=== PATIENT | male | born 1930 | race Caucasian/White ===

== ENCOUNTER → 2016-08-20 | Outpatient (CLI) | payer MEDICARE ==
[~2016-08-20] VITALS: Ht 172.7 cm; Wt 73.5 kg
[~2016-08-20] MED LIST: ACET-1697 PO; ACET-77 PO; ACETAMINOPHEN 325 MG TABLET/CAPLET (TYLENOL) ONE; ACETAMINOPHEN 325 MG TABLET/CAPLET (TYLENOL) PO ONE; ACHD5005 PO; ALPR0.5T7 PO; AML2.5T PO; AML5T; ASP81CT PO; ASPI-983 PO; ASPI325T4 PO; BETH25TA PO; BTH25T1 PO; CALC600T PO; CALC625T PO; CARB1TAB19 PO; CARB1TAB6 PO; CARBIDOPA PO; CHOL200049 PO; CIPR-226 PO; CLOP75TA PO; CLOP75TA28 PO; CLPD75T PO; CPR250T PO; CPR500T PO; Calcium PO; DOXA2TAB2 PO; DXZS2T; DXZS2T PO; FINA5TAB6 PO; FISH12002 PO; FURO40TA4 PO; GLUC-113 PO; GLUC100016 PO; HCTZ12.5T; INSR1U SC; IPRA3AMP INH; ISM60TCR PO; LOVA20TA2 PO; MENT71OI TOP; NIAC400C2 PO; NORM2DIS3 IV; NS IV 500 ML 500 ML ONE; OMG1KC PO; PANT40TA3 PO; PHEN200T27 PO; RMP2.5C; ROPI4TAB3 PO; TAMS0.4C2 PO; TRAM50TA2 PO; [UNRECOGNIZED DRUG - CODE] PO; [UNRECOGNIZED DRUG - OTHER] PO; [UNRECOGNIZED DRUG - OTHER] PO; diphenhydrAMINE 25 MG TAB (BENADRYL) PO ONE; diphenhydrAMINE 50 MG/ML INJ (BENADRYL) IVP ONE
--- OUTSIDE RECORDS SUMMARY | 2016-08-20 08:17 | XMS REPORT | Continuity of Care Document ---
Author Author [facility] Organization [facility] Address Unknown Phone Unavailable Care Team Providers Care Process Engineering Intern Name Role Phone INGRID NICOLE DO PCP Insurance Providers Payer Name Policy Number Subscriber Name Relationship Wps Medicare [id number] Mario Kirby 17 Self / Same As Patient Advance Directives Directive Response Recorded Date/Time Advance Directives No 09/06/14 10:20am Health Care Power of Holistic Health Practitioner No 09/06/14 10:20am Organ Donor No 09/06/14 10:20am Resuscitation Status Full Code 09/06/14 10:20am Problems Medical Problems Problem Onset Date Status Anemia 09/04/2014 Active Medications Medication Dose Route Sig Days/Qty Instructions Order Date Discontinued Date Status Amlodipine Besylate 02/09/07 01/08/12 Discontinued Hydrochlorothiazide 02/09/07 01/08/12 Discontinued Doxazosin Mesylate 02/09/07 09/07/12 Discontinued [Carbidopa 25/100] 25 - 100 Mg PO TWICE A DAY 02/09/07 03/01/12 Discontinued Ramipril 02/09/07 01/08/12 Discontinued Aspirin 81 Mg PO DAILY 02/09/07 09/09/14 Discontinued Calcium Polycarbophil 1 Tab PO DAILY 01/08/12 09/04/14 Discontinued Fish Oil 1,000 Mg PO TWICE A DAY 01/08/12 09/06/14 Discontinued Calcium Carbonate 1 Tab PO DAILY @ 1200 01/08/12 Active Lovastatin (Mevacor) 20 Mg PO BEDTIME 01/08/12 Active Selegiline Hcl 5 Mg PO TWICE A DAY 01/08/12 09/04/14 Discontinued Clopidogrel Bisulfate 75 Mg PO DAILY 01/08/12 09/07/12 Discontinued Furosemide (Lasix) 40 Mg PO Q72H TAKES EVERY 3RD DAY 01/08/12 Active Ciprofloxacin 1 Tab PO TWICE A DAY 20 Qty 01/08/12 03/01/12 Discontinued Finasteride 5 Mg PO DAILY 03/01/12 09/07/12 Discontinued Glucosamine Sulfate 2KCL 15,000 Mg PO TWICE A DAY 03/01/12 09/04/14 Discontinued Niacin 500 Mg PO DAILY 03/01/12 09/07/12 Discontinued Carbidopa/Levodopa 2 Tab PO THREE TIMES A DAY 03/01/12 Active Tamsulosin Hcl 0.4 Mg PO DAILY 03/01/12 09/07/12 Discontinued Ropinirole Hcl 4 Mg PO DAILY 04/26/12 09/07/12 Discontinued Ciprofloxacin HCl 1 Tab PO TWICE A DAY 10 Qty 05/03/12 09/07/12 Discontinued Bethanechol Chloride 25 Mg PO FOUR TIMES DAILY 05/03/12 Active Doxazosin Mesylate 2 Mg PO BEDTIME 09/07/12 09/04/14 Discontinued Cholecalciferol (Vitamin D3) 2,000 Unit PO DAILY 09/04/14 Active Clopidogrel Bisulfate 75 Mg PO DAILY 09/04/14 09/09/14 Discontinued [Proferrin-Forte] 1 Tab PO BEDTIME 12 mg elemental iron as heme iron polypeptide, and 1 mg folic acid. 09/04/14 Active Gluc 2KCL/Chondr/Dakota Hy/Hy Ac 1 Cap PO TWICE A DAY 09/04/14 Active Fish Oil/Borage/Flax/Om3,6,9#1 1,200 Mg PO TWICE A DAY 09/06/14 Active Clopidogrel Bisulfate 75 Mg PO DAILY 09/06/14 09/06/14 Discontinued Acetaminophen 1,000 Mg PO THREE TIMES A DAY PRN PAIN 09/06/14 Active Amlodipine Besylate 2.5 Mg PO DAILY 60 Qty 09/09/14 Active Aspirin 325 Mg PO DAILY@0900 100 Qty 09/09/14 Active Doxazosin Mesylate 2 Mg PO TWICE A DAY 60 Qty 09/09/14 Active Social History Social History Problem Response Recorded Date/Time Alcohol Use Denies Use 09/06/2014 10:21am Recreational Drug Use No 09/06/2014 10:21am Recent Foreign Travel No 09/06/2014 10:25am Recent Infectious Disease Exposure No 09/06/2014 10:21am Smoking Status Never a Smoker 09/06/2014 10:23am Query Response Start Date Stop Date Smoking Status Never a Smoker Hospital Discharge Instructions No hospital discharge instructions. Plan of Care Discharge Date 09/09/14 1:48pm Disposition 30 STILL A PATIENT Instructions/Education Provided Carotid Endarterectomy (DC) Forms Provided PDI Surgical Prescriptions See Medications Section Follow-up Orders Other Outpatient Order Referrals DR PRUETT (Unspecified) Reason(s) for Referral: CALL THURSDAY MAKE APPOINTMENT TO BE SEEN THAT WEEK DR CHAPPELL (Unspecified) Reason(s) for Referral: CALL THURSDAY MAKE APPOINTMENT TO BE SEEN Thursday Additional Instructions/Education MAY USE IBUPROFEN 400 MG BY MOUTH EVERY 6 HOURS NEEDED FOR PAIN. TAKE WITH FOOD. IBUPROFEN IS THE SAME ADVIL. CAN BE BOUGHT OVER THE COUNTER I CALLED YOUR PRESCRIPTIONS TO [facility] Care Plan and Goals Dr. Pruett called on 09/07/14 about patient urinary issues and bleeding in reyes. Dr. Pruett suggested to send pt home with reyes catheter due to traumatic reyes insertion and to follow up with him next week 09/11-09/15 CALL TO MAKE APPT To see Dr. Epps next Thursday BEFORE OTHER APPOINTMENT Functional Status Query Response Date Recorded Comprehension Ability Understands Concepts September 09, 2014 8:00am Allergies, Adverse Reactions, Alerts Allergen Type Severity Reaction Status Last Updated sulfamethoxazole ([id number]) Allergy Mild KIDNEY DAMAGE Active 01/08/12 Trimethoprim Allergy Mild KIDNEY DAMAGE Active 01/08/12 milk ([id number]) Allergy Unknown Active 09/17/06 IV DYE Allergy Mild KIDNEY DAMAGE Active 01/08/12 NSAIDS Allergy Mild KIDNEY DAMAGE Active 01/08/12 Immunizations Name Given Type Date of Pneumonia Vaccine 01/20/07 Historical Tetanus Booster (TDap) More than 5yrs Historical pneumococcal polysaccharide PPV23 09/07/14 Administered influenza, split (incl. purified surface antigen) 09/07/14 Administered Vital Signs Acute Vital Signs Vital Response Date/Time Temperature (Fahrenheit) 99.0 degrees F (97.6 - 99.5) Temperature (Calculated Celsius) 37.54071 degrees C (36.4 - 37.5) Temperature Source Temporal Pulse Rate (adult) 52 bpm (60 - 90) Respiratory Rate 31 bpm (12 - 24) O2 Sat by Pulse Oximetry 96 % (88 - 100) Blood Pressure 105/60 mm Hg Pain Pain Intensity 6 Height (Feet) 5 feet Height (Inches) 8.00 inches Height (Calculated Centimeters) 172.703075 cm Weight (Pounds) 170 pounds Weight (Ounces) 2.0 oz Weight (Calculated Grams) 64694.704 gm Weight (Calculated Kilograms) 77.555715 kilograms Calculated BMI 25.24 Results Laboratory Results Test Name Result Units Flags Reference Collection Date/Time Result Date/ Time Comments Stool Occult Blood Immunoassay NEGATIVE NEGATIVE 08/24/2014 4:00pm 6:25pm White Blood Count 8.5 10^3/uL 4.3-11.0 09/04/2014 4:35pm 09/04/2014 4: 45pm Red Blood Count 3.27 10^6/uL L 4.35-5.85 09/04/2014 4:35pm 09/04/2014 4: 45pm Hemoglobin 8.6 G/DL #L 13.3-17.7 09/04/2014 4:35pm 09/04/2014 4:45pm Hematocrit 27 % L 40-54 09/04/2014 4:35pm 09/04/2014 4:45pm Mean Corpuscular Volume 84 FL 80-99 09/04/2014 4:35pm 09/04/2014 4: 45pm Mean Corpuscular Hemoglobin 26 PG 25-34 09/04/2014 4:35pm 09/04/2014 4: 45pm Mean Corpuscular Hemoglobin Concent 32 G/DL 32-36 09/04/2014 4:35pm 4:45pm Red Cell Distribution Width 14.5 % 10.0-14.5 09/04/2014 4:35pm 2014 4:45pm Platelet Count 383 10^3/uL 130-400 09/04/2014 4:35pm 09/04/2014 4:45pm Mean Platelet Volume 8.7 FL 7.4-10.4 09/04/2014 4:35pm 09/04/2014 4: 45pm White Blood Count 6.4 10^3/uL 4.3-11.0 09/04/2014 9:35am 09/04/2014 10: 01am Red Blood Count 2.39 10^6/uL L 4.35-5.85 09/04/2014 9:35am 09/04/2014 10: 01am Hemoglobin 6.1 G/DL CL 13.3-17.7 09/04/2014 9:35am 09/04/2014 10:01am RESULTS CALLED TO MASHA GAGNON RN AT 1000. RESULTS READ BACK: YES. Hematocrit 20 % CL 40-54 09/04/2014 9:35am 09/04/2014 10:01am RESULTS CALLED TO MASHA AT 1000 RESULTS READ BACK: YES. Mean Corpuscular Volume 83 FL 80-99 09/04/2014 9:35am 09/04/2014 10: 01am Mean Corpuscular Hemoglobin 26 PG 25-34 09/04/2014 9:35am 09/04/2014 10 :01am Mean Corpuscular Hemoglobin Concent 31 G/DL L 32-36 09/04/2014 9:35am 10:01am Red Cell Distribution Width 14.8 % H 10.0-14.5 09/04/2014 9:35am 2014 10:01am Platelet Count 384 10^3/uL 130-400 09/04/2014 9:35am 09/04/2014 10: 01am Mean Platelet Volume 8.8 FL 7.4-10.4 09/04/2014 9:35am 09/04/2014 10: 01am Neutrophils (%) (Auto) 65 % 42-75 09/04/2014 9:35am 09/04/2014 10:01am Lymphocytes (%) (Auto) 19 % 12-44 09/04/2014 9:35am 09/04/2014 10:01am Monocytes (%) (Auto) 7 % 0-12 09/04/2014 9:35am 09/04/2014 10:01am Eosinophils (%) (Auto) 8 % 0-10 09/04/2014 9:35am 09/04/2014 10:01am Basophils (%) (Auto) 1 % 0-10 09/04/2014 9:35am 09/04/2014 10:01am Neutrophils # (Auto) 4.2 X 10^3 1.8-7.8 09/04/2014 9:35am 09/04/2014 10 :01am Lymphocytes # (Auto) 1.2 X 10^3 1.0-4.0 09/04/2014 9:35am 09/04/2014 10 :01am Monocytes # (Auto) 0.5 X 10^3 0.0-1.0 09/04/2014 9:35am 09/04/2014 10: 01am Eosinophils # (Auto) 0.5 10^3/uL H 0.0-0.3 09/04/2014 9:35am 09/04/2014 10:01am Basophils # (Auto) 0.0 10^3/uL 0.0-0.1 09/04/2014 9:35am 09/04/2014 10: 01am Prothrombin Time 14.5 SEC 12.2-14.7 09/04/2014 9:35am 09/04/2014 10: 10am INR Comment 1.2 0.8-1.4 09/04/2014 9:35am 09/04/2014 10:10am INTERPRETIVE DATA SUGGESTED THERAPEUTIC RANGE FOR INR'S: VENOUS THROMBOSIS, PULMONARY EMBOLISM, OR PREVENTION OF SYSTEMIC EMBOLISM (EG. IN ATRIAL FIBRILLATION): 2.0 - 3.0 MECHANICAL PROSTHETIC HEART VALVES: 2.5 - 3.5* *NOTE: INR'S UP TO 4.5 MAY BE NECESSARY IN SELECTED GROUPS OF HIGH RISK PATIENTS. [employer]IX[employer] [place] COL[employer] OF CHEST PHYSICIANS CONSENSUS CONFERENCE ON ANTITHROMBOTIC THERAPY (2000). Sodium Level 143 MMOL/L 135-145 09/04/2014 9:35am 09/04/2014 10:12am Potassium Level 4.2 MMOL/L 3.6-5.0 09/04/2014 9:35am 09/04/2014 10: 12am Chloride Level 114 MMOL/L H 98-107 09/04/2014 9:35am 09/04/2014 10:12am Carbon Dioxide Level 20 MMOL/L L 21-32 09/04/2014 9:35am 09/04/2014 10: 12am Blood Urea Nitrogen 45 MG/DL H 7-18 09/04/2014 9:35am 09/04/2014 10:12am Creatinine 2.59 MG/DL H 0.60-1.30 09/04/2014 9:35am 09/04/2014 10:12am BUN/Creatinine Ratio 17 09/04/2014 9:35am 09/04/2014 10:12am Estimat Glomerular Filtration Rate 24 09/04/2014 9:35am 09/04/2014 10:12am GFR INTERPRETIVE DATA UNITS FOR ESTIMATED GFR (eGFR): mL/min/1.73 M2 REFERENCE RANGE FOR ESTIMATED GFR (eGFR) eGFR NORMAL eGFR >60 MODERATELY DECREASED eGFR 30-59 SEVERLY DECREASED eGFR 15-29 KIDNEY FAILURE <15 (OR DIALYSIS) Glucose Level 111 MG/DL H 70-105 09/04/2014 9:35am 09/04/2014 10:12am Calcium Level 8.8 MG/DL 8.5-10.1 09/04/2014 9:35am 09/04/2014 10:12am White Blood Count 8.9 10^3/uL 4.3-11.0 09/09/2014 6:45am 09/09/2014 7: 03am Red Blood Count 3.43 10^6/uL L 4.35-5.85 09/09/2014 6:45am 09/09/2014 7: 03am Hemoglobin 9.2 G/DL L 13.3-17.7 09/09/2014 6:45am 09/09/2014 7:03am Hematocrit 29 % L 40-54 09/09/2014 6:45am 09/09/2014 7:03am Mean Corpuscular Volume 83 FL 80-99 09/09/2014 6:45am 09/09/2014 7: 03am Mean Corpuscular Hemoglobin 27 PG 25-34 09/09/2014 6:45am 09/09/2014 7: 03am Mean Corpuscular Hemoglobin Concent 32 G/DL 32-36 09/09/2014 6:45am 7:03am Red Cell Distribution Width 15.9 % H 10.0-14.5 09/09/2014 6:45am 2014 7:03am Platelet Count 271 10^3/uL 130-400 09/09/2014 6:45am 09/09/2014 7:03am Mean Platelet Volume 9.7 FL 7.4-10.4 09/09/2014 6:45am 09/09/2014 7: 03am Neutrophils (%) (Auto) 73 % 42-75 09/09/2014 6:45am 09/09/2014 7:03am Lymphocytes (%) (Auto) 13 % 12-44 09/09/2014 6:45am 09/09/2014 7:03am Monocytes (%) (Auto) 12 % 0-12 09/09/2014 6:45am 09/09/2014 7:03am Eosinophils (%) (Auto) 2 % 0-10 09/09/2014 6:45am 09/09/2014 7:03am Basophils (%) (Auto) 0 % 0-10 09/09/2014 6:45am 09/09/2014 7:03am Neutrophils # (Auto) 6.4 X 10^3 1.8-7.8 09/09/2014 6:45am 09/09/2014 7: 03am Lymphocytes # (Auto) 1.2 X 10^3 1.0-4.0 09/09/2014 6:45am 09/09/2014 7: 03am Monocytes # (Auto) 1.0 X 10^3 0.0-1.0 09/09/2014 6:45am 09/09/2014 7: 03am Eosinophils # (Auto) 0.2 10^3/uL 0.0-0.3 09/09/2014 6:45am 09/09/2014 7 :03am Basophils # (Auto) 0.0 10^3/uL 0.0-0.1 09/09/2014 6:45am 09/09/2014 7: 03am Neutrophils % (Manual) 60 % 09/06/2014 11:30am 09/06/2014 11:47am Band Neutrophils 6 % 09/06/2014 11:30am 09/06/2014 11:47am Lymphocytes % (Manual) 20 % 09/06/2014 11:30am 09/06/2014 11:47am Monocytes % (Manual) 8 % 09/06/2014 11:30am 09/06/2014 11:47am Eosinophils % (Manual) 6 % 09/06/2014 11:30am 09/06/2014 11:47am Basophils % (Manual) 0 % 09/06/2014 11:30am 09/06/2014 11:47am Blood Morphology Comment NORMAL 09/06/2014 11:30am 09/06/2014 11: 47am Urine Color YELLOW 09/07/2014 4:15pm 09/07/2014 4:40pm Urine Clarity SLIGHTLY CLOUDY 09/07/2014 4:15pm 09/07/2014 4:40pm Urine pH 6 5-9 09/07/2014 4:15pm 09/07/2014 4:40pm Urine Specific [place] 1.010 * 1.016-1.022 09/07/2014 4:15pm 2014 4:40pm Urine Protein 3+ * NEGATIVE 09/07/2014 4:15pm 09/07/2014 4:40pm Urine Glucose (UA) NEGATIVE NEGATIVE 09/07/2014 4:15pm 09/07/2014 4: 40pm Urine RBC (Auto) 5+ * NEGATIVE 09/07/2014 4:15pm 09/07/2014 4:40pm Urine Ketones NEGATIVE NEGATIVE 09/07/2014 4:15pm 09/07/2014 4:40pm Urine Nitrite NEGATIVE NEGATIVE 09/07/2014 4:15pm 09/07/2014 4:40pm Urine Bilirubin NEGATIVE NEGATIVE 09/07/2014 4:15pm 09/07/2014 4: 40pm Urine Urobilinogen NORMAL MG/DL NORMAL 09/07/2014 4:15pm 09/07/2014 4: 40pm Urine Leukocyte Esterase 3+ * NEGATIVE 09/07/2014 4:15pm 09/07/2014 4: 40pm Urine RBC >100 /HPF * 09/07/2014 4:15pm 09/07/2014 4:40pm Urine WBC TNTC /HPF * 09/07/2014 4:15pm 09/07/2014 4:40pm Urine Bacteria MODERATE /HPF * 09/07/2014 4:15pm 09/07/2014 4:40pm Urine Crystals NONE /LPF 09/07/2014 4:15pm 09/07/2014 4:40pm Urine Casts NONE /LPF 09/07/2014 4:15pm 09/07/2014 4:40pm Urine Mucus NEGATIVE /LPF 09/07/2014 4:15pm 09/07/2014 4:40pm Urine Culture Indicated YES 09/07/2014 4:15pm 09/07/2014 4:40pm Sodium Level 142 MMOL/L 135-145 09/09/2014 6:45am 09/09/2014 7:30am Potassium Level 4.4 MMOL/L 3.6-5.0 09/09/2014 6:45am 09/09/2014 7:30am Chloride Level 115 MMOL/L H 98-107 09/09/2014 6:45am 09/09/2014 7:30am Carbon Dioxide Level 18 MMOL/L L 21-32 09/09/2014 6:45am 09/09/2014 7: 30am Blood Urea Nitrogen 36 MG/DL H 7-18 09/09/2014 6:45am 09/09/2014 7:30am Creatinine 1.96 MG/DL H 0.60-1.30 09/09/2014 6:45am 09/09/2014 7:30am BUN/Creatinine Ratio 18 09/09/2014 6:45am 09/09/2014 7:30am Estimat Glomerular Filtration Rate 33 09/09/2014 6:45am 09/09/2014 7:30am GFR INTERPRETIVE DATA UNITS FOR ESTIMATED GFR (eGFR): mL/min/1.73 M2 REFERENCE RANGE FOR ESTIMATED GFR (eGFR) eGFR NORMAL eGFR >60 MODERATELY DECREASED eGFR 30-59 SEVERLY DECREASED eGFR 15-29 KIDNEY FAILURE <15 (OR DIALYSIS) Glucose Level 116 MG/DL H 70-105 09/09/2014 6:45am 09/09/2014 7:30am Glucometer 271 MG/DL H 70-110 09/09/2014 10:27am 09/09/2014 10:34am Calcium Level 8.2 MG/DL L 8.5-10.1 09/09/2014 6:45am 09/09/2014 7:30am Hemoglobin A1c 4.0 % L 4.5-6.2 09/09/2014 6:45am 09/09/2014 7:37am White Blood Count 7.7 10^3/uL 4.3-11.0 09/05/2014 4:45pm 09/05/2014 4: 51pm Red Blood Count 3.69 10^6/uL L 4.35-5.85 09/05/2014 4:45pm 09/05/2014 4: 51pm Hemoglobin 9.7 G/DL L 13.3-17.7 09/05/2014 4:45pm 09/05/2014 4:51pm Hematocrit 30 % L 40-54 09/05/2014 4:45pm 09/05/2014 4:51pm Mean Corpuscular Volume 82 FL 80-99 09/05/2014 4:45pm 09/05/2014 4: 51pm Mean Corpuscular Hemoglobin 26 PG 25-34 09/05/2014 4:45pm 09/05/2014 4: 51pm Mean Corpuscular Hemoglobin Concent 32 G/DL 32-36 09/05/2014 4:45pm 4:51pm Red Cell Distribution Width 15.0 % H 10.0-14.5 09/05/2014 4:45pm 2014 4:51pm Platelet Count 293 10^3/uL 130-400 09/05/2014 4:45pm 09/05/2014 4:51pm Mean Platelet Volume 8.6 FL 7.4-10.4 09/05/2014 4:45pm 09/05/2014 4: 51pm Microbiology Results Procedure Source Result Collection Date/Time Result Date/Time Urine Culture Urine, Clean Catch STAPH, COAG NEG (WOODWORKING MACHINE OFFBEARER) 09/07/2014 4:15pm 11:00am Procedures Procedure Status Date Provider(s) Carotid endarterectomy completed 09/06/14 MARIO CHAPPELL MD Tracing only of electrocardiogram completed 09/04/14 MARIO CHAPPELL MD Encounters Encounter Location Date/Time Discharged Inpatient Via [facility] 09/06/14 8:55am Departed Clinic Via [facility] 09/05/14 9:10am Discharged Inpatient Via [facility] 09/04/14 10:25am Registered Clinic Via [facility] 09/04/14 9:00am Registered Recurring Via [facility] 08/24/14 4:00pm
[2016-08-20 09:56] VITALS: BP_SYST 116; BP_SYST 125; BP_DIAS 60; BP_DIAS 63
[2016-08-20 10:10] VITALS: BP 114/62
[2016-08-20 12:05] VITALS: BP 104/54
[2016-08-20 12:15] VITALS: BP 104/54
== END ==
LOC: SDC 08:11
PROVIDERS: ATTEND Family Medicine
DX: D64.9 Anemia, unspecified (principal)
CPT/HCPCS: 36430; 86850; 86900; 86901; 86920

== ENCOUNTER → 2016-08-22 | Outpatient (CLI) | payer MEDICARE ==
[~2016-08-22] MED LIST changes: -ACETAMINOPHEN 325 MG TABLET/CAPLET (TYLENOL) ONE; -ACETAMINOPHEN 325 MG TABLET/CAPLET (TYLENOL) PO ONE; -NS IV 500 ML 500 ML ONE; -diphenhydrAMINE 25 MG TAB (BENADRYL) PO ONE; -diphenhydrAMINE 50 MG/ML INJ (BENADRYL) IVP ONE
--- OUTSIDE RECORDS SUMMARY | 2016-08-22 08:38 | XMS REPORT | Continuity of Care Document ---
Author Author [facility] Organization [facility] Address Unknown Phone Unavailable Care Team Providers Care Medical Lab Technician Name Role Phone INGRID NICOLE DO PCP Insurance Providers Payer Name Policy Number Subscriber Name Relationship Wps Medicare [id number] Mario Kirby 17 Self / Same As Patient Advance Directives Directive Response Recorded Date/Time Advance Directives No 09/06/14 10:20am Health Care Power of Tooth Cutter Clutch No 09/06/14 10:20am Organ Donor No 09/06/14 [...] THE COUNTER I CALLED YOUR PRESCRIPTIONS TO [facility] Care Plan and Goals Dr. [...] Type Severity Reaction Status Last Updated sulfamethoxazole ([id number]) Allergy Mild KIDNEY DAMAGE Active 01/08/12 Trimethoprim Allergy Mild KIDNEY DAMAGE Active 01/08/12 milk ([id number]) Allergy Unknown Active 09/17/06 IV DYE Allergy [...] F (97.6 - 99.5) Temperature (Calculated Celsius) 37.08295 degrees C (36.4 - 37.5) Temperature Source Temporal Pulse Rate (adult) 52 bpm (60 - 90) Respiratory Rate 31 bpm (12 - 24) O2 Sat by Pulse Oximetry 96 % (88 - 100) Blood Pressure 105/60 mm Hg Pain Pain Intensity 6 Height (Feet) 5 feet Height (Inches) 8.00 inches Height (Calculated Centimeters) 172.001765 cm Weight (Pounds) 170 pounds Weight (Ounces) 2.0 oz Weight (Calculated Grams) 40850.704 gm Weight (Calculated Kilograms) 77.300824 kilograms Calculated BMI 25.24 Results Laboratory Results [...] SELECTED GROUPS OF HIGH RISK PATIENTS. [employer] [employer] CONSENSUS CONFERENCE ON [...] 5-9 09/07/2014 4:15pm 09/07/2014 4:40pm Urine Specific [place] 1.010 * 1.016-1.022 09/07/2014 4:15pm 2014 4:40pm [...] Culture Urine, Clean Catch STAPH, COAG NEG (INDEPENDENT MARKETING CONSULTANT) 09/07/2014 4:15pm 11:00am Procedures Procedure Status Date Provider(s) Carotid endarterectomy completed 09/06/14 MARIO CHAPPELL MD Tracing only of electrocardiogram completed 09/04/14 MARIO CHAPPELL MD Encounters Encounter Location Date/Time Discharged Inpatient Via [facility] 09/06/14 8:55am Departed Clinic Via [facility] 09/05/14 9:10am Discharged Inpatient Via [facility] 09/04/14 10:25am Registered Clinic Via [facility] 09/04/14 9:00am Registered Recurring Via [facility] 08/24/14 4:00pm
[2016-08-22 08:48] LABS: MEAN PLATELET VOLUME 8.3 FL (7.4-10.4); RED BLOOD COUNT 2.65 10^6/uL (4.35-5.85); RED CELL DISTRIBUTION WIDTH 15.6 % (10.0-14.5); WHITE BLOOD COUNT 6.1 10^3/uL (4.3-11.0)
== END ==
LOC: LAB 08:34
PROVIDERS: ATTEND Family Medicine
DX: D64.9 Anemia, unspecified (principal)
CPT/HCPCS: 36415; 85027

== ENCOUNTER 2016-08-29 12:00 | Inpatient (IN) | payer MEDICARE ==
[~2016-08-29] VITALS: Ht 177.8 cm; Wt 71.2 kg
[~2016-08-29 12:00] MED LIST changes: -ACET-77 PO; -ALPR0.5T7 PO; -ASPI-983 PO; -BETH25TA PO; -CARB1TAB19 PO; -IPRA3AMP INH; -ISM60TCR PO; -MENT71OI TOP; -NORM2DIS3 IV; -PANT40TA3 PO; -TRAM50TA2 PO; -[UNRECOGNIZED DRUG - OTHER] PO
--- OUTSIDE RECORDS SUMMARY | 2016-08-29 12:07 | XMS REPORT | Continuity of Care Document ---
Author Author [facility] Organization [facility] Address Unknown Phone Unavailable Care Team Providers Care Wireless Team Member Name Role Phone INGRID NICOLE DO PCP Insurance Providers Payer Name Policy Number Subscriber Name Relationship Wps Medicare [id number] Mario Kirby 17 Self / Same As Patient Advance Directives Directive Response Recorded Date/Time Advance Directives No 09/06/14 10:20am Health Care Power of Consulting Practice Manager No 09/06/14 10:20am Organ Donor No 09/06/14 [...] THE COUNTER I CALLED YOUR PRESCRIPTIONS TO [facility] Care Plan and Goals Dr. [...] Type Severity Reaction Status Last Updated sulfamethoxazole ([id number]) Allergy Mild KIDNEY DAMAGE Active 01/08/12 Trimethoprim Allergy Mild KIDNEY DAMAGE Active 01/08/12 milk ([id number]) Allergy Unknown Active 09/17/06 IV DYE Allergy [...] F (97.6 - 99.5) Temperature (Calculated Celsius) 37.30555 degrees C (36.4 - 37.5) Temperature Source Temporal Pulse Rate (adult) 52 bpm (60 - 90) Respiratory Rate 31 bpm (12 - 24) O2 Sat by Pulse Oximetry 96 % (88 - 100) Blood Pressure 105/60 mm Hg Pain Pain Intensity 6 Height (Feet) 5 feet Height (Inches) 8.00 inches Height (Calculated Centimeters) 172.700521 cm Weight (Pounds) 170 pounds Weight (Ounces) 2.0 oz Weight (Calculated Grams) 69701.704 gm Weight (Calculated Kilograms) 77.323530 kilograms Calculated BMI 25.24 Results Laboratory Results [...] SELECTED GROUPS OF HIGH RISK PATIENTS. [employer] [place] [employer] CONSENSUS CONFERENCE ON [...] 5-9 09/07/2014 4:15pm 09/07/2014 4:40pm Urine Specific [place] 1.010 * 1.016-1.022 09/07/2014 4:15pm 2014 4:40pm [...] Culture Urine, Clean Catch STAPH, COAG NEG (SAMPLE STEAMER) 09/07/2014 4:15pm 11:00am Procedures Procedure Status Date Provider(s) Carotid endarterectomy completed 09/06/14 MARIO CHAPPELL MD Tracing only of electrocardiogram completed 09/04/14 MARIO CHAPPELL MD Encounters Encounter Location Date/Time Discharged Inpatient Via [facility] 09/06/14 8:55am Departed Clinic Via [facility] 09/05/14 9:10am Discharged Inpatient Via [facility] 09/04/14 10:25am Registered Clinic Via [facility] 09/04/14 9:00am Registered Recurring Via [facility] 08/24/14 4:00pm
[2016-08-29] MEDS ORDERED: NS IV 500 ML 500 ML IV ONE (12:55)
--- NOTE | 2016-08-29 13:04 | ED General ---
General Chief Complaint: General Problems/Pain Stated Complaint: FALLS/WEAKNESS Nursing Triage Note: Pt to ED room 5 via wheelchair. Family reports pt has fallen a couple times over past several days and has been weaker than normal. Pt also c/o bilat hip pain from falls. Nursing Sepsis Screen: No Definite Risk Source of Information: Patient, Family Exam Limitations: No Limitations History of Present Illness Time Seen by Provider: 12:50 Initial Comments Report of increasing weakness in a few falls over the last few days. Currently he is recently started on tramadol for pain related to his Parkinson's disease. He does have advanced Parkinson's disease and typically uses a walker. He rolled out of bed as well as spell while in the bathtub. He denies hitting his head but does complain of some neck pain. He states with his head stooped forward which also may be part of the reason why his neck hurts. No reported current fever or vomiting. He has had lack of appetite and decreased appetite and drinking over the last several days. Denies fever or chills. Denies breathing problems or cough. Denies chest pain or vomiting. This morning, after the fall, EMS was able to assist him to standing and he was doing better. Family elected not to transport that time. He was very weak later and he went to his doctor's office who sent him here for further evaluation. Timing/Duration: 2-3 Days, Getting Worse Severity: Moderate Associated Systoms: Nausea/VomitingNo Shortness of Air Allergies and Home Medications Allergies Coded Allergies: sulfamethoxazole (Verified Allergy, Mild, KIDNEY DAMAGE, 01/08/12) trimethoprim (Verified Allergy, Mild, KIDNEY DAMAGE, 01/08/12) milk (Verified Allergy, Unknown, 09/17/06) Uncoded Allergies: IV DYE (Allergy, Mild, KIDNEY DAMAGE, 01/08/12) NSAIDS (Allergy, Mild, KIDNEY DAMAGE, 01/08/12) Home Medications 1 TAB PO HS (Reported) 12 mg elemental iron as heme iron polypeptide, and 1 mg folic acid. 800 UNIT PO DAILY (Reported) Acetaminophen 500 Mg Tablet 1,000 MG PO TID PRN PRN PAIN (Reported) TAKES 2 (500MG) TABLETS Amlodipine Besylate 2.5 Mg Tab #60 2.5 MG PO DAILY Prescribed by: MARIO CHAPPELL on 09/09/14 1026 Bethanechol Chloride 25 Mg Tablet 25 MG PO QID (Reported) Carbidopa/Levodopa 1 Each Tablet 1 TAB PO TID (Reported) Cholecalciferol (Vitamin D3) 2,000 Unit Tablet 2,000 UNIT PO DAILY (Reported) Clopidogrel Bisulfate 75 Mg Tablet 75 MG PO DAILY (Reported) Doxazosin Mesylate 2 Mg Tab #60 2 MG PO BID Prescribed by: MARIO CHAPPELL on 09/09/14 1026 Fish Oil/Borage/Flax/Om3,6,9#1 1,200 Mg Capsule 1,200 MG PO BID (Reported) Furosemide 40 Mg Tablet 40 MG PO Q72H (Reported) TAKES EVERY 3RD DAY Gluc 2KCL/Chondr/Dakota Hy/Hy Ac 1 Each Capsule 1 CAP PO BID (Reported) Lovastatin 20 Mg Tablet 20 MG PO HS (Reported) Phenazopyridine Hcl 200 Mg Tablet #20 1 EACH PO TID PRN Prescribed by: HAILE OATES on 10/24/14 0933 Constitutional: see HPINo chills, No fever, malaise weakness EENTM: no symptoms reported Respiratory: no symptoms reported Cardiovascular: No chest pain, edemaNo palpitations Gastrointestinal: No abdominal pain, No nausea, No vomiting Musculoskeletal: see HPI joint pain muscle pain neck pain Skin: no symptoms reported Psychiatric/Neurological: See HPI All Other Systems Reviewed Negative Unless Noted: Yes Past Xaoiahs-Zloyoz-Holfsr Hx Patient Social History Alcohol Use: Denies Use Recreational Drug Use: No Smoking Status: Never a Smoker Recent Foreign Travel: No Contact w/Someone Who Travel: No Recent Infectious Disease Expo: No Recent Hopitalizations: No Immunizations Up To Date Tetanus Booster (TDap): More than 5yrs Date of Pneumonia Vaccine: Jan 20, 2007 Seasonal Allergies Seasonal Allergies: No Surgeries HX Surgeries: Yes (POLYPECTOMY x2, TURP, CEA) Respiratory Hx Respiratory Disorders: No Cardiovascular Hx Cardiac Disorders: Yes Cardiac Disorders: Hypertension Neurological Hx Neurological Disorders: Yes Neurological Disorders: Parkinson's Disease Reproductive System Hx Reproductive Disorders: No Sexually Transmitted Disease: No HIV/AIDS: No Genitourinary Hx Genitourinary Disorders: Yes (BPH, URINE RETENTION NO ISSUES SINCE TURP, BLADDER NECK CONSTRICTION) Genitourinary Disorders: Prostate Problems, Renal Failure Gastrointestinal Hx Gastrointestinal Disorders: No Musculoskeletal Hx Musculoskeletal Disorders: Yes (USES WALKER) Musculoskeletal Disorders: Arthritis Endocrine Hx Endocrine Disorders: No ("PREDIABETIC") HEENT HX ENT Disorders: Yes (GLASSES, NO TEETH) Loss of Vision: Bilateral Hearing Impairment: Denies Cancer Hx Cancer: No Psychosocial Hx Psychiatric Problems: No Integumentary HX Skin/Integumentary Disorder: No Blood Transfusions Hx Blood Disorders: Yes (LOW IRON) Adverse Reaction to a Blood Tr: No Reviewed Nursing Assessment Reviewed/Agree w Nursing PMH: Yes Family Medical History Family Medial History: Cardiovascular disease 19 MOTHER Cataracts 19 FATHER Completed stroke 19 FATHER Diabetes mellitus 19 MOTHER G8 BROTHER G8 SISTER FH: cancer G8 BROTHER (bladder) G8 SISTER (breast) Physical Exam-Suspected Sepsis Physical Exam Vital Signs Vital Sign - Last 12Hours 08/29/16 12:37 Temp 100.1 Pulse 90 Resp 20 B/P 147/70 Pulse Ox 93 O2 Delivery Room Air Capillary Refill : Less Than 3 Seconds Blood Pressure Mean: 95 General Appearance: No Apparent Distress WD/WN HEENT: PERRL/EOMI TMs Normal Pharynx Normal Neck: No Tender Lateral, No Tender Midline Respiratory: Lungs Clear Normal Breath Sounds Cardiovascular: Regular Rate, RhythmNo No Murmur, Tachycardia Gastrointestinal: Non Tender Soft Back: Normal Inspection No CVA Tenderness No Vertebral Tenderness Extremity: Normal Capillary Refill (2+ to the level of the mid tibia bilateral ) Non Tender No Calf Tenderness Pedal Edema Neurologic/Psychiatric: Alert Oriented x3 Normal Mood/Affect Skin: normal color warm/dry Progress/Results/Core Measures Suspected Sepsis Recent Fever Within 48 Hours: Yes Infection Criteria Present: Suspected New Infection New/Unexplained Altered Menta: No Sepsis Screen: No Definite Risk Sepsis Diagnosis: SIRS Temperature:100.1 Pulse: 90 Respiratory Rate: 20 Laboratory Tests 08/29/16 12:59: White Blood Count 11.7H Blood Pressure 147 /70 Mean: 95 Laboratory Tests 08/29/16 12:59: Creatinine 2.39H, Platelet Count 350, Total Bilirubin 0.4 Results/Orders Lab Results Laboratory Tests Test 08/29/16 12:59 08/29/16 14:20 08/29/16 14:54 Range/Units Alanine Aminotransferase (ALT/SGPT) < 6 0-55 U/L Albumin 3.6 3.2-4.5 G/DL Alkaline Phosphatase 55 40-136 U/L Anion Gap 11 5-14 MMOL/L Aspartate Amino Transf (AST/SGOT) 18 5-34 U/L B-Type Natriuretic Peptide 199.1 H <100.0 PG/ML BUN/Creatinine Ratio 19 Basophils # (Auto) 0.0 0.0-0.1 10^3/uL Basophils (%) (Auto) 0 0-10 % Blood Urea Nitrogen 45 H 7-18 MG/DL C-Reactive Protein High Sensitivity 19.83 H 0.00-0.50 MG/DL Calcium Level 9.3 8.5-10.1 MG/DL Carbon Dioxide Level 25 21-32 MMOL/L Chloride Level 104 98-107 MMOL/L Creatinine 2.39 H 0.60-1.30 MG/DL Elliptocytes SLIGHT Eosinophils # (Auto) 0.0 0.0-0.3 10^3/uL Eosinophils (%) (Auto) 0 0-10 % Estimat Glomerular Filtration Rate 26 Glucose Level 144 H 70-105 MG/DL Hematocrit 27 L 40-54 % Hemoglobin 8.4 L 13.3-17.7 G/DL Hypersegmented Neutrophils SLIGHT Hypochromasia MODERATE Lactic Acid Level 2.34 *H 0.50-2.00 MMOL/L Lymphocytes # (Auto) 0.6 L 1.0-4.0 X 10^3 Lymphocytes % (Manual) 7 % Lymphocytes (%) (Auto) 5 L 12-44 % Magnesium Level 2.0 1.8-2.4 MG/DL Mean Corpuscular Hemoglobin 28 25-34 PG Mean Corpuscular Hemoglobin Concent 31 L 32-36 G/DL Mean Corpuscular Volume 91 80-99 FL Mean Platelet Volume 9.6 7.4-10.4 FL Monocytes # (Auto) 1.4 H 0.0-1.0 X 10^3 Monocytes % (Manual) 8 % Monocytes (%) (Auto) 12 0-12 % Neutrophils # (Auto) 9.7 H 1.8-7.8 X 10^3 Neutrophils % (Manual) 85 % Neutrophils (%) (Auto) 83 H 42-75 % Platelet Count 350 130-400 10^3/uL Potassium Level 4.6 3.6-5.0 MMOL/L Red Blood Count 3.01 L 4.35-5.85 10^6/uL Red Cell Distribution Width 15.3 H 10.0-14.5 % Sodium Level 140 135-145 MMOL/L Total Bilirubin 0.4 0.1-1.0 MG/DL Total Protein 7.6 6.4-8.2 G/DL Toxic Granulation Troponin I < 0.30 <0.30 NG/ML White Blood Count 11.7 H 4.3-11.0 10^3/uL Urine Bacteria TRACE /HPF Urine Bilirubin NEGATIVE NEGATIVE Urine Casts NONE /LPF Urine Clarity CLEAR Urine Color YELLOW Urine Crystals NONE /LPF Urine Culture Indicated YES Urine Glucose (UA) NEGATIVE NEGATIVE Urine Ketones NEGATIVE NEGATIVE Urine Leukocyte Esterase 3+ H NEGATIVE Urine Mucus NEGATIVE /LPF Urine Nitrite NEGATIVE NEGATIVE Urine Protein 2+ H NEGATIVE Urine RBC 2-5 H /HPF Urine RBC (Auto) 2+ H NEGATIVE Urine Specific [place] 1.010 L 1.016-1.022 Urine Squamous Epithelial Cells RARE /HPF Urine Urobilinogen NORMAL NORMAL MG/DL Urine WBC 50-100 H /HPF Urine pH 5 5-9 My Orders Orders-ABELARDO GUARDADO MD BNP (08/29/16 12:55) Cbc With Automated Diff (08/29/16 12:55) Comprehensive Metabolic Panel (08/29/16 12:55) Hs C Reactive Protein (08/29/16 12:55) Lactic Acid Analyzer (08/29/16 12:55) Magnesium (08/29/16 12:55) Troponin I (08/29/16 12:55) Ua Culture If Indicated (08/29/16 12:55) Blood Culture (08/29/16 12:55) Chest 1 View, Ap/Pa Only (08/29/16 12:55) Ekg Tracing (08/29/16 12:55) Monitor-Rhythm Ecg Trace Only (08/29/16 12:55) Saline Lock/Iv-Start (08/29/16 12:55) Ns Iv 500 Ml (Sodium Chloride 0.9%) (08/29/16 12:55) Ct Head/Cervical Spine Wo (08/29/16 12:55) Manual Differential (08/29/16 12:59) Ns Iv 1000 Ml (Sodium Chloride 0.9%) (08/29/16 14:32) Urine Culture (08/29/16 14:20) Ceftriaxone Injection (Rocephin Injectio (08/29/16 15:00) Medications Given in ED Current Medications Medications Dose Ordered Sig/Janusz Route Start Time Stop Time Status Last Admin Dose Admin Sodium Chloride 500 ml @ 0 mls/hr Q0M ONCE IV 08/29/16 12:55 08/29/16 12:58 DC 08/29/16 13:42 500 MLS/HR Vital Signs/I&O Vital Sign - Last 12Hours 08/29/16 12:37 Temp 100.1 Pulse 90 Resp 20 B/P 147/70 Pulse Ox 93 O2 Delivery Room Air Capillary Refill : Less Than 3 Seconds Blood Pressure Mean: 95 Progress Note : Progress Note Seen and evaluated. IV, labs, UA and chest x-ray ordered. Normal saline 500 mL bolus. Blood cultures and lactic acid ordered. Monitor patient. 1450: I did discuss the case with Dr. Chuck Ricks, on-call for Dr. Nicole. Patient does have urinary tract infection and I do believe this is the source. Lactic acid was elevated indicating severe sepsis. Rocephin 1 g IV initiated. Follow lactic acid is greater than 200 is less than 4 and patient is not hypotensive. There is no indication for high volume fluid resuscitation at this time. He did receive normal saline 500 mL bolus and 1 L bolus. He does have a history of chronic renal failure that seems to be near stable or slightly increased currently. Hemoglobin is improved from last week after transfusions. Admit, inpatient status. Patient and family agree with plan. ECG Initial ECG Impression Date: Aug 29, 2016 Initial ECG Impression Time: 13:55 Initial ECG Rate: 93 Initial ECG Rhythm: Normal Sinus Comment Sinus rhythm with incomplete left bundle branch block. Left ventricular hypertrophy. Left axis deviation. No evidence of ST elevation MS. Similar to previous. Interpreted by me. Diagnostic Imaging Diagonstic Imaging: Xray Plain Films/CT/US/NM/MRI: chest [facility] [place], [place] NAME: MARIO KIRBY [facility] REC#: [id number] PT STATUS: REG ER : 1930 PHYSICIAN: ABELARDO GUARDADO MD ADMIT DATE: 08/29/16/ER Draft Date of Exam:08/29/16 CHEST 1 VIEW, AP/PA ONLY INDICATION: Weakness. TECHNIQUE: Single view chest 1:30 p.m. CORRELATION STUDY: 09/04/2014. FINDINGS: Heart size mildly enlarged but stable. Vasculature within normal limits. Lung generally clear. May be very minimal atelectasis in left costophrenic angle. IMPRESSION: 1. Negative for acute abnormality of the chest. Stable borderline heart size without failure. Dictated on workstation # [id number] Dict: 08/29/16 1350 Trans: 08/29/16 1422 KB [id number] Interpreted by: ANAHI MCCOLLUM DO Electronically signed by: Diagonstic Imaging: CT Plain Films/CT/US/NM/MRI: c-spine, head Comments VIA [facility]. [place], [place] NAME: MARIO KIRBY [facility] REC#: [id number] PT STATUS: REG ER : 1930 PHYSICIAN: ABELARDO GUARDADO MD ADMIT DATE: 08/29/16/ER Draft Date of Exam:08/29/16 CT HEAD/CERVICAL SPINE WO PROCEDURE: CT head and CT cervical spine without contrast. TECHNIQUE: Multiple contiguous axial images were obtained through the brain and cervical spine without the use of intravenous contrast. Sagittal and coronal reformations through the cervical spine were then performed. INDICATION: Status post repeated falls. Generalized weakness. CORRELATION STUDY: None FINDINGS: CT HEAD: Generalized atrophic changes with prominence of ventricles and sulci. Scattered areas of decreased attenuation likely owing to chronic small vessel ischemic disease. No midline shift. No mass effect. No intracranial hemorrhage. There is presence of intracranial vascular calcification. Prior basal ganglia and thalamic lacunar infarcts. No hyperdense MCA sign with presence of intracranial vascular calcification. Bony calvarium intact. Paranasal sinuses and mastoid air cells clear. CT CERVICAL SPINE: Reformatted images demonstrate straightening of normal cervical lordosis. Trace retrolisthesis of C3 on C4 and C4 on C5. Cervical vertebral body heights are maintained. There is marked disc space narrowing at essentially all levels of the cervical spine. Rather prominent endplate osteophyte formation results in osseous narrowing of the neural foramina. This is most pronounced at C2-C3, C3-C4, C4-C5 and C5-C6 levels. Posterior elements with asymmetric areas of hypertrophic facet arthropathy and some cystic change. The odontoid is intact. Paraspinal soft tissues unremarkable. Lung apices unremarkable. IMPRESSION: CT HEAD: 1. Negative for acute traumatic intracranial abnormality. Generalized atrophic changes with changes of small vessel ischemic disease as well as multifocal lacunar infarcts. CT CERVICAL SPINE: 1. Negative for acute fracture or traumatic subluxation. Rather pronounced cervical spondylosis with marked disc space narrowing and endplate osteophyte formation. This does result in at least moderate severity osseous narrowing of neural foramina C2-C3 through C5-C6 levels. Dictated on workstation # [id number] Dict: 08/29/16 1333 Trans: 08/29/16 1439 KB [id number] Interpreted by: ANAHI MCCOLLUM DO Electronically signed by: Departure Communication Time/Spoke to Admitting Phy: 14:50 Impression Impression: Primary Impression: Urinary tract infection Qualified Code: N30.00 - Acute cystitis without hematuria Additional Impressions: Chronic renal failure Qualified Code: N18.9 - Chronic kidney disease, unspecified Severe sepsis Disposition: ADMITTED INPATIENT Condition: Stable Decision to Admit Reason: Admit from ER (General) Decision to Admit/Date: Aug 29, 2016 Time/Decision to Admit Time: 14:50 Departure-Patient Inst. Referrals: INGRID NICOLE DO (PCP/Family) Primary Care Physician ABELARDO GUARDADO MD Aug 29, 2016 13:04
[2016-08-29 13:12] LABS: BASOPHILS % (AUTO) 0 % (0-10); EOSINOPHILS % (AUTO) 0 % (0-10); LYMPHOCYTES # (AUTO) 0.6 X 10^3 (1.0-4.0); LYMPHOCYTES % (AUTO) 5 % (12-44); MEAN CORPUSCULAR HEMOGLOBIN 28 PG (25-34); MEAN CORPUSCULAR HGB CONC 31 G/DL (32-36); MEAN CORPUSCULAR VOLUME 91 FL (80-99); MEAN PLATELET VOLUME 9.6 FL (7.4-10.4); MONOCYTES # (AUTO) 1.4 X 10^3 (0.0-1.0); MONOCYTES % (AUTO) 12 % (0-12); NEUTROPHILS # (AUTO) 9.7 X 10^3 (1.8-7.8); NEUTROPHILS % (AUTO) 83 % (42-75); PLATELET COUNT 350 10^3/uL (130-400); RED BLOOD COUNT 3.01 10^6/uL (4.35-5.85); RED CELL DISTRIBUTION WIDTH 15.3 % (10.0-14.5); WHITE BLOOD COUNT 11.7 10^3/uL (4.3-11.0)
[2016-08-29 13:35] LABS: TROPONIN I < 0.30 NG/ML (<0.30)
[2016-08-29 13:36] LABS: ALANINE AMINOTRANSFERASE < 6 U/L (0-55); ALBUMIN 3.6 G/DL (3.2-4.5); ANION GAP 11 MMOL/L (5-14); ASPARTATE AMINO TRANSFERASE 18 U/L (5-34); BILIRUBIN,TOTAL 0.4 MG/DL (0.1-1.0); BLOOD UREA NITROGEN 45 MG/DL (7-18); BUN/CREATININE RATIO 19; CALCIUM 9.3 MG/DL (8.5-10.1); CARBON DIOXIDE 25 MMOL/L (21-32); CHLORIDE 104 MMOL/L (98-107); CREATININE SERUM 2.39 MG/DL (0.60-1.30); GFR ESTIMATED 26; GLUCOSE 144 MG/DL (70-105); POTASSIUM 4.6 MMOL/L (3.6-5.0); SODIUM 140 MMOL/L (135-145); TOTAL PROTEIN 7.6 G/DL (6.4-8.2)
[2016-08-29 13:37] LABS: hs C REACTIVE PROTEIN 19.83 MG/DL (0.00-0.50)
[2016-08-29 13:57] LABS: HYPOCHROMASIA MODERATE; LYMPHOCYTES % (MANUAL) 7 %; NEUTROPHILS % (MANUAL) 85 %
--- NOTE | 2016-08-29 14:23 | Diagnostic Imaging Report ---
INDICATION: Weakness. TECHNIQUE: Single view chest 1:30 p.m. CORRELATION STUDY: 09/04/2014. FINDINGS: Heart size mildly enlarged but stable. Vasculature within normal limits. Lung generally clear. May be very minimal atelectasis in left costophrenic angle. IMPRESSION: 1. Negative for acute abnormality of the chest. Stable borderline heart size without failure. Dictated by: Dictated on workstation # [id number]
[2016-08-29 14:31] LABS: BILIRUBIN,URINE NEGATIVE (NEGATIVE); KETONES,URINE NEGATIVE (NEGATIVE); LEUKOCYTE ESTERASE ,URINE 3+ (NEGATIVE); NITRITE,URINE NEGATIVE (NEGATIVE); PH,URINE 5 (5-9); PROTEIN,URINE 2+ (NEGATIVE); UROBILINOGEN,URINE NORMAL (NORMAL)
[2016-08-29] MEDS ORDERED: NS IV 1000 ML 1,000 ML IV ONE (14:32)
--- NOTE | 2016-08-29 14:39 | Diagnostic Imaging Report ---
PROCEDURE: CT head and CT cervical spine without contrast. TECHNIQUE: Multiple contiguous axial images were obtained through the brain and cervical spine without the use of intravenous contrast. Sagittal and coronal reformations through the cervical spine were then performed. INDICATION: Status post repeated falls. Generalized weakness. CORRELATION STUDY: None FINDINGS: CT HEAD: Generalized atrophic changes with prominence of ventricles and sulci. Scattered areas of decreased attenuation likely owing to chronic small vessel ischemic disease. No midline shift. No mass effect. No intracranial hemorrhage. There is presence of intracranial vascular calcification. Prior basal ganglia and thalamic lacunar infarcts. No hyperdense MCA sign with presence of intracranial vascular calcification. Bony calvarium intact. Paranasal sinuses and mastoid air cells clear. CT CERVICAL SPINE: Reformatted images demonstrate straightening of normal cervical lordosis. Trace retrolisthesis of C3 on C4 and C4 on C5. Cervical vertebral body heights are maintained. There is marked disc space narrowing at essentially all levels of the cervical spine. Rather prominent endplate osteophyte formation results in osseous narrowing of the neural foramina. This is most pronounced at C2-C3, C3-C4, C4-C5 and C5-C6 levels. Posterior elements with asymmetric areas of hypertrophic facet arthropathy and some cystic change. The odontoid is intact. Paraspinal soft tissues unremarkable. Lung apices unremarkable. IMPRESSION: CT HEAD: 1. Negative for acute traumatic intracranial abnormality. Generalized atrophic changes with changes of small vessel ischemic disease as well as multifocal lacunar infarcts. CT CERVICAL SPINE: 1. Negative for acute fracture or traumatic subluxation. Rather pronounced cervical spondylosis with marked disc space narrowing and endplate osteophyte formation. This does result in at least moderate severity osseous narrowing of neural foramina C2-C3 through C5-C6 levels. Dictated by: Dictated on workstation # [id number]
[2016-08-29 14:40] LABS: SQUAMOUS EPITHELIAL CELL,UR RARE /HPF; WBC,URINE 50-100 /HPF
[2016-08-29] MEDS ORDERED: cefTRIAXone INJECTION 1,000 MG in NS (IVPB) 50 ML IV ONE (15:00)
[2016-08-29] MEDS ORDERED: TRAM50TA2 PO (15:51)
[2016-08-29] MEDS ORDERED: FURO40TA4 PO (15:51)
[2016-08-29] MEDS ORDERED: PANT40TA3 PO (15:51)
[2016-08-29] MEDS ORDERED: BETH25TA PO (15:51)
[2016-08-29] MEDS ORDERED: [UNRECOGNIZED DRUG - OTHER] PO (15:51)
[2016-08-29] MEDS ORDERED: CARB1TAB19 PO (15:51)
[2016-08-29] MEDS ORDERED: LOVA20TA2 PO (15:51)
[2016-08-29] MEDS ORDERED: ASPI-983 PO (15:53)
[2016-08-29 16:10] VITALS: BP 139/81
[2016-08-29] MEDS: NS IV 1000 ML 1,000 ML IV SCH (16:45)
[2016-08-29] MEDS ORDERED: CATHETER FLUSH 10 ML SYR IV PRN (16:45)
[2016-08-29] MEDS: ACETAMINOPHEN 500 MG TAB (TYLENOL) PO PRN (17:06)
[2016-08-29] MEDS ORDERED: FLU TRIvalent (5 YOA+) 2016-17 (AFLURIA) 0.5 ML IM ONE (17:15)
[2016-08-29] MEDS ORDERED: ISM60TCR PO (17:33)
--- NOTE | 2016-08-29 19:37 | History & Physicial ---
History of Present Illness History of Present Illness Reason for visit/HPI 85-year-old male admitted for sepsis secondary urinary source. Per report patient has fallen 3 times recently. Son reports his father has not been very mobile over the past 6 months. He continues to complain of chronic knee pain. EMS came out to the house earlier today and they were able to get patient back up in bed off the floor. Family declined transportation to the ER. Patient was seen at PCP Dr. Munoz who was concerned enough to send him to the ER. His lactic acid was 2.34 and his urine indicated infection. He does have chronic kidney disease stage IV but has been pretty stable for the past 2 years . 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 He does have an issue with anemia though- and received a blood transfusion 1 unit packed red blood cells 2 to 3 weeks ago. Also of note patient's been pretty lethargic and has had a poor appetite which includes poor fluid intake. Patient received IV fluids in the ER and shortly after getting to the fourth floor he was eating Jell-O and started on a mashed potato. Recheck of his lactic acid was below 1. reports he has not been feeling well for about 2 days- he has had a fever up to 101.5F. Date of Admission Aug 29, 2016 at 15:20 I consulted on this patient on 08/29/16 19:31 Attending Physician Jam Munoz DO Admitting Physician Jam Munoz DO Consult Allergies and Home Medications Allergies Coded Allergies: sulfamethoxazole (Verified Allergy, Mild, KIDNEY DAMAGE, 08/29/16) trimethoprim (Verified Allergy, Mild, KIDNEY DAMAGE, 08/29/16) lactose (Verified Allergy, Unknown, 08/29/16) Uncoded Allergies: IV DYE (Allergy, Mild, KIDNEY DAMAGE, 01/08/12) NSAIDS (Allergy, Mild, KIDNEY DAMAGE, 01/08/12) Home Medications Bethanechol Chloride 25 Mg Tablet 25 MG PO ACHS (Reported) Carbidopa/Levodopa 1 Each Tablet 2 TAB PO TID (Reported) Furosemide 40 Mg Tablet 40 MG PO Q48H (Reported) needs 08/30/16 Isosorbide Mononitrate 60 Mg Tab 60 MG PO DAILY (Reported) Lovastatin 20 Mg Tablet 20 MG PO HS (Reported) Past Vdueacs-Gtptrv-Uykwcl Hx Patient Social History Alcohol Use: Denies Use Recreational Drug Use: No Smoking Status: Never a Smoker Physical Abuse Screen: No Sexual Abuse: No Recent Foreign Travel: No Contact w/other who traveled: No Recent Hopitalizations: No Recent Infectious Disease Expo: No Immunizations Up To Date Tetanus Booster (TDap): More than 5yrs Date of Pneumonia Vaccine: Jan 20, 2007 Seasonal Allergies Seasonal Allergies: No Surgeries HX Surgeries: Yes (POLYPECTOMY x2, TURP, CEA) Respiratory Hx Respiratory Disorders: No Cardiovascular Hx Cardiovascular Disorders: Yes Cardiac Disorders: Hypertension Neurological Hx Neurological Disorders: Yes Neurological Disorders: Parkinson's Disease Reproductive System Hx Reproductive Disorders: No Sexually Transmitted Disease: No HIV/AIDS: No Genitourinary Hx Genitourinary Disorders: Yes (BPH, URINE RETENTION NO ISSUES SINCE TURP, BLADDER NECK CONSTRICTION) Genitourinary Disorders: Prostate Problems, Renal Failure Gastrointestinal Hx Gastrointestinal Disorders: No Musculoskeletal Hx Musculoskeletal Disorders: Yes (USES WALKER) Musculoskeletal Disorders: Arthritis Endocrine Hx Endocrine Disorders: No ("PREDIABETIC") HEENT HX ENT Disorders: Yes (GLASSES, NO TEETH) Loss of Vision: Bilateral Hearing Impairment: Denies Cancer Hx Cancer: No Psychosocial Hx Psychiatric Problems: No Integumentary HX Skin/Integumentary Disorder: No Blood Transfusions Hx Blood Disorders: Yes (LOW IRON) Adverse Reaction to a Blood Tr: No Reviewed Nursing Assessment Reviewed/Agree w Nursing PMH: Yes Family Medical History Family Hx: Cardiovascular disease 19 MOTHER Cataracts 19 FATHER Completed stroke 19 FATHER Diabetes mellitus 19 MOTHER G8 BROTHER G8 SISTER FH: cancer G8 BROTHER (bladder) G8 SISTER (breast) No Family History of: AIDS Abdominal aortic aneurysm Alcoholism Alzheimer's disease Arthritis Asthma Cancer of mouth Colon cancer Dementia Drug abuse Glaucoma Hypertension Kidney disease Myocardial infarction Parkinson's disease Psychosocial problem Respiratory disorder Seizure disorder Severe allergy Thyroid disease Constitutional: chills fever malaise weakness EENTM: No blurred vision Respiratory: No cough, No dyspnea on exertion Cardiovascular: No chest pain Gastrointestinal: No abdominal pain, No constipation, No diarrhea Genitourinary: dysuria frequency Musculoskeletal: joint pain (knees) Skin: No change in color, No change in hair/nails Psychiatric/Neurological: Denies Anxiety, Denies Depressed Physical Exam Vital Signs Vital Sign - Last 12Hours 08/29/16 12:37 Temp 100.1 Pulse 90 Resp 20 B/P 147/70 Pulse Ox 93 O2 Delivery Room Air Capillary Refill : Less Than 3 Seconds General Appearance: Mild Distress HEENT: PERRL/EOMI (pale conjunctiva) Neck: Non Tender Supple Respiratory: Chest Non Tender Lungs Clear Normal Breath Sounds Cardiovascular: Regular Rate, Rhythm Systolic Murmur (III/) Gastrointestinal: Normal Bowel Sounds Non Tender Soft Other (suprapubic tenderness) Rectal: Deferred Back: No CVA Tenderness No Vertebral Tenderness Extremity: Pedal Edema Neurologic/Psychiatric: Alert Oriented x3 Normal Mood/Affect Skin: Warm/Dry Assessment/Plan Assessment and Plan 85 yo M admitted 08/29/16 Recent falls/weakness- PT, hydration/nutrition Sepsis due to urinary source- IVF, abx UTI without hematuria- rocephin, IVF, urine/blood culture pending CKD stage IV- near baseline Cr , GFR 26, IVF Anorexia- improved after IVF- monitor intake Anemia- CBC in am, if <8 consider 1u pRBC- last transfusion was 2-3weeks ago- has appt with Dr. Lino coming up, maybe next week. HTN- monitor Parkinson disease- continue sinemet DVT: SCDs, heparin Dispo: monitoring clinical condition. Patient is improving as now he has an appetite. continue Rocephin and monitor urine culture and blood culture. CBC in a.m. if hemoglobin less than 8 likely will give 1 unit of packed red blood cells. physical therapy ordered Pt has appt with Dr. Lino next week. Clinical Quality Measures DVT/VTE Risk/Contraindication: Risk Factor Score Per Nursin RFS Level Per Nursing on Admit: 4+=Very High PAULINO LAGUNAS MD Aug 29, 2016 19:37
[2016-08-29] MEDS: RT-ALBUTEROL/IPRATROPIUM 3 ML (DUONEB) VIAL INH SCH ×2 (20:10→20:32)
[2016-08-29 20:29] VITALS: BP 111/53
[2016-08-29] MEDS: BETHANECHOL 25 MG (URECHOLINE) TAB PO SCH (21:00)
[2016-08-29] MEDS: SINEMET 25/100 (CARBIDOPA/LEVODOPA) TAB PO SCH (21:00)
[2016-08-30] VITALS (11 sets, daily range): BP systolic 114–167; BP diastolic 55–83
[2016-08-30] MEDS: ACETAMINOPHEN 500 MG TAB (TYLENOL) PO PRN ×3 (00:06→16:53)
[2016-08-30] MEDS: NS IV 1000 ML 1,000 ML IV SCH ×2 (00:07→09:33)
[2016-08-30] MEDS ORDERED: HALOPERIDOL 5 MG/ML (HALDOL) AMP IM PRN (01:00)
[2016-08-30] MEDS: BETHANECHOL 25 MG (URECHOLINE) TAB PO SCH ×4 (05:41→20:17)
[2016-08-30] MEDS: RT-ALBUTEROL/IPRATROPIUM 3 ML (DUONEB) VIAL INH SCH (07:00)
[2016-08-30] MEDS ORDERED: RT-ALBUTEROL/IPRATROPIUM 3 ML (DUONEB) VIAL INH PRN (09:00)
[2016-08-30] MEDS ORDERED: cefTRIAXone INJECTION 1,000 MG in NS (IVPB) 50 ML IV SCH (09:00)
[2016-08-30] MEDS: FUROSEMIDE 40 MG (LASIX) TAB PO SCH (09:21)
[2016-08-30] MEDS: SINEMET 25/100 (CARBIDOPA/LEVODOPA) TAB PO SCH ×3 (09:21→20:17)
[2016-08-30 09:46] LABS: BASOPHILS % (AUTO) 0 % (0-10); EOSINOPHILS % (AUTO) 0 % (0-10); LYMPHOCYTES # (AUTO) 0.6 X 10^3 (1.0-4.0); LYMPHOCYTES % (AUTO) 6 % (12-44); MEAN CORPUSCULAR HEMOGLOBIN 28 PG (25-34); MEAN CORPUSCULAR HGB CONC 32 G/DL (32-36); MEAN CORPUSCULAR VOLUME 89 FL (80-99); MEAN PLATELET VOLUME 9.5 FL (7.4-10.4); MONOCYTES # (AUTO) 1.3 X 10^3 (0.0-1.0); MONOCYTES % (AUTO) 12 % (0-12); NEUTROPHILS % (AUTO) 82 % (42-75); PLATELET COUNT 308 10^3/uL (130-400); RED BLOOD COUNT 2.85 10^6/uL (4.35-5.85); RED CELL DISTRIBUTION WIDTH 15.1 % (10.0-14.5)
[2016-08-30 10:09] LABS: BILIRUBIN,TOTAL 0.4 MG/DL (0.1-1.0); CALCIUM 8.9 MG/DL (8.5-10.1); CREATININE SERUM 2.14 MG/DL (0.60-1.30); POTASSIUM 4.5 MMOL/L (3.6-5.0); TOTAL PROTEIN 6.4 G/DL (6.4-8.2)
--- NOTE | 2016-08-30 11:29 | Physical Therapy Evaluation ---
PT Evaluation-General Medical Diagnosis Admission Date Aug 29, 2016 at 15:20 Medical Diagnosis: sepsis secondary to urinary source Onset Date: Aug 29, 2016 Therapy Diagnosis Therapy Diagnosis: debility Height/Weight Height (Feet): 5 Height (Inches): 10.00 Weight (Pounds): 157 Weight (Ounces): 0.8 Precautions Precautions/Isolations: Fall Prevention, Standard Precautions Weight Bear Status Weight Bearing Restriction: Full Weight Bearing Location Restriction: LE Bilateral Referral Physician: Chuck Ricks MD Reason for Referral: Evaluation/Treatment Medical History Pertinent Medical History: Arthritis, HTN, Parkinson's Additional Medical History chronic kidney disease, anemia, polypectomy x 2, TURP, CEA, renal failure, prostate problems, prediabetic Current History Pt admitted through ER with diagnosis of sepsis secondary to urinary source. Pt' s spouse reports Pt fell in the BR and "rolled out of bed" day of admission. Per history, son reports that mobility has progressively decreased over 6 months. Per family report, Pt has been refusing medication, including Parkinson' s meds Reviewed History: Yes Social History Home: Apartment Current Living Status: Spouse Entry Into Home: Ramp Pt lives with spouse in an apartment that is connected to son and daughter-in- law's house Prior/Core FIM Prior Level of Function Functional Andrew Measure 0=Not Assessed/NA 4=Minimal Assistance 1=Total Assistance 5=Supervision or Setup 2=Maximal Assistance 6=Modified Andrew 3=Moderate Assistance 7=Complete Andrew Bed Mobility: 6 Transfers (B,C,W/C) (FIM): 6 Gait: 5 (very limited household) Pt reports "I was using a cane then I went to my walker and I'm planning to use a WCH (secondary to chronic knee pain)." Family reports mobility has decreased over last 6 months. PT Evaluation-Current Subjective Pt in bed, initially refusing to participate. Strongly encouraged by and PT , reluctantly agrees. Keeps eyes closed through most treatment. Very resistant to (B) LE being moved. Reports (B) knee pain but no pain rating given. Objective Patient Orientation: Person, Place, Time, Situation Problem Solving: Fair ROM/Strength ROM Upper Extremities See OT ROM Lower Extremities Unable to fully assess due to knee pain, Pt reluctance to move. Keeps (B) knees in flexion in both supine and standing. Strength Upper Extremities See OT Strenght Lower Extremities grossly 3/5 Integumentary/Posture Integumentary See nurses' notes Posture Flexed, (B) knees in flexion Neuromuscular (Tone, Coordination, Reflexes) Resting tremor Sensory Vision: Functional Hearing: Impaired Transfers Functional Andrew Measure 0=Not Assessed/NA 4=Minimal Assistance 1=Total Assistance 5=Supervision or Setup 2=Maximal Assistance 6=Modified Andrew 3=Moderate Assistance 7=Complete Andrew Transfers (B, C, W/C) (FIM): 3 Scootin Rollin Supine to/from Sit: 3 Sit to/from Stand: 3 Very slow, Pt adamant that LE not be touched moving OOB. Agreed to PT assist back into bed. Gait Mode of Locomotion: Walk Anticipated Mode of Locomotion: Both Gait (FIM): 0 Distance (FIM): 0=does not occure Wheelchair Training Wheelchair (FIM): 0 Balance Sitting Static: Fair Sitting Dynamic: Fair Standing Static: Poor Standing Dynamic: Poor Treatment Eval. Pt agreeable to stand EOB with max encouragement. Pt stood with flexed posture, forearms on FWW. Did not follow cues to attempt upright posture. Returned to bed with rails up, needs met. Assessment/Needs Pt would benefit from skilled PT to improve functional strength and functional mobility to decrease caregiver burden upon return home. Clinical presentation: high complexity, unstable. Rehab Potential: Fair (Pt requires max encouragement to participate. ) PT Short Term Goals Short Term Goals Time Frame: Sep 06, 2016 Transfers (B,C,W/C) (FIM): 4 PT Baker Biscuit Goals Baker Biscuit Goals PT Assisted Goals Time Frame: Sep 20, 2016 Transfers (B,C,W/C) (FIM): 6 Gait (FIM): 2 Gait distance (FIM): 1=up to 49 ft Distance: 25 Gait Level of Assist: 6 Gait Assistive Device: FWW Wheelchair (FIM): 5 Wheelchair distance (FIM): 3=150 ft Distance: 150 Wheelchair Level of Assist: 5 PT goals established to allow safe return home with family with decreased caregiver burden. PT Plan Problem List Problem List: Activity Tolerance, Functional Strength, Safety, Balance, Gait, Transfer, Bed Mobility, ROM Treatment/Plan Treatment Plan: Continue Plan of Care Treatment Plan: Bed Mobility, Education, Functional Activity Amador, Functional Strength, Gait, Safety, Therapeutic Exercise, Transfers Treatment Duration: Sep 20, 2016 # of days/week 5-6 Visits Per Week: 5-6 Pt/Family Agrees w/Plan: Yes Safety Risks/Education Teaching Recipient: Patient, Significant Other Teaching Methods: Discussion Response to Teaching: Reinforcement Needed PT POC, importance of OOB, increasing activity Discharge Recommendations Therapy D/C Recommendations: Snf (TCU/NH) Barriers to Progress motivation, (B) knee pain Time/GCodes Time In: 0830 Time Out: 0853 Total Billed Treatment Time: 23 Total Billed Treatment 1, EVHIGHC x 23' G Codes Necessary: ANJALI Alves DPT Aug 30, 2016 11:29
--- NOTE | 2016-08-30 11:29 | Progress Note (SOAP) ---
Subjective Subjective/Events-last exam 85 yo M admitted for sepsis due to UTI- Overnight pt refused medications- pulled his IV and would not listen to staff- nor would he answer questions- this AM he even refused to listen to his . He has a question for Dr. Munoz and only Dr. Munoz- Finally he agreed for an iv and meds in effort to get better so he will be able to ask Dr. Munoz on Thursday. Pt denies any pain this AM. But later wanted apap for all over pain. Review of Systems General: No Chills, No Night Sweats HEENT: No Head Aches Pulmonary: No Dyspnea, No Cough Cardiovascular: No: Chest Pain Gastrointestinal: No: Abdominal Pain, Nausea, Vomiting Genitourinary: No Dysuria Musculoskeletal: No: neck pain, shoulder pain Neurological: : Weakness Objective Exam Vital Signs Date Time Temp Pulse Resp B/P Pulse Ox O2 Delivery O2 Flow Rate FiO2 08/30/16 08:00 101.7 113 16 153/74 90 Room Air 08/30/16 04:30 99.5 99 18 149/72 94 Room Air 08/30/16 00:45 100.6 08/30/16 00:00 101.7 113 16 153/74 90 Room Air 08/29/16 20:29 100.6 99 20 111/53 94 Room Air 08/29/16 20:11 92 08/29/16 18:20 100.5 08/29/16 17:48 101.1 08/29/16 17:48 101.1 08/29/16 17:06 101.3 08/29/16 16:30 93 08/29/16 16:10 101.5 97 20 139/81 94 Room Air 08/29/16 16:05 98.9 88 18 93 08/29/16 12:37 100.1 90 20 147/70 93 Room Air I & O 08/30/16 06:59 Intake Total 850 ml Balance 850 ml Capillary Refill : Less Than 3 Seconds General Appearance: No Apparent Distress WD/WN HEENT: PERRL/EOMI Neck: Non Tender Supple Respiratory: Chest Non Tender Lungs Clear Cardiovascular: Regular Rate, Rhythm Other (edema 1+ improving) Gastrointestinal: non tender soft Extremity: Inflammation (knees) Neurologic/Psychiatric: Alert Other (grouchy) Skin: Warm/Dry Results Lab Laboratory Tests 08/29/16 12:59: Alanine Aminotransferase (ALT/SGPT) < 6, Albumin 3.6, Alkaline Phosphatase 55, Anion Gap 11, Aspartate Amino Transf (AST/SGOT) 18, B-Type Natriuretic Peptide 199.1H, BUN/Creatinine Ratio 19, Basophils # (Auto) 0.0, Basophils (%) (Auto) 0 , Blood Urea Nitrogen 45H, C-Reactive Protein High Sensitivity 19.83H, Calcium Level 9.3, Carbon Dioxide Level 25, Chloride Level 104, Creatinine 2.39H, Elliptocytes SLIGHT, Eosinophils # (Auto) 0.0, Eosinophils (%) (Auto) 0, Estimat Glomerular Filtration Rate 26, Glucose Level 144H, Hematocrit 27L, Hemoglobin 8.4L, Hypersegmented Neutrophils SLIGHT, Hypochromasia MODERATE, Lactic Acid Level 2.34*H, Lymphocytes # (Auto) 0.6L, Lymphocytes % (Manual) 7, Lymphocytes (%) (Auto) 5L, Magnesium Level 2.0, Mean Corpuscular Hemoglobin 28, Mean Corpuscular Hemoglobin Concent 31L, Mean Corpuscular Volume 91, Mean Platelet Volume 9.6, Monocytes # (Auto) 1.4H, Monocytes % (Manual) 8, Monocytes (%) (Auto) 12, Neutrophils # (Auto) 9.7H, Neutrophils % (Manual) 85, Neutrophils (%) (Auto) 83H, Platelet Count 350, Potassium Level 4.6, Red Blood Count 3.01L, Red Cell Distribution Width 15.3H, Sodium Level 140, Total Bilirubin 0.4, Total Protein 7.6, Toxic Granulation , Troponin I < 0.30, White Blood Count 11.7H 08/29/16 14:20: Urine Bacteria TRACE, Urine Bilirubin NEGATIVE, Urine Casts NONE, Urine Clarity CLEAR, Urine Color YELLOW, Urine Crystals NONE, Urine Culture Indicated YES, Urine Glucose (UA) NEGATIVE, Urine Ketones NEGATIVE, Urine Leukocyte Esterase 3+ H, Urine Mucus NEGATIVE, Urine Nitrite NEGATIVE, Urine Protein 2+H, Urine RBC 2- 5H, Urine RBC (Auto) 2+H, Urine Specific Una 1.010L, Urine Squamous Epithelial Cells RARE, Urine Urobilinogen NORMAL, Urine WBC 50-100H, Urine pH 5 08/29/16 14:54: Lactic Acid Level 0.77 08/30/16 09:35: Alanine Aminotransferase (ALT/SGPT) 6, Albumin 3.0L, Alkaline Phosphatase 52, Anion Gap 11, Aspartate Amino Transf (AST/SGOT) 20, BUN/Creatinine Ratio 19, Basophils # (Auto) 0.0, Basophils (%) (Auto) 0, Blood Urea Nitrogen 41H, Calcium Level 8.9, Carbon Dioxide Level 24, Chloride Level 105, Creatinine 2.14H , Eosinophils # (Auto) 0.0, Eosinophils (%) (Auto) 0, Estimat Glomerular Filtration Rate 29, Glucose Level 146H, Hematocrit 25L, Hemoglobin 8.0L, Lymphocytes # (Auto) 0.6L, Lymphocytes (%) (Auto) 6L, Mean Corpuscular Hemoglobin 28, Mean Corpuscular Hemoglobin Concent 32, Mean Corpuscular Volume 89, Mean Platelet Volume 9.5, Monocytes # (Auto) 1.3H, Monocytes (%) (Auto) 12, Neutrophils # (Auto) 9.0H, Neutrophils (%) (Auto) 82H, Platelet Count 308, Potassium Level 4.5, Red Blood Count 2.85L, Red Cell Distribution Width 15.1H, Sodium Level 140, Total Bilirubin 0.4, Total Protein 6.4, White Blood Count 11.0 Microbiology 08/29/16 Urine Culture - Preliminary, Resulted Probable Enterococcus Species Assessment/Plan Assessment/Plan Assess & Plan/Chief Complaint 85 yo M admitted 08/29/16 Recent falls/weakness- PT, hydration/nutrition Sepsis due to urinary source- IVF, abx UTI without hematuria- rocephin IV, IVF, urine/blood culture pending CKD stage IV- at baseline Cr , GFR 29, IVF Avoid nephrotoxic agents. Anorexia- improved after IVF- monitor intake Anemia- rechecking cbc, if <8 consider 1u pRBC- last transfusion was 2-3weeks ago- has appt with Dr. Lino coming up, maybe next week. HTN- monitor Parkinson disease- continue sinemet agitation- haldol 1mg IM prn DVT: SCDs, heparin Dispo: monitoring clinical condition. Patient is improving as now he has an appetite. CBC at 1600hr if hemoglobin less than 8 likely will give 1 unit of packed red blood cells. physical therapy ordered Pt has appt with Dr. Lino next week. Clinical Quality Measures DVT/VTE Risk/Contraindication: Risk Factor Score Per Nursin RFS Level Per Nursing on Admit: 4+=Very High PAULINO LAGUNAS MD Aug 30, 2016 11:29
--- NOTE | 2016-08-30 12:27 | Occupational Therapy Eval ---
OT Evaluation-General/PLF Medical Diagnosis Admission Date Aug 29, 2016 at 15:20 Medical Diagnosis: sepsis secondary to urinary source Onset Date: Aug 29, 2016 Therapy Diagnosis Therapy Diagnosis: Debility history of falls Height/Weight Height (Feet): 5 Height (Inches): 10.00 Weight (Pounds): 157 Weight (Ounces): 0.8 Precautions Precautions/Isolations: Fall Prevention, Standard Precautions Safety Interventions: Bed Exit Alarm Weight Bear Status Weight Bearing Restriction: Full Weight Bearing Location Restriction: LE Bilateral Referral Physician: Chuck Ricks MD Medical History Pertinent Medical History: Arthritis, HTN, Parkinson's Current History Interview completed with the as the patient is asleep and she does not wish for him to be disturbed at this time. The reports he has had several falls over the last several days and she has noticed a decrease in his mobility and his cognition. He had fallen at home and EMS came to assist in getting him up. The family refused an emergency room visit at that time, but later was seen in Dr. Murray office and the decision was made for him to come to the emergency room where he was later admitted with a diagnosis of sepsis. 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 Drive Self: No Leisure Interests: Attending jehovah's witness. OT Current Status Subjective Patient asleep when OT entered the room, agreed to visit. Appearance Patient supine in the bed, asleep. The attributes this to having had Tylenol. Mental Status/Objective Patient Orientation: Person Attachments: IV Current Glasses/Contacts: Yes Hearing Aids: No Dentures/Partials: No Hand Dominance: Right Upper Extremity ROM Per the , he uses the arms and hands without difficulty. Upper Extremity Coordination Not tested at this time. Upper Extremity Sensation Not tested at this time. Upper Extremity Strength The reports good strength. ADL-Treatment ADL-Current Per the report of the , he was independent in his ADL at home. She reports that once the diagnosis of Parkinson's was made, she decided she was not going to help him unless he absolutely needed it, thus he has remained independent in the home. He feeds himself, he does not shave accept to "clean up the franklin." He does not have teeth nor dentures. He dresses independently and baths himself in a walk in shower. She reported there is a bench in the shower and a grab bar to enter. The plan is to add an additional grab bar once home. She reported he would initiate activities at home. When he fell the last time, he was getting up to use the bathroom and she feels he got his foot tangled up under the sink. Functional Gunpowder Measure 0=Not Assessed/NA 4=Minimal Assistance 1=Total Assistance 5=Supervision or Setup 2=Maximal Assistance 6=Modified Gunpowder 3=Moderate Assistance 7=Complete IndependenceIRFPAI Quality Coding Scale 6 Independent with activity with or without an assistive device 5 Patient requires set up or clean up by helper. Patient completes activity by themselves 4 Supervision or touching assist (CGA). [place] provide cues , steadying assist 3 The helper provides less than half the effort to complete the activity 2 The helper provides more than half the effort to complete the activity 1 Dependent. The helper does all the effort to complete an activity 7 Patient refused to complete or attempt activity 9 The patient did not perform the activity before the current illness or injury 88 Not attempted due to Medical conditions or safety concerns No FIM score established at this time. OT Short Term Goals Short Term Goals Time Frame: Sep 06, 2016 Eating(FIM): 5 Grooming(FIM): 5 Bathing(FIM): 3 Bathing Location: L Arm, R Arm, L Upper Leg, R Upper Leg, L Lower Leg ( including foot), R Lower Leg (including foot), Chest, Abdomen, Buttocks, Perineal Area Upper Body Dressing(FIM): 4 Lower Body Dressing(FIM): 3 Toileting(FIM): 3 Transfers (B,C,W/C) (FIM): 3 Toilet/Commode Transfer(FIM): 3 Tub Transfer(FIM): 0 Shower Transfer(FIM): 3 1=Demonstrate adherence to instructed precautions during ADL tasks. 2=Patient will verbalize/demonstrate understanding of assistive devices/ modifications for ADL. 3=Patient will improve strength/tolerance for activity to enable patient to perform ADL's. OT Shelter Goals Shelter Goals Time Frame: Sep 06, 2016 Eating (FIM): 6 Grooming(FIM): 6 Bathing(FIM): 4 Bathing Location: L Upper Leg, R Upper Leg, R Lower Leg (including foot), Chest , Abdomen, Buttocks, Perineal Area Upper Body Dressing(FIM): 5 Lower Body Dressing(FIM): 4 Toileting(FIM): 4 Transfers (B,C,W/C) (FIM): 4 Toilet/Commode Transfer(FIM): 4 Tub Transfer(FIM): 0 Shower Transfer(FIM): 4 1=Demonstrate adherence to instructed precautions during ADL tasks. 2=Patient will verbalize/demonstrate understanding of assistive devices/ modifications for ADL. 3=Patient will improve strength/tolerance for activity to enable patient to perform ADL's. OT Education/Plan Problem List/Assessment Assessment: Decreased Activ Tolerance, Decreased Safety Aware, Impaired Cognition, Impaired Self-Care Skills Discharge Recommendations Plan/Recommendations: Continue POC Barriers to Progress Diagnosis of Parkinson's, arthritis, decrease in mobility over the last 6 months. Increase in lethargy. Target Placement Home with . Patient/Family Goals Home with family and . Treatment Plan/Plan of Care Treatment,Training & Education: Yes Patient would benefit from OT for education, treatment and training to promote independence in ADL's, mobility, safety and/or upper extremity function for ADL' s. Plan of Care: ADL Retraining, Functional Mobility, Group Exercise/Act as Ind # of days/week 5, as needed Thursday. Agreement: Yes Rehab Potential: Guarded (Pt requires max encouragement to participate. ) Time/GCodes Start Time: 10:50 Stop Time: 11:20 Total Time Billed (hr/min): 30 [facility] Necessary: No HAILE QUINTERO OT Aug 30, 2016 12:27
[2016-08-30] MEDS: ISOSORBIDE MONONITRATE 60 MG (IMDUR) TAB PO SCH (12:58)
[2016-08-31] VITALS (7 sets, daily range): BP systolic 136–160; BP diastolic 58–77
[2016-08-31] MEDS: NS IV 1000 ML 1,000 ML IV SCH (05:22)
[2016-08-31] MEDS: BETHANECHOL 25 MG (URECHOLINE) TAB PO SCH ×4 (05:22→21:06)
[2016-08-31 05:58] LABS: BASOPHILS % (AUTO) 0 % (0-10); EOSINOPHILS % (AUTO) 0 % (0-10); LYMPHOCYTES % (AUTO) 13 % (12-44); MEAN CORPUSCULAR HEMOGLOBIN 27 PG (25-34); MEAN CORPUSCULAR HGB CONC 31 G/DL (32-36); MEAN CORPUSCULAR VOLUME 88 FL (80-99); MEAN PLATELET VOLUME 9.2 FL (7.4-10.4); MONOCYTES % (AUTO) 14 % (0-12); NEUTROPHILS # (AUTO) 5.2 X 10^3 (1.8-7.8); NEUTROPHILS % (AUTO) 72 % (42-75); PLATELET COUNT 273 10^3/uL (130-400); RED CELL DISTRIBUTION WIDTH 15.4 % (10.0-14.5); WHITE BLOOD COUNT 7.2 10^3/uL (4.3-11.0)
[2016-08-31 06:06] LABS: ALANINE AMINOTRANSFERASE < 6 U/L (0-55); ALBUMIN 2.6 G/DL (3.2-4.5); ANION GAP 10 MMOL/L (5-14); ASPARTATE AMINO TRANSFERASE 20 U/L (5-34); BILIRUBIN,TOTAL 0.6 MG/DL (0.1-1.0); BLOOD UREA NITROGEN 42 MG/DL (7-18); BUN/CREATININE RATIO 20; CALCIUM 8.2 MG/DL (8.5-10.1); CARBON DIOXIDE 24 MMOL/L (21-32); CHLORIDE 107 MMOL/L (98-107); CREATININE SERUM 2.11 MG/DL (0.60-1.30); GFR ESTIMATED 30; GLUCOSE 107 MG/DL (70-105); POTASSIUM 4.1 MMOL/L (3.6-5.0); SODIUM 141 MMOL/L (135-145); TOTAL PROTEIN 5.7 G/DL (6.4-8.2)
[2016-08-31] MEDS: ACETAMINOPHEN 500 MG TAB (TYLENOL) PO PRN ×3 (07:45→21:06)
--- NOTE | 2016-08-31 07:46 | Progress Note (SOAP) ---
Subjective Subjective/Events-last exam cc: urinary tract infection- 85 yo M doing better- did receive 2 units pRBC yesterday hgb up from 6.7-> 8.5 . Eating some - drinking water and cranberry juice. Still on room air. Family at bedside. Pt's knees are hurting him. Would like to ask Dr. Munoz for a steroid shot. He Smiled this AM when I told him Dr. Munoz would be taking over care in the AM. Review of Systems General: No Chills, No Night Sweats HEENT: No Head Aches Pulmonary: No Dyspnea, No Cough Cardiovascular: No: Chest Pain, Palpitations Gastrointestinal: No: Abdominal Pain, Nausea, Vomiting Genitourinary: No Dysuria Musculoskeletal: : leg pain (knees)No: neck pain, shoulder pain Neurological: : Weakness Objective Exam Vital Signs Date Time Temp Pulse Resp B/P Pulse Ox O2 Delivery O2 Flow Rate FiO2 08/31/16 04:00 99.0 70 18 144/77 97 Room Air 08/31/16 00:13 98.9 66 18 144/70 98 08/31/16 00:00 98.4 66 18 144/70 95 Room Air 08/30/16 22:08 99.2 66 16 120/55 96 08/30/16 21:53 98.9 68 18 115/62 96 08/30/16 21:00 Room Air 08/30/16 20:00 98.5 66 20 114/64 95 Room Air 08/30/16 19:43 99.1 79 18 135/57 94 08/30/16 17:32 99.6 81 20 132/66 95 08/30/16 17:15 99.9 74 16 138/68 95 08/30/16 16:00 99.5 77 20 122/57 95 Room Air 08/30/16 12:00 99.5 93 22 119/67 96 Room Air 08/30/16 08:10 Room Air 08/30/16 08:00 99.7 102 20 167/83 96 Room Air I & O 08/31/16 07:00 Intake Total 1450 ml Output Total 1250 ml Balance 200 ml Capillary Refill : Less Than 3 Seconds General Appearance: No Apparent Distress Chronically ill HEENT: PERRL/EOMI Neck: Non Tender Respiratory: Chest Non Tender Lungs Clear Normal Breath Sounds Cardiovascular: Regular Rate, Rhythm Other (trace edema) Gastrointestinal: normal bowel sounds non tender soft Extremity: Other (cogwheel rigidity) Neurologic/Psychiatric: Alert Normal Mood/Affect Skin: Warm/Dry Results Lab Laboratory Tests 08/30/16 09:35: Alanine Aminotransferase (ALT/SGPT) 6, Albumin 3.0L, Alkaline Phosphatase 52, Anion Gap 11, Aspartate Amino Transf (AST/SGOT) 20, B-Type Natriuretic Peptide 892.0H, BUN/Creatinine Ratio 19, Basophils # (Auto) 0.0, Basophils (%) (Auto) 0 , Blood Urea Nitrogen 41H, Calcium Level 8.9, Carbon Dioxide Level 24, Chloride Level 105, Creatinine 2.14H, Eosinophils # (Auto) 0.0, Eosinophils (%) (Auto) 0 , Estimat Glomerular Filtration Rate 29, Glucose Level 146H, Hematocrit 25L, Hemoglobin 8.0L, Lymphocytes # (Auto) 0.6L, Lymphocytes (%) (Auto) 6L, Mean Corpuscular Hemoglobin 28, Mean Corpuscular Hemoglobin Concent 32, Mean Corpuscular Volume 89, Mean Platelet Volume 9.5, Monocytes # (Auto) 1.3H, Monocytes (%) (Auto) 12, Neutrophils # (Auto) 9.0H, Neutrophils (%) (Auto) 82H, Platelet Count 308, Potassium Level 4.5, Red Blood Count 2.85L, Red Cell Distribution Width 15.1H, Sodium Level 140, Total Bilirubin 0.4, Total Protein 6.4, White Blood Count 11.0 08/30/16 15:50: Hematocrit 22L, Hemoglobin 6.7*L 08/31/16 05:30: Alanine Aminotransferase (ALT/SGPT) < 6, Albumin 2.6L, Alkaline Phosphatase 45, Anion Gap 10, Aspartate Amino Transf (AST/SGOT) 20, BUN/Creatinine Ratio 20, Basophils # (Auto) 0.0, Basophils (%) (Auto) 0, Blood Urea Nitrogen 42H, Calcium Level 8.2L, Carbon Dioxide Level 24, Chloride Level 107, Creatinine 2.11H, Eosinophils # (Auto) 0.0, Eosinophils (%) (Auto) 0, Estimat Glomerular Filtration Rate 30, Glucose Level 107H, Hematocrit 27L, Hemoglobin 8.5#L, Lymphocytes # (Auto) 1.0, Lymphocytes (%) (Auto) 13, Mean Corpuscular Hemoglobin 27, Mean Corpuscular Hemoglobin Concent 31L, Mean Corpuscular Volume 88, Mean Platelet Volume 9.2, Monocytes # (Auto) 1.0, Monocytes (%) (Auto) 14H, Neutrophils # (Auto) 5.2, Neutrophils (%) (Auto) 72, Platelet Count 273, Potassium Level 4.1, Red Blood Count 3.10L, Red Cell Distribution Width 15.4H, Sodium Level 141, Total Bilirubin 0.6, Total Protein 5.7L, White Blood Count 7.2 Microbiology 08/29/16 Blood Culture - Preliminary, Resulted No growth 08/29/16 Urine Culture - Preliminary, Resulted Probable Enterococcus Species Assessment/Plan Assessment/Plan Assess & Plan/Chief Complaint 85 yo M admitted 08/29/16 Recent falls/weakness- PT, hydration/nutrition Sepsis due to urinary source- urine culture- probable enterococcus- switched from rocephin to levofloxacin 750mg q48hr blood culture ngtd UTI without hematuria- rocephin IV, IVF, urine culture- probable enterococcus - switched from rocephin to levofloxacin 750mg q48hr CKD stage IV- at baseline Cr , GFR 29, Avoid nephrotoxic agents. Anorexia- improved after IVF- monitor intake Anemia- hgb dropped to 6.7- transfused 2units pRBC 08/30/[address] Lino coming up, maybe next week. HTN- monitor Parkinson disease- continue sinemet agitation- haldol 1mg IM prn DVT: SCDs Dispo: monitoring clinical condition. Patient is improving as now he has an appetite. Today will be day 1 of levoquin with urine culture thinking its enterococcus and rocephin is not usually effective. s/p 2 units pRBC 08/30/16- alertness improved, color is better. Pt has appt with Dr. Lino next week. Clinical Quality Measures DVT/VTE Risk/Contraindication: Risk Factor Score Per Nursin RFS Level Per Nursing on Admit: 4+=Very High PAULINO LAGUNAS MD Aug 31, 2016 07:46
[2016-08-31] MEDS ORDERED: LEVOFLOXACIN 750 MG/150 ML IV 150 ML IV SCH (08:00)
[2016-08-31] MEDS: ISOSORBIDE MONONITRATE 60 MG (IMDUR) TAB PO SCH (09:19)
[2016-08-31] MEDS: SINEMET 25/100 (CARBIDOPA/LEVODOPA) TAB PO SCH ×3 (09:19→21:07)
[2016-09-01] MEDS: BETHANECHOL 25 MG (URECHOLINE) TAB PO SCH ×4 (05:37→20:44)
[2016-09-01 08:00] VITALS: BP 164/77
[2016-09-01] MEDS: ISOSORBIDE MONONITRATE 60 MG (IMDUR) TAB PO SCH (08:18)
[2016-09-01] MEDS: FUROSEMIDE 40 MG (LASIX) TAB PO SCH (08:18)
[2016-09-01] MEDS: SINEMET 25/100 (CARBIDOPA/LEVODOPA) TAB PO SCH ×3 (08:18→20:44)
[2016-09-01] MEDS: ACETAMINOPHEN 500 MG TAB (TYLENOL) PO PRN ×2 (08:19→16:25)
--- NOTE | 2016-09-01 08:20 | Progress Note (SOAP) ---
Subjective Subjective/Events-last exam sepsis. UTI. CK disease stage IV. Anemia. And hypertension history. Parkinson disease. Patient overall doing better. Patient unable to walk due to pain in the knees. Consult orthopedics. X-rays of knee ordered. Evaluated by PT and OT. Patient evaluated by rehabilitation Objective Exam Vital Signs Date Time Temp Pulse Resp B/P Pulse Ox O2 Delivery O2 Flow Rate FiO2 09/01/16 07:43 95 08/31/16 23:57 99.6 67 20 160/75 95 Room Air 08/31/16 20:18 96 08/31/16 16:39 98.4 69 16 142/67 95 Room Air 08/31/16 11:47 98.9 68 20 136/58 97 Room Air I & O 09/01/16 07:00 Intake Total 1780 ml Output Total 700 ml Balance 1080 ml Capillary Refill : Less Than 3 Seconds General Appearance: No Apparent Distress Thin HEENT: Normal ENT Inspection Neck: Normal Inspection Respiratory: Chest Non Tender Lungs Clear Normal Breath Sounds No Accessory Muscle Use No Respiratory Distress Cardiovascular: Regular Rate, Rhythm No Murmur Gastrointestinal: non tender Results Lab Microbiology 08/29/16 Blood Culture - Preliminary, Resulted No growth 08/29/16 Urine Culture - Final, Complete Enterococcus Faecalis Assessment/Plan Assessment/Plan Assess & Plan/Chief Complaint sepsis. UTI. 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 UTI. Anemia. Parkinson disease. Patient has pain in the knees and difficulty in getting around. Evaluate for rehabilitation. Saying PT and occupational therapy Clinical Quality Measures DVT/VTE Risk/Contraindication: Risk Factor Score Per Nursin RFS Level Per Nursing on Admit: 4+=Very High INGRID NICOLE DO Sep 01, 2016 08:20
--- NOTE | 2016-09-01 11:04 | Diagnostic Imaging Report ---
EXAMINATION: Bilateral knee radiographs. TECHNIQUE: Two views of the knee were obtained on both sides. INDICATION: Chronic bilateral knee pain. FINDINGS: The right knee demonstrates tricompartment osteoarthritic changes with significant cartilage loss suggested in the medial compartment with a near bone on bone appearance. Prominent osteophytes are seen in the 3 compartments. There is a moderate suprapatellar effusion. No radiopaque foreign body. The left knee demonstrates symmetric similar findings of tricompartmental osteoarthritis with severe joint space loss noted in the medial compartment, prominent osteophytes, and a moderate suprapatellar effusion. IMPRESSION: Bilateral tricompartmental osteoarthritis, severe in the medial compartment. Bilateral effusions. Dictated by: Dictated on workstation # [id number]
--- NOTE | 2016-09-01 11:14 | Physical Therapy Daily Note ---
PT Daily Note-Current Subjective Patient is in bed with spouse present. Patient adamantly declined PT. attempted to encourage patient and instructed PT to perform ROM bilateral LE, Patient became combative toward his and the PT. Pain Numeric Pain Scale: 10-Worst Possible Pain Location: Right, Left Location Body Site: Knee Comment: FLACC Mental Status Patient Orientation: Confused Transfers Functional [place] Measure 0=Not Assessed/NA 4=Minimal Assistance 1=Total Assistance 5=Supervision or Setup 2=Maximal Assistance 6=Modified [place] 3=Moderate Assistance 7=Complete IndependenceIRFPAI Quality Coding Scale 6 Independent with activity with or without an assistive device 5 Patient requires set up or clean up by helper. Patient completes activity by themselves 4 Supervision or touching assist (CGA). [place] provide cues , steadying assist 3 The helper provides less than half the effort to complete the activity 2 The helper provides more than half the effort to complete the activity 1 Dependent. The helper does all the effort to complete an activity 7 Patient refused to complete or attempt activity 9 The patient did not perform the activity before the current illness or injury 88 Not attempted due to Medical conditions or safety concerns Exercises Supine Ex: Heel Slides Supine Reps: 5 Assessment Patient physically and verbally declined exercise, EOB, etc. Spouse stated to patient that he will be in an NH if he does not participate, however, patient continued to decline intervention. RN consulted with PT on how patient is going to tolerate ARU. This PT was unaware of patient's acceptance. PT's tariff supervisor and ARU coordinator/screener both notified of findings this a.m. PT Short Term Goals Short Term Goals Time Frame: Sep 06, 2016 Transfers (B,C,W/C) (FIM): 3 PT Usp Goals Assistant Film Editor Goals PT Assistant Film Editor Goals Time Frame: Sep 20, 2016 Transfers (B,C,W/C) (FIM): 6 Gait (FIM): 2 Gait distance (FIM): 1=up to 49 ft Distance: 25 Gait Level of Assist: 6 Gait Assistive Device: FWW Wheelchair (FIM): 5 Wheelchair distance (FIM): 3=150 ft Distance: 150 Wheelchair Level of Assist: 5 PT Plan Treatment/Plan Treatment Plan: Continue Plan of Care Treatment Plan: Bed Mobility, Education, Functional Activity Amador, Functional Strength, Gait, Safety, Therapeutic Exercise, Transfers Treatment Duration: Sep 20, 2016 Visits Per Week: 5-6 Time/GCodes Time In: 1055 Time Out: 1105 Total Billed Treatment Time: 10 Total Billed Treatment 1 visit FA 10 min FAUSTO PENA PT Sep 01, 2016 11:14
--- NOTE | 2016-09-01 11:41 | Occ Therapy Progress Note ---
Therapy Progress Note Pt refused OT today. LIV/L asked pt to complete UE exercises with theraband. Pt stated to that he gave all the money to her and didn't keep any of it. acknowledge then explained that therapy was here to work on his arm strength. Pt refused again. explained that Dr. Munoz was sending these people up here to help pt, pt stated that he was going to cancel the whole thing. He then stated that since his was making a big deal of this he wasn't going to do it and stated that he was making a big deal of it. told PECK/L that pt had made up his mind and would not do anything. PECK/ L left red theraband for pt. Will check on pt tomorrow. Pt lying in bed with call light/phone in reach. present in room. All needs met in room. Refusal AARON RUTH Sep 01, 2016 11:40
[2016-09-01 13:18] LABS: BILIRUBIN,URINE NEGATIVE (NEGATIVE); KETONES,URINE NEGATIVE (NEGATIVE); LEUKOCYTE ESTERASE ,URINE 3+ (NEGATIVE); NITRITE,URINE NEGATIVE (NEGATIVE); PH,URINE 6.5 (5-9); PROTEIN,URINE 2+ (NEGATIVE); UROBILINOGEN,URINE NORMAL (NORMAL)
[2016-09-01 13:35] LABS: SQUAMOUS EPITHELIAL CELL,UR RARE /HPF; WBC,URINE >100 /HPF
[2016-09-01 16:05] VITALS: BP 146/75
[2016-09-01 16:37] LABS: BASOPHILS % (AUTO) 0 % (0-10); EOSINOPHILS # (AUTO) 0.2 10^3/uL (0.0-0.3); EOSINOPHILS % (AUTO) 4 % (0-10); LYMPHOCYTES # (AUTO) 0.7 X 10^3 (1.0-4.0); LYMPHOCYTES % (AUTO) 10 % (12-44); MEAN CORPUSCULAR HEMOGLOBIN 28 PG (25-34); MEAN CORPUSCULAR HGB CONC 32 G/DL (32-36); MEAN CORPUSCULAR VOLUME 88 FL (80-99); MEAN PLATELET VOLUME 9.3 FL (7.4-10.4); MONOCYTES # (AUTO) 0.8 X 10^3 (0.0-1.0); MONOCYTES % (AUTO) 11 % (0-12); NEUTROPHILS # (AUTO) 5.1 X 10^3 (1.8-7.8); NEUTROPHILS % (AUTO) 75 % (42-75); PLATELET COUNT 324 10^3/uL (130-400); RED BLOOD COUNT 3.47 10^6/uL (4.35-5.85); RED CELL DISTRIBUTION WIDTH 15.6 % (10.0-14.5); WHITE BLOOD COUNT 6.8 10^3/uL (4.3-11.0)
--- NOTE | 2016-09-01 16:55 | Podiatry Progress Note ---
Standard Progress Note Progress Notes/Assess & Plan Progress/Assessment & Plan Consult dictated. Foot care given. Follow up in office as needed. Final Diagnosis Onychomycosis Peripheral Neuropathy Hammer Digit Syndrome SINDI FELICIANO DPM Sep 01, 2016 16:55
[2016-09-01 16:56] LABS: CALCIUM 8.3 MG/DL (8.5-10.1); CREATININE SERUM 2.01 MG/DL (0.60-1.30); POTASSIUM 4.3 MMOL/L (3.6-5.0)
[2016-09-02] VITALS: BP 174/79
[2016-09-02] MEDS: ACETAMINOPHEN 500 MG TAB (TYLENOL) PO PRN (06:01)
[2016-09-02] MEDS: BETHANECHOL 25 MG (URECHOLINE) TAB PO SCH ×4 (06:01→23:21)
[2016-09-02 06:33] LABS: BASOPHILS % (AUTO) 0 % (0-10); EOSINOPHILS # (AUTO) 0.4 10^3/uL (0.0-0.3); EOSINOPHILS % (AUTO) 6 % (0-10); LYMPHOCYTES # (AUTO) 0.6 X 10^3 (1.0-4.0); LYMPHOCYTES % (AUTO) 11 % (12-44); MEAN CORPUSCULAR HEMOGLOBIN 28 PG (25-34); MEAN CORPUSCULAR HGB CONC 32 G/DL (32-36); MEAN CORPUSCULAR VOLUME 88 FL (80-99); MEAN PLATELET VOLUME 9.5 FL (7.4-10.4); MONOCYTES # (AUTO) 0.6 X 10^3 (0.0-1.0); MONOCYTES % (AUTO) 10 % (0-12); NEUTROPHILS # (AUTO) 4.5 X 10^3 (1.8-7.8); NEUTROPHILS % (AUTO) 73 % (42-75); PLATELET COUNT 371 10^3/uL (130-400); RED BLOOD COUNT 3.68 10^6/uL (4.35-5.85); RED CELL DISTRIBUTION WIDTH 15.5 % (10.0-14.5); WHITE BLOOD COUNT 6.1 10^3/uL (4.3-11.0)
[2016-09-02 06:57] LABS: ALBUMIN 2.8 G/DL (3.2-4.5); BILIRUBIN,TOTAL 0.4 MG/DL (0.1-1.0); CALCIUM 8.5 MG/DL (8.5-10.1); CREATININE SERUM 2.03 MG/DL (0.60-1.30); POTASSIUM 3.8 MMOL/L (3.6-5.0); TOTAL PROTEIN 5.9 G/DL (6.4-8.2)
--- NOTE | 2016-09-02 07:31 | Progress Note (SOAP) ---
Subjective Subjective/Events-last exam UTI. Sepsis. Renal insufficiency chronic. Patient more alert today. Patient had a good breakfast today. Orthopedic to come in today concerning his knees and inability to get around. Patient lives at home with Objective Exam Vital Signs Date Time Temp Pulse Resp B/P Pulse Ox O2 Delivery O2 Flow Rate FiO2 09/02/16 00:00 98.1 53 18 174/79 95 Room Air 09/01/16 19:33 95 09/01/16 16:05 98.1 65 18 146/75 100 Room Air 09/01/16 08:00 98.2 74 16 164/77 96 Room Air 09/01/16 07:43 95 I & O 09/02/16 07:00 Intake Total 1660 ml Output Total 1850 ml Balance -190 ml Capillary Refill : Less Than 3 Seconds General Appearance: No Apparent Distress Thin HEENT: Normal ENT Inspection Neck: Normal Inspection Respiratory: Chest Non Tender Lungs Clear Normal Breath Sounds No Accessory Muscle Use No Respiratory Distress Cardiovascular: Regular Rate, Rhythm No Murmur Gastrointestinal: non tender soft Results Lab Laboratory Tests 09/01/16 16:30 09/02/16 06:07 Laboratory Tests 09/01/16 13:00: Urine Bacteria TRACE, Urine Bilirubin NEGATIVE, Urine Casts NONE, Urine Clarity CLEAR, Urine Color YELLOW, Urine Crystals NONE, Urine Culture Indicated YES, Urine Glucose (UA) NEGATIVE, Urine Ketones NEGATIVE, Urine Leukocyte Esterase 3+ H, Urine Mucus NEGATIVE, Urine Nitrite NEGATIVE, Urine Protein 2+H, Urine RBC 0- 2, Urine RBC (Auto) 2+H, Urine Specific [place] 1.010L, Urine Squamous Epithelial Cells RARE, Urine Urobilinogen NORMAL, Urine WBC >100H, Urine pH 6.5 09/01/16 16:30: Anion Gap 10, BUN/Creatinine Ratio 22, Basophils # (Auto) 0.0, Basophils (%) ( Auto) 0, Blood Urea Nitrogen 44H, Calcium Level 8.3L, Carbon Dioxide Level 24, Chloride Level 108H, Creatinine 2.01H, Eosinophils # (Auto) 0.2, Eosinophils (% ) (Auto) 4, Estimat Glomerular Filtration Rate 32, Glucose Level 131H, Hematocrit 30L, Hemoglobin 9.7L, Lymphocytes # (Auto) 0.7L, Lymphocytes (%) ( Auto) 10L, Mean Corpuscular Hemoglobin 28, Mean Corpuscular Hemoglobin Concent 32, Mean Corpuscular Volume 88, Mean Platelet Volume 9.3, Monocytes # (Auto) 0.8 , Monocytes (%) (Auto) 11, Neutrophils # (Auto) 5.1, Neutrophils (%) (Auto) 75, Platelet Count 324, Potassium Level 4.3, Red Blood Count 3.47L, Red Cell Distribution Width 15.6H, Sodium Level 142, White Blood Count 6.8 09/01/16 16:40: Lab Scanned Report Transfusion Reaction Form 09/02/16 06:07: Anion Gap 12, BUN/Creatinine Ratio 20, Basophils # (Auto) 0.0, Basophils (%) ( Auto) 0, Blood Urea Nitrogen 41H, Calcium Level 8.5, Carbon Dioxide Level 24, Chloride Level 107, Creatinine 2.03H, Eosinophils # (Auto) 0.4H, Eosinophils (% ) (Auto) 6, Estimat Glomerular Filtration Rate 31, Glucose Level 117H, Hematocrit 32L, Hemoglobin 10.2L, Lymphocytes # (Auto) 0.6L, Lymphocytes (%) ( Auto) 11L, Mean Corpuscular Hemoglobin 28, Mean Corpuscular Hemoglobin Concent 32, Mean Corpuscular Volume 88, Mean Platelet Volume 9.5, Monocytes # (Auto) 0.6 , Monocytes (%) (Auto) 10, Neutrophils # (Auto) 4.5, Neutrophils (%) (Auto) 73, Platelet Count 371, Potassium Level 3.8, Red Blood Count 3.68L, Red Cell Distribution Width 15.5H, Sodium Level 143, White Blood Count 6.1, Alanine Aminotransferase (ALT/SGPT) 6, Albumin 2.8L, Alkaline Phosphatase 53, Aspartate Amino Transf (AST/SGOT) 27, Total Bilirubin 0.4, Total Protein 5.9L Microbiology 08/29/16 Blood Culture - Preliminary, Resulted No growth 09/01/16 Urine Culture - Preliminary, Resulted Gram Positive Cocci In Chains Assessment/Plan Assessment/Plan Assess & Plan/Chief Complaint sepsis. UTI. 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 UTI. Anemia. Parkinson disease. Patient has pain in the knees and difficulty in getting around. Evaluate for rehabilitation. Saying PT and occupational therapy. . 09/02/16. Sepsis. UTI. Stage IV SCK D. Anemia. Knee pain and difficulty in getting around. Patient to see orthopedics today Clinical Quality Measures DVT/VTE Risk/Contraindication: Risk Factor Score Per Nursin RFS Level Per Nursing on Admit: 4+=Very High INGRID NICOLE DO Sep 02, 2016 07:31
[2016-09-02 08:00] VITALS: BP 148/68
--- NOTE | 2016-09-02 08:23 | Occ Therapy Progress Note ---
Therapy Progress Note This note reflects attempted treatment from 09-01-16...... Pt. lying in bed. Awaiting an x-ray on bilateral knees. Does not have blankets on, as he is experiencing severe sensitivity in knees right now. Spoke with pt. and spouse about OT goals. Pt. states that he can't get up yet, and might be getting an injection in bilateral knees. Will check back later this morning. 0935 1, visit no charge This note is from 09-01-16. GOKUL DALEY OT Sep 02, 2016 08:23
[2016-09-02] MEDS: ISOSORBIDE MONONITRATE 60 MG (IMDUR) TAB PO SCH (09:07)
[2016-09-02] MEDS: SINEMET 25/100 (CARBIDOPA/LEVODOPA) TAB PO SCH ×3 (09:08→23:22)
--- NOTE | 2016-09-02 09:22 | CONSULTATION REPORT ---
DATE OF CONSULTATION: 09/01/2016 REASON FOR CONSULT: Foot care. The patient has difficulty reaching for and caring for his feet. He has been doing his own foot care for as long as he can remember, but it has been neglected for several months if not longer. The patient lives with his . He was admitted to the hospital secondary to a urinary tract infection, lethargic and pain with ambulation. The patient was also admitted for physical therapy which he refused physical therapy in the past just because of the amount of pain to his knees. PAST MEDICAL HISTORY: 1. Also includes hypertension. 2. Parkinson's disease. 3. Benign prosthetic hypertrophy. 4. Renal failure. 5. Osteoarthritis, requiring the use of a walker in the past. 6. He was told he was "prediabetic ". 7. He has had loss of vision and wears glasses. PAST SURGICAL HISTORY: 1. Also include TURP. 2. CEA. 3. Polypectomy. SOCIAL HISTORY: The patient denies any tobacco or alcohol or illicit drug use. CURRENT MEDICATIONS: Listed on the patient's chart. ALLERGIES: 1. IV DYE. 2. NSAID. 3. LACTOSE. 4. SULFA DRUGS. 5. TRIMETHOPRIM. FAMILY HISTORY: Noncontributory. LOWER EXTREMITY EXAMINATION: The patient has 1/4 dorsalis pedis pulse bilaterally, 0/4 posterior tibial pulse bilaterally. Capillary fill time is less than 3 seconds to hallux bilateral. NEUROLOGICALLY: The patient has intact protective sensation per 10 grams monofilament wire examination bilaterally. Diminished deep tendon reflexes to the Achilles, diminished vibratory sensation to the forefoot bilaterally. DERMATOLOGICALLY: He has thick, yellow dystrophic toenails with subungual debris, associated with all 10 toenails, some of which are extremely long approximately half inch in length. The patient has 4/5 muscle strength to the 4 major quadrants of the foot. He has retracted toes 2 through 5 bilaterally. ASSESSMENT: 1. Onychomycosis. 2. Peripheral neuropathy. 3. Hammer digit syndrome. PLAN: The toenails were debrided manually and mechanically. Betadine applied. We discussed oral and topical antifungal medication. He is welcome to follow-up in my office upon discharge for continued foot care. Job ID: [id number] Dictated Date: 09/01/2016 17:01:51 Sales Service Coordinator Date: 09/02/2016 09:11:26/cal
[2016-09-02] MEDS: LEVOFLOXACIN 750 MG TAB (LEVAQUIN) PO SCH (12:06)
--- NOTE | 2016-09-02 13:38 | Physical Therapy Daily Note ---
PT Daily Note-Current Subjective Patient sleeping in bed pre tx, agrees to PT upon waking. Patient states he has very little pain in his knees this afternoon, will not rate pain. Appearance Patient in bed post tx with nurse call, phone, tray, bed alarm, all needs met. Mental Status Patient Orientation: Person, Place, Situation Transfers Functional [place] Measure 0=Not Assessed/NA 4=Minimal Assistance 1=Total Assistance 5=Supervision or Setup 2=Maximal Assistance 6=Modified [place] 3=Moderate Assistance 7=Complete IndependenceIRFPAI Quality Coding Scale 6 Independent with activity with or without an assistive device 5 Patient requires set up or clean up by helper. Patient completes activity by themselves 4 Supervision or touching assist (CGA). [place] provide cues , steadying assist 3 The helper provides less than half the effort to complete the activity 2 The helper provides more than half the effort to complete the activity 1 Dependent. The helper does all the effort to complete an activity 7 Patient refused to complete or attempt activity 9 The patient did not perform the activity before the current illness or injury 88 Not attempted due to Medical conditions or safety concerns Transfers (B, C, W/C) (FIM): 3 Scootin Rollin Supine to/from Sit: 3 Sit to/from Stand: 4 cues for safety and hand placement. Patient stood at the edge of the bed for 2 min before sitting. He attempted to stand again after a short rest but was not able to even with therapist assist. Treatments bed mobility, transfers Assessment Current Status: Fair Progress Patient did not refuse treatment. He was only able to stand once. No further treatment performed due to bilateral knee pain. Patient very slow to get to the edge of the bed and needed assist with both legs. PT Short Term Goals Short Term Goals Time Frame: Sep 06, 2016 Transfers (B,C,W/C) (FIM): 3 PT Oncology Research Rn Goals Oncology Research Rn Goals PT Senior Care Goals Time Frame: Sep 20, 2016 Transfers (B,C,W/C) (FIM): 6 Gait (FIM): 2 Gait distance (FIM): 1=up to 49 ft Distance: 25 Gait Level of Assist: 6 Gait Assistive Device: FWW Wheelchair (FIM): 5 Wheelchair distance (FIM): 3=150 ft Distance: 150 Wheelchair Level of Assist: 5 PT Plan Problem List Problem List: Activity Tolerance, Functional Strength, Safety, Balance, Gait, Transfer, Bed Mobility, ROM Treatment/Plan Treatment Plan: Continue Plan of Care Treatment Plan: Bed Mobility, Education, Functional Activity Am[place], Functional Strength, Gait, Safety, Therapeutic Exercise, Transfers Treatment Duration: Sep 20, 2016 Visits Per Week: 5-6 Safety Risks/Education Patient Education: Transfer Techniques, Correct Positioning, Safety Issues Teaching Recipient: Patient Teaching Methods: Demonstration, Discussion Response to Teaching: Reinforcement Needed Time/GCodes Time In: 1315 Time Out: 1330 Total Billed Treatment Time: 15 Total Billed Treatment 1 visit FA 15 min CHARLOTTE SHARMA PT Sep 02, 2016 13:38
--- NOTE | 2016-09-02 15:18 | Occupational Ther Daily Note ---
OT Current Status-Daily Note Subjective Pt seen in room, up in bed, agreeable to OT. Pt was very careful with moving his legs but did not report or rate specific pain. Mental Status/Objective Functional [place] Measure 0=Not Assessed/NA 4=Minimal Assistance 1=Total Assistance 5=Supervision or Setup 2=Maximal Assistance 6=Modified [place] 3=Moderate Assistance 7=Complete [place] Other Treatment Pt transitioned supine to sit EOB with min assist and pt educ on how to best get up out of bed. Once up at EOB, her was able to do bilat UE exercise with yellow (mild resistance) theraband. Exercise to give purpose to med mobility and to strengthen arms to help with ADLs. Pt was able to trach repetitions and switch sides without difficulty. He was also able to scoot up towards the top of his bed and get R leg into bed with just a little help. His bed pad was wet and soiled so he did rolling side to side several times so that he could be cleaned up and new pad inserted. He was left up in bed, lower legs floating on pillows. Education OT Patient Education: Exercise program, Purpose of tx/functional activities, Rehab process, Transfer techniques Teaching Recipient: Patient Teaching Methods: Demonstration Response to Teaching: Return Demonstration, Reinforcement Needed OT Short Term Goals Short Term Goals Time Frame: Sep 06, 2016 Eating(FIM): 5 Grooming(FIM): 5 Bathing(FIM): 3 Bathing Location: L Arm, R Arm, L Upper Leg, R Upper Leg, L Lower Leg ( including foot), R Lower Leg (including foot), Chest, Abdomen, Buttocks, Perineal Area Upper Body Dressing(FIM): 4 Lower Body Dressing(FIM): 3 Toileting(FIM): 3 Transfers (B,C,W/C) (FIM): 3 Toilet/Commode Transfer(FIM): 3 Tub Transfer(FIM): 0 Shower Transfer(FIM): 3 1=Demonstrate adherence to instructed precautions during ADL tasks. 2=Patient will verbalize/demonstrate understanding of assistive devices/ modifications for ADL. 3=Patient will improve strength/tolerance for activity to enable patient to perform ADL's. OT Fdc Goals Sales And Catering Coordinator Goals Time Frame: Sep 06, 2016 Eating (FIM): 6 Grooming(FIM): 6 Bathing(FIM): 4 Bathing Location: L Upper Leg, R Upper Leg, R Lower Leg (including foot), Chest , Abdomen, Buttocks, Perineal Area Upper Body Dressing(FIM): 5 Lower Body Dressing(FIM): 4 Toileting(FIM): 4 Transfers (B,C,W/C) (FIM): 4 Toilet/Commode Transfer(FIM): 4 Tub Transfer(FIM): 0 Shower Transfer(FIM): 4 1=Demonstrate adherence to instructed precautions during ADL tasks. 2=Patient will verbalize/demonstrate understanding of assistive devices/ modifications for ADL. 3=Patient will improve strength/tolerance for activity to enable patient to perform ADL's. OT Education/Plan Discharge Recommendations Plan/Recommendations: Continue POC Treatment Plan/Plan of Care Patient would benefit from OT for education, treatment and training to promote independence in ADL's, mobility, safety and/or upper extremity function for ADL' s. Plan of Care: ADL Retraining, Functional Mobility, Group Exercise/Act as Ind Agreement: Yes Rehab Potential: Guarded (Pt requires max encouragement to participate. ) Time/GCodes Start Time: 11:05 Stop Time: 11:30 Total Time Billed (hr/min): 25 Billed Treatment Time visit, 25 minutes exercise SARAI PIPER OT Sep 02, 2016 15:17
[2016-09-02 16:30] VITALS: BP 115/66
[2016-09-03] VITALS: BP 135/56
[2016-09-03 06:01] LABS: BASOPHILS % (AUTO) 0 % (0-10); EOSINOPHILS # (AUTO) 0.5 10^3/uL (0.0-0.3); EOSINOPHILS % (AUTO) 9 % (0-10); LYMPHOCYTES # (AUTO) 0.9 X 10^3 (1.0-4.0); LYMPHOCYTES % (AUTO) 15 % (12-44); MEAN CORPUSCULAR HEMOGLOBIN 28 PG (25-34); MEAN CORPUSCULAR HGB CONC 32 G/DL (32-36); MEAN CORPUSCULAR VOLUME 89 FL (80-99); MEAN PLATELET VOLUME 9.4 FL (7.4-10.4); MONOCYTES # (AUTO) 0.7 X 10^3 (0.0-1.0); MONOCYTES % (AUTO) 12 % (0-12); NEUTROPHILS # (AUTO) 3.9 X 10^3 (1.8-7.8); NEUTROPHILS % (AUTO) 65 % (42-75); PLATELET COUNT 364 10^3/uL (130-400); RED BLOOD COUNT 3.22 10^6/uL (4.35-5.85); RED CELL DISTRIBUTION WIDTH 15.8 % (10.0-14.5)
[2016-09-03] MEDS: BETHANECHOL 25 MG (URECHOLINE) TAB PO SCH ×4 (06:24→20:37)
[2016-09-03 07:00] LABS: ALBUMIN 2.5 G/DL (3.2-4.5); BILIRUBIN,TOTAL 0.3 MG/DL (0.1-1.0); CALCIUM 8.1 MG/DL (8.5-10.1); CREATININE SERUM 1.93 MG/DL (0.60-1.30); POTASSIUM 4.2 MMOL/L (3.6-5.0); TOTAL PROTEIN 5.6 G/DL (6.4-8.2)
[2016-09-03 08:00] VITALS: BP 152/65
--- NOTE | 2016-09-03 08:21 | Progress Note (SOAP) ---
Subjective Subjective/Events-last exam patient feeling better today. Patient is eating better. Patient had cortisone injection in knees. To see how he walks today. Plan to discharge tomorrow Objective Exam Vital Signs Date Time Temp Pulse Resp B/P Pulse Ox O2 Delivery O2 Flow Rate FiO2 09/03/16 00:00 98.5 58 20 135/56 97 Room Air 09/02/16 16:30 98.4 90 16 115/66 96 Room Air 09/02/16 11:19 96 09/02/16 11:15 96 I & O 09/03/16 07:00 Intake Total 2367 ml Output Total 2000 ml Balance 367 ml Capillary Refill : Less Than 3 Seconds General Appearance: No Apparent Distress WD/WN HEENT: Normal ENT Inspection Neck: Normal Inspection Non Tender Respiratory: Chest Non Tender Lungs Clear Normal Breath Sounds No Accessory Muscle Use No Respiratory Distress Cardiovascular: Regular Rate, Rhythm No Murmur Gastrointestinal: non tender soft Results Lab Laboratory Tests 09/03/16 05:23 Laboratory Tests 09/03/16 05:23: Alanine Aminotransferase (ALT/SGPT) 6, Albumin 2.5L, Alkaline Phosphatase 48, Anion Gap 8, Aspartate Amino Transf (AST/SGOT) 27, BUN/Creatinine Ratio 23, Basophils # (Auto) 0.0, Basophils (%) (Auto) 0, Blood Urea Nitrogen 45H, Calcium Level 8.1L, Carbon Dioxide Level 25, Chloride Level 109H, Creatinine 1.93H, Eosinophils # (Auto) 0.5H, Eosinophils (%) (Auto) 9, Estimat Glomerular Filtration Rate 33, Glucose Level 118H, Hematocrit 29L, Hemoglobin 9.0L, Lymphocytes # (Auto) 0.9L, Lymphocytes (%) (Auto) 15, Mean Corpuscular Hemoglobin 28, Mean Corpuscular Hemoglobin Concent 32, Mean Corpuscular Volume 89, Mean Platelet Volume 9.4, Monocytes # (Auto) 0.7, Monocytes (%) (Auto) 12, Neutrophils # (Auto) 3.9, Neutrophils (%) (Auto) 65, Platelet Count 364, Potassium Level 4.2, Red Blood Count 3.22L, Red Cell Distribution Width 15.8H, Sodium Level 142, Total Bilirubin 0.3, Total Protein 5.6L, White Blood Count 6.0 Microbiology 08/29/16 Blood Culture - Preliminary, Resulted No growth 09/01/16 Urine Culture - Final, Complete Enterococcus Faecalis Assessment/Plan Assessment/Plan Assess & Plan/Chief Complaint sepsis. UTI. 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 UTI. Anemia. Parkinson disease. Patient has pain in the knees and difficulty in getting around. Evaluate for rehabilitation. Saying PT and occupational therapy. . 09/02/16. Sepsis. UTI. Stage IV SCK D. Anemia. Knee pain and difficulty in getting around. Patient to see orthopedics today. . 09/03/16 patient feeling better today. Patient needing now. UTI under 10,000 organism better. COPD. Anemia. To walk patient today Clinical Quality Measures DVT/VTE Risk/Contraindication: Risk Factor Score Per Nursin RFS Level Per Nursing on Admit: 4+=Very High INGRID NICOLE DO Sep 03, 2016 08:21
[2016-09-03] MEDS ORDERED: BUPIVACAINE 0.25% 30 ML (SENSORCAINE) VIAL INJ NR (09:00)
[2016-09-03] MEDS ORDERED: DEXAMETHASONE 4 MG/ML SDV (DECADRON) IV NR (09:00)
[2016-09-03] MEDS ORDERED: LIDOCAINE 1% INJ 20 ML (XYLOCAINE) VIAL INJ NR (09:00)
[2016-09-03] MEDS: SINEMET 25/100 (CARBIDOPA/LEVODOPA) TAB PO SCH ×3 (09:06→20:37)
[2016-09-03] MEDS: FUROSEMIDE 40 MG (LASIX) TAB PO SCH (09:06)
[2016-09-03] MEDS: ISOSORBIDE MONONITRATE 60 MG (IMDUR) TAB PO SCH (09:59)
--- NOTE | 2016-09-03 10:47 | Occupational Ther Daily Note ---
OT Current Status-Daily Note Subjective Pt seen in room, up in bed, reported feeling "pretty good". He had injections in his knees this morning. Appearance Alert, cooperative Mental Status/Objective Functional [place] Measure 0=Not Assessed/NA 4=Minimal Assistance 1=Total Assistance 5=Supervision or Setup 2=Maximal Assistance 6=Modified [place] 3=Moderate Assistance 7=Complete [place] ADL-Treatment Pt's noted that Dr. Munoz said pt could go home tomorrow if he's walking. Pt was able to transition slowly from supine to sit with min assist and pt education on hand and foot placement. He sat EOB for over 10 minutes while bathing and dressing and was able to reach to his feet to get a sock started (unable to pull sock up). He donned t shirt with setup and put on Depends, underwear and overalls with min assist to stand and min assist to help pull pants up. Once up, he could turn one hand loose to help pull pants up. He also was able to wash and dry all parts except lower legs/feet and bottom, sponge bath. Pt stood at least three times but was afraid to walk a few steps to recliner. Pt's said that she was comfortable providing the level of assist that OT provided today once he gets home. He will have to be able to transfer from one location to another and has a FWW at home to use. Pt encouraged to walk with PT later today. Update provided to SW. Bathing (FIM): 3 (70%) Upper Body (FIM): 5 Lower Body Dressing (FIM): 4 Education OT Patient Education: Modified ADL techniques, Progress toward Goal/Update tx plan, Purpose of tx/functional activities, Safety issues, Transfer techniques Teaching Recipient: Patient, Family Teaching Methods: Demonstration, Discussion Response to Teaching: Reinforcement Needed OT Short Term Goals Short Term Goals Time Frame: Sep 06, 2016 Eating(FIM): 5 Grooming(FIM): 5 Bathing(FIM): 3 Bathing Location: L Arm, R Arm, L Upper Leg, R Upper Leg, L Lower Leg ( including foot), R Lower Leg (including foot), Chest, Abdomen, Buttocks, Perineal Area Upper Body Dressing(FIM): 4 Lower Body Dressing(FIM): 3 Toileting(FIM): 3 Transfers (B,C,W/C) (FIM): 3 Toilet/Commode Transfer(FIM): 3 Tub Transfer(FIM): 0 Shower Transfer(FIM): 3 1=Demonstrate adherence to instructed precautions during ADL tasks. 2=Patient will verbalize/demonstrate understanding of assistive devices/ modifications for ADL. 3=Patient will improve strength/tolerance for activity to enable patient to perform ADL's. OT Psychiatric Specialist Goals Psychiatric Specialist Goals Time Frame: Sep 06, 2016 Eating (FIM): 6 Grooming(FIM): 6 Bathing(FIM): 4 Bathing Location: L Upper Leg, R Upper Leg, R Lower Leg (including foot), Chest , Abdomen, Buttocks, Perineal Area Upper Body Dressing(FIM): 5 Lower Body Dressing(FIM): 4 Toileting(FIM): 4 Transfers (B,C,W/C) (FIM): 4 Toilet/Commode Transfer(FIM): 4 Tub Transfer(FIM): 0 Shower Transfer(FIM): 4 1=Demonstrate adherence to instructed precautions during ADL tasks. 2=Patient will verbalize/demonstrate understanding of assistive devices/ modifications for ADL. 3=Patient will improve strength/tolerance for activity to enable patient to perform ADL's. OT Education/Plan Discharge Recommendations Plan/Recommendations: Continue POC Treatment Plan/Plan of Care Patient would benefit from OT for education, treatment and training to promote independence in ADL's, mobility, safety and/or upper extremity function for ADL' s. Plan of Care: ADL Retraining, Functional Mobility, Group Exercise/Act as Ind Agreement: Yes Rehab Potential: Guarded (Pt requires max encouragement to participate. ) Time/GCodes Start Time: 09:30 Stop Time: 10:12 Total Time Billed (hr/min): 42 Billed Treatment Time visit, 42 minutes ADL SARAI PIPER OT Sep 03, 2016 10:47
--- NOTE | 2016-09-03 11:42 | Physical Therapy Daily Note ---
PT Daily Note-Current Subjective Pt agreeable to try. Once up, reported his pain was much less but his knees were too weak to walk. Agreed to transfer to the chair. Once in the chair, requested this therapist return to assist him to bed in about an hour. Pain Numeric Pain Scale: 3 Location Body Site: Knee (bilateral) Pain Description: Ache (sore) Comment: post injection Transfers Functional [place] Measure 0=Not Assessed/NA 4=Minimal Assistance 1=Total Assistance 5=Supervision or Setup 2=Maximal Assistance 6=Modified [place] 3=Moderate Assistance 7=Complete IndependenceIRFPAI Quality Coding Scale 6 Independent with activity with or without an assistive device 5 Patient requires set up or clean up by helper. Patient completes activity by themselves 4 Supervision or touching assist (CGA). [place] provide cues , steadying assist 3 The helper provides less than half the effort to complete the activity 2 The helper provides more than half the effort to complete the activity 1 Dependent. The helper does all the effort to complete an activity 7 Patient refused to complete or attempt activity 9 The patient did not perform the activity before the current illness or injury 88 Not attempted due to Medical conditions or safety concerns Transfers (B, C, W/C) (FIM): 4 Supine to/from Sit: 5 Sit to/from Stand: 5 Bed to/from Chair: 4 SBA with all transfers in bed and close CGA with SPT to chair. Pt able to transfer to stand with SBA but I did not feel comfortable with him pivoting without CGA. Pt up in chair post treatment. Sit to stand x 5 at EOB. Treatments Transfers and education. Assessment Current Status: Good Progress Improved ability to get out of bed and stand and was able to progress to SPT this date. However, still not at a manageable functional mobility level for discharge home PT Short Term Goals Short Term Goals Time Frame: Sep 06, 2016 Transfers (B,C,W/C) (FIM): 3 PT Group Home Goals Group Home Goals PT Electrical Line Splicer Goals Time Frame: Sep 20, 2016 Transfers (B,C,W/C) (FIM): 6 Gait (FIM): 2 Gait distance (FIM): 1=up to 49 ft Distance: 25 Gait Level of Assist: 6 Gait Assistive Device: FWW Wheelchair (FIM): 5 Wheelchair distance (FIM): 3=150 ft Distance: 150 Wheelchair Level of Assist: 5 PT Plan Problem List Problem List: Activity Tolerance, Functional Strength, Safety, Gait, Transfer, Bed Mobility Treatment/Plan Treatment Plan: Continue Plan of Care Treatment Plan: Bed Mobility, Education, Functional Activity [place], Functional Strength, Gait, Safety, Therapeutic Exercise, Transfers Treatment Duration: Sep 20, 2016 Visits Per Week: 5-6 Safety Risks/Education Patient Education: Transfer Techniques, Safety Issues Teaching Recipient: Patient, Primary Caregiver Teaching Methods: Demonstration, Discussion Response to Teaching: Return Demonstration, Reinforcement Needed Discharge Recommendations Plan Return in an hour to assist patient back to bed. Time/GCodes Time In: 1115 Time Out: 1140 Total Billed Treatment Time: 25 Total Billed Treatment visit FA 25 AARON ESPINOZA PT Sep 03, 2016 11:42
--- NOTE | 2016-09-03 13:14 | CONSULTATION REPORT ---
DATE OF CONSULTATION: Consult is for issued for bilateral knee injection. ATTENDING PHYSICIAN: Dr. Munoz HISTORY: This 85-year-old male is currently admitted for treatment of sepsis and recurrent urinary tract infection. While admitted however, he began complaining of intractable bilateral knee pain and mobilization was difficult due the symptoms. The patient reports a mild history of knee pain and stiffness, but otherwise no history of significant injury, trauma or disability from his knees. He did have x-rays on 09/01/[address] [facility] which showed complete loss of medial compartment joint spaces, moderate joint space narrowing is noted at the patellofemoral and lateral compartments as well. No acute changes or bony abnormalities were otherwise noted. Bilateral knee examination today reveals 1+ effusion. No warmth, erythema or skin changes are noted. He is able to straight leg raise bilaterally and range of motion is 0/2/100 bilaterally. He does have tenderness to palpation throughout the medial compartment. ALLERGIES: 1. The patient otherwise has allergies to IVP dye. 2. NSAID. 3. LACTOSE. 4. BACTRIM. PAST MEDICAL HISTORY: 1. Prediabetes, 2. Urine retention. 3. Kidney disease. 4. History of anemia. HOME MEDICATIONS INCLUDE: 1. Bethanechol chloride, 2. Carbidopa levodopa. 3. Furosemide. 4. Isosorbide. 5. Lovastatin. SOCIAL HISTORY: Negative for tobacco or drug use and he was never a smoker and. IMPRESSION: Bilateral knee degenerative joint disease. PLAN: Under sterile conditions with alcohol and Betadine prep the bilateral knees were injected with 8 mg of Decadron and 2 mL each of Marcaine and lidocaine. The patient tolerated the injections well and standard postinjection precautions were discussed and ice treatments were recommended. We will plan to see the patient on outpatient follow-up bases as needed for his knee pain. Job ID: [id number] Dictated Date: 09/03/2016 11:04:52 Associate Professor Of English Date: 09/03/2016 13:03:22/cal
--- NOTE | 2016-09-03 14:40 | Physical Therapy Daily Note ---
PT Daily Note-Current Subjective Ready to return to bed. Reports he enjoyed being up in the chair. Transfers Functional [place] Measure 0=Not Assessed/NA 4=Minimal Assistance 1=Total Assistance 5=Supervision or Setup 2=Maximal Assistance 6=Modified [place] 3=Moderate Assistance 7=Complete IndependenceIRFPAI Quality Coding Scale 6 Independent with activity with or without an assistive device 5 Patient requires set up or clean up by helper. Patient completes activity by themselves 4 Supervision or touching assist (CGA). [place] provide cues , steadying assist 3 The helper provides less than half the effort to complete the activity 2 The helper provides more than half the effort to complete the activity 1 Dependent. The helper does all the effort to complete an activity 7 Patient refused to complete or attempt activity 9 The patient did not perform the activity before the current illness or injury 88 Not attempted due to Medical conditions or safety concerns Treatments Sit to stand from recliner with SB-CGa but no lifting asssit. Pt performed SPT chair to bed with FWW with CGA. Forward flexed at hips and knee flexion present. Able to sit EOB and scoot up towards HOB. Pt able to transfer sit to sup with SBA. In bed post treatment with needs met. Assessment Current Status: Good Progress Mobility progressing but still would be unable to manage at home as he is not able to walk yet. PT Short Term Goals Short Term Goals Time Frame: Sep 06, 2016 Transfers (B,C,W/C) (FIM): 3 PT Skilled Nursing Goals Range Scientist Goals PT Skilled Nursing Goals Time Frame: Sep 20, 2016 Transfers (B,C,W/C) (FIM): 6 Gait (FIM): 2 Gait distance (FIM): 1=up to 49 ft Distance: 25 Gait Level of Assist: 6 Gait Assistive Device: FWW Wheelchair (FIM): 5 Wheelchair distance (FIM): 3=150 ft Distance: 150 Wheelchair Level of Assist: 5 PT Plan Problem List Problem List: Activity Tolerance, Functional Strength, Safety, Gait, Transfer Treatment/Plan Treatment Plan: Continue Plan of Care Treatment Plan: Bed Mobility, Education, Functional Activity [place], Functional Strength, Gait, Safety, Therapeutic Exercise, Transfers Treatment Duration: Sep 20, 2016 Visits Per Week: 5-6 Safety Risks/Education Patient Education: Transfer Techniques Teaching Recipient: Patient Teaching Methods: Demonstration, Discussion Response to Teaching: Return Demonstration Time/GCodes Time In: 1244 Time Out: 1300 Total Billed Treatment Time: 16 Total Billed Treatment visit FA 16 AARON ESPINOZA PT Sep 03, 2016 14:40
[2016-09-03 16:00] VITALS: BP 121/67
[2016-09-04] VITALS: BP 159/65
[2016-09-04 06:29] LABS: MEAN PLATELET VOLUME 9.7 FL (7.4-10.4); RED BLOOD COUNT 3.41 10^6/uL (4.35-5.85); RED CELL DISTRIBUTION WIDTH 15.7 % (10.0-14.5); WHITE BLOOD COUNT 7.7 10^3/uL (4.3-11.0)
[2016-09-04] MEDS: BETHANECHOL 25 MG (URECHOLINE) TAB PO SCH ×4 (06:46→20:48)
[2016-09-04 06:52] LABS: CALCIUM 8.4 MG/DL (8.5-10.1); CREATININE SERUM 2.02 MG/DL (0.60-1.30); POTASSIUM 4.6 MMOL/L (3.6-5.0)
--- NOTE | 2016-09-04 07:50 | Progress Note (SOAP) ---
Subjective Subjective/Events-last exam patient clinically doing better. Blood tests look better. Patient at 2 person assist. Patient lives at home with and she is unable to take care of him. administrative services director to get involved area Chronic renal failure. Patient eating good Objective Exam Vital Signs Date Time Temp Pulse Resp B/P Pulse Ox O2 Delivery O2 Flow Rate FiO2 09/04/16 00:00 98.1 74 18 159/65 96 Room Air 09/03/16 16:00 97.5 86 16 121/67 95 Room Air 09/03/16 08:22 93 09/03/16 08:00 98.0 53 20 152/65 96 Room Air I & O 09/04/16 06:59 Intake Total 1590 ml Output Total 700 ml Balance 890 ml Capillary Refill : Less Than 3 Seconds General Appearance: No Apparent Distress Other (patient looks much better than was admitted) HEENT: Normal ENT Inspection Neck: Normal Inspection Respiratory: Chest Non Tender Lungs Clear Normal Breath Sounds No Accessory Muscle Use No Respiratory Distress Cardiovascular: Regular Rate, Rhythm No Murmur Gastrointestinal: non tender soft Results Lab Laboratory Tests 09/04/16 05:30 Laboratory Tests 09/04/16 05:30: Anion Gap 11, BUN/Creatinine Ratio 26, Blood Urea Nitrogen 52H, Calcium Level 8.4L, Carbon Dioxide Level 24, Chloride Level 108H, Creatinine 2.02H, Estimat Glomerular Filtration Rate 31, Glucose Level 152H, Hematocrit 30L, Hemoglobin 9.4L, Mean Corpuscular Hemoglobin 28, Mean Corpuscular Hemoglobin Concent 31L, Mean Corpuscular Volume 88, Mean Platelet Volume 9.7, Platelet Count 439H, Potassium Level 4.6, Red Blood Count 3.41L, Red Cell Distribution Width 15.7H, Sodium Level 143, White Blood Count 7.7 Microbiology 08/29/16 Blood Culture - Final, Complete No growth 09/01/16 Urine Culture - Final, Complete Enterococcus Faecalis Assessment/Plan Assessment/Plan Assess & Plan/Chief Complaint sepsis. UTI. 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 UTI. Anemia. Parkinson disease. Patient has pain in the knees and difficulty in getting around. Evaluate for rehabilitation. Saying PT and occupational therapy. . 09/02/16. Sepsis. UTI. Stage IV SCK D. Anemia. Knee pain and difficulty in getting around. Patient to see orthopedics today. . 09/03/16 patient feeling better today. Patient needing now. UTI under 10,000 organism better. COPD. Anemia. To walk patient today. . Sepsis. UTI. Renal insufficiency. Anemia. Patient ate 2 person assist to get around. administrative services director involved area 09/04/16. Patient unable to take care of himself at home Clinical Quality Measures DVT/VTE Risk/Contraindication: Risk Factor Score Per Nursin RFS Level Per Nursing on Admit: 4+=Very High INGRID NICOLE DO Sep 04, 2016 07:50
[2016-09-04 08:00] VITALS: BP 160/79
[2016-09-04] MEDS: SINEMET 25/100 (CARBIDOPA/LEVODOPA) TAB PO SCH ×3 (08:19→20:48)
[2016-09-04] MEDS: ISOSORBIDE MONONITRATE 60 MG (IMDUR) TAB PO SCH (08:19)
--- NOTE | 2016-09-04 09:56 | Occupational Ther Daily Note ---
OT Current Status-Daily Note Subjective Pt alert, lying in bed. Pt agreed to therapy. present in room. Pt stated that there is pain in L knee but not bad. Mental Status/Objective Functional [place] Measure 0=Not Assessed/NA 4=Minimal Assistance 1=Total Assistance 5=Supervision or Setup 2=Maximal Assistance 6=Modified [place] 3=Moderate Assistance 7=Complete [place] ADL-Treatment Pt requested to get up and put clothes on. Pt went from supine to sitting EOB with min A then sat on EOB with SBA. After set up, pt was able to bathe/dry upper body then donned 2 boat puller shirts by self. Sitting EOB pt able to bathe lower legs/feet with CGA for safety. Raising bed height pt was able to go from sit to stand with CGA then CGA in standing while cleansing buttocks/ lionel area using FWW. Pt able to don underwear/pants over feet sitting on EOB with CGA then stood to hike over hips. Pt has demonstrated good progress with ADL skills. No LOB noted during therapy. Pt was able to go from sitting to supine with mod I then with verbal cues pt able to bend knees and scoot self up in bed, no pain mention. Pt stated that after bathing his L knee felt better. present in room throughout treatment. After therapy, pt lying in bed with call light/phone in reach. All needs met in room. OT Short Term Goals Short Term Goals Time Frame: Sep 06, 2016 Eating(FIM): 5 Grooming(FIM): 5 Bathing(FIM): 3 Bathing Location: L Arm, R Arm, L Upper Leg, R Upper Leg, L Lower Leg ( including foot), R Lower Leg (including foot), Chest, Abdomen, Buttocks, Perineal Area Upper Body Dressing(FIM): 4 Lower Body Dressing(FIM): 3 Toileting(FIM): 3 Transfers (B,C,W/C) (FIM): 3 Toilet/Commode Transfer(FIM): 3 Tub Transfer(FIM): 0 Shower Transfer(FIM): 3 1=Demonstrate adherence to instructed precautions during ADL tasks. 2=Patient will verbalize/demonstrate understanding of assistive devices/ modifications for ADL. 3=Patient will improve strength/tolerance for activity to enable patient to perform ADL's. OT Mcfp Goals Spinning Frame Fixer Goals Time Frame: Sep 06, 2016 Eating (FIM): 6 Grooming(FIM): 6 Bathing(FIM): 4 Bathing Location: L Upper Leg, R Upper Leg, R Lower Leg (including foot), Chest , Abdomen, Buttocks, Perineal Area Upper Body Dressing(FIM): 5 Lower Body Dressing(FIM): 4 Toileting(FIM): 4 Transfers (B,C,W/C) (FIM): 4 Toilet/Commode Transfer(FIM): 4 Tub Transfer(FIM): 0 Shower Transfer(FIM): 4 1=Demonstrate adherence to instructed precautions during ADL tasks. 2=Patient will verbalize/demonstrate understanding of assistive devices/ modifications for ADL. 3=Patient will improve strength/tolerance for activity to enable patient to perform ADL's. OT Education/Plan Discharge Recommendations Plan/Recommendations: Continue POC Treatment Plan/Plan of Care Patient would benefit from OT for education, treatment and training to promote independence in ADL's, mobility, safety and/or upper extremity function for ADL' s. Plan of Care: ADL Retraining, Functional Mobility, Group Exercise/Act as Ind Agreement: Yes Rehab Potential: Guarded (Pt requires max encouragement to participate. ) Time/GCodes Start Time: 09:10 Stop Time: 09:35 Total Time Billed (hr/min): 25 Billed Treatment Time 1 visit-ADL 2 (25 min) AARON RUTH Sep 04, 2016 09:56
--- NOTE | 2016-09-04 10:34 | Physical Therapy Daily Note ---
PT Daily Note-Current Subjective Agrees to PT. Reports he is better today but does not feel he could manage at home yet. agrees. Reports it is often just her home with him. Mental Status Patient Orientation: Person, Place, Time, Situation Transfers Functional [place] Measure 0=Not Assessed/NA 4=Minimal Assistance 1=Total Assistance 5=Supervision or Setup 2=Maximal Assistance 6=Modified [place] 3=Moderate Assistance 7=Complete IndependenceIRFPAI Quality Coding Scale 6 Independent with activity with or without an assistive device 5 Patient requires set up or clean up by helper. Patient completes activity by themselves 4 Supervision or touching assist (CGA). [place] provide cues , steadying assist 3 The helper provides less than half the effort to complete the activity 2 The helper provides more than half the effort to complete the activity 1 Dependent. The helper does all the effort to complete an activity 7 Patient refused to complete or attempt activity 9 The patient did not perform the activity before the current illness or injury 88 Not attempted due to Medical conditions or safety concerns Transfers (B, C, W/C) (FIM): 5 Supine to/from Sit: 5 Sit to/from Stand: 5 SBA with bed mobility with bed flat and using bed rail, as he will have a bed cane at home. SBA with sit to stand for safety due to quad and LE weakness. However, able to come to a stand without asssit. Stand to sit from a perpendicular angle which is not safe, educated pt on importance of full turn before starting to sit, he verbalizes understanding but reports he has to sit quickly as he feels his knees are giving out. Weight Bearing Weight Bearing Restriction: Weight Bearing/Tolerated Gait Training Gait (FIM): 2 Distance (FIM): 1=up to 49 ft Distance: 30 ft Gait Assistive Device: FWW forward flexed at hips and knees in flexed position; poor foot clearance and shuffled gait; however, sig improved from yesterday and actually able to take steps today. Treatments Functional mobility of transfers and gait paired with pt and spouse education. Spoke with Social work regarding still unsafe to return home from a funcitonal transfer and gait standpoint. Assessment Current Status: Good Progress Progressing well and able to ambulate today. However, distance is sig limited and recommend close -CGa with gait for safety. Feel pt would benefit from continued therapy services to progress his gait to a household distance and recommend increasing the frequency of PT to twice a day. PT Short Term Goals Short Term Goals Time Frame: Sep 06, 2016 Transfers (B,C,W/C) (FIM): 3 (met) PT Correction Goals Manufacturing Maintenance Mechanic Goals PT Manufacturing Maintenance Mechanic Goals Time Frame: Sep 20, 2016 Transfers (B,C,W/C) (FIM): 6 Gait (FIM): 2 Gait distance (FIM): 1=up to 49 ft Distance: 25 Gait Level of Assist: 6 Gait Assistive Device: FWW Wheelchair (FIM): 5 Wheelchair distance (FIM): 3=150 ft Distance: 150 Wheelchair Level of Assist: 5 PT Plan Problem List Problem List: Activity Tolerance, Functional Strength, Safety, Balance, Gait, Transfer Treatment/Plan Treatment Plan: Continue Plan of Care Treatment Plan: Bed Mobility, Education, Functional Activity [place], Functional Strength, Gait, Safety, Therapeutic Exercise, Transfers Treatment Duration: Sep 20, 2016 Visits Per Week: 11 Safety Risks/Education Patient Education: Transfer Techniques, Safety Issues Teaching Recipient: Patient, Significant Other Teaching Methods: Demonstration, Discussion Response to Teaching: Reinforcement Needed Discharge Recommendations Plan Increase to 11x/wk Time/GCodes Time In: 1000 Time Out: 1023 Total Billed Treatment Time: 23 Total Billed Treatment visit FA 10 GT 13 AARON ESPINOZA PT Sep 04, 2016 10:34
[2016-09-04] MEDS: LEVOFLOXACIN 750 MG TAB (LEVAQUIN) PO SCH (10:37)
--- NOTE | 2016-09-04 14:23 | Physical Therapy Daily Note ---
PT Daily Note-Current Subjective Reports he has been up in the chair since lunch. tired. Ready to go back to bed. Doesn't think his legs are strong enough to walk very far. Transfers Functional [place] Measure 0=Not Assessed/NA 4=Minimal Assistance 1=Total Assistance 5=Supervision or Setup 2=Maximal Assistance 6=Modified [place] 3=Moderate Assistance 7=Complete IndependenceIRFPAI Quality Coding Scale 6 Independent with activity with or without an assistive device 5 Patient requires set up or clean up by helper. Patient completes activity by themselves 4 Supervision or touching assist (CGA). [place] provide cues , steadying assist 3 The helper provides less than half the effort to complete the activity 2 The helper provides more than half the effort to complete the activity 1 Dependent. The helper does all the effort to complete an activity 7 Patient refused to complete or attempt activity 9 The patient did not perform the activity before the current illness or injury 88 Not attempted due to Medical conditions or safety concerns Treatments Sit to stand with min assist and pt took 7-8 steps forward to the EOB and then took 7-8 steps back to position at the bed. Stand to sit with skilled cues for hand placement and safety. Sit to sup with min assist for legs. Pt in bed post treatment with needs met. Spent time educating pt and on ARU expectations and format. Assessment Current Status: Good Progress Limited functional activity tolerance and limited by LE weakness. PT Short Term Goals Short Term Goals Time Frame: Sep 06, 2016 Transfers (B,C,W/C) (FIM): 3 (met) PT Retirement Goals Sponge Clipper Goals PT Retirement Goals Time Frame: Sep 20, 2016 Transfers (B,C,W/C) (FIM): 6 Gait (FIM): 2 Gait distance (FIM): 1=up to 49 ft Distance: 25 Gait Level of Assist: 6 Gait Assistive Device: FWW Wheelchair (FIM): 5 Wheelchair distance (FIM): 3=150 ft Distance: 150 Wheelchair Level of Assist: 5 PT Plan Problem List Problem List: Activity Tolerance, Functional Strength, Gait, Transfer Treatment/Plan Treatment Plan: Continue Plan of Care Treatment Plan: Bed Mobility, Education, Functional Activity [place], Functional Strength, Gait, Safety, Therapeutic Exercise, Transfers Treatment Duration: Sep 20, 2016 Visits Per Week: 11 Safety Risks/Education Patient Education: Transfer Techniques, Safety Issues Teaching Recipient: Patient, Significant Other Teaching Methods: Discussion Response to Teaching: Reinforcement Needed Time/GCodes Time In: 1355 Time Out: 1419 Total Billed Treatment Time: 24 Total Billed Treatment visit FA 24 AARON ESPINOZA PT Sep 04, 2016 14:23
[2016-09-04 15:50] VITALS: BP 131/67
[2016-09-05] VITALS: BP 156/61
[2016-09-05] MEDS: BETHANECHOL 25 MG (URECHOLINE) TAB PO SCH (05:54)
--- NOTE | 2016-09-05 07:20 | Progress Note (SOAP) ---
Subjective Subjective/Events-last exam UTI. Sepsis. Renal insufficiency. Patient feeling better today. Patient to go to rehabilitation. Objective Exam Vital Signs Date Time Temp Pulse Resp B/P Pulse Ox O2 Delivery O2 Flow Rate FiO2 09/05/16 00:00 98.8 67 20 156/61 97 Room Air 09/04/16 15:50 97.9 63 18 131/67 96 Room Air 09/04/16 09:08 94 09/04/16 08:00 98.9 64 20 160/79 96 Room Air I & O 09/05/16 07:00 Intake Total 1930 ml Output Total 500 ml Balance 1430 ml Capillary Refill : Less Than 3 Seconds General Appearance: No Apparent Distress WD/WN HEENT: Normal ENT Inspection Neck: Normal Inspection Respiratory: Chest Non Tender Lungs Clear Normal Breath Sounds No Accessory Muscle Use No Respiratory Distress Cardiovascular: Bradycardia Results Lab Microbiology 08/29/16 Blood Culture - Final, Complete No growth 09/01/16 Urine Culture - Final, Complete Enterococcus Faecalis Assessment/Plan Assessment/Plan Assess & Plan/Chief Complaint sepsis. UTI. 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 UTI. Anemia. Parkinson disease. Patient has pain in the knees and difficulty in getting around. Evaluate for rehabilitation. Saying PT and occupational therapy. . 09/02/16. Sepsis. UTI. Stage IV SCK D. Anemia. Knee pain and difficulty in getting around. Patient to see orthopedics today. . 09/03/16 patient feeling better today. Patient needing now. UTI under 10,000 organism better. COPD. Anemia. To walk patient today. . Sepsis. UTI. Renal insufficiency. Anemia. Patient ate 2 person assist to get around. 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 Patient unable to take care of himself at home. . 09/05/16. Sepsis. UTI. Renal insufficiency. Anemia.. Patient to go to rehabilitation today. Patient feeling good Clinical Quality Measures DVT/VTE Risk/Contraindication: Risk Factor Score Per Nursin RFS Level Per Nursing on Admit: 4+=Very High INGRID NICOLE DO Sep 05, 2016 07:20
[2016-09-05 08:00] VITALS: BP 126/87
[2016-09-05] MEDS: FUROSEMIDE 40 MG (LASIX) TAB PO SCH (08:46)
[2016-09-05] MEDS: ISOSORBIDE MONONITRATE 60 MG (IMDUR) TAB PO SCH (08:46)
[2016-09-05] MEDS: SINEMET 25/100 (CARBIDOPA/LEVODOPA) TAB PO SCH (08:47)
[2016-09-05] MEDS ORDERED: IPRA3AMP INH (09:22)
[2016-09-05] MEDS ORDERED: NORM2DIS3 IV (09:22)
[2016-09-05] MEDS ORDERED: ACET-77 PO (09:22)
--- NOTE | 2016-09-11 07:26 | Discharge Summary ---
Diagnosis/Chief Complaint Date of Admission Aug 29, 2016 at 15:20 Date of Discharge Sep 05, 2016 at 09:55 Discharge Date: Sep 05, 2016 Admission Diagnosis Admission Diagnosis 85 yo M admitted 08/29/16 Recent falls/weakness- PT, hydration/nutrition Sepsis due to urinary source- IVF, abx UTI without hematuria- rocephin, IVF, urine/blood culture pending CKD stage IV- near baseline Cr , GFR 26, IVF Anorexia- improved after IVF- monitor intake Anemia- CBC in am, if <8 consider 1u pRBC- last transfusion was 2-3weeks ago- has appt with Dr. Lino coming up, maybe next week. HTN- monitor Parkinson disease- continue sinemet DVT: SCDs, heparin Dispo: monitoring clinical condition. Patient is improving as now he has an appetite. continue Rocephin and monitor urine culture and blood culture. CBC in a.m. if hemoglobin less than 8 likely will give 1 unit of packed red blood cells. physical therapy ordered Pt has appt with Dr. Lino next week. Discharge Diagnosis acute cystitis without hematuria. Anemia. Anorexia. Bilateral primary osteoarthritis of knee. Chronic kidney disease stage IV chronic obstructive pulmonary disease. History of falling. Hypertension history hammertoes. Parkinson disease. Sepsis due to enterococcus. Weakness Discharge Summary Consultations podiatry Discharge Physical Examination Allergies: Coded Allergies: sulfamethoxazole (Verified Allergy, Mild, KIDNEY DAMAGE, 08/29/16) trimethoprim (Verified Allergy, Mild, KIDNEY DAMAGE, 08/29/16) lactose (Verified Allergy, Unknown, 08/29/16) Uncoded Allergies: IV DYE (Allergy, Mild, KIDNEY DAMAGE, 01/08/12) NSAIDS (Allergy, Mild, KIDNEY DAMAGE, 01/08/12) Vitals & I&Os Vital Signs Date Time Temp Pulse Resp B/P (MAP) Pulse Ox O2 Delivery O2 Flow Rate FiO2 09/05/16 10:05 09/05/16 08:00 97.5 94 16 Room Air 09/05/16 00:00 97 Hospital Course Labs (last 24 hrs) Laboratory Tests 08/29/16 12:59: White Blood Count 11.7H, Red Blood Count 3.01L, Hemoglobin 8.4L, Hematocrit 27L , Mean Corpuscular Volume 91, Mean Corpuscular Hemoglobin 28, Mean Corpuscular Hemoglobin Concent 31L, Red Cell Distribution Width 15.3H, Platelet Count 350, Mean Platelet Volume 9.6, Neutrophils (%) (Auto) 83H, Lymphocytes (%) (Auto) 5L , Monocytes (%) (Auto) 12, Eosinophils (%) (Auto) 0, Basophils (%) (Auto) 0, Neutrophils # (Auto) 9.7H, Lymphocytes # (Auto) 0.6L, Monocytes # (Auto) 1.4H, Eosinophils # (Auto) 0.0, Basophils # (Auto) 0.0, Neutrophils % (Manual) 85, Lymphocytes % (Manual) 7, Monocytes % (Manual) 8, Hypersegmented Neutrophils SLIGHT, Toxic Granulation , Hypochromasia MODERATE, Elliptocytes SLIGHT, Sodium Level 140, Potassium Level 4.6, Chloride Level 104, Carbon Dioxide Level 25, Anion Gap 11, Blood Urea Nitrogen 45H, Creatinine 2.39H, Estimat Glomerular Filtration Rate 26, BUN/Creatinine Ratio 19, Glucose Level 144H, Lactic Acid Level 2.34*H, Calcium Level 9.3, Magnesium Level 2.0, Total Bilirubin 0.4, Aspartate Amino Transf (AST/SGOT) 18, Alanine Aminotransferase (ALT/SGPT) < 6, Alkaline Phosphatase 55, Troponin I < 0.30, C-Reactive Protein High Sensitivity 19.83H, B-Type Natriuretic Peptide 199.1H, Total Protein 7.6, Albumin 3.6 08/29/16 14:20: Urine Color YELLOW, Urine Clarity CLEAR, Urine pH 5, Urine Specific [place] 1.010L, Urine Protein 2+H, Urine Glucose (UA) NEGATIVE, Urine Ketones NEGATIVE, Urine Nitrite NEGATIVE, Urine Bilirubin NEGATIVE, Urine Urobilinogen NORMAL, Urine Leukocyte Esterase 3+H, Urine RBC (Auto) 2+H, Urine RBC 2-5H, Urine WBC 50 -100H, Urine Squamous Epithelial Cells RARE, Urine Crystals NONE, Urine Bacteria TRACE, Urine Casts NONE, Urine Mucus NEGATIVE, Urine Culture Indicated YES 08/29/16 14:54: Lactic Acid Level 0.77 08/30/16 09:35: White Blood Count 11.0, Red Blood Count 2.85L, Hemoglobin 8.0L, Hematocrit 25L, Mean Corpuscular Volume 89, Mean Corpuscular Hemoglobin 28, Mean Corpuscular Hemoglobin Concent 32, Red Cell Distribution Width 15.1H, Platelet Count 308, Mean Platelet Volume 9.5, Neutrophils (%) (Auto) 82H, Lymphocytes (%) (Auto) 6L , Monocytes (%) (Auto) 12, Eosinophils (%) (Auto) 0, Basophils (%) (Auto) 0, Neutrophils # (Auto) 9.0H, Lymphocytes # (Auto) 0.6L, Monocytes # (Auto) 1.3H, Eosinophils # (Auto) 0.0, Basophils # (Auto) 0.0, Sodium Level 140, Potassium Level 4.5, Chloride Level 105, Carbon Dioxide Level 24, Anion Gap 11, Blood Urea Nitrogen 41H, Creatinine 2.14H, Estimat Glomerular Filtration Rate 29, BUN/ Creatinine Ratio 19, Glucose Level 146H, Calcium Level 8.9, Total Bilirubin 0.4 , Aspartate Amino Transf (AST/SGOT) 20, Alanine Aminotransferase (ALT/SGPT) 6, Alkaline Phosphatase 52, B-Type Natriuretic Peptide 892.0H, Total Protein 6.4, Albumin 3.0L 08/30/16 15:50: Hemoglobin 6.7*L, Hematocrit 22L 08/31/16 05:30: Hemoglobin 8.5#L, Hematocrit 27L, White Blood Count 7.2, Red Blood Count 3.10L, Mean Corpuscular Volume 88, Mean Corpuscular Hemoglobin 27, Mean Corpuscular Hemoglobin Concent 31L, Red Cell Distribution Width 15.4H, Platelet Count 273, Mean Platelet Volume 9.2, Neutrophils (%) (Auto) 72, Lymphocytes (%) (Auto) 13, Monocytes (%) (Auto) 14H, Eosinophils (%) (Auto) 0, Basophils (%) (Auto) 0, Neutrophils # (Auto) 5.2, Lymphocytes # (Auto) 1.0, Monocytes # (Auto) 1.0, Eosinophils # (Auto) 0.0, Basophils # (Auto) 0.0, Sodium Level 141, Potassium Level 4.1, Chloride Level 107, Carbon Dioxide Level 24, Anion Gap 10, Blood Urea Nitrogen 42H, Creatinine 2.11H, Estimat Glomerular Filtration Rate 30, BUN/ Creatinine Ratio 20, Glucose Level 107H, Calcium Level 8.2L, Total Bilirubin 0.6 , Aspartate Amino Transf (AST/SGOT) 20, Alanine Aminotransferase (ALT/SGPT) < 6 , Alkaline Phosphatase 45, Total Protein 5.7L, Albumin 2.6L 3/13/17 13:00: Urine Color YELLOW, Urine Clarity CLEAR, Urine pH 6.5, Urine Specific [place] 1.010L, Urine Protein 2+H, Urine Glucose (UA) NEGATIVE, Urine Ketones NEGATIVE, Urine Nitrite NEGATIVE, Urine Bilirubin NEGATIVE, Urine Urobilinogen NORMAL, Urine Leukocyte Esterase 3+H, Urine RBC (Auto) 2+H, Urine RBC 0-2, Urine WBC > 100H, Urine Squamous Epithelial Cells RARE, Urine Crystals NONE, Urine Bacteria TRACE, Urine Casts NONE, Urine Mucus NEGATIVE, Urine Culture Indicated YES 09/01/16 16:30: Hemoglobin 9.7L, Hematocrit 30L, White Blood Count 6.8, Red Blood Count 3.47L, Mean Corpuscular Volume 88, Mean Corpuscular Hemoglobin 28, Mean Corpuscular Hemoglobin Concent 32, Red Cell Distribution Width 15.6H, Platelet Count 324, Mean Platelet Volume 9.3, Neutrophils (%) (Auto) 75, Lymphocytes (%) (Auto) 10L , Monocytes (%) (Auto) 11, Eosinophils (%) (Auto) 4, Basophils (%) (Auto) 0, Neutrophils # (Auto) 5.1, Lymphocytes # (Auto) 0.7L, Monocytes # (Auto) 0.8, Eosinophils # (Auto) 0.2, Basophils # (Auto) 0.0, Sodium Level 142, Potassium Level 4.3, Chloride Level 108H, Carbon Dioxide Level 24, Anion Gap 10, Blood Urea Nitrogen 44H, Creatinine 2.01H, Estimat Glomerular Filtration Rate 32, BUN/ Creatinine Ratio 22, Glucose Level 131H, Calcium Level 8.3L 09/01/16 16:40: Lab Scanned Report Transfusion Reaction Form 09/02/16 06:07: White Blood Count 6.1, Red Blood Count 3.68L, Hemoglobin 10.2L, Hematocrit 32L, Mean Corpuscular Volume 88, Mean Corpuscular Hemoglobin 28, Mean Corpuscular Hemoglobin Concent 32, Red Cell Distribution Width 15.5H, Platelet Count 371, Mean Platelet Volume 9.5, Neutrophils (%) (Auto) 73, Lymphocytes (%) (Auto) 11L , Monocytes (%) (Auto) 10, Eosinophils (%) (Auto) 6, Basophils (%) (Auto) 0, Neutrophils # (Auto) 4.5, Lymphocytes # (Auto) 0.6L, Monocytes # (Auto) 0.6, Eosinophils # (Auto) 0.4H, Basophils # (Auto) 0.0, Sodium Level 143, Potassium Level 3.8, Chloride Level 107, Carbon Dioxide Level 24, Anion Gap 12, Blood Urea Nitrogen 41H, Creatinine 2.03H, Estimat Glomerular Filtration Rate 31, BUN/ Creatinine Ratio 20, Glucose Level 117H, Calcium Level 8.5, Total Bilirubin 0.4 , Aspartate Amino Transf (AST/SGOT) 27, Alanine Aminotransferase (ALT/SGPT) 6, Alkaline Phosphatase 53, Total Protein 5.9L, Albumin 2.8L 09/03/16 05:23: White Blood Count 6.0, Red Blood Count 3.22L, Hemoglobin 9.0L, Hematocrit 29L, Mean Corpuscular Volume 89, Mean Corpuscular Hemoglobin 28, Mean Corpuscular Hemoglobin Concent 32, Red Cell Distribution Width 15.8H, Platelet Count 364, Mean Platelet Volume 9.4, Neutrophils (%) (Auto) 65, Lymphocytes (%) (Auto) 15, Monocytes (%) (Auto) 12, Eosinophils (%) (Auto) 9, Basophils (%) (Auto) 0, Neutrophils # (Auto) 3.9, Lymphocytes # (Auto) 0.9L, Monocytes # (Auto) 0.7, Eosinophils # (Auto) 0.5H, Basophils # (Auto) 0.0, Sodium Level 142, Potassium Level 4.2, Chloride Level 109H, Carbon Dioxide Level 25, Anion Gap 8, Blood Urea Nitrogen 45H, Creatinine 1.93H, Estimat Glomerular Filtration Rate 33, BUN/ Creatinine Ratio 23, Glucose Level 118H, Calcium Level 8.1L, Total Bilirubin 0.3 , Aspartate Amino Transf (AST/SGOT) 27, Alanine Aminotransferase (ALT/SGPT) 6, Alkaline Phosphatase 48, Total Protein 5.6L, Albumin 2.5L 09/04/16 05:30: White Blood Count 7.7, Red Blood Count 3.41L, Hemoglobin 9.4L, Hematocrit 30L, Mean Corpuscular Volume 88, Mean Corpuscular Hemoglobin 28, Mean Corpuscular Hemoglobin Concent 31L, Red Cell Distribution Width 15.7H, Platelet Count 439H, Mean Platelet Volume 9.7, Sodium Level 143, Potassium Level 4.6, Chloride Level 108H, Carbon Dioxide Level 24, Anion Gap 11, Blood Urea Nitrogen 52H, Creatinine 2.02H, Estimat Glomerular Filtration Rate 31, BUN/Creatinine Ratio 26 , Glucose Level 152H, Calcium Level 8.4L Microbiology 08/29/16 Blood Culture - Final, Complete No growth 09/01/16 Urine Culture - Final, Complete Enterococcus Faecalis Laboratory Tests 08/29/16 12:59 08/30/16 09:35 08/30/16 15:50 08/31/16 05:30 09/01/16 16:30 09/02/16 06:07 09/03/16 05:23 09/04/16 05:30 Pending Labs Microbiology Date/Time Source Procedure Growth Status 08/29/16 13:38 Peripheral Lt Hand Blood Culture - Final No growth Complete 08/29/16 13:05 Peripheral Rt Forearm Blood Culture - Final No growth Complete 09/01/16 13:00 Urine Clean Catch Urine Culture - Final Enterococcus Faecalis Complete 08/29/16 14:20 Urine Clean Catch Urine Culture - Final Enterococcus Faecalis Complete Laboratory Tests 08/29/16 12:59: White Blood Count 11.7, Red Blood Count 3.01, Hemoglobin 8.4, Hematocrit 27, Mean Corpuscular Volume 91, Mean Corpuscular Hemoglobin 28, Mean Corpuscular Hemoglobin Concent 31, Red Cell Distribution Width 15.3, Platelet Count 350, Mean Platelet Volume 9.6, Neutrophils (%) (Auto) 83, Lymphocytes (%) (Auto) 5, Monocytes (%) (Auto) 12, Eosinophils (%) (Auto) 0, Basophils (%) (Auto) 0, Neutrophils # (Auto) 9.7, Lymphocytes # (Auto) 0.6, Monocytes # (Auto) 1.4, Eosinophils # (Auto) 0.0, Basophils # (Auto) 0.0, Neutrophils % (Manual) 85, Lymphocytes % (Manual) 7, Monocytes % (Manual) 8, Hypersegmented Neutrophils SLIGHT, Toxic Granulation , Hypochromasia MODERATE, Elliptocytes SLIGHT, Sodium Level 140, Potassium Level 4.6, Chloride Level 104, Carbon Dioxide Level 25, Anion Gap 11, Blood Urea Nitrogen 45, Creatinine 2.39, Estimat Glomerular Filtration Rate 26, BUN/Creatinine Ratio 19, Glucose Level 144, Lactic Acid Level 2.34, Calcium Level 9.3, Magnesium Level 2.0, Total Bilirubin 0.4, Aspartate Amino Transf (AST/SGOT) 18, Alanine Aminotransferase (ALT/SGPT) < 6, Alkaline Phosphatase 55, Troponin I < 0.30, C-Reactive Protein High Sensitivity 19.83, B-Type Natriuretic Peptide 199.1, Total Protein 7.6, Albumin 3.6 08/29/16 14:20: Urine Color YELLOW, Urine Clarity CLEAR, Urine pH 5, Urine Specific [place] 1.010, Urine Protein 2+, Urine Glucose (UA) NEGATIVE, Urine Ketones NEGATIVE, Urine Nitrite NEGATIVE, Urine Bilirubin NEGATIVE, Urine Urobilinogen NORMAL, Urine Leukocyte Esterase 3+, Urine RBC (Auto) 2+, Urine RBC 2-5, Urine WBC 50- 100, Urine Squamous Epithelial Cells RARE, Urine Crystals NONE, Urine Bacteria TRACE, Urine Casts NONE, Urine Mucus NEGATIVE, Urine Culture Indicated YES 08/29/16 14:54: Lactic Acid Level 0.77 08/30/16 09:35: White Blood Count 11.0, Red Blood Count 2.85, Hemoglobin 8.0, Hematocrit 25, Mean Corpuscular Volume 89, Mean Corpuscular Hemoglobin 28, Mean Corpuscular Hemoglobin Concent 32, Red Cell Distribution Width 15.1, Platelet Count 308, Mean Platelet Volume 9.5, Neutrophils (%) (Auto) 82, Lymphocytes (%) (Auto) 6, Monocytes (%) (Auto) 12, Eosinophils (%) (Auto) 0, Basophils (%) (Auto) 0, Neutrophils # (Auto) 9.0, Lymphocytes # (Auto) 0.6, Monocytes # (Auto) 1.3, Eosinophils # (Auto) 0.0, Basophils # (Auto) 0.0, Sodium Level 140, Potassium Level 4.5, Chloride Level 105, Carbon Dioxide Level 24, Anion Gap 11, Blood Urea Nitrogen 41, Creatinine 2.14, Estimat Glomerular Filtration Rate 29, BUN/ Creatinine Ratio 19, Glucose Level 146, Calcium Level 8.9, Total Bilirubin 0.4, Aspartate Amino Transf (AST/SGOT) 20, Alanine Aminotransferase (ALT/SGPT) 6, Alkaline Phosphatase 52, B-Type Natriuretic Peptide 892.0, Total Protein 6.4, Albumin 3.0 08/30/16 15:50: Hemoglobin 6.7, Hematocrit 22 08/31/16 05:30: Hemoglobin 8.5, Hematocrit 27, White Blood Count 7.2, Red Blood Count 3.10, Mean Corpuscular Volume 88, Mean Corpuscular Hemoglobin 27, Mean Corpuscular Hemoglobin Concent 31, Red Cell Distribution Width 15.4, Platelet Count 273, Mean Platelet Volume 9.2, Neutrophils (%) (Auto) 72, Lymphocytes (%) (Auto) 13, Monocytes (%) (Auto) 14, Eosinophils (%) (Auto) 0, Basophils (%) (Auto) 0, Neutrophils # (Auto) 5.2, Lymphocytes # (Auto) 1.0, Monocytes # (Auto) 1.0, Eosinophils # (Auto) 0.0, Basophils # (Auto) 0.0, Sodium Level 141, Potassium Level 4.1, Chloride Level 107, Carbon Dioxide Level 24, Anion Gap 10, Blood Urea Nitrogen 42, Creatinine 2.11, Estimat Glomerular Filtration Rate 30, BUN/ Creatinine Ratio 20, Glucose Level 107, Calcium Level 8.2, Total Bilirubin 0.6, Aspartate Amino Transf (AST/SGOT) 20, Alanine Aminotransferase (ALT/SGPT) < 6, Alkaline Phosphatase 45, Total Protein 5.7, Albumin 2.6 09/01/16 13:00: Urine Color YELLOW, Urine Clarity CLEAR, Urine pH 6.5, Urine Specific [place] 1.010, Urine Protein 2+, Urine Glucose (UA) NEGATIVE, Urine Ketones NEGATIVE, Urine Nitrite NEGATIVE, Urine Bilirubin NEGATIVE, Urine Urobilinogen NORMAL, Urine Leukocyte Esterase 3+, Urine RBC (Auto) 2+, Urine RBC 0-2, Urine WBC >100 , Urine Squamous Epithelial Cells RARE, Urine Crystals NONE, Urine Bacteria TRACE, Urine Casts NONE, Urine Mucus NEGATIVE, Urine Culture Indicated YES 09/01/16 16:30: Hemoglobin 9.7, Hematocrit 30, White Blood Count 6.8, Red Blood Count 3.47, Mean Corpuscular Volume 88, Mean Corpuscular Hemoglobin 28, Mean Corpuscular Hemoglobin Concent 32, Red Cell Distribution Width 15.6, Platelet Count 324, Mean Platelet Volume 9.3, Neutrophils (%) (Auto) 75, Lymphocytes (%) (Auto) 10, Monocytes (%) (Auto) 11, Eosinophils (%) (Auto) 4, Basophils (%) (Auto) 0, Neutrophils # (Auto) 5.1, Lymphocytes # (Auto) 0.7, Monocytes # (Auto) 0.8, Eosinophils # (Auto) 0.2, Basophils # (Auto) 0.0, Sodium Level 142, Potassium Level 4.3, Chloride Level 108, Carbon Dioxide Level 24, Anion Gap 10, Blood Urea Nitrogen 44, Creatinine 2.01, Estimat Glomerular Filtration Rate 32, BUN/ Creatinine Ratio 22, Glucose Level 131, Calcium Level 8.3 09/01/16 16:40: Lab Scanned Report Transfusion Reaction Form 09/02/16 06:07: White Blood Count 6.1, Red Blood Count 3.68, Hemoglobin 10.2, Hematocrit 32, Mean Corpuscular Volume 88, Mean Corpuscular Hemoglobin 28, Mean Corpuscular Hemoglobin Concent 32, Red Cell Distribution Width 15.5, Platelet Count 371, Mean Platelet Volume 9.5, Neutrophils (%) (Auto) 73, Lymphocytes (%) (Auto) 11, Monocytes (%) (Auto) 10, Eosinophils (%) (Auto) 6, Basophils (%) (Auto) 0, Neutrophils # (Auto) 4.5, Lymphocytes # (Auto) 0.6, Monocytes # (Auto) 0.6, Eosinophils # (Auto) 0.4, Basophils # (Auto) 0.0, Sodium Level 143, Potassium Level 3.8, Chloride Level 107, Carbon Dioxide Level 24, Anion Gap 12, Blood Urea Nitrogen 41, Creatinine 2.03, Estimat Glomerular Filtration Rate 31, BUN/ Creatinine Ratio 20, Glucose Level 117, Calcium Level 8.5, Total Bilirubin 0.4, Aspartate Amino Transf (AST/SGOT) 27, Alanine Aminotransferase (ALT/SGPT) 6, Alkaline Phosphatase 53, Total Protein 5.9, Albumin 2.8 09/03/16 05:23: White Blood Count 6.0, Red Blood Count 3.22, Hemoglobin 9.0, Hematocrit 29, Mean Corpuscular Volume 89, Mean Corpuscular Hemoglobin 28, Mean Corpuscular Hemoglobin Concent 32, Red Cell Distribution Width 15.8, Platelet Count 364, Mean Platelet Volume 9.4, Neutrophils (%) (Auto) 65, Lymphocytes (%) (Auto) 15, Monocytes (%) (Auto) 12, Eosinophils (%) (Auto) 9, Basophils (%) (Auto) 0, Neutrophils # (Auto) 3.9, Lymphocytes # (Auto) 0.9, Monocytes # (Auto) 0.7, Eosinophils # (Auto) 0.5, Basophils # (Auto) 0.0, Sodium Level 142, Potassium Level 4.2, Chloride Level 109, Carbon Dioxide Level 25, Anion Gap 8, Blood Urea Nitrogen 45, Creatinine 1.93, Estimat Glomerular Filtration Rate 33, BUN/ Creatinine Ratio 23, Glucose Level 118, Calcium Level 8.1, Total Bilirubin 0.3, Aspartate Amino Transf (AST/SGOT) 27, Alanine Aminotransferase (ALT/SGPT) 6, Alkaline Phosphatase 48, Total Protein 5.6, Albumin 2.5 09/04/16 05:30: White Blood Count 7.7, Red Blood Count 3.41, Hemoglobin 9.4, Hematocrit 30, Mean Corpuscular Volume 88, Mean Corpuscular Hemoglobin 28, Mean Corpuscular Hemoglobin Concent 31, Red Cell Distribution Width 15.7, Platelet Count 439, Mean Platelet Volume 9.7, Sodium Level 143, Potassium Level 4.6, Chloride Level 108, Carbon Dioxide Level 24, Anion Gap 11, Blood Urea Nitrogen 52, Creatinine 2.02, Estimat Glomerular Filtration Rate 31, BUN/Creatinine Ratio 26, Glucose Level 152, Calcium Level 8.4 Radiology Reviewed chest x-ray negative. Knee x-rays osteoarthritis. CAT scan head nothing acute Discussion & Recommendations patient lives with . Patient unable to get around. Patient received shots from orthopedic. Patient received shots in the knees. Patient transferred to acute rehabilitation Discharge Home Medications: Active Scripts Active Reported Isosorbide Mononitrate ER (Isosorbide Mononitrate) 60 Mg Tab 60 Mg PO DAILY Lovastatin 20 Mg Tablet 20 Mg PO HS Furosemide 40 Mg Tablet 40 Mg PO Q48H needs 08/30/16 Carbidopa-Levodopa 25-100 Tab (Carbidopa/Levodopa) 1 Each Tablet 2 Tab PO TID Bethanechol Chloride 25 Mg Tablet 25 Mg PO ACHS Instructions to patient/family Please see electonic discharge instructions given to patient. Clinical Quality Measures DVT/VTE Risk/Contraindication: Risk Factor Score Per Nursin RFS Level Per Nursing on Admit: 4+=Very High INGRID NICOLE DO Sep 11, 2016 07:25
[2016-09-11] MEDS ORDERED: ALPR0.5T7 PO (10:02)
[2016-09-11] MEDS ORDERED: ASPI-983 PO (10:02)
[2016-09-11] MEDS ORDERED: MENT71OI TOP (10:02)
[2016-09-11] MEDS ORDERED: ACET-77 PO (10:02)
== END 2016-09-05 09:55 | DRG 872 ==
LOC: EDUNIT# 12:00 → ER 12:02 → 4TH 15:20
PROVIDERS: ADMIT Family Medicine; ATTEND Family Medicine
DX: A41.81 Sepsis due to Enterococcus (principal); N30.00 Acute cystitis without hematuria; I12.9 Hypertensive chronic kidney disease with stage 1 through stage 4 chronic kidney disease, or unspecified chronic kidney disease; N18.4 Chronic kidney disease, stage 4 (severe); G20 Parkinson's disease; G62.9 Polyneuropathy, unspecified; D64.9 Anemia, unspecified; M17.0 Bilateral primary osteoarthritis of knee; R63.0 Anorexia; M54.2 Cervicalgia; R45.1 Restlessness and agitation; J44.9 Chronic obstructive pulmonary disease, unspecified; B35.1 Tinea unguium; M20.41 Other hammer toe(s) (acquired), right foot; M20.42 Other hammer toe(s) (acquired), left foot; Z91.81 History of falling
CPT/HCPCS: 36415; 70450; 71010; 72125; 80048; 80053; 81000; 83605; 83735; 83880; 84484; 85007; 85014; 85018; 85025; 85027; 86141; 86850; 86900; 86901; 86920; 87040; 87077; 87088; 87186; 93005; 93041; 94760; 96361; 96365

== ENCOUNTER 2016-09-05 09:55 | Inpatient (IN) | payer MEDICARE ==
[~2016-09-05] VITALS: Ht 177.8 cm; Wt 71.2 kg
[2016-09-05 09:30] VITALS: BP 128/62
[~2016-09-05 09:55] MED LIST changes: +ACET-77 PO; +ASPI-983 PO; +BETH25TA PO; +CARB1TAB19 PO; +IPRA3AMP INH; +ISM60TCR PO; +NORM2DIS3 IV; +PANT40TA3 PO; +TRAM50TA2 PO; +[UNRECOGNIZED DRUG - OTHER] PO
--- OUTSIDE RECORDS SUMMARY | 2016-09-05 10:18 | XMS REPORT | Continuity of Care Document ---
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 Pruett [...] Type Severity Reaction Status Last Updated sulfamethoxazole ([id number]) Allergy Mild KIDNEY DAMAGE Active 01/08/12 Trimethoprim Allergy Mild KIDNEY DAMAGE Active 01/08/12 milk ([id number]) Allergy Unknown Active 09/17/06 IV DYE Allergy [...] F (97.6 - 99.5) Temperature (Calculated Celsius) 37.64948 degrees C (36.4 - 37.5) Temperature Source Temporal Pulse Rate (adult) 52 bpm (60 - 90) Respiratory Rate 31 bpm (12 - 24) O2 Sat by Pulse Oximetry 96 % (88 - 100) Blood Pressure 105/60 mm Hg Pain Pain Intensity 6 Height (Feet) 5 feet Height (Inches) 8.00 inches Height (Calculated Centimeters) 172.901471 cm Weight (Pounds) 170 pounds Weight (Ounces) 2.0 oz Weight (Calculated Grams) 52978.704 gm Weight (Calculated Kilograms) 77.402561 kilograms Calculated BMI 25.24 Results Laboratory Results [...] SELECTED GROUPS OF HIGH RISK PATIENTS. [employer] CONSENSUS CONFERENCE ON [...] 5-9 09/07/2014 4:15pm 09/07/2014 4:40pm Urine Specific [place] 1.010 * 1.016-1.022 09/07/2014 4:15pm 2014 4:40pm [...] Culture Urine, Clean Catch STAPH, COAG NEG (CAREER DEVELOPMENT COUNSELOR) 09/07/2014 4:15pm 11:00am Procedures Procedure Status Date Provider(s) Carotid endarterectomy completed 09/06/14 MARIO CHAPPELL MD Tracing only of electrocardiogram completed 09/04/14 MARIO CHAPPELL MD Encounters Encounter Location Date/Time Discharged Inpatient [facility] 09/06/14 8:55am Departed Clinic [facility] 09/05/14 9:10am Discharged Inpatient [facility] 09/04/14 10:25am Registered Clinic [facility] 09/04/14 9:00am Registered Recurring [facility] 08/24/14 4:00pm
[2016-09-05] MEDS ORDERED: RT-ALBUTEROL/IPRATROPIUM 3 ML (DUONEB) VIAL INH PRN (10:30)
[2016-09-05] MEDS ORDERED: CATHETER FLUSH 10 ML SYR IV PRN (10:30)
[2016-09-05] MEDS: SINEMET 25/100 (CARBIDOPA/LEVODOPA) TAB PO SCH ×2 (11:55→20:32)
[2016-09-05] MEDS: BETHANECHOL 25 MG (URECHOLINE) TAB PO SCH ×3 (11:55→20:32)
--- NOTE | 2016-09-05 11:57 | Physical Therapy Evaluation ---
PT Evaluation-General Medical Diagnosis Admission Date Sep 05, 2016 at 09:56 Medical Diagnosis: Parkinson's, sepsis Onset Date: Aug 29, 2016 Therapy Diagnosis Therapy Diagnosis: impaired mobility, strength, endurance Height/Weight Height (Feet): 5 Height (Inches): 10.00 Weight (Pounds): 157 Weight (Ounces): 0.8 Precautions Precautions/Isolations: Fall Prevention, Standard Precautions Weight Bear Status Location Restriction: LE Bilateral Referral Physician: Mayco Reason for Referral: Evaluation/Treatment Medical History Pertinent Medical History: Arthritis, HTN, Parkinson's Additional Medical History chronic kidney disease, anemia, polypectomy x 2, TURP, CEA, renal failure, prostate problems, prediabetic Current History Pt admitted through ER with diagnosis of sepsis secondary to urinary source. Pt' s spouse reports Pt fell in the BR and "rolled out of bed" day of admission. Per history, son reports that mobility has progressively decreased over 6 months. Per family report, Pt has been refusing medication, including Parkinson' s meds Reviewed History: Yes Social History Home: Single Level Current Living Status: Spouse Entry Into Home: Ramp Prior/Core FIM Prior Level of Function Functional [place] Measure 0=Not Assessed/NA 4=Minimal Assistance 1=Total Assistance 5=Supervision or Setup 2=Maximal Assistance 6=Modified [place] 3=Moderate Assistance 7=Complete [place] Bed Mobility: 6 Transfers (B,C,W/C) (FIM): 6 Gait: 6 Patient used a walker for ambulation PT Evaluation-Current Subjective Patient in wheelchair in therapy gym, just got through with OT. Patient is pleasant and cooperative but very concerned about the pain in his knees. He states he has pain of 6/10 on average in both knees. He apparently got some pain shots in his knees a few days ago but he states they have already worn off. Pt/Family Goals to decrease the pain in his knees and to be mobile in his home Objective Patient Orientation: Person, Place, Situation ROM/Strength ROM Lower Extremities limited, when supine patient will not straiten his legs, right leg remains in 45 degrees flexion and left at 85 degrees flexion, he can extend them more ( like when he stands), but he does not like to. Strenght Lower Extremities knee flexion and extension not tested due to pain left hip flexion 3-/5, dorsiflexion 3+/5, right hip flexion 3/5, dorsiflexion 4/ 5 Integumentary/Posture Bowel Incontinence: No Bladder Incontinence: No Posture some kyphosis, very forward head Sensory Vision: Functional Hearing: Functional Sensation Right Lower Extremit: Intact Sensation Left Lower Extremity: Intact Transfers Functional [place] Measure 0=Not Assessed/NA 4=Minimal Assistance 1=Total Assistance 5=Supervision or Setup 2=Maximal Assistance 6=Modified [place] 3=Moderate Assistance 7=Complete IndependenceIRFPAI Quality Coding Scale 6 Independent with activity with or without an assistive device 5 Patient requires set up or clean up by helper. Patient completes activity by themselves 4 Supervision or touching assist (CGA). [place] provide cues , steadying assist 3 The helper provides less than half the effort to complete the activity 2 The helper provides more than half the effort to complete the activity 1 Dependent. The helper does all the effort to complete an activity 7 Patient refused to complete or attempt activity 9 The patient did not perform the activity before the current illness or injury 88 Not attempted due to Medical conditions or safety concerns Transfers (B, C, W/C) (FIM): 4 Scootin Rollin Roll Left to Right (QC): 4 Supine to/from Sit: 4 Sit to/from Stand: 4 bed t/f WC(FIM only if WC use): 4 Sit to Lying (QC): 3 Lying to Sitting/Side of Bed(Q: 3 Sit to Stand (QC): 4 Chair/Kzo-ag-Clptk Xfer(QC): 4 Patient performs scooting with min assist and supine <-> sit with min assist, sit to stand with CGA, and transfers with CGA Gait Does the Patient Walk?: Yes Mode of Locomotion: Walk Anticipated Mode of Locomotion: Walk Gait (FIM): 1 Walk 10 feet (QC): 88 Walk 50 ft with 2 Turns(QC): 88 Walk 150 ft (QC): 88 Walking 10ft/uneven surface-QC: 88 Distance: 2' Gait Level of Assist: 4 Gait Persons Needed: 1 Gait Assistive Device: FWW Comments/Gait Description Patient was only able to ambulate a couple of feet with CGA using a rolling walker Wheelchair Training Does the Pt Use a Wheelchair?: Yes Wheelchair (FIM): 5 Distance: 150' Wheelchair Level of Assist: 5 Wheel 50 ft with 2 turns (QC): 4 Wheel 150 ft (QC): 4 Type of Wheelchair: Manual Patient uses both arms to propel a manual wheelchair 150' with SBA, slowly, but he was even able to turn without assist Stairs If not tested on admit;explain Not performed at this time for safety reasons due to pain and weakness. Balance Sitting Static: Normal Sitting Dynamic: Normal Standing Static: Fair Standing Dynamic: Fair Treatment SAQ alternating for 3 min, ankle pumps x 20, glut sets x 20 Assessment/Needs Patient has impaired mobility, strength, ROM, and endurance due to pain, debility, and arthritis in his knees and from Parkinson's. Recommended knee compression sleeves to his and she seemed confident that she or another family member would be able to get some and bring it here for him. Rehab Potential: Fair Post Rehab Potential-Barriers: pain, Parkinson's PT Short Term Goals Short Term Goals Time Frame: Sep 12, 2016 Transfers (B,C,W/C) (FIM): 5 Gait (FIM): 1 Gait Distance Comment: 20' Gait Level of Assist: 4 Gait Assistive Device: FWW PT Halfway Goals Halfway Goals PT Halfway Goals Time Frame: Sep 26, 2016 Transfers (B,C,W/C) (FIM): 6 Sit to Lying (QC): 6 Lying-Sitting on Side/Bed(QC): 6 Sit to Stand (QC): 6 Rollin Roll Left to Right (QC): 6 Chair/Hiv-ex-Mrxua Xfer(QC): 6 Car Transfer (QC): 4 Gait (FIM): 2 Distance: 50' Walk 10 feet (QC): 4 Walk 10ft-Uneven Surface(QC): 4 Walk 50ft with 2 Turns (QC): 4 Walk 150 ft (QC): 88 Gait Level of Assist: 5 Gait Assistive Device: FWW Wheelchair (FIM): 6 Distance: 200' Wheelchair Level of Assist: 6 Wheel 50 feet with 2 turns (QC: 6 PT Plan Problem List Problem List: Activity Tolerance, Functional Strength, Safety, Balance, Gait, Transfer, Bed Mobility, ROM Treatment/Plan Treatment Plan: Continue Plan of Care Treatment Plan: Bed Mobility, Education, Functional Activity [place], Functional Strength, Group Therapy, Gait, Safety, Therapeutic Exercise, Transfers Treatment Duration: Sep 26, 2016 # of days/week 5-6 Visits Per Week: 10-11 Minutes/Day (M-F): 60-90 Minutes/Day (Sat/Moise): 15-30 Pt/Family Agrees w/Plan: Yes Safety Risks/Education Patient Education: Gait Training, Transfer Techniques, Correct Positioning, W/ C Management, Safety Issues Teaching Recipient: Patient Teaching Methods: Demonstration, Discussion Response to Teaching: Reinforcement Needed Discharge Recommendations Therapy D/C Recommendations: Home w/ Family Support Time/GCodes Time In: 1100 Time Out: 1150 Total Billed Treatment Time: 50 Total Billed Treatment 1 visit EVM 15 min EX 15 min FA 20 min CHARLOTTE SHARMA PT Sep 05, 2016 11:57
--- NOTE | 2016-09-05 12:18 | ST Cognitive Linguistic Eval ---
Speech Evaluation-General Medical Diagnosis Parkinson's, sepsis Onset Date: Aug 29, 2016 Therapy Diagnosis Therapy Diagnosis: Cognitive Linguistic Skills WNL Precautions Precautions/Isolations: Fall Prevention, Standard Precautions Referral Referring Physician: Dr. Jorge Alberto Mao Reason for Referral: Evaluation/Treatment Cognitive Screen Medical History Pertinent Medical History: Arthritis, HTN, Parkinson's Reviewed History: Yes Social History Current Living Status: Spouse Speech PLF-Current Status Prior Level of Function The patient and denied any recent challenges with speech, language, cognition, or swallowing. Per patient's , "sometimes we forget things but no more than usual." Subjective The patient was recently admitted to [facility] with reduced strength (co-morbidity of Parkinson's). The patient greeted the clinician appropriately and agreed to participate in the cognitive screen on this date. Language Eval: Auditory Comprehends Simple Yes/No Ques: Functional Indent/Objects [place]: Functional Ident/Pics in [place]: Functional Follows 1-Step Commands: Functional Follows Complex Directions: Mild (Intermittent repetition required for increased accuracy.) Follows General Conversations: Functional Language Eval: Verbal Language Completes Spontaneous Greeting: Functional Produces Auto, Serial Info: Functional Imitates Simple Words/Phrases: Functional Word Finding: Mild Requests Basic Needs: Functional States Basic Personal Info: Functional Expresses Complex Ideas: Functional Objective Cognitive Domain Attention: WNL Memory: Mild Problem Solving: Functional (Increased time required for improved accuracy with functional problem solving.) Objective Oral Motor/Speech Production The patient's rate of speech is mildly reduced, however, he remains 100% intelligible in known and unknown contexts. Impression The patient demonstrated cognitive linguistic skills grossly within normal function (at baseline) and appropriate for completion of ADL's. Communication/Social Cognition Comprehension: 5 Expression: 5 Social Interaction: 5 Problem Solvin Memory: 4 Speech Patient Assess Expression of Ideas/Wants: Exhibits (3) Understanding [place] Content: Usually Understands (3) Brief Interview-Mental Status: Yes Repetition of Three Words: Three (3) Temporal Orientation: Year: Correct (3) Temporal Orientation: Month: Accurate within 5 days(2) Temporal Orientation: Day: Correct (1) Recall : Wear to say "Sock": No, could not recall (0) Recall : Color: Yes, after cueing (1) Recall : Bed: No, could not recall (0) Speech-Plan Treatment Plan Speech Therapy Treatment Plan: Discontinue ST Evaluation, only. Rehab Potential: Fair Safety Risks/Education Teaching Recipient: Patient, Significant Other Teaching Methods: Discussion Response to Teaching: Verbalize Understanding Education Topics Provided: Results, Recommendations Time Speech Therapy Time In: 11:50 Speech Therapy Time Out: 12:05 Total Billed Time: 15 Billed Treatment Time 1, RENARD ANAYA Sep 05, 2016 12:18
--- NOTE | 2016-09-05 13:18 | Occupational Therapy Eval ---
OT Evaluation-General/PLF Medical Diagnosis Admission Date Sep 05, 2016 at 09:56 Medical Diagnosis: Parkinson's, sepsis Onset Date: Aug 29, 2016 Therapy Diagnosis Therapy Diagnosis: decr self care, decr functional mobility, decr activity bettina , weakness Height/Weight Height (Feet): 5 Height (Inches): 10.00 Weight (Pounds): 157 Weight (Ounces): 0.8 Precautions Precautions/Isolations: Fall Prevention, Standard Precautions Weight Bear Status Location Restriction: LE Bilateral Referral Physician: Mayco Referral Reason: Evaluation/Treatment Medical History Pertinent Medical History: Arthritis, HTN, Parkinson's Additional Medical History Polypectomy x2, TURP, BPH, renal failure Current History Admitted through ED to acute care with sepsis secondary to urinary source. Pt had several falls in the weeks prior to admission and noticed decreased mobility and cognition. Pt also c/o painful knees and had injections in bilat knees on 09/03/16. Reviewed History: Yes Social History Home: Single Level Current Living Status: Spouse Entry Into Home: Ramp House is similar to [facility] and son and daughter in law live next door. ADL-Prior Level of Function ADL PLOF Comments Pt was able to manage all of his basic self care needs prior to admission. He got around in his house with SPC or FWW. 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 Pain at rest reported 4/10 in knees and after toileting 8/10. Not described. Appearance Alert, cooperative Mental Status/Objective Attachments: Saline Lock Current Glasses/Contacts: Yes Hearing Aids: No Dentures/Partials: No Hand Dominance: Right Upper Extremity ROM Grossly WFL bilat. Arthritic changes noted in hands. Upper Extremity Coordination Mild tremors in bilat UEs but pt reported they do not affect self care. Upper Extremity Strength Grossly 4/5 bilat Edema: No UE edema ADL-Treatment ADL-Current ADLs took longer than usual due to fatigue, slight tremors and fear of knee pain. All Ambulation for ADLs done with FWW, CGA, slow gait and small, shuffling steps. Functional [place] Measure 0=Not Assessed/NA 4=Minimal Assistance 1=Total Assistance 5=Supervision or Setup 2=Maximal Assistance 6=Modified [place] 3=Moderate Assistance 7=Complete IndependenceIRFPAI Quality Coding Scale 6 Independent with activity with or without an assistive device 5 Patient requires set up or clean up by helper. Patient completes activity by themselves 4 Supervision or touching assist (CGA). [place] provide cues , steadying assist 3 The helper provides less than half the effort to complete the activity 2 The helper provides more than half the effort to complete the activity 1 Dependent. The helper does all the effort to complete an activity 7 Patient refused to complete or attempt activity 9 The patient did not perform the activity before the current illness or injury 88 Not attempted due to Medical conditions or safety concerns Eating (FIM): 6 (Does not have dentures, has only one tooth. Does not need AD for feeding, per pt report) Eating (QC): 6 Grooming (FIM): 4 (CGA standing at sink to wash hands. Has a franklin so does not shave - has franklin trimmed when he gets a haircut. Pt reported he does not brush his tooth) Oral Hygiene (QC): 9 (Pt does not brush his single tooth) Toileting (FIM): 4 (Min assist to maintain balance while getting clothes up and down. Pt has hernia in scrotum and this makes it difficult for him to pee in toilet. He will try using a urinal and said he preferred to sit on toilet to do this. used hand as shield to urinate into toilet. Tall toilet, grab bar, ) Toileting Hygiene (QC): 3 Transfers (B, C, W/C) (FIM): 4 (Min assist to get out of recliner and w/c. FWW. Skilled cues for hand placement. Pt tends to sit before in correct, safe position) Toilet/Commode Transfer (FIM): 3 (More difficulty getting off tall toilet with grab bar only on one side, mod to min assist. FWW. Pt declined BSC over toilet) Toilet Transfer (QC): 3 Other Treatments Pt transported to gym per w/c. Pt did 10 reps bilat UE exercise with exercise bar weighing about 1#, working on shoulders and elbows. Pt also did bilat UE ex with 1# weight in hand, working on elbows, forearms and wrists. Pt was able to track reps and switch hands without difficulty. Exercise to help strengthen arms to help with transfers and standing during ADLs. Education OT Patient Education: Exercise program, Modified ADL techniques, Purpose of tx/ functional activities, Rehab process, Safety issues, Transfer techniques, Use of adapted equipment Teaching Recipient: Patient, Significant Other Teaching Methods: Demonstration, Discussion Response to Teaching: Verbalize Understanding, Return Demonstration, Reinforcement Needed OT Short Term Goals Short Term Goals Time Frame: Sep 12, 2016 Toileting(FIM): 5 Transfers (B,C,W/C) (FIM): 5 Toilet/Commode Transfer(FIM): 5 Shower Transfer(FIM): 5 1=Demonstrate adherence to instructed precautions during ADL tasks. 2=Patient will verbalize/demonstrate understanding of assistive devices/ modifications for ADL. 3=Patient will improve strength/tolerance for activity to enable patient to perform ADL's. OT Care Home Goals Care Home Goals Time Frame: Sep 26, 2016 Eating (FIM): 6 Eating (QC): 6 Groomin Oral Hygiene (QC): 9 Bathing(FIM): 6 Shower/Bathe Self (QC): 6 Upper Body Dressing(FIM): 6 Upper Body Dressing (QC): 6 Lower Body Dressing(FIM): 6 Lower Body Dressing (QC): 6 On/Off Footwear (QC): 6 Toileting(FIM): 6 Toileting Hygiene (QC): 6 Toilet/Commode Transfer(FIM): 6 Toilet/Commode Transfer (QC): 6 Shower Transfer(FIM): 6 Additional Goals: 2-Verbalize Understanding, 3-ImproveStrength/[place] 1=Demonstrate adherence to instructed precautions during ADL tasks. 2=Patient will verbalize/demonstrate understanding of assistive devices/ modifications for ADL. 3=Patient will improve strength/tolerance for activity to enable patient to perform ADL's. OT Education/Plan Problem List/Assessment Assessment: Decreased Activ Tolerance, Decreased UE Strength, Dependent Transfers, Impaired Funct Balance, Impaired Self-Care Skills Pt would benefit from skilled OT to increase his independence in basic self care to allow him to return home safely with his after sepsis, complicated by bilat knee pain and Parkinsons. Discharge Recommendations Plan/Recommendations: Continue POC Treatment Plan/Plan of Care Treatment,Training & Education: Yes Patient would benefit from OT for education, treatment and training to promote independence in ADL's, mobility, safety and/or upper extremity function for ADL' s. Plan of Care: ADL Retraining, Functional Mobility, Group Exercise/Act as Ind ( educaiton, exercise, socialization, functionla activities, activity tolerance), UE Funct Exercise/Act, UE Neuromus Re-Ed/Coord Treatment Duration: Sep 26, 2016 # of days/week 5-6 Visits Per Week: 10-11 Minutes/Day (M-F): 75-90 Minutes/Day (Sat/Moise): PRN Agreement: Yes Rehab Potential: Fair Time/GCodes Start Time: 09:55 Stop Time: 11:00 Total Time Billed (hr/min): 65 Billed Treatment Time visit, evaluation moderate 20 minutes, ADL 30 minutes, exercise 15 minutes SARAI PIPER OT Sep 05, 2016 13:18
--- NOTE | 2016-09-05 14:31 | Physical Therapy Daily Note ---
PT Daily Note-Current Subjective Patient just complete with OT and agrees to fit his bilateral knee elastic braces. Pain Numeric Pain Scale: 5-Moderate Pain Location: Right, Left Location Body Site: Knee Pain Description: Ache, Chronic Appearance severely kyphotic and flexed knee posture in sit and stand Mental Status Patient Orientation: Normal For Age Transfers Functional [place] Measure 0=Not Assessed/NA 4=Minimal Assistance 1=Total Assistance 5=Supervision or Setup 2=Maximal Assistance 6=Modified [place] 3=Moderate Assistance 7=Complete IndependenceIRFPAI Quality Coding Scale 6 Independent with activity with or without an assistive device 5 Patient requires set up or clean up by helper. Patient completes activity by themselves 4 Supervision or touching assist (CGA). [place] provide cues , steadying assist 3 The helper provides less than half the effort to complete the activity 2 The helper provides more than half the effort to complete the activity 1 Dependent. The helper does all the effort to complete an activity 7 Patient refused to complete or attempt activity 9 The patient did not perform the activity before the current illness or injury 88 Not attempted due to Medical conditions or safety concerns Transfers (B, C, W/C) (FIM): 4 Scootin Sit to/from Stand: 4 Sit to Stand (QC): 4 CGA with gait belt in place Weight Bearing Weight Bearing Restriction: Weight Bearing/Tolerated Location Restriction: LE Bilateral Gait Training Does the Patient Walk?: Yes Gait (FIM): 1 Distance (FIM): 1=up to 49 ft Distance: 30' x 1; 10' x 1 Walk 10 feet (QC): 4 Gait Level of Assist: 4 Gait Persons Needed: 1 Gait Assistive Device: FWW slow, antalgic, shuffle gait sequence Treatments Patient assisted PT with donning bilateral elastic knee braces brought by [facility] fun[facility] p.m. Braces compress appropriately and provide comfort and support for patient. Assessment Current Status: Good Progress Patient tolerated treatment and is encouraged by how braces comfort and support him to perform gross motor skills. PT to increase activity as tolerated by patient. PT Short Term Goals Short Term Goals Time Frame: Sep 12, 2016 Transfers (B,C,W/C) (FIM): 5 Gait (FIM): 1 Gait Distance Comment: 20' Gait Level of Assist: 4 Gait Assistive Device: FWW Wheelchair Distance: 150' PT Usp Goals Usp Goals PT Whirley Operator Goals Time Frame: Sep 26, 2016 Transfers (B,C,W/C) (FIM): 6 Sit to Lying (QC): 6 Lying-Sitting on Side/Bed(QC): 6 Sit to Stand (QC): 6 Rollin Roll Left to Right (QC): 6 Chair/Lfc-un-Vufmo Xfer(QC): 6 Car Transfer (QC): 4 Gait (FIM): 2 Distance: 50' Walk 10 feet (QC): 4 Walk 10ft-Uneven Surface(QC): 4 Walk 50ft with 2 Turns (QC): 4 Walk 150 ft (QC): 88 Gait Level of Assist: 5 Gait Assistive Device: FWW Wheelchair (FIM): 6 Distance: 200' Wheelchair Level of Assist: 6 Wheel 50 feet with 2 turns (QC: 6 PT Plan Treatment/Plan Treatment Plan: Continue Plan of Care Treatment Plan: Bed Mobility, Education, Functional Activity [place], Functional Strength, Group Therapy, Gait, Safety, Therapeutic Exercise, Transfers Treatment Duration: Sep 26, 2016 Visits Per Week: 10-11 Minutes/Day (M-F): 60-90 Minutes/Day (Sat/Moise): 15-30 Time/GCodes Time In: 1400 Time Out: 1420 Total Billed Treatment Time: 20 Total Billed Treatment 1 visit FA 20 min FAUSTO PENA PT Sep 05, 2016 14:31
--- NOTE | 2016-09-05 14:35 | Occupational Ther Daily Note ---
OT Current Status-Daily Note Subjective Pt seen in room, up in recliner, agreeable to OT. Appearance Cooperative, yet fatigued Mental Status/Objective Functional [place] Measure 0=Not Assessed/NA 4=Minimal Assistance 1=Total Assistance 5=Supervision or Setup 2=Maximal Assistance 6=Modified [place] 3=Moderate Assistance 7=Complete [place] ADL-Treatment Functional [place] Measure 0=Not Assessed/NA 4=Minimal Assistance 1=Total Assistance 5=Supervision or Setup 2=Maximal Assistance 6=Modified [place] 3=Moderate Assistance 7=Complete IndependenceIRFPAI Quality Coding Scale 6 Independent with activity with or without an assistive device 5 Patient requires set up or clean up by helper. Patient completes activity by themselves 4 Supervision or touching assist (CGA). [place] provide cues , steadying assist 3 The helper provides less than half the effort to complete the activity 2 The helper provides more than half the effort to complete the activity 1 Dependent. The helper does all the effort to complete an activity 7 Patient refused to complete or attempt activity 9 The patient did not perform the activity before the current illness or injury 88 Not attempted due to Medical conditions or safety concerns Transfers (B, C, W/C) (FIM): 4 (transfer from recliner to w/c, skilled cues for hand placement and walker management. pt tended to sit before he was squared up with w/c. ) Other Treatment Pt did 10 minutes bilat UE exercise with arm bike set at 10W resistance, with 2 brief recovery periods. Also did arc activity times 2 sets, one with short extension and one with medium extension, with no additional weight on arms. Exercise to help strengthen arms for helping with transfers and standing during ADLs. Care transferred to PT Education OT Patient Education: Exercise program, Purpose of tx/functional activities Teaching Recipient: Patient Teaching Methods: Discussion Response to Teaching: Verbalize Understanding OT Short Term Goals Short Term Goals Time Frame: Sep 12, 2016 Toileting(FIM): 5 Transfers (B,C,W/C) (FIM): 5 Toilet/Commode Transfer(FIM): 5 Shower Transfer(FIM): 5 1=Demonstrate adherence to instructed precautions during ADL tasks. 2=Patient will verbalize/demonstrate understanding of assistive devices/ modifications for ADL. 3=Patient will improve strength/tolerance for activity to enable patient to perform ADL's. OT Acid Pumper Goals Intermediate Goals Time Frame: Sep 26, 2016 Eating (FIM): 6 Eating (QC): 6 Groomin Oral Hygiene (QC): 9 Bathing(FIM): 6 Shower/Bathe Self (QC): 6 Upper Body Dressing(FIM): 6 Upper Body Dressing (QC): 6 Lower Body Dressing(FIM): 6 Lower Body Dressing (QC): 6 On/Off Footwear (QC): 6 Toileting(FIM): 6 Toileting Hygiene (QC): 6 Toilet/Commode Transfer(FIM): 6 Toilet/Commode Transfer (QC): 6 Shower Transfer(FIM): 6 Additional Goals: 2-Verbalize Understanding, 3-ImproveStrength/[place] 1=Demonstrate adherence to instructed precautions during ADL tasks. 2=Patient will verbalize/demonstrate understanding of assistive devices/ modifications for ADL. 3=Patient will improve strength/tolerance for activity to enable patient to perform ADL's. OT Education/Plan Problem List/Assessment Pt would benefit from skilled OT to increase his independence in basic self care to allow him to return home safely with his after sepsis, complicated by bilat knee pain and Parkinsons. Discharge Recommendations Plan/Recommendations: Continue POC Treatment Plan/Plan of Care Patient would benefit from OT for education, treatment and training to promote independence in ADL's, mobility, safety and/or upper extremity function for ADL' s. Plan of Care: ADL Retraining, Functional Mobility, Group Exercise/Act as Ind ( educaiton, exercise, socialization, functionla activities, activity tolerance), UE Funct Exercise/Act, UE Neuromus Re-Ed/Coord Treatment Duration: Sep 26, 2016 Visits Per Week: 10-11 Minutes/Day (M-F): 75-90 Minutes/Day (Sat/Moise): PRN Agreement: Yes Rehab Potential: Fair Time/GCodes Start Time: 13:30 Stop Time: 14:00 Total Time Billed (hr/min): 30 Billed Treatment Time visit, 30 minutes exercise SARAI PIPER OT Sep 05, 2016 14:35
[2016-09-05] MEDS ORDERED: FLU TRIvalent (5 YOA+) 2016-17 (AFLURIA) 0.5 ML IM ONE (15:00)
[2016-09-05 18:00] VITALS: BP 136/72
[2016-09-06] MEDS: ACETAMINOPHEN 500 MG TAB (TYLENOL) PO PRN ×3 (02:12→16:22)
[2016-09-06 05:33] VITALS: BP 114/62
[2016-09-06] MEDS: BETHANECHOL 25 MG (URECHOLINE) TAB PO SCH ×4 (06:11→20:59)
[2016-09-06 06:22] LABS: MEAN PLATELET VOLUME 9.1 FL (7.4-10.4); RED BLOOD COUNT 3.7 10^6/uL (4.35-5.85); RED CELL DISTRIBUTION WIDTH 15.9 % (10.0-14.5); WHITE BLOOD COUNT 10.5 10^3/uL (4.3-11.0)
[2016-09-06 06:40] LABS: CALCIUM 8.4 MG/DL (8.5-10.1); CREATININE SERUM 1.99 MG/DL (0.60-1.30)
[2016-09-06] MEDS: SINEMET 25/100 (CARBIDOPA/LEVODOPA) TAB PO SCH ×3 (08:26→20:59)
[2016-09-06] MEDS: ISOSORBIDE MONONITRATE 60 MG (IMDUR) TAB PO SCH (08:27)
--- NOTE | 2016-09-06 09:13 | Occupational Ther Daily Note ---
OT Current Status-Daily Note Subjective Pt sitting in chair, agrees to treatment. Pt reports 5/10 pain in knees. Mental Status/Objective Functional [place] Measure 0=Not Assessed/NA 4=Minimal Assistance 1=Total Assistance 5=Supervision or Setup 2=Maximal Assistance 6=Modified [place] 3=Moderate Assistance 7=Complete [place] ADL-Treatment Pt completed sponge bath while seated in chair. Doffed shirt with SBA. Pt bathed upper body with set up. 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 Pt able to wash bilateral upper/lower legs and lionel area. Pt declined to remove soft knee supports, states he will "wash around them." Stood with minimal assistance to wash buttocks. Pt donned undershirt and pullover shirt with set up. Pt donned Depends and pants with minimal assistance for sit to stand during pant hike. Pt doffed socks with SBA. Pt able to start socks over toes, but requires assist to pull them over heel and up the rest of the way. Pt sitting in chair with needs met and chair alarm in place after session. Functional [place] Measure 0=Not Assessed/NA 4=Minimal Assistance 1=Total Assistance 5=Supervision or Setup 2=Maximal Assistance 6=Modified [place] 3=Moderate Assistance 7=Complete IndependenceIRFPAI Quality Coding Scale 6 Independent with activity with or without an assistive device 5 Patient requires set up or clean up by helper. Patient completes activity by themselves 4 Supervision or touching assist (CGA). [place] provide cues , steadying assist 3 The helper provides less than half the effort to complete the activity 2 The helper provides more than half the effort to complete the activity 1 Dependent. The helper does all the effort to complete an activity 7 Patient refused to complete or attempt activity 9 The patient did not perform the activity before the current illness or injury 88 Not attempted due to Medical conditions or safety concerns Bathing (FIM): 4 Bathing Location: L Arm, R Arm, L Upper Leg, R Upper Leg, L Lower Leg ( including foot), R Lower Leg (including foot), Chest, Abdomen, Perineal Area Shower/Bathe Self (QC): 3 Upper Body (FIM): 5 Upper Body Dressing (QC): 5 Lower Body Dressing (FIM): 4 Lower Body Dressing (QC): 3 On/Off Footwear (QC): 3 OT Short Term Goals Short Term Goals Time Frame: Sep 12, 2016 Toileting(FIM): 5 Transfers (B,C,W/C) (FIM): 5 Toilet/Commode Transfer(FIM): 5 Shower Transfer(FIM): 5 1=Demonstrate adherence to instructed precautions during ADL tasks. 2=Patient will verbalize/demonstrate understanding of assistive devices/ modifications for ADL. 3=Patient will improve strength/tolerance for activity to enable patient to perform ADL's. OT Chcf Goals Pump And Blower Operator Goals Time Frame: Sep 26, 2016 Eating (FIM): 6 Eating (QC): 6 Groomin Oral Hygiene (QC): 9 Bathing(FIM): 6 Shower/Bathe Self (QC): 6 Upper Body Dressing(FIM): 6 Upper Body Dressing (QC): 6 Lower Body Dressing(FIM): 6 Lower Body Dressing (QC): 6 On/Off Footwear (QC): 6 Toileting(FIM): 6 Toileting Hygiene (QC): 6 Toilet/Commode Transfer(FIM): 6 Toilet/Commode Transfer (QC): 6 Shower Transfer(FIM): 6 Additional Goals: 2-Verbalize Understanding, 3-ImproveStrength/[place] 1=Demonstrate adherence to instructed precautions during ADL tasks. 2=Patient will verbalize/demonstrate understanding of assistive devices/ modifications for ADL. 3=Patient will improve strength/tolerance for activity to enable patient to perform ADL's. OT Education/Plan Problem List/Assessment Pt would benefit from skilled OT to increase his independence in basic self care to allow him to return home safely with his after sepsis, complicated by bilat knee pain and Parkinsons. Discharge Recommendations Plan/Recommendations: Continue POC Treatment Plan/Plan of Care Patient would benefit from OT for education, treatment and training to promote independence in ADL's, mobility, safety and/or upper extremity function for ADL' s. Plan of Care: ADL Retraining, Functional Mobility, Group Exercise/Act as Ind ( educaiton, exercise, socialization, functionla activities, activity tolerance), UE Funct Exercise/Act, UE Neuromus Re-Ed/Coord Treatment Duration: Sep 26, 2016 Visits Per Week: 10-11 Minutes/Day (M-F): 75-90 Minutes/Day (Sat/Moise): PRN Agreement: Yes Rehab Potential: Fair Time/GCodes Start Time: :35 Stop Time: 09:00 Total Time Billed (hr/min): 25 Billed Treatment Time 1 visit, ADLx2(25minutes) SUSIE DOWNS OT Sep 06, 2016 09:13
--- NOTE | 2016-09-06 10:05 | Physical Therapy Daily Note ---
PT Daily Note-Current Subjective Agreeable to PT. Reports he "had a bad night." Reports he had trouble getting Tylenol for pain. Post treatment, pt reports the Nu Step loosened his knees and made transfers and walking easier Mental Status Patient Orientation: Person, Place, Time, Situation Transfers Functional [place] Measure 0=Not Assessed/NA 4=Minimal Assistance 1=Total Assistance 5=Supervision or Setup 2=Maximal Assistance 6=Modified [place] 3=Moderate Assistance 7=Complete IndependenceIRFPAI Quality Coding Scale 6 Independent with activity with or without an assistive device 5 Patient requires set up or clean up by helper. Patient completes activity by themselves 4 Supervision or touching assist (CGA). [place] provide cues , steadying assist 3 The helper provides less than half the effort to complete the activity 2 The helper provides more than half the effort to complete the activity 1 Dependent. The helper does all the effort to complete an activity 7 Patient refused to complete or attempt activity 9 The patient did not perform the activity before the current illness or injury 88 Not attempted due to Medical conditions or safety concerns Sit to/from Stand: 4 (CGA for safety but no lift assist; skilled cues for hand placement and sequencing. ) Sit to Stand (QC): 4 Chair/Lja-yp-Ypbxz Xfer(QC): 4 (skilled cues to square up to chair and to reach back for chair.) Pt forward flexed with knees flexed with transfer; needs CGA and skilled cueing to safely complete. Gait Training Pt ambulated x 10 ft, 6 ft, 10 ft and 10 ft with FWW with forward flexion at hips, flexion at knees and shufffled gait with no foot clearance. Exercises NuStep Minutes: 12 Treatments Nu step used to assist in ROM of knees and to warm them up for functional mobility. Initially, pt wanted to be in a very flexed position on the nu step but gradually extended the seat to increase knee extension while riding. Pt able to demonstrated increased knee extension post nu step. Assessment Current Status: Good Progress Functional gait is limited and ROM is a limiting factor. Pt did improve post nu step and still had limited foot clearance, but took longer steps. Pt progressing slowly as expected. PT Short Term Goals Short Term Goals Time Frame: Sep 12, 2016 Transfers (B,C,W/C) (FIM): 5 Gait (FIM): 1 Gait Distance Comment: 20' Gait Level of Assist: 4 Gait Assistive Device: FWW Wheelchair Distance: 150' PT Retirement Goals Appraiser Auditor Goals PT Retirement Goals Time Frame: Sep 26, 2016 Transfers (B,C,W/C) (FIM): 6 Sit to Lying (QC): 6 Lying-Sitting on Side/Bed(QC): 6 Sit to Stand (QC): 6 Rollin Roll Left to Right (QC): 6 Chair/Glw-fy-Jlfsr Xfer(QC): 6 Car Transfer (QC): 4 Gait (FIM): 2 Distance: 50' Walk 10 feet (QC): 4 Walk 10ft-Uneven Surface(QC): 4 Walk 50ft with 2 Turns (QC): 4 Walk 150 ft (QC): 88 Gait Level of Assist: 5 Gait Assistive Device: FWW Wheelchair (FIM): 6 Distance: 200' Wheelchair Level of Assist: 6 Wheel 50 feet with 2 turns (QC: 6 PT Plan Problem List Problem List: Activity Tolerance, Functional Strength, Safety, Balance, Bed Mobility Treatment/Plan Treatment Plan: Continue Plan of Care Treatment Plan: Bed Mobility, Education, Functional Activity [place], Functional Strength, Group Therapy, Gait, Safety, Therapeutic Exercise, Transfers Treatment Duration: Sep 26, 2016 Visits Per Week: 10-11 Minutes/Day (M-F): 60-90 Minutes/Day (Sat/Moise): 15-30 Safety Risks/Education Patient Education: Transfer Techniques, Safety Issues Teaching Recipient: Patient Teaching Methods: Demonstration, Discussion Response to Teaching: Return Demonstration, Reinforcement Needed Time/GCodes Time In: 750 Time Out: 818 Total Billed Treatment Time: 28 Total Billed Treatment visit EX 12 FA 16 AARON ESPINOZA PT Sep 06, 2016 10:04
[2016-09-06 18:09] VITALS: BP 116/71
--- NOTE | 2016-09-06 23:14 | HISTORY AND PHYSICAL ---
DATE OF ADMISSION: 09/05/2016 CHIEF COMPLAINT: Difficulty with walking. HISTORY OF PRESENT ILLNESS: The patient is an 85-year-old male admitted for sepsis due to UTI to the service of Dr. Munoz, PCP. The patient's condition was treated. He was seen therapies. He is felt to be appropriate for Inpatient Rehabilitation Unit. He carries a diagnosis of arthritis involving both knees with chronic knee pain, as well as Parkinson's disease. PAST MEDICAL HISTORY: 1. Chronic kidney disease stage IV. 2. Anemia. 3. Parkinson's. 4. Arthritis. 5. He did receive a blood transfusion 2 to 3 weeks ago. 6. He was found to be dehydrated upon admission upon presentation to the ER and was given intravenous fluids. 7. He has had a decline in p.o. intake. 8. Hypertension. PAST SURGICAL HISTORY: 1. Polypectomy x2. 2. TURP. 3. Carotid endarterectomy. ALLERGIES: 1. Sulfa. 2. Intolerance to NSAIDs. FAMILY HISTORY: Noncontributory. SOCIAL HISTORY: Retired from a variety of jobs. 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 REVIEW OF SYSTEMS: Ten-point review of systems significant for knee pain, tremors, generalized weakness. MEDICATIONS: 1. Tylenol 500 mg 2 tablets p.o. t.i.d. as needed for pain. 2. DuoNeb treatments p.r.n. shortness of breath. 3. Bethanechol 25 mg p.o. q.i.d. before meals and at bedtime. 4. Sinemet generic 25/100, 2 tablets p.o. t.i.d. 5. Furosemide 40 mg p.o. q. 48 hours. 6. Isosorbide 60 mg p.o. daily. 7. Lovastatin 20 mg p.o. daily. PHYSICAL EXAMINATION: Significant for a pleasant male, appearing his stated age, sitting in chair in no acute distress. VITAL SIGNS: Blood pressure 128/67, pulse is 71, respirations 28. He is afebrile. O2 sat 95% on room air. HEENT: Vision, speech, hearing, grossly intact. No oral lesion is noted. NECK: Supple without mass. HEART: Regular rhythm. LUNGS: Clear. ABDOMEN: Soft. Bowel sounds present. EXTREMITIES: No lower leg edema. No calf tenderness. MUSCULOSKELETAL: He has limited extension and flexion at the knees due to pain. He has functional active range of motion in both upper extremities. He has arthritic changes both hands and knees NEUROLOGIC: He has resting tremors. He has mild memory loss but is alert and oriented and able to carry on a conversation. Strength is good minus in both upper limbs, fair + at the ankles and hips, limited at the knees due to limited range of motion but generally 3+4-/5 in the lower extremities. Sensation is grossly intact to touch. IMPRESSION: 1. Ambulatory dysfunction secondary to exacerbation of Parkinson's secondary to sepsis, due to urinary tract infection. 2. Osteoarthritis, both knees. 3. Hypertension, controlled with medication. 4. Anemia with recent hemoglobin and hematocrit of 9.4/31 with a WBC count of 7.7. PLAN: The patient will have a comprehensive program of inpatient rehabilitation with a goal of maximizing level of functional independence prior to discharge home with spouse. The patient will have PT/OT 90 minutes per day, each discipline, for gait strengthening, conditioning, balance, ADLs, any patient/family/caregiver training necessary, any adaptive equipment and training necessary. Speech therapy has done cognitive assessment and found him to be functional baseline and signed off. Rehabilitation nursing to assist with bowel, bladder, skin care, medication administration, pain management. director of creative services to assist with discharge planning, community reentry. Follow-up with Dr. Munoz, PCP, as per his schedule. Continue current medications. Therapy with cardiac and fall precautions. SCDs for DVT prophylaxis. ESTIMATED LENGTH OF STAY: Two weeks. PROGNOSIS: Rehab prognosis appears good for goal of restoring to prior level of function which was modified independent for mobility with a walker with some assistance for ADLs from his spouse. DIET: Regular. CODE STATUS: Full code. POST ADMISSION PHYSICIAN ASSESSMENT: The preadmission screen agrees with the post admission assessment that the patient is a good candidate for inpatient rehabilitation. The patient appears to be well motivated to participate in 3 hours of therapy a day. The patient should be able to tolerate 3 hours of therapy a day from a medical standpoint. The patient should benefit from 3 hours of therapy a day. The patient has a reasonable discharge plan, reasonable discharge rehabilitation goals and a supportive , whom presents to the unit with him. He has various comorbidities that need to be closely monitored with medications and treatments adjusted on a daily basis as needed. These include his chronic arthritic knee pain, his Parkinson's disease, his hypertension, and his anemia. BARRIERS TO DISCHARGE: Barriers discharge for this patient who had been modified independent with a front wheeled walker prior to this are for him to be modified independent to supervision for ADLs and mobility skills prior to discharge to home so as to lessen the burden of the caregivers, his . RISKS FOR THIS PATIENT: Include: 1. Urinary retention. 2. Recurrent UTI. 3. Sepsis. 4. Fall. 5. Fracture. 6. DVT. 7. Pulmonary embolism. 8. Respiratory infection. 9. Aspiration. 10. Poorly controlled hypertension. 11. Exacerbation of Parkinson's disease. 12. Worsening contractures. 13. Worsening anemia. Job ID: [id number] Dictated Date: 09/06/2016 07:56:24 Interior Block Wirer Date: 09/06/2016 23:01:05/yana SAWYER
[2016-09-07] MEDS: ACETAMINOPHEN 500 MG TAB (TYLENOL) PO PRN ×3 (02:27→21:33)
[2016-09-07] MEDS: BETHANECHOL 25 MG (URECHOLINE) TAB PO SCH ×4 (05:08→21:29)
[2016-09-07 05:55] VITALS: BP 134/70
[2016-09-07] MEDS: ISOSORBIDE MONONITRATE 60 MG (IMDUR) TAB PO SCH (08:20)
[2016-09-07] MEDS: SINEMET 25/100 (CARBIDOPA/LEVODOPA) TAB PO SCH ×3 (08:21→21:29)
[2016-09-07] MEDS: FUROSEMIDE 40 MG (LASIX) TAB PO SCH (08:21)
[2016-09-07] MEDS ORDERED: FUROSEMIDE 40 MG (LASIX) TAB PO ONE (15:15)
[2016-09-07 17:46] VITALS: BP 109/66
[2016-09-08 06:02] VITALS: BP 130/69
[2016-09-08 06:19] LABS: CREATININE SERUM 2.14 MG/DL (0.60-1.30); POTASSIUM 4.1 MMOL/L (3.6-5.0)
[2016-09-08] MEDS: BETHANECHOL 25 MG (URECHOLINE) TAB PO SCH ×4 (06:49→20:17)
[2016-09-08] MEDS: ISOSORBIDE MONONITRATE 60 MG (IMDUR) TAB PO SCH (08:04)
[2016-09-08] MEDS: SINEMET 25/100 (CARBIDOPA/LEVODOPA) TAB PO SCH ×3 (08:05→20:17)
[2016-09-08] MEDS: ACETAMINOPHEN 500 MG TAB (TYLENOL) PO PRN ×2 (08:05→20:22)
--- NOTE | 2016-09-08 08:21 | Consultation ---
History of Present Illness History of Present Illness Patient Consulted On(stefafny/time) 09/08/16 08:18 Date of Admission History of Present Illness patient was in acute care with knee pain. Patient unable to get around. Patient lives at home with unable to take care of him at this moment.. Patient in rehabilitation so he can go home Allergies and Home Medications Allergies Coded Allergies: sulfamethoxazole (Verified Allergy, Mild, KIDNEY DAMAGE, 08/29/16) trimethoprim (Verified Allergy, Mild, KIDNEY DAMAGE, 08/29/16) lactose (Verified Allergy, Unknown, 08/29/16) Uncoded Allergies: IV DYE (Allergy, Mild, KIDNEY DAMAGE, 01/08/12) NSAIDS (Allergy, Mild, KIDNEY DAMAGE, 01/08/12) Home Medications 0.9 % Sodium Chloride 2 Ml Syringe #1 0 ML IV NEEDED PRN PRN LINE FLUSH Prescribed by: LLOYD WILKERSON on 09/05/16921 Acetaminophen 500 Mg Tablet #1 1,000 MG PO TID PRN PRN MILD PAIN Prescribed by: LLOYD WILKERSON on 09/05/16921 Bethanechol Chloride 25 Mg Tablet 25 MG PO ACHS (Reported) Carbidopa/Levodopa 1 Each Tablet 2 TAB PO TID (Reported) Furosemide 40 Mg Tablet 40 MG PO Q48H (Reported) needs 08/30/16 Ipratropium/Albuterol Sulfate 3 Ml Ampul.neb #1 3 ML INH RTBID PRN PRN SHORTNESS OF BREATH Prescribed by: LLOYD WILKERSON on 09/05/16921 Isosorbide Mononitrate 60 Mg Tab 60 MG PO DAILY (Reported) Lovastatin 20 Mg Tablet 20 MG PO HS (Reported) Past Zyqutiv-Cafdzo-Amlshy Hx Patient Social History Alcohol Use: Denies Use Recreational Drug Use: No Recent Foreign Travel: No Contact w/Someone Who Travel: No Recent Infectious Disease Expo: No Recent Hopitalizations: No Physical Abuse Screen: No Sexual Abuse: No Immunizations Up To Date Tetanus Booster (TDap): More than 5yrs Date of Pneumonia Vaccine: Jan 20, 2007 Seasonal Allergies Seasonal Allergies: No Surgeries HX Surgeries: Yes (POLYPECTOMY x2, TURP, CEA) Respiratory Hx Respiratory Disorders: No Cardiovascular Hx Cardiac Disorders: Yes Cardiac Disorders: Coronary Artery Disease, Hypertension Neurological Hx Neurological Disorders: Yes Neurological Disorders: Parkinson's Disease Reproductive System Hx Reproductive Disorders: No Sexually Transmitted Disease: No HIV/AIDS: No Genitourinary Hx Genitourinary Disorders: Yes (BPH, URINE RETENTION NO ISSUES SINCE TURP, BLADDER NECK CONSTRICTION) Genitourinary Disorders: Prostate Problems, Renal Failure Gastrointestinal Hx Gastrointestinal Disorders: No Musculoskeletal Hx Musculoskeletal Disorders: Yes (USES WALKER) Musculoskeletal Disorders: Arthritis Endocrine Hx Endocrine Disorders: No ("PREDIABETIC") HEENT HX ENT Disorders: Yes (GLASSES, NO TEETH) Loss of Vision: Bilateral Hearing Impairment: Denies Cancer Hx Cancer: No Psychosocial Hx Psychiatric Problems: No Integumentary HX Skin/Integumentary Disorder: No Blood Transfusions Hx Blood Disorders: Yes (LOW IRON) Adverse Reaction to a Blood Tr: No Family Medical History Family Medial History: Cardiovascular disease 19 MOTHER Cataracts 19 FATHER Completed stroke 19 FATHER Diabetes mellitus 19 MOTHER G8 BROTHER G8 SISTER FH: cancer G8 BROTHER (bladder) G8 SISTER (breast) No Family History of: AIDS Abdominal aortic aneurysm Alcoholism Alzheimer's disease Arthritis Asthma Cancer of mouth Colon cancer Dementia Drug abuse Glaucoma Hypertension Kidney disease Myocardial infarction Parkinson's disease Psychosocial problem Respiratory disorder Seizure disorder Severe allergy Thyroid disease Review of Systems-General Constitutional: weakness EENTM: no symptoms reported Respiratory: no symptoms reported Cardiovascular: other (hypotension, bradycardia) Gastrointestinal: no symptoms reported Genitourinary: no symptoms reported Physical Exam-General Problems Physical Exam Vital Signs Vital Sign - Last 12Hours 09/05/16 09:30 Temp 96.4 Pulse 71 Resp 20 B/P 128/62 Pulse Ox 95 O2 Delivery Room Air Capillary Refill : General Appearance: no apparent distress Eyes: Bilateral Eye Normal Inspection HEENT: normal ENT inspection Neck: full range of motion normal inspection Respiratory: chest non-tender lungs clear normal breath sounds no respiratory distress no accessory muscle use Cardiovascular: regular rate, rhythm no murmur Gastrointestinal: non tender soft Assessment/Plan Assessment/Plan Admission Diagnosis/Plan knee pain. Inability to walk. Renal insufficiency. Hypertension. Coronary artery disease INGRID NICOLE DO Sep 08, 2016 08:21
--- NOTE | 2016-09-08 09:16 | Physical Therapy Daily Note ---
PT Daily Note-Current Subjective "I want a wheelchair at home but Dr. Hoang says he won't allow it." During treatment, pt reports he cannot walk any further due to bilateral knee pain and will not attempt to walk further, even with PT encouragement. When discussing wheelchair versus walking, pt reports, "I'm more stubborn than Dr. Munoz and I want to use a wheelchair." Pain Numeric Pain Scale: 8 Location Body Site: Knee (bilaterl) Pain Description: Ache Comment: Pt limits gait due to knee pain Mental Status Patient Orientation: Person, Place, Time, Situation Transfers Functional [place] Measure 0=Not Assessed/NA 4=Minimal Assistance 1=Total Assistance 5=Supervision or Setup 2=Maximal Assistance 6=Modified [place] 3=Moderate Assistance 7=Complete IndependenceIRFPAI Quality Coding Scale 6 Independent with activity with or without an assistive device 5 Patient requires set up or clean up by helper. Patient completes activity by themselves 4 Supervision or touching assist (CGA). [place] provide cues , steadying assist 3 The helper provides less than half the effort to complete the activity 2 The helper provides more than half the effort to complete the activity 1 Dependent. The helper does all the effort to complete an activity 7 Patient refused to complete or attempt activity 9 The patient did not perform the activity before the current illness or injury 88 Not attempted due to Medical conditions or safety concerns Transfers (B, C, W/C) (FIM): 4 (SB to min with sit to stand throughout treatment; initially SBA but needed min assist at end of treatment.) Chair/Wrj-oh-Wlbsy Xfer(QC): 4 (CGA with FWW with skilled cues for hand placement and full turn before sitting. ) Slow with sit to stand and heavy reliance on pushing up with his arms. SPT very slow with limited foot clearance and small shuffled steps; remains in a forward flexed position without full knee extension. Practiced SPT x 4 reps with FWW with CGA. Gait Training Gait (FIM): 2 Walk 10 feet (QC): 4 Gait Assistive Device: FWW Pt ambulated x 10 ft 15 ft and 8 ft with FWW with CGA with forward flexed, knees flexed and shuffled gait pattern with very limited foot clearance; provided skilled cues on importance of upright posture and foot clearance, pt has difficulty standing upright and/or increasing his steps. Limited on gait distance and pt does say, "I cant go any further." Even with cues, will insist he needs to sit. Wheelchair Training Wheelchair (FIM): 2 Wheelchair Distance: 7=563-89 ft Distance: 125 ft Wheelchair Level of Assist: 5 (SBa with skilled cues on how to use UE and LE to propel) Type of Wheelchair: Manual Worked on use of U/LE to propel with cues for sequencing. Pt able to propel self and make an 180 degree turn. Exercises Seated Therapy Exercises: Ankle pumps, Long arc quads, Hip flexion Seated Reps: 10 (For LE strength to promote transfers and functional gait. ) NuStep Minutes: 12 (To increase ROM and strength in knees to promote improved gait and transfers. Pt reports improved mobility post nu step) Treatments Gait, transfers, wheelchair and functional strength Assessment Current Status: Fair Progress Pt is progressing with transfers and mobility but is hesitant to participate in gait training. Pt reports he is not able to walk more than what is charted above. Pt insistent that he will use a wheelchair at home despite what Dr. munoz says. Pt does benefit from Nu step and exercise to promote knee ROm and strength that progresses his gait and transfers. I agree that becoming dependent on a wheelchair is possible and not recommended , but having trouble convincing pt that walking is the preferred method of mobilty. PT Short Term Goals Short Term Goals Time Frame: Sep 12, 2016 Transfers (B,C,W/C) (FIM): 5 Gait (FIM): 1 Gait Distance Comment: 20' Gait Level of Assist: 4 Gait Assistive Device: FWW Wheelchair Distance: 150' PT Medical Consultant Goals Medical Consultant Goals PT Prison Goals Time Frame: Sep 26, 2016 Transfers (B,C,W/C) (FIM): 6 Sit to Lying (QC): 6 Lying-Sitting on Side/Bed(QC): 6 Sit to Stand (QC): 6 Rollin Roll Left to Right (QC): 6 Chair/Shg-pz-Eaqzs Xfer(QC): 6 Car Transfer (QC): 4 Gait (FIM): 2 Distance: 50' Walk 10 feet (QC): 4 Walk 10ft-Uneven Surface(QC): 4 Walk 50ft with 2 Turns (QC): 4 Walk 150 ft (QC): 88 Gait Level of Assist: 5 Gait Assistive Device: FWW Wheelchair (FIM): 6 Distance: 200' Wheelchair Level of Assist: 6 Wheel 50 feet with 2 turns (QC: 6 PT Plan Problem List Problem List: Activity Tolerance, Functional Strength, Safety, Balance, Gait, Transfer, Bed Mobility Treatment/Plan Treatment Plan: Continue Plan of Care Treatment Plan: Bed Mobility, Education, Functional Activity [place], Functional Strength, Group Therapy, Gait, Safety, Therapeutic Exercise, Transfers Treatment Duration: Sep 26, 2016 Visits Per Week: 10-11 Minutes/Day (M-F): 60-90 Minutes/Day (Sat/Moise): 15-30 Safety Risks/Education 'Spent much time educating pt on the importance of maintaining the ability to walk and on why Dr. Munoz does not want him to rely on a wheelchair permanently. Pt hears what is said but still insists on wanting a wheelchair. Educated him that my job is to make him as functional as possible and to ensure he is as indep with gait and with wheelchair mobility as possible. Discharge Recommendations Plan Continue to address gait training as pt will allow but also practice wheelchair mobility. Time/GCodes Time In: 815 Time Out: 915 Total Billed Treatment Time: 60 Total Billed Treatment visit EX 17 GT 15 WC 15 FA 13 AARON ESPINOZA PT Sep 08, 2016 09:16
[2016-09-08] MEDS: MENTHOL/ZINC OXIDE (CALMOSEPTINE) 113 GM TUBE TOP SCH ×2 (09:52→20:17)
--- NOTE | 2016-09-08 13:16 | Occupational Ther Daily Note ---
OT Current Status-Daily Note Subjective Pt had been scheduled earlier in the day but requested to be able to go back to bed after PT. Able to accommodate his request. Pt said his knees were OK and did not want to put braces on. Appearance Alert, cooperative Mental Status/Objective Functional [place] Measure 0=Not Assessed/NA 4=Minimal Assistance 1=Total Assistance 5=Supervision or Setup 2=Maximal Assistance 6=Modified [place] 3=Moderate Assistance 7=Complete [place] ADL-Treatment Functional [place] Measure 0=Not Assessed/NA 4=Minimal Assistance 1=Total Assistance 5=Supervision or Setup 2=Maximal Assistance 6=Modified [place] 3=Moderate Assistance 7=Complete IndependenceIRFPAI Quality Coding Scale 6 Independent with activity with or without an assistive device 5 Patient requires set up or clean up by helper. Patient completes activity by themselves 4 Supervision or touching assist (CGA). [place] provide cues , steadying assist 3 The helper provides less than half the effort to complete the activity 2 The helper provides more than half the effort to complete the activity 1 Dependent. The helper does all the effort to complete an activity 7 Patient refused to complete or attempt activity 9 The patient did not perform the activity before the current illness or injury 88 Not attempted due to Medical conditions or safety concerns Other Treatment Pt moved from supine to sit EOB with just elevating head of bed. Also scooted to EOB. Sit to stand with close SBA and transferred to w/c a few feet away with CGA for safety, FWW. Cushion put in w/c for pt comfort and to prevent skin breakdown. Pt propelled w/c to gym area, using hands and feet to strengthen arms. In gym, pt did 12 minutes bilat UE exercise on arm bike set at 12-15W resistance (increased time), working at a slow steady pace. Also did arc activity x 2 sets short extension and 1 set medium extension, with 1# weight on arms. Did nuts and bolts activity and graded clothespins, both with 1# weight on arms. All exercises to help strengthen arms for transfers and for getting up to manage clothing for ADLs. In room, pt walked about 10 feet from w/c back to recliner with CGA, FWW for safely but no LOB. Safe hand placement for sitting down in recliner. Cont with edematous LEs, seem worse than last week. Pt left up in recliner, chair alarm on, all needs met, in room. Education OT Patient Education: Exercise program, Progress toward Goal/Update tx plan, Purpose of tx/functional activities Teaching Recipient: Patient Teaching Methods: Discussion OT Short Term Goals Short Term Goals Time Frame: Sep 12, 2016 Toileting(FIM): 5 Transfers (B,C,W/C) (FIM): 5 Toilet/Commode Transfer(FIM): 5 Shower Transfer(FIM): 5 1=Demonstrate adherence to instructed precautions during ADL tasks. 2=Patient will verbalize/demonstrate understanding of assistive devices/ modifications for ADL. 3=Patient will improve strength/tolerance for activity to enable patient to perform ADL's. OT Mcfp Goals Chamber Walker Goals Time Frame: Sep 26, 2016 Eating (FIM): 6 Eating (QC): 6 Groomin Oral Hygiene (QC): 9 Bathing(FIM): 6 Shower/Bathe Self (QC): 6 Upper Body Dressing(FIM): 6 Upper Body Dressing (QC): 6 Lower Body Dressing(FIM): 6 Lower Body Dressing (QC): 6 On/Off Footwear (QC): 6 Toileting(FIM): 6 Toileting Hygiene (QC): 6 Toilet/Commode Transfer(FIM): 6 Toilet/Commode Transfer (QC): 6 Shower Transfer(FIM): 6 Additional Goals: 2-Verbalize Understanding, 3-ImproveStrength/[place] 1=Demonstrate adherence to instructed precautions during ADL tasks. 2=Patient will verbalize/demonstrate understanding of assistive devices/ modifications for ADL. 3=Patient will improve strength/tolerance for activity to enable patient to perform ADL's. OT Education/Plan Problem List/Assessment Pt would benefit from skilled OT to increase his independence in basic self care to allow him to return home safely with his after sepsis, complicated by bilat knee pain and Parkinsons. Discharge Recommendations Plan/Recommendations: Continue POC Treatment Plan/Plan of Care Patient would benefit from OT for education, treatment and training to promote independence in ADL's, mobility, safety and/or upper extremity function for ADL' s. Plan of Care: ADL Retraining, Functional Mobility, Group Exercise/Act as Ind ( educaiton, exercise, socialization, functionla activities, activity tolerance), UE Funct Exercise/Act, UE Neuromus Re-Ed/Coord Treatment Duration: Sep 26, 2016 Visits Per Week: 10-11 Minutes/Day (M-F): 75-90 Minutes/Day (Sat/Moise): PRN Agreement: Yes Rehab Potential: Fair Time/GCodes Start Time: 10:53 Stop Time: 11:53 Total Time Billed (hr/min): 60 Billed Treatment Time visit, 60 minutes exercise SARAI PIPER OT Sep 08, 2016 13:16
--- NOTE | 2016-09-08 14:38 | Physical Therapy Daily Note ---
PT Daily Note-Current Subjective Agrees to PT. Mental Status Patient Orientation: Person, Place, Time, Situation Transfers Functional [place] Measure 0=Not Assessed/NA 4=Minimal Assistance 1=Total Assistance 5=Supervision or Setup 2=Maximal Assistance 6=Modified [place] 3=Moderate Assistance 7=Complete IndependenceIRFPAI Quality Coding Scale 6 Independent with activity with or without an assistive device 5 Patient requires set up or clean up by helper. Patient completes activity by themselves 4 Supervision or touching assist (CGA). [place] provide cues , steadying assist 3 The helper provides less than half the effort to complete the activity 2 The helper provides more than half the effort to complete the activity 1 Dependent. The helper does all the effort to complete an activity 7 Patient refused to complete or attempt activity 9 The patient did not perform the activity before the current illness or injury 88 Not attempted due to Medical conditions or safety concerns Sit to stand x 5 reps with SBA, slow to rise with heavy use of UE's . Did not require cues for sequencing this visit. Treatments Gait training x 15 ft, 2 ft (then said, "I can't go any further"). Pt performed wc mobility next using B U/LE's x 125 ft with SBA. Pt then ambulated x 10 ft with FWW with CGA and requested to sit down. Encouraged him to go further but he would not. Pt sat in wheelchair and was pushed forward x 10 ft to his chair and he transferred wc to chair with FWW with CGA. Pt in recliner post treatment. Assessment Current Status: Fair Progress Initially, improved foot clearance, but with fatigue, shuffling returned. Needs max encouragement to push himself to go further. PT Short Term Goals Short Term Goals Time Frame: Sep 12, 2016 Transfers (B,C,W/C) (FIM): 5 Gait (FIM): 1 Gait Distance Comment: 20' Gait Level of Assist: 4 Gait Assistive Device: FWW Wheelchair Distance: 125 ft PT Longterm Goals Director Card Goals PT Director Card Goals Time Frame: Sep 26, 2016 Transfers (B,C,W/C) (FIM): 6 Sit to Lying (QC): 6 Lying-Sitting on Side/Bed(QC): 6 Sit to Stand (QC): 6 Rollin Roll Left to Right (QC): 6 Chair/Oxz-fj-Lsgqy Xfer(QC): 6 Car Transfer (QC): 4 Gait (FIM): 2 Distance: 50' Walk 10 feet (QC): 4 Walk 10ft-Uneven Surface(QC): 4 Walk 50ft with 2 Turns (QC): 4 Walk 150 ft (QC): 88 Gait Level of Assist: 5 Gait Assistive Device: FWW Wheelchair (FIM): 6 Distance: 200' Wheelchair Level of Assist: 6 Wheel 50 feet with 2 turns (QC: 6 PT Plan Problem List Problem List: Activity Tolerance, Functional Strength Treatment/Plan Treatment Plan: Continue Plan of Care Treatment Plan: Bed Mobility, Education, Functional Activity [place], Functional Strength, Group Therapy, Gait, Safety, Therapeutic Exercise, Transfers Treatment Duration: Sep 26, 2016 Visits Per Week: 10-11 Minutes/Day (M-F): 60-90 Minutes/Day (Sat/Moise): 15-30 Time/GCodes Time In: 1310 Time Out: 1343 Total Billed Treatment Time: 33 Total Billed Treatment visit GT 18 WC 15 AARON ESPINOZA PT Sep 08, 2016 14:38
--- NOTE | 2016-09-08 14:50 | Occupational Ther Daily Note ---
OT Current Status-Daily Note Subjective Pt seen in room, up in recliner, agreeable to OT. Had just finished PT. No pain mentioned Appearance Alert, cooperative, quiet Mental Status/Objective Functional [place] Measure 0=Not Assessed/NA 4=Minimal Assistance 1=Total Assistance 5=Supervision or Setup 2=Maximal Assistance 6=Modified [place] 3=Moderate Assistance 7=Complete [place] ADL-Treatment Functional [place] Measure 0=Not Assessed/NA 4=Minimal Assistance 1=Total Assistance 5=Supervision or Setup 2=Maximal Assistance 6=Modified [place] 3=Moderate Assistance 7=Complete IndependenceIRFPAI Quality Coding Scale 6 Independent with activity with or without an assistive device 5 Patient requires set up or clean up by helper. Patient completes activity by themselves 4 Supervision or touching assist (CGA). [place] provide cues , steadying assist 3 The helper provides less than half the effort to complete the activity 2 The helper provides more than half the effort to complete the activity 1 Dependent. The helper does all the effort to complete an activity 7 Patient refused to complete or attempt activity 9 The patient did not perform the activity before the current illness or injury 88 Not attempted due to Medical conditions or safety concerns Other Treatment Pt did 10 reps bilat UE exercise with yellow (mild resistance) theraband, working on shoulders and elbows and muscles used for sit to stand and ADLs. Also did 10 reps bilat UE ex with 2# weight, for shoulders, elbows, forearms and wrists. Pt had more difficulty with L shoulder compared to R but did not recall any old injuries to shoulders. Only able to do 7 reps elbow ext with 2# weight on L side, due to weakness. Occasional physical assistance needed to do exercises correctly. Pt able to track repetitions and switch sides without difficulty. Pt encouraged to do stretches on his own. present during tx. Plan ADLs tomorrow. Pt left up in recliner, chair alarm on. Education OT Patient Education: Exercise program Teaching Recipient: Patient OT Short Term Goals Short Term Goals Time Frame: Sep 12, 2016 Toileting(FIM): 5 Transfers (B,C,W/C) (FIM): 5 Toilet/Commode Transfer(FIM): 5 Shower Transfer(FIM): 5 1=Demonstrate adherence to instructed precautions during ADL tasks. 2=Patient will verbalize/demonstrate understanding of assistive devices/ modifications for ADL. 3=Patient will improve strength/tolerance for activity to enable patient to perform ADL's. OT Alf Goals Student Services Representative Goals Time Frame: Sep 26, 2016 Eating (FIM): 6 Eating (QC): 6 Groomin Oral Hygiene (QC): 9 Bathing(FIM): 6 Shower/Bathe Self (QC): 6 Upper Body Dressing(FIM): 6 Upper Body Dressing (QC): 6 Lower Body Dressing(FIM): 6 Lower Body Dressing (QC): 6 On/Off Footwear (QC): 6 Toileting(FIM): 6 Toileting Hygiene (QC): 6 Toilet/Commode Transfer(FIM): 6 Toilet/Commode Transfer (QC): 6 Shower Transfer(FIM): 6 Additional Goals: 2-Verbalize Understanding, 3-ImproveStrength/[place] 1=Demonstrate adherence to instructed precautions during ADL tasks. 2=Patient will verbalize/demonstrate understanding of assistive devices/ modifications for ADL. 3=Patient will improve strength/tolerance for activity to enable patient to perform ADL's. OT Education/Plan Problem List/Assessment Pt would benefit from skilled OT to increase his independence in basic self care to allow him to return home safely with his after sepsis, complicated by bilat knee pain and Parkinsons. Discharge Recommendations Plan/Recommendations: Continue POC Treatment Plan/Plan of Care Patient would benefit from OT for education, treatment and training to promote independence in ADL's, mobility, safety and/or upper extremity function for ADL' s. Plan of Care: ADL Retraining, Functional Mobility, Group Exercise/Act as Ind ( educaiton, exercise, socialization, functionla activities, activity tolerance), UE Funct Exercise/Act, UE Neuromus Re-Ed/Coord Treatment Duration: Sep 26, 2016 Visits Per Week: 10-11 Minutes/Day (M-F): 75-90 Minutes/Day (Sat/Moise): PRN Agreement: Yes Rehab Potential: Fair Time/GCodes Start Time: 13:45 Stop Time: 14:15 Total Time Billed (hr/min): 30 Billed Treatment Time visit, 30 minutes exercise SARAI PIPER OT Sep 08, 2016 14:50
[2016-09-08 17:55] VITALS: BP 120/67
--- NOTE | 2016-09-08 22:06 | PM & R (SOAP) Progress Note ---
Subjective Subjective/Events-last exam Patient was seen in his room this evening Discussed case with RN Patient CGA for transfers and Ambulation 10 feet,Patients spouse concerned re patients home med of ASA DR Munoz PCP to f/u in AM Review of Systems Musculoskeletal: : other (knee pain) Neurological: : Incoordination: Weakness Objective Exam Last Set of Vital Signs Vital Signs Date Time Temp Pulse Resp B/P Pulse Ox O2 Delivery O2 Flow Rate FiO2 09/08/16 17:55 97.9 60 18 120/67 99 Room Air Capillary Refill : I&O Intake and Output 09/08/16 00:00 Intake Total 1480 ml Output Total 950 ml Balance 530 ml Intake Oral 1480 ml Output Urine Total 950 ml # Voids 2 # Urine Diapers 2 # Bowel Movements 2 General: Alert, Oriented X3, Cooperative HEENT: Atraumatic, PERRLA, EOMI, Mucous Memb Moist/[place] Neck: Supple, No JVD Lungs: Clear to Auscultation Heart: Regular Rate Abdomen: Normal Bowel Sounds, Soft, No Tenderness Extremities: Other (2+ edema both ankles) Neuro: Other (Generalized weakness tender knees) Results Lab Laboratory Tests 09/06/16 05:05: Hematocrit 33L, Hemoglobin 10.0L, Mean Corpuscular Hemoglobin 27, Mean Corpuscular Hemoglobin Concent 31L, Mean Corpuscular Volume 88, Mean Platelet Volume 9.1, Platelet Count 516H, Red Blood Count 3.70L, Red Cell Distribution Width 15.9H, White Blood Count 10.5 09/06/16 06:05: Anion Gap 11, BUN/Creatinine Ratio 25, Blood Urea Nitrogen 49H, Calcium Level 8.4L, Carbon Dioxide Level 24, Chloride Level 105, Creatinine 1.99H, Estimat Glomerular Filtration Rate 32, Glucose Level 117H, Potassium Level 4.0, Sodium Level 140 09/08/16 05:25: Anion Gap 10, BUN/Creatinine Ratio 23, Blood Urea Nitrogen 50H, Calcium Level 8.0L, Carbon Dioxide Level 26, Chloride Level 105, Creatinine 2.14H, Estimat Glomerular Filtration Rate 29, Glucose Level 121H, Potassium Level 4.1, Sodium Level 141 Assessment/Plan Assessment 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
--- NOTE | 2016-09-08 22:17 | Individualized Plan of Care ---
Individualized Plan of Care Rehab Nursing IPOC Order Admission Date Sep 05, 2016 at 09:56 Current Orders Basic Metabolic Panel (09/09/16 06:00) Cbc With Automated Diff (09/09/16 06:00) Sodium 2g (2000 Mg) (09/08/16 Lunch) Menthol/Zinc Oxide Ointment (Calmoseptin (09/08/16 09:00) Patient Visit (09/08/16 ) Exercise Therap, Ea 15 Min (09/08/16 ) Gait Training, Ea 15 Min (09/08/16 ) Wheelchair Mgmt/Propulsn 15min (09/08/16 ) Functional Activities, Ea 15 (09/08/16 ) Mat Protocol-Rt Rfs (09/08/16 14:23) Patient Visit (09/08/16 ) Gait Training, Ea 15 Min (09/08/16 ) Wheelchair Mgmt/Propulsn 15min (09/08/16 ) Toilet every (bladder): (hrs): q 2 hours while awake PT IPOC Problem List: Activity Tolerance, Functional Strength Treatment Plan: Continue Plan of Care Bed Mobility, Education, Functional Activity Amador, Functional Strength, Group Therapy, Gait, Safety, Therapeutic Exercise, Transfers Treatment Duration: Sep 26, 2016 Visits Per Week: 10-11 Minutes/Day (M-F): 60-90 Minutes/Day (Sat/Moise): 15-30 OT IPOC Problems: Decreased Activ Tolerance, Decreased UE Strength, Dependent Transfers , Impaired Funct Balance, Impaired Self-Care Skills OT Problems Pt would benefit from skilled OT to increase his independence in basic self care to allow him to return home safely with his after sepsis, complicated by bilat knee pain and Parkinsons. Plan of Care: ADL Retraining, Functional Mobility, Group Exercise/Act as Ind ( educaiton, exercise, socialization, functionla activities, activity tolerance), UE Funct Exercise/Act, UE Neuromus Re-Ed/Coord Treatment Duration: Sep 26, 2016 Visits Per Week: 10-11 Minutes/Day (M-F): 75-90 Minutes/Day (Sat/Moise): PRN ST IPOC Speech Therapy Treatment Plan: Discontinue ST Physician IPOC Medical Issues being managed closely and that require the 24 hour availability of a physician:Seda Lamar HTN Peripheral edema anemia Pain management Chronic knee pain Peripheral edema Medical Issues: Bowel/Bladder Function, DVT Prophylaxis, Falls Precautions, Fluid/Electrolyte/Nutrition Balance, Infection Protection, Pain Management, Other (List) (as per above) Brief Synthesis of Preadmission Screen, Post-Admission Evaluation, and Therapy Evaluations: 85 yo male with Known Park D who had an exacerbation of this condition with a resulting decline in Functional [place] due to Sepsis due to UTI Admitted to this facility by PCP and referred to IRU.PMH also significant for anemia requiring transfusion and HTN as well as Painful OA of the knees. Medical Prognosis: good Anticipated Length of Stay: 09/26/16 Rehab Goals Return to PLOF Modified Indendent for mobility with a walker Anticipated discharge destinat: Home with spouse and [facility] MIKEL ROJO MD Sep 08, 2016 22:17
[2016-09-09 05:48] VITALS: BP 147/66
[2016-09-09] MEDS: BETHANECHOL 25 MG (URECHOLINE) TAB PO SCH ×4 (06:07→21:35)
[2016-09-09 06:16] LABS: BASOPHILS % (AUTO) 0 % (0-10); EOSINOPHILS # (AUTO) 0.4 10^3/uL (0.0-0.3); EOSINOPHILS % (AUTO) 5 % (0-10); LYMPHOCYTES # (AUTO) 1.2 X 10^3 (1.0-4.0); LYMPHOCYTES % (AUTO) 14 % (12-44); MEAN CORPUSCULAR HEMOGLOBIN 28 PG (25-34); MEAN CORPUSCULAR HGB CONC 31 G/DL (32-36); MEAN CORPUSCULAR VOLUME 89 FL (80-99); MEAN PLATELET VOLUME 9.2 FL (7.4-10.4); MONOCYTES # (AUTO) 0.8 X 10^3 (0.0-1.0); MONOCYTES % (AUTO) 11 % (0-12); NEUTROPHILS # (AUTO) 5.6 X 10^3 (1.8-7.8); NEUTROPHILS % (AUTO) 70 % (42-75); PLATELET COUNT 544 10^3/uL (130-400); RED BLOOD COUNT 3.32 10^6/uL (4.35-5.85); RED CELL DISTRIBUTION WIDTH 16.2 % (10.0-14.5)
[2016-09-09 06:42] LABS: CALCIUM 8.2 MG/DL (8.5-10.1); CREATININE SERUM 2.04 MG/DL (0.60-1.30); POTASSIUM 4.3 MMOL/L (3.6-5.0)
[2016-09-09] MEDS: ACETAMINOPHEN 500 MG TAB (TYLENOL) PO PRN ×2 (08:02→21:37)
[2016-09-09] MEDS: ISOSORBIDE MONONITRATE 60 MG (IMDUR) TAB PO SCH (08:02)
[2016-09-09] MEDS: SINEMET 25/100 (CARBIDOPA/LEVODOPA) TAB PO SCH ×3 (08:02→21:35)
[2016-09-09] MEDS: FUROSEMIDE 40 MG (LASIX) TAB PO SCH (08:02)
[2016-09-09] MEDS: MENTHOL/ZINC OXIDE (CALMOSEPTINE) 113 GM TUBE TOP SCH ×2 (08:04→21:36)
--- NOTE | 2016-09-09 08:38 | Progress Note (SOAP) ---
Subjective Subjective/Events-last exam patient demanding going home today. Patient refused physical therapy. Spoke to patient he stated he fired me. Objective Exam Vital Signs Date Time Temp Pulse Resp B/P Pulse Ox O2 Delivery O2 Flow Rate FiO2 09/09/16 05:48 98.3 56 18 147/66 96 Room Air 09/08/16 17:55 97.9 60 18 120/67 99 Room Air 09/08/16 10:20 94 09/08/16 08:57 Room Air I & O 09/09/16 07:00 Intake Total 920 ml Output Total 1100 ml Balance -180 ml Capillary Refill : General Appearance: No Apparent Distress WD/WN Results Lab Laboratory Tests 09/09/16 05:25: Anion Gap 10, BUN/Creatinine Ratio 23, Basophils # (Auto) 0.0, Basophils (%) ( Auto) 0, Blood Urea Nitrogen 47H, Calcium Level 8.2L, Carbon Dioxide Level 25, Chloride Level 106, Creatinine 2.04H, Eosinophils # (Auto) 0.4H, Eosinophils (% ) (Auto) 5, Estimat Glomerular Filtration Rate 31, Glucose Level 113H, Hematocrit 30L, Hemoglobin 9.2L, Lymphocytes # (Auto) 1.2, Lymphocytes (%) (Auto ) 14, Mean Corpuscular Hemoglobin 28, Mean Corpuscular Hemoglobin Concent 31L, Mean Corpuscular Volume 89, Mean Platelet Volume 9.2, Monocytes # (Auto) 0.8, Monocytes (%) (Auto) 11, Neutrophils # (Auto) 5.6, Neutrophils (%) (Auto) 70, Platelet Count 544H, Potassium Level 4.3, Red Blood Count 3.32L, Red Cell Distribution Width 16.2H, Sodium Level 141, White Blood Count 8.0 Assessment/Plan Assessment/Plan Assess & Plan/Chief Complaint knee pain. Inability to walk. Renal insufficiency. Hypertension. Coronary artery disease INGRID NICOLE DO Sep 09, 2016 08:38
--- NOTE | 2016-09-09 08:47 | Physical Therapy Progress Note ---
Therapy Progress Note PT arrives to see pt and pt reports that he "will not be participating in Therapy and is going home'. Nurse called to advise pt wants to leave AMA and talks to pt over the phone as well as to nurse and that pt is not to leave unless Dr Morales says its okay. Pt still refuses to participate in PT and reports "I know my rights and I have an trade mark attorney to deal with things like this". Medicare guidelines were explained and what could happen if leaving AMA. Dr Morales arrives and visits with pt to which pt states "You shut up and listen for once. I am not going to stay here." asks which care home pt wants to go to then and pt reports "I'm not going to a care home, I'm going home!" Pt then asked PT, nurse and Dr Morales to leave. Nurse calls sp and family. They are coming up to talk to pt. Visit, ELVA (20m) Time: [id number] (20m) LEONARDA OWENS MARKETING PROJECT COORDINATOR Sep 09, 2016 08:47
[2016-09-09] MEDS ORDERED: ALPRAZolam 0.5 MG (XANAX) TAB ONE (09:29)
[2016-09-09 09:31] LABS: BILIRUBIN,URINE NEGATIVE (NEGATIVE); KETONES,URINE NEGATIVE (NEGATIVE); LEUKOCYTE ESTERASE ,URINE 1+ (NEGATIVE); NITRITE,URINE NEGATIVE (NEGATIVE); PH,URINE 6 (5-9); PROTEIN,URINE 1+ (NEGATIVE); UROBILINOGEN,URINE NORMAL (NORMAL)
--- NOTE | 2016-09-09 10:12 | Occupational Ther Daily Note ---
OT Current Status-Daily Note Subjective Pt seen in room, up in recliner, refusing OT. No pain mentioned. Nursing gave him Xanax. Mental Status/Objective Functional Cole Measure 0=Not Assessed/NA 4=Minimal Assistance 1=Total Assistance 5=Supervision or Setup 2=Maximal Assistance 6=Modified Cole 3=Moderate Assistance 7=Complete Cole ADL-Treatment Functional Cole Measure 0=Not Assessed/NA 4=Minimal Assistance 1=Total Assistance 5=Supervision or Setup 2=Maximal Assistance 6=Modified Cole 3=Moderate Assistance 7=Complete IndependenceIRFPAI Quality Coding Scale 6 Independent with activity with or without an assistive device 5 Patient requires set up or clean up by helper. Patient completes activity by themselves 4 Supervision or touching assist (CGA). [place] provide cues , steadying assist 3 The helper provides less than half the effort to complete the activity 2 The helper provides more than half the effort to complete the activity 1 Dependent. The helper does all the effort to complete an activity 7 Patient refused to complete or attempt activity 9 The patient did not perform the activity before the current illness or injury 88 Not attempted due to Medical conditions or safety concerns Other Treatment Pt refused to participate, stating that he was going home. His was present and we both told him she could not manage him at home physically. He said that he would get around in a wheelchair at home and items were positioned and prepped for him to get up out of recliner and walk to the wheelchair in preparation for ADLs (shower and change clothing). He was preparing to get up and then changed his mind. He also said he would not go to a skilled nursing and had hired a produce team lead ("You can talk to him about all this"). Pt was unable to logically complete arguments. Will attempt to see pt later. Education OT Patient Education: Purpose of tx/functional activities, Rehab process Teaching Recipient: Patient Teaching Methods: Discussion Response to Teaching: Reinforcement Needed OT Short Term Goals Short Term Goals Time Frame: Sep 12, 2016 Toileting(FIM): 5 Transfers (B,C,W/C) (FIM): 5 Toilet/Commode Transfer(FIM): 5 Shower Transfer(FIM): 5 1=Demonstrate adherence to instructed precautions during ADL tasks. 2=Patient will verbalize/demonstrate understanding of assistive devices/ modifications for ADL. 3=Patient will improve strength/tolerance for activity to enable patient to perform ADL's. OT Residential Goals Associate Loan Officer Goals Time Frame: Sep 26, 2016 Eating (FIM): 6 Eating (QC): 6 Groomin Oral Hygiene (QC): 9 Bathing(FIM): 6 Shower/Bathe Self (QC): 6 Upper Body Dressing(FIM): 6 Upper Body Dressing (QC): 6 Lower Body Dressing(FIM): 6 Lower Body Dressing (QC): 6 On/Off Footwear (QC): 6 Toileting(FIM): 6 Toileting Hygiene (QC): 6 Toilet/Commode Transfer(FIM): 6 Toilet/Commode Transfer (QC): 6 Shower Transfer(FIM): 6 Additional Goals: 2-Verbalize Understanding, 3-ImproveStrength/Amador 1=Demonstrate adherence to instructed precautions during ADL tasks. 2=Patient will verbalize/demonstrate understanding of assistive devices/ modifications for ADL. 3=Patient will improve strength/tolerance for activity to enable patient to perform ADL's. OT Education/Plan Problem List/Assessment Pt would benefit from skilled OT to increase his independence in basic self care to allow him to return home safely with his after sepsis, complicated by bilat knee pain and Parkinsons. Discharge Recommendations Plan/Recommendations: Continue POC Treatment Plan/Plan of Care Patient would benefit from OT for education, treatment and training to promote independence in ADL's, mobility, safety and/or upper extremity function for ADL' s. Plan of Care: ADL Retraining, Functional Mobility, Group Exercise/Act as Ind ( educaiton, exercise, socialization, functionla activities, activity tolerance), UE Funct Exercise/Act, UE Neuromus Re-Ed/Coord Treatment Duration: Sep 26, 2016 Visits Per Week: 10-11 Minutes/Day (M-F): 75-90 Minutes/Day (Sat/Moise): PRN Agreement: Yes Rehab Potential: Fair Time/GCodes Start Time: 09:30 Stop Time: 09:45 Total Time Billed (hr/min): 15 Billed Treatment Time visit, 15 minutes functional activity SARAI PIPER OT Sep 09, 2016 10:12
[2016-09-09] MEDS ORDERED: ASPIRIN E.C. 81 MG (ECOTRIN) TAB PO ONE (13:24)
--- NOTE | 2016-09-09 14:45 | Physical Therapy Progress Note ---
Therapy Progress Note OT advised PT that pt reports won't participate with PT before going to tx. PT attempted pt again this afternoon and explained the benefit of Therapy but pt refused again to participate. PT asked pt to try walking to room door, standing using FWW at recliner or even Seated Ex in recliner but pt refused to do all of these options. Pt reports that Therapy has not made a difference and won't participate. PT tried to encourage with the progress that pt has made but pt states no progress has been made and wants to go home. Pt's family asked a few additional questions regarding what Therapy does if pt doesn't participate. PT advised what Medicare requires for pt to be in ARU. PT will try again tomorrow with pt. Visit, FA (15m) Tme: [phone] LEONARDA OWENS PTA Sep 09, 2016 14:45
--- NOTE | 2016-09-09 15:15 | Occupational Ther Daily Note ---
OT Current Status-Daily Note Subjective Pt seen in room, up in BSC, willing to participate to change clothes. No pain reported. Appearance Alert, somewhat cooperative. Still refuses shower Mental Status/Objective Functional Frio Measure 0=Not Assessed/NA 4=Minimal Assistance 1=Total Assistance 5=Supervision or Setup 2=Maximal Assistance 6=Modified Frio 3=Moderate Assistance 7=Complete Frio ADL-Treatment Functional Frio Measure 0=Not Assessed/NA 4=Minimal Assistance 1=Total Assistance 5=Supervision or Setup 2=Maximal Assistance 6=Modified Frio 3=Moderate Assistance 7=Complete IndependenceIRFPAI Quality Coding Scale 6 Independent with activity with or without an assistive device 5 Patient requires set up or clean up by helper. Patient completes activity by themselves 4 Supervision or touching assist (CGA). [place] provide cues , steadying assist 3 The helper provides less than half the effort to complete the activity 2 The helper provides more than half the effort to complete the activity 1 Dependent. The helper does all the effort to complete an activity 7 Patient refused to complete or attempt activity 9 The patient did not perform the activity before the current illness or injury 88 Not attempted due to Medical conditions or safety concerns Upper Body (FIM): 5 (Setup, supervision to remove sweatshirt and t shirt and don clean ones. ) Lower Body Dressing (FIM): 4 (Min assist to remove clothing (get pants and slipper socks off feet) but he was able to pull pats down and up with SBA-CGA, FWW. He also got Depends, underwear and pants on over feet. Able to put socks on by himself but they were twisted so help needed to straighten them. ) Toileting (FIM): 4 (CGA-SBA when standing to manage clothing and to wipe. pt cont to scratch at lower back - wipe applied calmoseptine ointment. BSC, FWW) Transfers (B, C, W/C) (FIM): 4 (CGA-SBA transfer from BSC to recliner. Pt sat before he was in position but he did not lose his balance.) Toilet/Commode Transfer (FIM): 4 (CGA to get up off BSC, FWW) Pt left up in recliner, all needs met. and daughter present OT Short Term Goals Short Term Goals Time Frame: Sep 12, 2016 Toileting(FIM): 5 Transfers (B,C,W/C) (FIM): 5 Toilet/Commode Transfer(FIM): 5 Shower Transfer(FIM): 5 1=Demonstrate adherence to instructed precautions during ADL tasks. 2=Patient will verbalize/demonstrate understanding of assistive devices/ modifications for ADL. 3=Patient will improve strength/tolerance for activity to enable patient to perform ADL's. OT Penitentiary Goals Environmental Marketing Representative Goals Time Frame: Sep 26, 2016 Eating (FIM): 6 Eating (QC): 6 Groomin Oral Hygiene (QC): 9 Bathing(FIM): 6 Shower/Bathe Self (QC): 6 Upper Body Dressing(FIM): 6 Upper Body Dressing (QC): 6 Lower Body Dressing(FIM): 6 Lower Body Dressing (QC): 6 On/Off Footwear (QC): 6 Toileting(FIM): 6 Toileting Hygiene (QC): 6 Toilet/Commode Transfer(FIM): 6 Toilet/Commode Transfer (QC): 6 Shower Transfer(FIM): 6 Additional Goals: 2-Verbalize Understanding, 3-ImproveStrength/Amador 1=Demonstrate adherence to instructed precautions during ADL tasks. 2=Patient will verbalize/demonstrate understanding of assistive devices/ modifications for ADL. 3=Patient will improve strength/tolerance for activity to enable patient to perform ADL's. OT Education/Plan Problem List/Assessment Pt would benefit from skilled OT to increase his independence in basic self care to allow him to return home safely with his after sepsis, complicated by bilat knee pain and Parkinsons. Discharge Recommendations Plan/Recommendations: Continue POC Treatment Plan/Plan of Care Patient would benefit from OT for education, treatment and training to promote independence in ADL's, mobility, safety and/or upper extremity function for ADL' s. Plan of Care: ADL Retraining, Functional Mobility, Group Exercise/Act as Ind ( educaiton, exercise, socialization, functionla activities, activity tolerance), UE Funct Exercise/Act, UE Neuromus Re-Ed/Coord Treatment Duration: Sep 26, 2016 Visits Per Week: 10-11 Minutes/Day (M-F): 75-90 Minutes/Day (Sat/Moise): PRN Agreement: Yes Rehab Potential: Fair Time/GCodes Start Time: 13:30 Stop Time: 14:00 Total Time Billed (hr/min): 30 Billed Treatment Time visit, 30 minutes ADL SARAI PIPER OT Sep 09, 2016 15:15
[2016-09-09 18:11] VITALS: BP 121/69
--- NOTE | 2016-09-09 19:42 | PM & R (SOAP) Progress Note ---
Subjective Subjective/Events-last exam Patient was seen in his room earlier today Patient refusing therapy today and agitated at times When I saw later in Afternoon he was sitting in chair with head slumped forward Responds to questions but with flat affect Asked about possible injection for knee pain but patient thinks he has had an injection in past but wasnt effective This provider uncertain how reliable a historian this patient is.Discussed case with SW RN and PT as well as PCP DR munoz.Would consider Sushant gusman possibly.Patients spouse concerned about taking patient home at this functional level. Objective Exam Last Set of Vital Signs Vital Signs Date Time Temp Pulse Resp B/P Pulse Ox O2 Delivery O2 Flow Rate FiO2 09/09/16 18:11 96.8 75 14 121/69 97 09/09/16 09:00 Room Air Capillary Refill : I&O Intake and Output 09/08/16 23:59 Intake Total 900 ml Output Total 1100 ml Balance -200 ml Intake Oral 900 ml Output Urine Total 1100 ml # Voids 3 # Urine Diapers 2 # Bowel Movements 2 General: Alert, Oriented X3, Cooperative HEENT: Atraumatic, PERRLA, EOMI, Mucous Memb Moist/[place] Neck: Supple, No JVD Lungs: Clear to Auscultation Heart: Regular Rate Abdomen: Normal Bowel Sounds, Soft, No Tenderness Extremities: Other (2+ edema both ankles) Neuro: Other (Generalized weakness tender knees) Results Lab Laboratory Tests 09/08/16 05:25: Anion Gap 10, BUN/Creatinine Ratio 23, Blood Urea Nitrogen 50H, Calcium Level 8.0L, Carbon Dioxide Level 26, Chloride Level 105, Creatinine 2.14H, Estimat Glomerular Filtration Rate 29, Glucose Level 121H, Potassium Level 4.1, Sodium Level 141 09/09/16 05:25: Anion Gap 10, BUN/Creatinine Ratio 23, Blood Urea Nitrogen 47H, Calcium Level 8.2L, Carbon Dioxide Level 25, Chloride Level 106, Creatinine 2.04H, Estimat Glomerular Filtration Rate 31, Glucose Level 113H, Potassium Level 4.3, Sodium Level 141, Basophils # (Auto) 0.0, Basophils (%) (Auto) 0, Eosinophils # (Auto) 0.4H, Eosinophils (%) (Auto) 5, Hematocrit 30L, Hemoglobin 9.2L, Lymphocytes # ( Auto) 1.2, Lymphocytes (%) (Auto) 14, Mean Corpuscular Hemoglobin 28, Mean Corpuscular Hemoglobin Concent 31L, Mean Corpuscular Volume 89, Mean Platelet Volume 9.2, Monocytes # (Auto) 0.8, Monocytes (%) (Auto) 11, Neutrophils # (Auto ) 5.6, Neutrophils (%) (Auto) 70, Platelet Count 544H, Red Blood Count 3.32L, Red Cell Distribution Width 16.2H, White Blood Count 8.0 09/09/16 09:15: Urine Bacteria NEGATIVE, Urine Bilirubin NEGATIVE, Urine Casts NONE, Urine Clarity CLEAR, Urine Color YELLOW, Urine Crystals NONE, Urine Culture Indicated NO, Urine Glucose (UA) NEGATIVE, Urine Ketones NEGATIVE, Urine Leukocyte Esterase 1+H, Urine Mucus NEGATIVE, Urine Nitrite NEGATIVE, Urine Protein 1+H, Urine RBC RARE, Urine RBC (Auto) NEGATIVE, Urine Specific [place] 1.010L, Urine Squamous Epithelial Cells NONE, Urine Urobilinogen NORMAL, Urine WBC 2-5, Urine pH 6 Assessment/Plan Assessment 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
[2016-09-10 05:25] VITALS: BP 126/70
[2016-09-10] MEDS: BETHANECHOL 25 MG (URECHOLINE) TAB PO SCH ×4 (06:33→20:27)
[2016-09-10] MEDS: SINEMET 25/100 (CARBIDOPA/LEVODOPA) TAB PO SCH ×3 (08:11→20:28)
[2016-09-10] MEDS: ISOSORBIDE MONONITRATE 60 MG (IMDUR) TAB PO SCH (08:11)
[2016-09-10] MEDS: ASPIRIN E.C. 81 MG (ECOTRIN) TAB PO SCH (08:11)
[2016-09-10] MEDS: MENTHOL/ZINC OXIDE (CALMOSEPTINE) 113 GM TUBE TOP SCH ×2 (08:11→20:28)
[2016-09-10] MEDS: ACETAMINOPHEN 500 MG TAB (TYLENOL) PO PRN ×2 (08:15→20:28)
--- NOTE | 2016-09-10 08:46 | Progress Note (SOAP) ---
Subjective Subjective/Events-last exam patient needing more physical and occupational therapy. Patient needs to prove that he can take a shower and get to the bathroom by himself Objective Exam Vital Signs Date Time Temp Pulse Resp B/P (MAP) Pulse Ox O2 Delivery O2 Flow Rate FiO2 09/10/16 05:25 98.1 57 18 126/70 97 Room Air 09/09/16 20:10 Room Air 09/09/16 18:11 96.8 75 14 121/69 97 09/09/16 09:00 Room Air I & O 09/10/16 07:00 Intake Total 1600 ml Output Total 400 ml Balance 1200 ml Capillary Refill : General Appearance: No Apparent Distress, WD/WN Results Lab Laboratory Tests 09/09/16 09:15: Urine Color YELLOW, Urine Clarity CLEAR, Urine pH 6, Urine Specific [place] 1.010L, Urine Protein 1+H, Urine Glucose (UA) NEGATIVE, Urine Ketones NEGATIVE, Urine Nitrite NEGATIVE, Urine Bilirubin NEGATIVE, Urine Urobilinogen NORMAL, Urine Leukocyte Esterase 1+H, Urine RBC (Auto) NEGATIVE, Urine RBC RARE, Urine WBC 2-5, Urine Squamous Epithelial Cells NONE, Urine Crystals NONE, Urine Bacteria NEGATIVE, Urine Casts NONE, Urine Mucus NEGATIVE, Urine Culture Indicated NO Assessment/Plan Assessment/Plan Assess & Plan/Chief Complaint knee pain. Inability to walk. Renal insufficiency. Hypertension. Coronary artery disease. . 09/10/16. Knee pain. Inability to walk. Renal insufficiency. Hypertension. Coronary artery disease. Patient needs more PT and OT to function at home INGRID NICOLE DO Sep 10, 2016 08:45
--- NOTE | 2016-09-10 10:15 | Occupational Ther Daily Note ---
OT Current Status-Daily Note Subjective Pt seen in room, up in recliner, adamantly refused OT Mental Status/Objective Functional [place] Measure 0=Not Assessed/NA 4=Minimal Assistance 1=Total Assistance 5=Supervision or Setup 2=Maximal Assistance 6=Modified [place] 3=Moderate Assistance 7=Complete [place] ADL-Treatment Pt refused ADLs. When discussing how good a warm shower would be, his response was, "What would feel good would be to walk through the front door of my apartment." Discussed need for demonstrating abilities to help care for himself when he goes home since his is frail and not able to assist him physically. He is insistent that, once he gets home, he will "take it from there." He did not acknowledge discussion that he would need to be able to transfer from w/c to car and back in order to go home. He refused to even get up out of recliner to change clothes or shower. Pt was angry and argumentative but not physically threatening but he has the potential to escalate physical aggression . Pt left up in recliner, all needs met. Family informed of refusal. Functional [place] Measure 0=Not Assessed/NA 4=Minimal Assistance 1=Total Assistance 5=Supervision or Setup 2=Maximal Assistance 6=Modified [place] 3=Moderate Assistance 7=Complete IndependenceIRFPAI Quality Coding Scale 6 Independent with activity with or without an assistive device 5 Patient requires set up or clean up by helper. Patient completes activity by themselves 4 Supervision or touching assist (CGA). [place] provide cues , steadying assist 3 The helper provides less than half the effort to complete the activity 2 The helper provides more than half the effort to complete the activity 1 Dependent. The helper does all the effort to complete an activity 7 Patient refused to complete or attempt activity 9 The patient did not perform the activity before the current illness or injury 88 Not attempted due to Medical conditions or safety concerns Education OT Patient Education: Purpose of tx/functional activities, Rehab process Teaching Recipient: Patient, Family Teaching Methods: Discussion OT Short Term Goals Short Term Goals Time Frame: Sep 12, 2016 Toileting(FIM): 5 Transfers (B,C,W/C) (FIM): 5 Toilet/Commode Transfer(FIM): 5 Shower Transfer(FIM): 5 1=Demonstrate adherence to instructed precautions during ADL tasks. 2=Patient will verbalize/demonstrate understanding of assistive devices/ modifications for ADL. 3=Patient will improve strength/tolerance for activity to enable patient to perform ADL's. OT Prison Goals Prison Goals Time Frame: Sep 26, 2016 Eating (FIM): 6 Eating (QC): 6 Groomin Oral Hygiene (QC): 9 Bathing(FIM): 6 Shower/Bathe Self (QC): 6 Upper Body Dressing(FIM): 6 Upper Body Dressing (QC): 6 Lower Body Dressing(FIM): 6 Lower Body Dressing (QC): 6 On/Off Footwear (QC): 6 Toileting(FIM): 6 Toileting Hygiene (QC): 6 Toilet/Commode Transfer(FIM): 6 Toilet/Commode Transfer (QC): 6 Shower Transfer(FIM): 6 Additional Goals: 2-Verbalize Understanding, 3-ImproveStrength/[place] 1=Demonstrate adherence to instructed precautions during ADL tasks. 2=Patient will verbalize/demonstrate understanding of assistive devices/ modifications for ADL. 3=Patient will improve strength/tolerance for activity to enable patient to perform ADL's. OT Education/Plan Problem List/Assessment Pt would benefit from skilled OT to increase his independence in basic self care to allow him to return home safely with his after sepsis, complicated by bilat knee pain and Parkinsons. Discharge Recommendations Plan/Recommendations: Continue POC Barriers to Progress Non-participation in therapy Treatment Plan/Plan of Care Patient would benefit from OT for education, treatment and training to promote independence in ADL's, mobility, safety and/or upper extremity function for ADL' s. Plan of Care: ADL Retraining, Functional Mobility, Group Exercise/Act as Ind ( educaiton, exercise, socialization, functionla activities, activity tolerance), UE Funct Exercise/Act, UE Neuromus Re-Ed/Coord Treatment Duration: Sep 26, 2016 Visits Per Week: 10-11 Minutes/Day (M-F): 75-90 Minutes/Day (Sat/Moise): PRN Agreement: Yes Rehab Potential: Fair Time/GCodes Start Time: 09:50 Stop Time: 09:58 Total Time Billed (hr/min): 8 Billed Treatment Time visit, 8 minutes functional activity SARAI PIPER OT Sep 10, 2016 10:15
[2016-09-10] MEDS: ALPRAZolam 0.5 MG (XANAX) TAB PO PRN (10:32)
--- NOTE | 2016-09-10 12:13 | Physical Therapy Daily Note ---
PT Daily Note-Current Subjective Pt is sitting in recliner but has just urinated on himself and floor upon arrival. Housekeeping is cleaning floors and PT assists pt with changing clothes when floor has dried. Pt assists with changing clothes by standing using FWW (3 times due to fatigue) although refuses to participate in any further PT. Tells PT "to just get out" when pt gets agitated due to PT encouraging pt to try to walk with walker like he would at home. Transfers Functional [place] Measure 0=Not Assessed/NA 4=Minimal Assistance 1=Total Assistance 5=Supervision or Setup 2=Maximal Assistance 6=Modified [place] 3=Moderate Assistance 7=Complete IndependenceIRFPAI Quality Coding Scale 6 Independent with activity with or without an assistive device 5 Patient requires set up or clean up by helper. Patient completes activity by themselves 4 Supervision or touching assist (CGA). [place] provide cues , steadying assist 3 The helper provides less than half the effort to complete the activity 2 The helper provides more than half the effort to complete the activity 1 Dependent. The helper does all the effort to complete an activity 7 Patient refused to complete or attempt activity 9 The patient did not perform the activity before the current illness or injury 88 Not attempted due to Medical conditions or safety concerns Sit to/from Stand: 4 Sit to Stand (QC): 4 Weight Bearing Weight Bearing Restriction: Full Weight Bearing Location Restriction: LE Bilateral Exercises Seated Therapy Exercises: Sit to stand (To assist w/LE dressing) Seated Reps: 3 Treatments Lead Network Architect asked to speak with PT at start of tx. Lead Network Architect informed PT what family had discuss with SW and what options Therapy may be looking at if pt refuses to participate in Therapy. Pt changes clothes with PT assistance using FWW after urinating on them. Pt refused to try to walk using FWW and states "I will just use that toilet thing at home". After explaining that Sp, daughter and son do not want pt to use BSC, pt get very agitated and states "I don't care what they want. I will be using BSC at home." Pt then will not engage in discussion with PT and reports that he is not getting anything out of Therapy. Pt tells PT to "just get out". PT then talks with family to discuss what options might be due to pt not participating in Therapy. Pt advised that will know more after Weekly Thursday meeting this afternoon. The team of Therapy, Social Work, Dr will discuss what we can do. Both family and Pt do not feel its safe for pt to return home for Sp to care for pt. Assessment Pt continues to refuse to participate in PT and insists that he will go home. PT Short Term Goals Short Term Goals Time Frame: Sep 12, 2016 Transfers (B,C,W/C) (FIM): 5 Gait (FIM): 1 Gait Distance Comment: 20' Gait Level of Assist: 4 Gait Assistive Device: FWW Wheelchair Distance: 125 ft PT Longterm Goals Longterm Goals PT Longterm Goals Time Frame: Sep 26, 2016 Transfers (B,C,W/C) (FIM): 6 Sit to Lying (QC): 6 Lying-Sitting on Side/Bed(QC): 6 Sit to Stand (QC): 6 Rollin Roll Left to Right (QC): 6 Chair/[id number] Xfer(QC): 6 Car Transfer (QC): 4 Gait (FIM): 2 Distance: 50' Walk 10 feet (QC): 4 Walk 10ft-Uneven Surface(QC): 4 Walk 50ft with 2 Turns (QC): 4 Walk 150 ft (QC): 88 Gait Level of Assist: 5 Gait Assistive Device: FWW Wheelchair (FIM): 6 Distance: 200' Wheelchair Level of Assist: 6 Wheel 50 feet with 2 turns (QC: 6 PT Plan Problem List Problem List: Activity Tolerance, Functional Strength, Safety, Balance, Gait, Transfer Treatment/Plan Treatment Plan: Continue Plan of Care Treatment Plan: Bed Mobility, Education, Functional Activity [place], Functional Strength, Group Therapy, Gait, Safety, Therapeutic Exercise, Transfers Treatment Duration: Sep 26, 2016 Visits Per Week: 10-11 Minutes/Day (M-F): 60-90 Minutes/Day (Sat/Moise): 15-30 Safety Risks/Education Patient Education: Gait Training, Transfer Techniques, Reviewed Precautions, Correct Positioning, Instructions to Caregiver, Disease Process, Safety Issues Teaching Recipient: Patient, Family Teaching Methods: Discussion Response to Teaching: Verbalize Understanding, Reinforcement Needed Time/GCodes Time In: 1100 Time Out: 1200 Total Billed Treatment Time: 60 Total Billed Treatment Visit, FA X4 (60m) LEONARDA OWENS PTA Sep 10, 2016 12:13
--- NOTE | 2016-09-10 13:13 | Physical Therapy Progress Note ---
Therapy Progress Note PT arrived at pt's room to bring pt to Group but pt refused. PT explained what Group was to both pt and family but pt still refused. LEONARDA OWENS TUCKPOINTER Sep 10, 2016 13:13
--- NOTE | 2016-09-10 16:16 | PM & R (SOAP) Progress Note ---
Subjective Subjective/Events-last exam Patient was seen in his room this afternoon Discussed case with SW and DR Munoz and RN Patient participating minimally in therapies.Patient min assist for transfers and his spouse feels she cant provide 24/7 assistance for him at home Patient declining NH placement at this time and wants to go home Patients son to come in and speak with him re at least short term SNU placement as it would be problematic for the patient to remain here for an extended period of time unless he is progressing with therapies and more fully participatory.with rehab program Objective Exam Last Set of Vital Signs Vital Signs Date Time Temp Pulse Resp B/P (MAP) Pulse Ox O2 Delivery O2 Flow Rate FiO2 09/10/16 08:49 Room Air 09/10/16 05:25 98.1 57 18 126/70 97 Capillary Refill : I&O Intake and Output 09/10/16 00:00 Intake Total 1120 ml Balance 1120 ml Intake Oral 1120 ml # Voids 8 # Bowel Movements 2 General: Alert, Oriented X3, Cooperative HEENT: Atraumatic, PERRLA, EOMI, Mucous Memb Moist/[place] Neck: Supple, No JVD Lungs: Clear to Auscultation Heart: Regular Rate Abdomen: Normal Bowel Sounds, Soft, No Tenderness Extremities: Other (2+ edema both ankles) Neuro: Other (Generalized weakness tender knees) Results Lab Laboratory Tests 09/08/16 05:25: Sodium Level 141, Potassium Level 4.1, Chloride Level 105, Carbon Dioxide Level 26, Anion Gap 10, Blood Urea Nitrogen 50H, Creatinine 2.14H, Estimat Glomerular Filtration Rate 29, BUN/Creatinine Ratio 23, Glucose Level 121H, Calcium Level 8.0L 09/09/16 05:25: Sodium Level 141, Potassium Level 4.3, Chloride Level 106, Carbon Dioxide Level 25, Anion Gap 10, Blood Urea Nitrogen 47H, Creatinine 2.04H, Estimat Glomerular Filtration Rate 31, BUN/Creatinine Ratio 23, Glucose Level 113H, Calcium Level 8.2L, White Blood Count 8.0, Red Blood Count 3.32L, Hemoglobin 9.2L, Hematocrit 30L, Mean Corpuscular Volume 89, Mean Corpuscular Hemoglobin 28, Mean Corpuscular Hemoglobin Concent 31L, Red Cell Distribution Width 16.2H, Platelet Count 544H, Mean Platelet Volume 9.2, Neutrophils (%) (Auto) 70, Lymphocytes (% ) (Auto) 14, Monocytes (%) (Auto) 11, Eosinophils (%) (Auto) 5, Basophils (%) ( Auto) 0, Neutrophils # (Auto) 5.6, Lymphocytes # (Auto) 1.2, Monocytes # (Auto) 0.8, Eosinophils # (Auto) 0.4H, Basophils # (Auto) 0.0 09/09/16 05:28: 09/09/16 09:15: Urine Color YELLOW, Urine Clarity CLEAR, Urine pH 6, Urine Specific [place] 1.010L, Urine Protein 1+H, Urine Glucose (UA) NEGATIVE, Urine Ketones NEGATIVE, Urine Nitrite NEGATIVE, Urine Bilirubin NEGATIVE, Urine Urobilinogen NORMAL, Urine Leukocyte Esterase 1+H, Urine RBC (Auto) NEGATIVE, Urine RBC RARE, Urine WBC 2-5, Urine Squamous Epithelial Cells NONE, Urine Crystals NONE, Urine Bacteria NEGATIVE, Urine Casts NONE, Urine Mucus NEGATIVE, Urine Culture Indicated NO Assessment/Plan Assessment Exacerbation of [place] D 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
[2016-09-10 17:25] VITALS: BP 136/70
[2016-09-11] MEDS: ACETAMINOPHEN 500 MG TAB (TYLENOL) PO PRN (03:01)
[2016-09-11 05:02] VITALS: BP 149/76
[2016-09-11] MEDS: BETHANECHOL 25 MG (URECHOLINE) TAB PO SCH ×2 (06:17→11:18)
[2016-09-11] MEDS: ALPRAZolam 0.5 MG (XANAX) TAB PO PRN (06:17)
[2016-09-11] MEDS: MENTHOL/ZINC OXIDE (CALMOSEPTINE) 113 GM TUBE TOP SCH (08:17)
[2016-09-11] MEDS: FUROSEMIDE 40 MG (LASIX) TAB PO SCH (08:18)
[2016-09-11] MEDS: SINEMET 25/100 (CARBIDOPA/LEVODOPA) TAB PO SCH (08:18)
[2016-09-11] MEDS: ASPIRIN E.C. 81 MG (ECOTRIN) TAB PO SCH (08:18)
[2016-09-11] MEDS: ISOSORBIDE MONONITRATE 60 MG (IMDUR) TAB PO SCH (08:18)
--- NOTE | 2016-09-11 08:58 | Progress Note (SOAP) ---
Subjective Subjective/Events-last exam patient has difficulty in moving legs. Patient unable to move feet to get into a wheelchair Patient Stubborn Objective Exam Vital Signs Date Time Temp Pulse Resp B/P (MAP) Pulse Ox O2 Delivery O2 Flow Rate FiO2 09/11/16 05:02 97.1 54 18 149/76 97 Room Air 09/10/16 20:30 Room Air 09/10/16 17:25 96.9 54 18 136/70 97 Room Air I & O 09/11/16 07:00 Intake Total 1050 ml Output Total 500 ml Balance 550 ml Capillary Refill : General Appearance: No Apparent Distress, WD/WN Assessment/Plan Assessment/Plan Assess & Plan/Chief Complaint knee pain. Inability to walk. Renal insufficiency. Hypertension. Coronary artery disease. . 09/10/16. Knee pain. Inability to walk. Renal insufficiency. Hypertension. Coronary artery disease. Patient needs more PT and OT to function at home. . 09/11/16. Patient states shot in the knees did not help. Patient has inability to walk still. Patient won't move his feet INGRID NICOLE DO Sep 11, 2016 08:58
--- NOTE | 2016-09-11 09:57 | PM & R (SOAP) Progress Note ---
Subjective Subjective/Events-last exam Patient was seen in his room this AM Having shower in room with OT.Spoke with patients spouse Family willing to have patient go home with them once he completes shower with OT.Discussed case with [facility] for DME W/C provided._ Patient will also have BSC Objective Exam Last Set of Vital Signs Vital Signs Date Time Temp Pulse Resp B/P (MAP) Pulse Ox O2 Delivery O2 Flow Rate FiO2 09/11/16 09:34 Room Air 09/11/16 05:02 97.1 54 18 149/76 97 Capillary Refill : I&O Intake and Output 09/11/16 00:00 Intake Total 1650 ml Output Total 400 ml Balance 1250 ml Intake Oral 1650 ml Output Urine Total 400 ml # Voids 3 # Bowel Movements 1 General: Alert, Oriented X3, Cooperative HEENT: Atraumatic, PERRLA, EOMI, Mucous Memb Moist/[place] Neck: Supple, No JVD Lungs: Clear to Auscultation Heart: Regular Rate Abdomen: Normal Bowel Sounds, Soft, No Tenderness Extremities: Other (2+ edema both ankles) Neuro: Other (Generalized weakness tender knees) Results Lab Laboratory Tests 09/09/16 05:25: White Blood Count 8.0, Red Blood Count 3.32L, Hemoglobin 9.2L, Hematocrit 30L, Mean Corpuscular Volume 89, Mean Corpuscular Hemoglobin 28, Mean Corpuscular Hemoglobin Concent 31L, Red Cell Distribution Width 16.2H, Platelet Count 544H, Mean Platelet Volume 9.2, Neutrophils (%) (Auto) 70, Lymphocytes (%) (Auto) 14, Monocytes (%) (Auto) 11, Eosinophils (%) (Auto) 5, Basophils (%) (Auto) 0, Neutrophils # (Auto) 5.6, Lymphocytes # (Auto) 1.2, Monocytes # (Auto) 0.8, Eosinophils # (Auto) 0.4H, Basophils # (Auto) 0.0, Sodium Level 141, Potassium Level 4.3, Chloride Level 106, Carbon Dioxide Level 25, Anion Gap 10, Blood Urea Nitrogen 47H, Creatinine 2.04H, Estimat Glomerular Filtration Rate 31, BUN/ Creatinine Ratio 23, Glucose Level 113H, Calcium Level 8.2L 09/09/16 05:28: Vitamin B12 Level 449 09/09/16 09:15: Urine Color YELLOW, Urine Clarity CLEAR, Urine pH 6, Urine Specific [place] 1.010L, Urine Protein 1+H, Urine Glucose (UA) NEGATIVE, Urine Ketones NEGATIVE, Urine Nitrite NEGATIVE, Urine Bilirubin NEGATIVE, Urine Urobilinogen NORMAL, Urine Leukocyte Esterase 1+H, Urine RBC (Auto) NEGATIVE, Urine RBC RARE, Urine WBC 2-5, Urine Squamous Epithelial Cells NONE, Urine Crystals NONE, Urine Bacteria NEGATIVE, Urine Casts NONE, Urine Mucus NEGATIVE, Urine Culture Indicated NO Assessment/Plan Assessment Exacerbation of [place] D Painful 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 Patient wearing Depends MIKEL ROJO MD Sep 11, 2016 09:57
[2016-09-11] MEDS ORDERED: ASPI-983 PO (10:02)
[2016-09-11] MEDS ORDERED: ACET-77 PO (10:02)
[2016-09-11] MEDS ORDERED: ALPR0.5T7 PO (10:02)
[2016-09-11] MEDS ORDERED: MENT71OI TOP (10:02)
--- NOTE | 2016-09-11 10:56 | Occupational Ther Daily Note ---
OT Current Status-Daily Note Subjective Pt seen in room. Initially very resistant to therapy and family education. Pt wants to go home today but refused to walk to [facility] to "prove" that he could do it in order to go home. No pain mentioned. Appearance Pt initially very obstinate, then would participate to prove to family members that he could do something. Once he agreed to showering, he was pleasant and cooperative Mental Status/Objective Patient Orientation: Person, Place, Situation Functional [place] Measure 0=Not Assessed/NA 4=Minimal Assistance 1=Total Assistance 5=Supervision or Setup 2=Maximal Assistance 6=Modified [place] 3=Moderate Assistance 7=Complete [place] ADL-Treatment Functional [place] Measure 0=Not Assessed/NA 4=Minimal Assistance 1=Total Assistance 5=Supervision or Setup 2=Maximal Assistance 6=Modified [place] 3=Moderate Assistance 7=Complete IndependenceIRFPAI Quality Coding Scale 6 Independent with activity with or without an assistive device 5 Patient requires set up or clean up by helper. Patient completes activity by themselves 4 Supervision or touching assist (CGA). [place] provide cues , steadying assist 3 The helper provides less than half the effort to complete the activity 2 The helper provides more than half the effort to complete the activity 1 Dependent. The helper does all the effort to complete an activity 7 Patient refused to complete or attempt activity 9 The patient did not perform the activity before the current illness or injury 88 Not attempted due to Medical conditions or safety concerns Eating (FIM): 6 (No dentures. Pt can open packages and feed himself) Eating (QC): 6 Grooming (FIM): 5 (setup to wash face and hands, comb hair. Does not have dentures or brush mouth) Oral Hygiene (QC): 9 Bathing (FIM): 4 (Pt washed and dried all parts in shower, with CGA for steadying when standing to wash bottom and lionel in front. Shower bench, grab bars, hand held shower. Setup. Help to wash hair) Bathing Location: L Arm, R Arm, L Upper Leg, R Upper Leg, L Lower Leg ( including foot), R Lower Leg (including foot), Chest, Abdomen, Buttocks, Perineal Area Shower/Bathe Self (QC): 4 (steadying) Upper Body (FIM): 5 (setup, doffed and donned shirt and t shirt) Upper Body Dressing (QC): 5 Lower Body Dressing (FIM): 4 (Doffed and donned slipper socks, Depends and underwear, with steadying help when standing to pull pants up, FWW. Pt and family education for w/c safety when he is leaning forward to put socks on. ) Lower Body Dressing (QC): 4 (steadying) On/Off Footwear (QC): 5 (setup) Toileting (FIM): 4 (Steadying help CGA for standing to manage clothing and hygiene. BSC) Toileting Hygiene (QC): 4 (steadying help. CGA) Transfers (B, C, W/C) (FIM): 4 (CGA, with FWW. Pt also completed a transfer for education purposes without FWW and with w/c at 180 degrees and required mod assist) Toilet/Commode Transfer (FIM): 4 (CGA, BSC. Best with FWW) Toilet Transfer (QC): 4 (CGA, steadying) Shower Transfer(FIM): 5 (SBA, shower bench, multiple grab bars, w/c. Pt assisted with w/c positioning after pt education) Other Treatment Pt/family education on w/c transfers (placement of w/c, brakes, technique) with and without FWW, transfers in/out of bed, transfers in/out of recliner. Talked about height of surfaces and need for compensation if surfaces are too low. Also did educ on mobility in his home, access to bathroom and discussion about use of BSC. Pt may need some type of arms on toilet to assist with getting on/ off (family education). may also have some difficulty with shower transfers at home because he will have to step over a lip to get into shower. Decision made by family that pt would have BSC in office so toilet transfers/toileting practiced and demonstrated by pt. Co-tx with PT for family education, transfers and discharge planning. Family unable to do much return demonstration due to patient's varied participation but they verbalized understanding. pt may benefit from home health OT OT Short Term Goals Short Term Goals Time Frame: Sep 12, 2016 Toileting(FIM): 5 (not met 09-11-16) Transfers (B,C,W/C) (FIM): 5 (not met 09-11-16) Toilet/Commode Transfer(FIM): 5 (not met 09-11-) Shower Transfer(FIM): 5 (met 09-11-) 1=Demonstrate adherence to instructed precautions during ADL tasks. 2=Patient will verbalize/demonstrate understanding of assistive devices/ modifications for ADL. 3=Patient will improve strength/tolerance for activity to enable patient to perform ADL's. OT Weights And Measures Sealer Goals Skilled Nursing Goals Time Frame: Sep 26, 2016 Eating (FIM): 6 (met 09-11-) Eating (QC): 6 (met 09-11-) Groomin (not met 09-11-) Oral Hygiene (QC): 9 (met 09-11-) Bathing(FIM): 6 (not met 09-11-) Shower/Bathe Self (QC): 6 (not met 09-11-) Upper Body Dressing(FIM): 6 (not met 09-11-) Upper Body Dressing (QC): 6 (not met 09-11-) Lower Body Dressing(FIM): 6 (not met 09-11-) Lower Body Dressing (QC): 6 (not met 09-11-) On/Off Footwear (QC): 6 (not met 09-11-) Toileting(FIM): 6 (not met 09-11-) Toileting Hygiene (QC): 6 (not met 09-11-) Toilet/Commode Transfer(FIM): 6 (not met 09-11-) Toilet/Commode Transfer (QC): 6 (not met 09-11-) Shower Transfer(FIM): 6 (not met 09-11-) Additional Goals: 2-Verbalize Understanding, 3-ImproveStrength/Amador 1=Demonstrate adherence to instructed precautions during ADL tasks. 2=Patient will verbalize/demonstrate understanding of assistive devices/ modifications for ADL. 3=Patient will improve strength/tolerance for activity to enable patient to perform ADL's. OT Education/Plan Problem List/Assessment Pt would benefit from skilled OT to increase his independence in basic self care to allow him to return home safely with his after sepsis, complicated by bilat knee pain and Parkinsons. Discharge Recommendations Plan/Recommendations: Discharge/Goals Met (see tx plan for specifics) Treatment Plan/Plan of Care Patient would benefit from OT for education, treatment and training to promote independence in ADL's, mobility, safety and/or upper extremity function for ADL' s. Plan of Care: ADL Retraining, Functional Mobility, Group Exercise/Act as Ind ( educaiton, exercise, socialization, functionla activities, activity tolerance), UE Funct Exercise/Act, UE Neuromus Re-Ed/Coord Treatment Duration: Sep 26, 2016 Visits Per Week: 10-11 Minutes/Day (M-F): 75-90 Minutes/Day (Sat/Moise): PRN Agreement: Yes Rehab Potential: Fair Time/GCodes Start Time: 08:30 Stop Time: 10:30 Total Time Billed (hr/min): 120 Billed Treatment Time visit, 120 minutes ADL (co-tx 910 to 940 with PT, for family education, transfers, discharge planning) SARAI PIPER OT Sep 11, 2016 10:56
--- NOTE | 2016-09-11 11:29 | Therapy Team Discharge Summary ---
Therapy Discharge Summary Discharge Recommendations Date of Discharge Therapy D/C Recommendations: Home w/ Family Support, Occupational Therapy Home Care Occupational Therapy Pt was seen for skilled OT to increase his independence in basic self care to allow him to return home safely with family and decrease caregiver burden. On admission he needed no help with eating, min help with grooming, bathing, toileting, lower body dressing, mod assist for toilet transfers, supervision for UB dressing. By discharge he was CGA for transfers (SBA shower transfer), CGA for steadying for standing to toileting and lower body dressing. He required more steadying help than supervision. Home equipment includes gait belt , BSC, FWW, grab bars, shower chair, w/c. See tx plan for goals met. May benefit from home health OT. DC OT PT Snf Goals Claims Coordinator Goals PT Snf Goals Time Frame: Sep 26, 2016 Transfers (B,C,W/C) (FIM): 6 Roll Left to Right (QC): 6 Sit to Lying (QC): 6 Lying-Sitting on Side/Bed(QC): 6 Sit to Stand (QC): 6 Chair/Fth-vv-Nrgic Xfer(QC): 6 Car Transfer (QC): 4 Gait (FIM): 2 Distance: 50' Walk 10 feet (QC): 4 Walk 10ft-Uneven Surface(QC): 4 Walk 50ft with 2 Turns (QC): 4 Walk 150 ft (QC): 88 Gait Level of Assist: 5 Gait Assistive Device: FWW Wheelchair (FIM): 6 Distance: 200' Wheelchair Level of Assist: 6 Wheel 50 feet with 2 turns (QC: 6 OT Claims Coordinator Goals Claims Coordinator Goals Time Frame: Sep 26, 2016 Eating (FIM): 6 (met 3-23-17) Eating (QC): 6 (met 3-23-17) Oral Hygiene (QC): 9 (met 3-23-17) Grooming(FIM): 6 (not met 3-23-17) Bathing(FIM): 6 (not met 3-23-17) Shower/Bathe Self (QC): 6 (not met 3-23-17) Upper Body Dressing(FIM): 6 (not met 3-23-17) Upper Body Dressing (QC): 6 (not met 3-23-17) Lower Body Dressing(FIM): 6 (not met 3-23-17) Lower Body Dressing (QC): 6 (not met 09-11-16) On/Off Footwear (QC): 6 (not met 09-11-16) Toileting(FIM): 6 (not met 09-11-16) Toileting Hygiene (QC): 6 (not met 09-11-16) Toilet/Commode Transfer(FIM): 6 (not met 09-11-16) Toilet/Commode Transfer (QC): 6 (not met 09-11-16) Shower Transfer(FIM): 6 (not met 09-11-16) Additional Goals: 2-Verbalize Understanding, 3-ImproveStrength/Am[place] 1=Demonstrate adherence to instructed precautions during ADL tasks. 2=Patient will verbalize/demonstrate understanding of assistive devices/ modifications for ADL. 3=Patient will improve strength/tolerance for activity to enable patient to perform ADL's. SARAI PIPER OT Sep 11, 2016 11:28
[2016-09-11 11:30] VITALS: BP 133/71
--- NOTE | 2016-09-11 11:33 | Physical Therapy Progress Note ---
Therapy Progress Note Pt declining to ambulate with FWW due to pain in his knees. Attempted ambulation with patient this morning and he is unable to take steps or advance legs for functional gait/mobility. Pt able to propel wheelchair using B U/LE' s. Currently, he is unable to ambulate using his FWW and is requiring a wheelchair for household mobility. He is able to perform SPT with CGA to transfer wheelchair to/from bed/commode/chair. Wheelchair is required to provide safe mobility in patient's home. Wheelchair necessary to allow pt to mobilize in his home to complete ADL's safely. AARON ESPINOZA PT Sep 11, 2016 11:33
--- NOTE | 2016-09-11 12:43 | Physical Therapy Daily Note ---
PT Daily Note-Current Subjective Patient and family present. Patient adamently refusing to walk, insisting on wheelchair mobility only. Pt adamently refusing to allow therapist to assist with SPT. Family concerned with how patient will mobilize in the home and get in/out of the bathroom. Eventually, family agrees on use of bedside commode for toileting. No decision on how he will get into the shower, as he has to walk approx 15 ft into the bathroom to shower. Pt unwilling/unable to ambulate atthis time. Transfers Functional [place] Measure 0=Not Assessed/NA 4=Minimal Assistance 1=Total Assistance 5=Supervision or Setup 2=Maximal Assistance 6=Modified [place] 3=Moderate Assistance 7=Complete IndependenceIRFPAI Quality Coding Scale 6 Independent with activity with or without an assistive device 5 Patient requires set up or clean up by helper. Patient completes activity by themselves 4 Supervision or touching assist (CGA). [place] provide cues , steadying assist 3 The helper provides less than half the effort to complete the activity 2 The helper provides more than half the effort to complete the activity 1 Dependent. The helper does all the effort to complete an activity 7 Patient refused to complete or attempt activity 9 The patient did not perform the activity before the current illness or injury 88 Not attempted due to Medical conditions or safety concerns Transfers (B, C, W/C) (FIM): 4 Sit to/from Stand: 4 (CGA only; no physical assist) Sit to Stand (QC): 5 Chair/Thb-jy-[place] Xfer(QC): 5 Car Transfer (QC): 3 (per nursing report) Pt refused bed mobility for assessment. Only agreed to demonstrate a toilet transfer--wheelchair to commode. Pt completed with CGA. Recommend someone present at all times for safety purposes with transfer. Gait Training Unable to assess gait, as pt adamently refuses to attempt ambulation. Currently, wc mobility is the only way pt will mobilize and is the safest way for optimal safety and participation with ADL"s in his home. Wheelchair Training Does the Pt Use a Wheelchair?: Yes Wheelchair (FIM): 6 Wheelchair Distance: 3=150 ft Wheel 50 ft with 2 turns (QC): 6 Wheel 150 ft (QC): 6 Type of Wheelchair: Manual Pt is mod indep with wheelchair mobility on level surfaces and with turns and obstacles. Stair Training Unable to attempt. Balance Picking up an Object (QC): 88 Treatments Education and attempts on importance of gait. Pt agreed to SPT x 2 and wheelchair mobility. Co treat wth OT; both skilled disciplines using techniques and education to promote safety and the best way to transfer and mobilize. Assessment Current Status: Fair Progress Pt has been refusing to participate with therapy services the last few days. Agrees to participate with therapy this date to prove that he can manage at the bare minimum level at home. Pt is unsteady with transfers and recommend supervision at the least with transfers, although CGA would be preferred. Pt's is elderly and assisting him is a risk to her safety. He completed the SPT without physical assist but should he start to fall, his would not be able to stop him. He is mod indep with wheelchair mobility. Pt would not attempt gait to assess safety with this task. Pt insistent to discharge home, this therapist has safety concerns in regards to fall risk and limited safety with transfers and walking. Recommend follow up [facility] PT but not sure if patient will accept it. Pt to discharge home with family today. PT Short Term Goals Short Term Goals Time Frame: Sep 12, 2016 Transfers (B,C,W/C) (FIM): 5 (not met 09-11-16) Gait (FIM): 1 Gait Distance Comment: 20' Gait Level of Assist: 4 Gait Assistive Device: FWW Wheelchair Distance: 125 ft PT Patient Support Tech Goals Patient Support Tech Goals PT Patient Support Tech Goals Time Frame: Sep 26, 2016 Transfers (B,C,W/C) (FIM): 6 Sit to Lying (QC): 6 Lying-Sitting on Side/Bed(QC): 6 Sit to Stand (QC): 6 Rollin Roll Left to Right (QC): 6 Chair/Ndv-yr-Vwyjj Xfer(QC): 6 Car Transfer (QC): 4 Gait (FIM): 2 Distance: 50' Walk 10 feet (QC): 4 Walk 10ft-Uneven Surface(QC): 4 Walk 50ft with 2 Turns (QC): 4 Walk 150 ft (QC): 88 Gait Level of Assist: 5 Gait Assistive Device: FWW Wheelchair (FIM): 6 Distance: 200' Wheelchair Level of Assist: 6 Wheel 50 feet with 2 turns (QC: 6 PT Plan Problem List Problem List: Activity Tolerance, Functional Strength Treatment/Plan Treatment Plan: Discontinue PT Treatment Plan: Bed Mobility, Education, Functional Activity [place], Functional Strength, Group Therapy, Gait, Safety, Therapeutic Exercise, Transfers Treatment Duration: Sep 26, 2016 Visits Per Week: 10-11 Minutes/Day (M-F): 60-90 Minutes/Day (Sat/Moise): 15-30 Safety Risks/Education Patient Education: Transfer Techniques, Safety Issues Teaching Recipient: Patient, Family Teaching Methods: Demonstration, Discussion Response to Teaching: Verbalize Understanding, Return Demonstration, Reinforcement Needed Discharge Recommendations Plan DC Time/GCodes Time In: 910 Time Out: 945 Total Billed Treatment Time: 35 Total Billed Treatment visit FA 35 AARON ESPINOZA PT Sep 11, 2016 12:43
--- NOTE | 2016-09-11 14:45 | Therapy Team Discharge Summary ---
Therapy Discharge Summary Discharge Recommendations Date of Discharge Sep 11, 2016 at 11:30 Therapy D/C Recommendations: Home w/ Family Support, Occupational Therapy Home Care Physical Therapy This patient was seen by skilled PT for functional mobility and strengthening training post acute stay with exacerbated Parkinson's disease symptoms due to sepsis. On the acute floor, pt was initially very uncooperative with therapy services, but once his pain was controlled he fully participated and agreed to transfer to ARU. Upon initial admission to ARU, he was cooperative and participatory but gradually began to decrease his level of participation and cooperation to the point of fully refusing therapy. Upon admit, he required min assist with transfers, ambulated x 2 ft with FWW with min assist, was SBA with wheelchair mobility. At me, gait was not assessed but at one time had walked approx 15 ft with FWW with close CGA, albeit limited step length and foot clearance. Goals primarily not achieved due to pt refusal to attempt. Recommend pt have assist with transfers at home but pt refusing to agree to help. He is mod indep with wc mobility so will be able to move through the house without assist. Pt to discharge home with family this date, they have received extensive instruction from the OT this date. Recommend f/u PT services , but do no know if pt will agree to allow [facility] PT. DC PT due to patient consistent non-participation with therapy services. PT [facility] Goals Director Script Goals PT [facility] Goals Time Frame: Sep 26, 2016 Transfers (B,C,W/C) (FIM): 6 (unmet) Roll Left to Right (QC): 6 (unmet) Sit to Lying (QC): 6 (unmet) Lying-Sitting on Side/Bed(QC): 6 (unmet) Sit to Stand (QC): 6 (unmet) Chair/Vyq-vc-Tcnmx Xfer(QC): 6 Car Transfer (QC): 4 (3--per nursing, pt requires mod assist) Gait (FIM): 2 (unmet) Distance: 50' Walk 10 feet (QC): 4 (unmet) Walk 10ft-Uneven Surface(QC): 4 (unmet) Walk 50ft with 2 Turns (QC): 4 (unmet) Walk 150 ft (QC): 88 Gait Level of Assist: 5 Gait Assistive Device: FWW Wheelchair (FIM): 6 (met) Distance: 200' Wheelchair Level of Assist: 6 Wheel 50 feet with 2 turns (QC: 6 OT Director Script Goals Director Script Goals Time Frame: Sep 26, 2016 Eating (FIM): 6 (met 09-11-) Eating (QC): 6 (met --) Oral Hygiene (QC): 9 (met -23-17) Grooming(FIM): 6 (not met --) Bathing(FIM): 6 (not met 09-11-) Shower/Bathe Self (QC): 6 (not met --) Upper Body Dressing(FIM): 6 (not met --17) Upper Body Dressing (QC): 6 (not met --) Lower Body Dressing(FIM): 6 (not met --) Lower Body Dressing (QC): 6 (not met 09-11-) On/Off Footwear (QC): 6 (not met 09-11-) Toileting(FIM): 6 (not met 09-11-) Toileting Hygiene (QC): 6 (not met 09-11-) Toilet/Commode Transfer(FIM): 6 (not met 09-11-) Toilet/Commode Transfer (QC): 6 (not met 09-11-) Shower Transfer(FIM): 6 (not met 09-11-) Additional Goals: 2-Verbalize Understanding, 3-ImproveStrength/[place] 1=Demonstrate adherence to instructed precautions during ADL tasks. 2=Patient will verbalize/demonstrate understanding of assistive devices/ modifications for ADL. 3=Patient will improve strength/tolerance for activity to enable patient to perform ADL's. AARON ESPINOZA PT Sep 11, 2016 14:45
--- NOTE | 2016-10-09 11:34 | DISCHARGE SUMMARY ---
DATE OF ADMISSION: 09/05/2016 DATE OF DISCHARGE: 09/11/2016 HISTORY OF PRESENT ILLNESS: The patient is an 85-year-old male admitted for sepsis due to UTI to the service of Dr. Munoz, PCP. The patient's condition was treated. He was seen by therapies and was felt to be appropriate for Inpatient Rehabilitation Unit. He carries a diagnosis of arthritis involving both knees associated with chronic knee pain, as well as Parkinson's disease. He had a resulting exacerbation of his Parkinson's disease due to sepsis due to UTI, with a decline in his functional independence. PAST MEDICAL HISTORY: 1. Chronic kidney disease stage IV. 2. Anemia. 3. Parkinson's. 4. Arthritis. 5. He did receive a blood transfusion 2 to 3 weeks ago. 6. He was found to be dehydrated upon presentation to the ED and was given intravenous fluids. He has had a decline in p.o. intake. 7. Also history of hypertension. 8. Polypectomy x2. 9. TURP. 10. Carotid endarterectomy. SOCIAL HISTORY: He is retired from a variety of jobs. He has a supportive , as well as family that works at this facility. MEDICAL COURSE: The patient was followed by Dr. Mao and Dr. Munoz while on rehab unit. He was continued on his Sinemet generic, his isosorbide, his bethanechol, DuoDERM treatments. He was not always fully participatory in therapies and skilled placement was considered. The patient was adamant about going home. The family presented to unit and saw what he was doing at that functional level and agreeable to caring for him at home. CBC on 09/09 showed hemoglobin and hematocrit 9.2/30, WBC 8, platelet count 544,000. Chemistry showed normal electrolytes, BUN and creatinine 47/2.04, blood glucose 113, calcium 8.2, BUN and creatinine had improved from 09/08. UA was negative on 09/09. Vitamin B12 was 449 within normal limits He was afebrile during his stay. His blood pressure was 133/71 on 09/11, pulse 73, O2 sat 95% on room air, respirations 18. REHABILITATION COURSE: He was assessed by speech therapy upon admission to rehab unit found to be functional in terms of cognition and they signed off. PT notes upon admission to IRU he was cooperative and participatory. He required min assist for transfers, could ambulate 2 feet with a front wheel walker with min assist. He was standby assist with wheelchair mobility. He complained of increased pain in the knee. He just had a recent injection with orthopedics on acute medical floor prior to transfer to rehab. The case was discussed with Dr. Munoz and the patient was plateauing out and not fully participatory and again family meeting was held and they agreed to take the patient home with them. Goals were primarily not achieved due to patient's refusals to attempt therapies at times. Upon discharge he is modified independent with wheelchair mobility, so as to be able to move through the house assist but he still requires assistance for ambulation, contact guard short distances with a front wheel walker, standby assist for transfers and bed mobility. OT notes upon admission, he was independent for eating. He was min assist for grooming, bathing, toileting, lower body dressing. He was mod assist for toilet transfers, supervision for upper body dressing. By discharge she was contact guard for transfers. Standby assist for shower transfers, contact guard for standing and toileting and lower body dressing. He required more steadying help than supervision. Home equipment including gait belt, bedside commode, front wheel walker, grab bar, shower chair, wheelchair home health care was recommended. DISCHARGE INSTRUCTIONS: He will have follow-up with Dr. Munoz and home health care, continue current diet. DISCHARGE MEDICATIONS: 1. Tylenol 1000 mg p.o. t.i.d. p.r.n. mild pain. 2. Xanax 0.5 mg p.o. t.i.d. p.r.n. anxiety. 3. ASA 81 mg p.o. daily. 4. Calmoseptine topically b.i.d. 5. Bethanechol 25 mg p.o. q.i.d. with meals and at bedtime. 6. Sinemet generic 25/100, 2 tablets p.o. t.i.d. 7. Furosemide 40 mg p.o. q. 48 hours. 8. Isosorbide ER 60 mg p.o. daily. 9. Lovastatin 20 mg p.o. at bedtime. DISCHARGE DIAGNOSES: 1. Rehabilitation ambulatory dysfunction secondary to exacerbation of Parkinson's disease due to the sepsis and UTI. 2. Primary osteoarthritis, both knees. 3. Difficulty with walking. 4. Hypertensive chronic kidney disease. 5. Chronic kidney disease stage IV. 6. Anemia, unspecified. 7. Osteoarthritis, right hand. 8. Osteoarthritis, primary left hand. 9. Coronary artery disease. 10. Peripheral edema. 11. Agitation. 12. Bilateral peripheral edema of the ankles. 13. Mild hypocalcemia, improving. CONDITION AT DISCHARGE: Improved and stable. PROGNOSIS: Rehab prognosis appears fair for some continued improvement at home hopefully we will be more participatory at home with follow-up care and therapies. He has a supportive family that will assist him at home. Job ID: [id number] Dictated Date: 10/07/2016 19:24:17 Sole Seamer Date: 10/09/2016 11:17:43/cal SAWYER
== END 2016-09-11 11:30 | disposition home or self-care (01) | DRG 57 ==
LOC: DELPENDDIS
PROVIDERS: ADMIT Physical Medicine & Rehabilitation; ATTEND Physical Medicine & Rehabilitation
DX: G20 Parkinson's disease (principal); M17.0 Bilateral primary osteoarthritis of knee; R26.2 Difficulty in walking, not elsewhere classified; I12.9 Hypertensive chronic kidney disease with stage 1 through stage 4 chronic kidney disease, or unspecified chronic kidney disease; N18.4 Chronic kidney disease, stage 4 (severe); D64.9 Anemia, unspecified; M19.041 Primary osteoarthritis, right hand; M19.042 Primary osteoarthritis, left hand; I25.10 Atherosclerotic heart disease of native coronary artery without angina pectoris; R53.1 Weakness; R41.3 Other amnesia; R60.0 Localized edema; R45.1 Restlessness and agitation; Z87.440 Personal history of urinary (tract) infections; Z86.19 Personal history of other infectious and parasitic diseases
CPT/HCPCS: 36415; 80048; 81000; 82607; 85025; 85027; 94760

== ENCOUNTER → 2016-10-31 | Outpatient (CLI) | payer MEDICARE ==
[~2016-10-31] MED LIST changes: +ALPR0.5T7 PO; +MENT71OI TOP
== END ==
LOC: PREOP 05:35
PROVIDERS: ATTEND Surgery
DX: Z01.818 Encounter for other preprocedural examination (principal); Z86.010 Personal history of colon polyps; D50.9 Iron deficiency anemia, unspecified

== ENCOUNTER 2016-12-16 11:25 | Outpatient (RCR) | payer MEDICARE ==
[2016-09-25 14:18] LABS: BASOPHILS % (AUTO) 0 % (0-10); EOSINOPHILS # (AUTO) 0.9 10^3/uL (0.0-0.3); EOSINOPHILS % (AUTO) 12 % (0-10); LYMPHOCYTES # (AUTO) 1.2 X 10^3 (1.0-4.0); LYMPHOCYTES % (AUTO) 16 % (12-44); MEAN CORPUSCULAR HEMOGLOBIN 27 PG (25-34); MEAN CORPUSCULAR HGB CONC 30 G/DL (32-36); MEAN CORPUSCULAR VOLUME 92 FL (80-99); MEAN PLATELET VOLUME 8.9 FL (7.4-10.4); MONOCYTES # (AUTO) 0.8 X 10^3 (0.0-1.0); MONOCYTES % (AUTO) 11 % (0-12); NEUTROPHILS # (AUTO) 4.3 X 10^3 (1.8-7.8); NEUTROPHILS % (AUTO) 60 % (42-75); PLATELET COUNT 261 10^3/uL (130-400); RED BLOOD COUNT 3.25 10^6/uL (4.35-5.85); RED CELL DISTRIBUTION WIDTH 18.7 % (10.0-14.5); RETICULOCYTE % 0.77 % (0.50-2.40); WHITE BLOOD COUNT 7.1 10^3/uL (4.3-11.0)
[2016-09-25 14:49] LABS: ALANINE AMINOTRANSFERASE < 6 U/L (0-55); ALBUMIN 3.5 G/DL (3.2-4.5); ANION GAP 8 MMOL/L (5-14); ASPARTATE AMINO TRANSFERASE 12 U/L (5-34); BILIRUBIN,TOTAL 0.3 MG/DL (0.1-1.0); BLOOD UREA NITROGEN 50 MG/DL (7-18); BUN/CREATININE RATIO 24; CALCIUM 8.6 MG/DL (8.5-10.1); CARBON DIOXIDE 29 MMOL/L (21-32); CHLORIDE 106 MMOL/L (98-107); CREATININE SERUM 2.09 MG/DL (0.60-1.30); GFR ESTIMATED 30; GLUCOSE 100 MG/DL (70-105); LACTATE DEHYDROGENASE 166 U/L (125-220); POTASSIUM 4.9 MMOL/L (3.6-5.0); SODIUM 143 MMOL/L (135-145); TOTAL PROTEIN 6.5 G/DL (6.4-8.2)
[2016-10-08 10:51] LABS: BASOPHILS % (AUTO) 0 % (0-10); EOSINOPHILS # (AUTO) 0.9 10^3/uL (0.0-0.3); EOSINOPHILS % (AUTO) 12 % (0-10); LYMPHOCYTES # (AUTO) 1.4 X 10^3 (1.0-4.0); LYMPHOCYTES % (AUTO) 18 % (12-44); MEAN CORPUSCULAR HEMOGLOBIN 27 PG (25-34); MEAN CORPUSCULAR HGB CONC 30 G/DL (32-36); MEAN CORPUSCULAR VOLUME 92 FL (80-99); MEAN PLATELET VOLUME 8.8 FL (7.4-10.4); MONOCYTES # (AUTO) 0.7 X 10^3 (0.0-1.0); MONOCYTES % (AUTO) 9 % (0-12); NEUTROPHILS # (AUTO) 4.6 X 10^3 (1.8-7.8); NEUTROPHILS % (AUTO) 60 % (42-75); PLATELET COUNT 388 10^3/uL (130-400); RED BLOOD COUNT 2.91 10^6/uL (4.35-5.85); RED CELL DISTRIBUTION WIDTH 17.9 % (10.0-14.5); WHITE BLOOD COUNT 7.7 10^3/uL (4.3-11.0)
[2016-10-15 13:23] LABS: BASOPHILS % (AUTO) 0 % (0-10); EOSINOPHILS # (AUTO) 1.1 10^3/uL (0.0-0.3); EOSINOPHILS % (AUTO) 13 % (0-10); LYMPHOCYTES # (AUTO) 1.5 X 10^3 (1.0-4.0); LYMPHOCYTES % (AUTO) 17 % (12-44); MEAN CORPUSCULAR HEMOGLOBIN 28 PG (25-34); MEAN CORPUSCULAR HGB CONC 30 G/DL (32-36); MEAN CORPUSCULAR VOLUME 94 FL (80-99); MEAN PLATELET VOLUME 9.3 FL (7.4-10.4); MONOCYTES # (AUTO) 0.7 X 10^3 (0.0-1.0); MONOCYTES % (AUTO) 9 % (0-12); NEUTROPHILS # (AUTO) 5.2 X 10^3 (1.8-7.8); NEUTROPHILS % (AUTO) 61 % (42-75); PLATELET COUNT 374 10^3/uL (130-400); RED BLOOD COUNT 3.15 10^6/uL (4.35-5.85); RED CELL DISTRIBUTION WIDTH 19.2 % (10.0-14.5); WHITE BLOOD COUNT 8.6 10^3/uL (4.3-11.0)
[2016-10-22 14:00] LABS: BASOPHILS % (AUTO) 0 % (0-10); EOSINOPHILS # (AUTO) 1.1 10^3/uL (0.0-0.3); EOSINOPHILS % (AUTO) 14 % (0-10); LYMPHOCYTES # (AUTO) 1.3 X 10^3 (1.0-4.0); LYMPHOCYTES % (AUTO) 16 % (12-44); MEAN CORPUSCULAR HEMOGLOBIN 29 PG (25-34); MEAN CORPUSCULAR HGB CONC 30 G/DL (32-36); MEAN CORPUSCULAR VOLUME 96 FL (80-99); MEAN PLATELET VOLUME 8.6 FL (7.4-10.4); MONOCYTES # (AUTO) 0.8 X 10^3 (0.0-1.0); MONOCYTES % (AUTO) 10 % (0-12); NEUTROPHILS # (AUTO) 4.9 X 10^3 (1.8-7.8); NEUTROPHILS % (AUTO) 60 % (42-75); PLATELET COUNT 269 10^3/uL (130-400); RED BLOOD COUNT 3.07 10^6/uL (4.35-5.85); RED CELL DISTRIBUTION WIDTH 20.4 % (10.0-14.5); WHITE BLOOD COUNT 8.3 10^3/uL (4.3-11.0)
[2016-11-05 09:42] LABS: BASOPHILS % (AUTO) 0 % (0-10); EOSINOPHILS # (AUTO) 1.4 10^3/uL (0.0-0.3); EOSINOPHILS % (AUTO) 20 % (0-10); LYMPHOCYTES # (AUTO) 1.3 X 10^3 (1.0-4.0); LYMPHOCYTES % (AUTO) 18 % (12-44); MEAN CORPUSCULAR HEMOGLOBIN 29 PG (25-34); MEAN CORPUSCULAR HGB CONC 30 G/DL (32-36); MEAN CORPUSCULAR VOLUME 98 FL (80-99); MEAN PLATELET VOLUME 8.8 FL (7.4-10.4); MONOCYTES # (AUTO) 0.6 X 10^3 (0.0-1.0); MONOCYTES % (AUTO) 8 % (0-12); NEUTROPHILS # (AUTO) 3.7 X 10^3 (1.8-7.8); NEUTROPHILS % (AUTO) 54 % (42-75); PLATELET COUNT 290 10^3/uL (130-400); RED CELL DISTRIBUTION WIDTH 19.8 % (10.0-14.5); RETICULOCYTE % 0.48 % (0.50-2.40); WHITE BLOOD COUNT 6.9 10^3/uL (4.3-11.0)
[2016-11-05 10:09] LABS: ALANINE AMINOTRANSFERASE < 6 U/L (0-55); ALBUMIN 3.5 G/DL (3.2-4.5); ANION GAP 6 MMOL/L (5-14); ASPARTATE AMINO TRANSFERASE 13 U/L (5-34); BILIRUBIN,TOTAL 0.2 MG/DL (0.1-1.0); BLOOD UREA NITROGEN 45 MG/DL (7-18); BUN/CREATININE RATIO 21; CALCIUM 8.5 MG/DL (8.5-10.1); CARBON DIOXIDE 29 MMOL/L (21-32); CHLORIDE 107 MMOL/L (98-107); GFR ESTIMATED 30; GLUCOSE 94 MG/DL (70-105); POTASSIUM 4.6 MMOL/L (3.6-5.0); SODIUM 142 MMOL/L (135-145); TOTAL PROTEIN 6.1 G/DL (6.4-8.2)
[2016-11-19 11:53] LABS: BASOPHILS % (AUTO) 0 % (0-10); EOSINOPHILS # (AUTO) 1.3 10^3/uL (0.0-0.3); EOSINOPHILS % (AUTO) 18 % (0-10); LYMPHOCYTES # (AUTO) 1.3 X 10^3 (1.0-4.0); LYMPHOCYTES % (AUTO) 18 % (12-44); MEAN CORPUSCULAR HEMOGLOBIN 30 PG (25-34); MEAN CORPUSCULAR HGB CONC 31 G/DL (32-36); MEAN CORPUSCULAR VOLUME 99 FL (80-99); MEAN PLATELET VOLUME 8.9 FL (7.4-10.4); MONOCYTES # (AUTO) 0.7 X 10^3 (0.0-1.0); MONOCYTES % (AUTO) 9 % (0-12); NEUTROPHILS # (AUTO) 3.9 X 10^3 (1.8-7.8); NEUTROPHILS % (AUTO) 54 % (42-75); PLATELET COUNT 281 10^3/uL (130-400); RED BLOOD COUNT 3.45 10^6/uL (4.35-5.85); RED CELL DISTRIBUTION WIDTH 18.1 % (10.0-14.5); WHITE BLOOD COUNT 7.1 10^3/uL (4.3-11.0)
[2016-12-03 11:23] LABS: BASOPHILS % (AUTO) 0 % (0-10); EOSINOPHILS # (AUTO) 1.2 10^3/uL (0.0-0.3); EOSINOPHILS % (AUTO) 17 % (0-10); LYMPHOCYTES % (AUTO) 14 % (12-44); MEAN CORPUSCULAR HEMOGLOBIN 30 PG (25-34); MEAN CORPUSCULAR HGB CONC 30 G/DL (32-36); MEAN CORPUSCULAR VOLUME 98 FL (80-99); MEAN PLATELET VOLUME 9.4 FL (7.4-10.4); MONOCYTES # (AUTO) 0.7 X 10^3 (0.0-1.0); MONOCYTES % (AUTO) 10 % (0-12); NEUTROPHILS # (AUTO) 4.3 X 10^3 (1.8-7.8); NEUTROPHILS % (AUTO) 59 % (42-75); PLATELET COUNT 250 10^3/uL (130-400); RED BLOOD COUNT 3.67 10^6/uL (4.35-5.85); RED CELL DISTRIBUTION WIDTH 16.6 % (10.0-14.5); RETICULOCYTE % 0.51 % (0.50-2.40); WHITE BLOOD COUNT 7.3 10^3/uL (4.3-11.0)
[2016-12-03 11:43] LABS: ALANINE AMINOTRANSFERASE < 6 U/L (0-55); ALBUMIN 3.6 GM/DL (3.2-4.5); ANION GAP 10 MMOL/L (5-14); ASPARTATE AMINO TRANSFERASE 13 U/L (5-34); BILIRUBIN,TOTAL 0.2 MG/DL (0.1-1.0); BLOOD UREA NITROGEN 50 MG/DL (7-18); BUN/CREATININE RATIO 23 (0-20); CALCIUM 8.7 MG/DL (8.5-10.1); CARBON DIOXIDE 25 MMOL/L (21-32); CHLORIDE 109 MMOL/L (98-107); CREATININE SERUM 2.16 MG/DL (0.60-1.30); GFR ESTIMATED 29; GLUCOSE 110 MG/DL (70-105); POTASSIUM 4.5 MMOL/L (3.6-5.0); SODIUM 144 MMOL/L (135-145)
[~2016-12-16 11:25] MED LIST changes: +DARBEPOETIN 25 MCG/ML (CANCER CTR) 1 ML VIAL SC SCH; +FERRIC CARBOXYMALTOSE (CANCER) 750 MG in NS (IVPB) CANCER CENTER 250 ML IV SCH
[2016-12-16 11:40] LABS: BASOPHILS % (AUTO) 0 % (0-10); EOSINOPHILS # (AUTO) 1.3 10^3/uL (0.0-0.3); EOSINOPHILS % (AUTO) 17 % (0-10); LYMPHOCYTES # (AUTO) 1.1 X 10^3 (1.0-4.0); LYMPHOCYTES % (AUTO) 15 % (12-44); MEAN CORPUSCULAR HEMOGLOBIN 31 PG (25-34); MEAN CORPUSCULAR HGB CONC 31 G/DL (32-36); MEAN CORPUSCULAR VOLUME 99 FL (80-99); MEAN PLATELET VOLUME 8.7 FL (7.4-10.4); MONOCYTES # (AUTO) 0.7 X 10^3 (0.0-1.0); MONOCYTES % (AUTO) 10 % (0-12); NEUTROPHILS # (AUTO) 4.2 X 10^3 (1.8-7.8); NEUTROPHILS % (AUTO) 57 % (42-75); PLATELET COUNT 257 10^3/uL (130-400); RED BLOOD COUNT 3.44 10^6/uL (4.35-5.85); WHITE BLOOD COUNT 7.4 10^3/uL (4.3-11.0)
== END 2016-12-24 | disposition home or self-care (01) ==
LOC: ONC 11:25
PROVIDERS: ATTEND Internal Medicine Hematology & Oncology
DX: D64.9 Anemia, unspecified (principal); I12.9 Hypertensive chronic kidney disease with stage 1 through stage 4 chronic kidney disease, or unspecified chronic kidney disease; N18.4 Chronic kidney disease, stage 4 (severe); I25.10 Atherosclerotic heart disease of native coronary artery without angina pectoris; E78.5 Hyperlipidemia, unspecified; I27.2 Other secondary pulmonary hypertension; Z79.899 Other long term (current) drug therapy
CPT/HCPCS: 36415; 80053; 82728; 83540; 83615; 85025; 85045; 96365; 96372; 99213; 99214

== ENCOUNTER → 2017-01-13 | Outpatient (CLI) | payer MEDICARE ==
[~2017-01-13] MED LIST changes: -DARBEPOETIN 25 MCG/ML (CANCER CTR) 1 ML VIAL SC SCH; -FERRIC CARBOXYMALTOSE (CANCER) 750 MG in NS (IVPB) CANCER CENTER 250 ML IV SCH
[2017-01-13 11:00] LABS: CALCIUM 8.7 MG/DL (8.5-10.1); CREATININE SERUM 2.21 MG/DL (0.60-1.30); POTASSIUM 4.4 MMOL/L (3.6-5.0)
== END ==
LOC: LAB 10:21
PROVIDERS: ATTEND Family Medicine
DX: N28.9 Disorder of kidney and ureter, unspecified (principal)
CPT/HCPCS: 36415; 80048

== ENCOUNTER 2017-03-10 09:07 | Outpatient (RCR) | payer MEDICARE ==
[2016-12-31 11:53] LABS: BASOPHILS % (AUTO) 0 % (0-10); EOSINOPHILS # (AUTO) 1.2 10^3/uL (0.0-0.3); EOSINOPHILS % (AUTO) 17 % (0-10); LYMPHOCYTES # (AUTO) 1.1 X 10^3 (1.0-4.0); LYMPHOCYTES % (AUTO) 16 % (12-44); MEAN CORPUSCULAR HEMOGLOBIN 30 PG (25-34); MEAN CORPUSCULAR HGB CONC 30 G/DL (32-36); MEAN CORPUSCULAR VOLUME 99 FL (80-99); MEAN PLATELET VOLUME 8.8 FL (7.4-10.4); MONOCYTES # (AUTO) 0.7 X 10^3 (0.0-1.0); MONOCYTES % (AUTO) 11 % (0-12); NEUTROPHILS # (AUTO) 3.8 X 10^3 (1.8-7.8); NEUTROPHILS % (AUTO) 56 % (42-75); PLATELET COUNT 267 10^3/uL (130-400); RED BLOOD COUNT 3.47 10^6/uL (4.35-5.85); RED CELL DISTRIBUTION WIDTH 14.9 % (10.0-14.5); WHITE BLOOD COUNT 6.7 10^3/uL (4.3-11.0)
[2017-01-13 10:36] LABS: BASOPHILS % (AUTO) 0 % (0-10); EOSINOPHILS # (AUTO) 1.2 10^3/uL (0.0-0.3); EOSINOPHILS % (AUTO) 15 % (0-10); LYMPHOCYTES # (AUTO) 1.1 X 10^3 (1.0-4.0); LYMPHOCYTES % (AUTO) 14 % (12-44); MEAN CORPUSCULAR HEMOGLOBIN 30 PG (25-34); MEAN CORPUSCULAR HGB CONC 30 G/DL (32-36); MEAN CORPUSCULAR VOLUME 98 FL (80-99); MEAN PLATELET VOLUME 8.7 FL (7.4-10.4); MONOCYTES # (AUTO) 0.7 X 10^3 (0.0-1.0); MONOCYTES % (AUTO) 10 % (0-12); NEUTROPHILS # (AUTO) 4.6 X 10^3 (1.8-7.8); NEUTROPHILS % (AUTO) 61 % (42-75); PLATELET COUNT 293 10^3/uL (130-400); RED BLOOD COUNT 3.54 10^6/uL (4.35-5.85); RED CELL DISTRIBUTION WIDTH 14.6 % (10.0-14.5); WHITE BLOOD COUNT 7.6 10^3/uL (4.3-11.0)
[2017-01-28 11:03] LABS: BASOPHILS % (AUTO) 0 % (0-10); EOSINOPHILS # (AUTO) 0.9 10^3/uL (0.0-0.3); EOSINOPHILS % (AUTO) 12 % (0-10); LYMPHOCYTES # (AUTO) 1.2 X 10^3 (1.0-4.0); LYMPHOCYTES % (AUTO) 16 % (12-44); MEAN CORPUSCULAR HEMOGLOBIN 29 PG (25-34); MEAN CORPUSCULAR HGB CONC 31 G/DL (32-36); MEAN CORPUSCULAR VOLUME 94 FL (80-99); MEAN PLATELET VOLUME 8.8 FL (7.4-10.4); MONOCYTES # (AUTO) 0.7 X 10^3 (0.0-1.0); MONOCYTES % (AUTO) 9 % (0-12); NEUTROPHILS # (AUTO) 4.7 X 10^3 (1.8-7.8); NEUTROPHILS % (AUTO) 62 % (42-75); PLATELET COUNT 310 10^3/uL (130-400); RED BLOOD COUNT 3.67 10^6/uL (4.35-5.85); RED CELL DISTRIBUTION WIDTH 14.1 % (10.0-14.5); WHITE BLOOD COUNT 7.5 10^3/uL (4.3-11.0)
[2017-01-28 11:37] LABS: ALANINE AMINOTRANSFERASE < 6 U/L (0-55); ALBUMIN 3.5 GM/DL (3.2-4.5); ANION GAP 8 MMOL/L (5-14); ASPARTATE AMINO TRANSFERASE 13 U/L (5-34); BILIRUBIN,TOTAL 0.2 MG/DL (0.1-1.0); BLOOD UREA NITROGEN 46 MG/DL (7-18); BUN/CREATININE RATIO 21; CALCIUM 8.7 MG/DL (8.5-10.1); CARBON DIOXIDE 29 MMOL/L (21-32); CHLORIDE 105 MMOL/L (98-107); CREATININE SERUM 2.21 MG/DL (0.60-1.30); GFR ESTIMATED 28; GLUCOSE 112 MG/DL (70-105); POTASSIUM 4.7 MMOL/L (3.6-5.0); SODIUM 142 MMOL/L (135-145)
[2017-02-10 11:10] LABS: BASOPHILS % (AUTO) 0 % (0-10); EOSINOPHILS # (AUTO) 0.9 10^3/uL (0.0-0.3); EOSINOPHILS % (AUTO) 12 % (0-10); LYMPHOCYTES # (AUTO) 1.1 X 10^3 (1.0-4.0); LYMPHOCYTES % (AUTO) 14 % (12-44); MEAN CORPUSCULAR HEMOGLOBIN 29 PG (25-34); MEAN CORPUSCULAR HGB CONC 31 G/DL (32-36); MEAN CORPUSCULAR VOLUME 94 FL (80-99); MEAN PLATELET VOLUME 8.6 FL (7.4-10.4); MONOCYTES # (AUTO) 0.8 X 10^3 (0.0-1.0); MONOCYTES % (AUTO) 10 % (0-12); NEUTROPHILS # (AUTO) 4.8 X 10^3 (1.8-7.8); NEUTROPHILS % (AUTO) 63 % (42-75); PLATELET COUNT 301 10^3/uL (130-400); RED CELL DISTRIBUTION WIDTH 14.5 % (10.0-14.5); WHITE BLOOD COUNT 7.6 10^3/uL (4.3-11.0)
[2017-02-24 12:07] LABS: BASOPHILS % (AUTO) 0 % (0-10); EOSINOPHILS # (AUTO) 0.8 10^3/uL (0.0-0.3); EOSINOPHILS % (AUTO) 11 % (0-10); LYMPHOCYTES % (AUTO) 13 % (12-44); MEAN CORPUSCULAR HEMOGLOBIN 29 PG (25-34); MEAN CORPUSCULAR HGB CONC 30 G/DL (32-36); MEAN CORPUSCULAR VOLUME 94 FL (80-99); MEAN PLATELET VOLUME 9.1 FL (7.4-10.4); MONOCYTES # (AUTO) 0.9 X 10^3 (0.0-1.0); MONOCYTES % (AUTO) 11 % (0-12); NEUTROPHILS # (AUTO) 5.2 X 10^3 (1.8-7.8); NEUTROPHILS % (AUTO) 65 % (42-75); PLATELET COUNT 291 10^3/uL (130-400); RED CELL DISTRIBUTION WIDTH 14.9 % (10.0-14.5)
[~2017-03-10 09:07] MED LIST changes: +DARBEPOETIN 10 MCG/0.4 ML ARANESP IJ SCH; +DARBEPOETIN 25 MCG/ML (CANCER CTR) 1 ML VIAL SC SCH
[2017-03-10 09:22] LABS: BASOPHILS % (AUTO) 0 % (0-10); EOSINOPHILS # (AUTO) 0.9 10^3/uL (0.0-0.3); EOSINOPHILS % (AUTO) 12 % (0-10); LYMPHOCYTES # (AUTO) 1.1 X 10^3 (1.0-4.0); LYMPHOCYTES % (AUTO) 16 % (12-44); MEAN CORPUSCULAR HEMOGLOBIN 29 PG (25-34); MEAN CORPUSCULAR HGB CONC 31 G/DL (32-36); MEAN CORPUSCULAR VOLUME 94 FL (80-99); MEAN PLATELET VOLUME 8.4 FL (7.4-10.4); MONOCYTES # (AUTO) 0.7 X 10^3 (0.0-1.0); MONOCYTES % (AUTO) 10 % (0-12); NEUTROPHILS # (AUTO) 4.2 X 10^3 (1.8-7.8); NEUTROPHILS % (AUTO) 62 % (42-75); PLATELET COUNT 311 10^3/uL (130-400); RED BLOOD COUNT 3.62 10^6/uL (4.35-5.85); RED CELL DISTRIBUTION WIDTH 15.3 % (10.0-14.5); WHITE BLOOD COUNT 6.8 10^3/uL (4.3-11.0)
== END 2017-03-19 11:31 | disposition home or self-care (01) ==
LOC: ONC 09:07
PROVIDERS: ATTEND Internal Medicine Hematology & Oncology
DX: N18.4 Chronic kidney disease, stage 4 (severe) (principal); D63.1 Anemia in chronic kidney disease; I12.9 Hypertensive chronic kidney disease with stage 1 through stage 4 chronic kidney disease, or unspecified chronic kidney disease; I25.10 Atherosclerotic heart disease of native coronary artery without angina pectoris; E78.5 Hyperlipidemia, unspecified; I27.2 Other secondary pulmonary hypertension; Z79.899 Other long term (current) drug therapy
CPT/HCPCS: 36415; 80053; 82728; 85025; 96372

== ENCOUNTER → 2017-03-10 | Outpatient (CLI) | payer MEDICARE ==
[2017-03-10 10:11] LABS: ALANINE AMINOTRANSFERASE < 6 U/L (0-55); ALBUMIN 3.4 GM/DL (3.2-4.5); ANION GAP 7 MMOL/L (5-14); ASPARTATE AMINO TRANSFERASE 15 U/L (5-34); BILIRUBIN,TOTAL 0.4 MG/DL (0.1-1.0); BLOOD UREA NITROGEN 41 MG/DL (7-18); BUN/CREATININE RATIO 18; CALCIUM 8.8 MG/DL (8.5-10.1); CARBON DIOXIDE 28 MMOL/L (21-32); CHLORIDE 108 MMOL/L (98-107); CHOLESTEROL 116 MG/DL (< 200); CREATININE SERUM 2.31 MG/DL (0.60-1.30); DIRECT LDL 69 MG/DL (1-129); GFR ESTIMATED 27; GLUCOSE 114 MG/DL (70-105); POTASSIUM 4.7 MMOL/L (3.6-5.0); SODIUM 143 MMOL/L (135-145); TOTAL PROTEIN 6.4 GM/DL (6.4-8.2); TRIGLYCERIDES 63 MG/DL (<150); VLDL CHOLESTEROL 13 MG/DL (5-40)
== END ==
LOC: LAB 09:11
PROVIDERS: ATTEND Family Medicine
DX: I10 Essential (primary) hypertension (principal); N28.9 Disorder of kidney and ureter, unspecified; R73.9 Hyperglycemia, unspecified
CPT/HCPCS: 36415; 80053; 80061

== ENCOUNTER 2017-06-01 14:50 | Outpatient (RCR) | payer MEDICARE ==
[2017-05-18 15:59] LABS: CREATININE SERUM 2.47 MG/DL (0.60-1.30); POTASSIUM 4.5 MMOL/L (3.6-5.0)
[~2017-06-01 14:50] MED LIST changes: -DARBEPOETIN 10 MCG/0.4 ML ARANESP IJ SCH; -DARBEPOETIN 25 MCG/ML (CANCER CTR) 1 ML VIAL SC SCH
== END 2017-08-16 | disposition home or self-care (01) ==
LOC: LAB 14:50
PROVIDERS: ATTEND Family Medicine
DX: N28.9 Disorder of kidney and ureter, unspecified (principal)
CPT/HCPCS: 36415; 80048

== ENCOUNTER 2017-06-17 08:57 | Outpatient (RCR) | payer MEDICARE ==
[2017-03-23 15:19] LABS: BASOPHILS % (AUTO) 0 % (0-10); EOSINOPHILS % (AUTO) 11 % (0-10); HEMATOCRIT 33 % (40-54); HEMOGLOBIN 10.3 G/DL (13.3-17.7); LYMPHOCYTES # (AUTO) 1.1 X 10^3 (1.0-4.0); LYMPHOCYTES % (AUTO) 12 % (12-44); MEAN CORPUSCULAR HEMOGLOBIN 29 PG (25-34); MEAN CORPUSCULAR HGB CONC 31 G/DL (32-36); MEAN CORPUSCULAR VOLUME 94 FL (80-99); MEAN PLATELET VOLUME 8.9 FL (7.4-10.4); MONOCYTES # (AUTO) 0.8 X 10^3 (0.0-1.0); MONOCYTES % (AUTO) 9 % (0-12); NEUTROPHILS # (AUTO) 5.7 X 10^3 (1.8-7.8); NEUTROPHILS % (AUTO) 67 % (42-75); PLATELET COUNT 336 10^3/uL (130-400); RED BLOOD COUNT 3.55 10^6/uL (4.35-5.85); RED CELL DISTRIBUTION WIDTH 15.5 % (10.0-14.5); WHITE BLOOD COUNT 8.5 10^3/uL (4.3-11.0)
[2017-03-23 15:39] LABS: ALANINE AMINOTRANSFERASE < 6 U/L (0-55); ALBUMIN 3.3 GM/DL (3.2-4.5); ALKALINE PHOSPHATASE 52 U/L (40-136); BILIRUBIN,TOTAL 0.3 MG/DL (0.1-1.0); BUN/CREATININE RATIO 18; CALCIUM 8.8 MG/DL (8.5-10.1); CARBON DIOXIDE 29 MMOL/L (21-32); CHLORIDE 106 MMOL/L (98-107); CREATININE SERUM 2.13 MG/DL (0.60-1.30); GFR ESTIMATED 30; GLUCOSE 155 MG/DL (70-105); POTASSIUM 4.4 MMOL/L (3.6-5.0); SODIUM 141 MMOL/L (135-145)
[2017-04-06 10:17] LABS: BASOPHILS % (AUTO) 0 % (0-10); EOSINOPHILS # (AUTO) 1.1 10^3/uL (0.0-0.3); EOSINOPHILS % (AUTO) 11 % (0-10); HEMATOCRIT 34 % (40-54); HEMOGLOBIN 10.4 G/DL (13.3-17.7); LYMPHOCYTES # (AUTO) 1.1 X 10^3 (1.0-4.0); LYMPHOCYTES % (AUTO) 11 % (12-44); MEAN CORPUSCULAR HEMOGLOBIN 29 PG (25-34); MEAN CORPUSCULAR HGB CONC 31 G/DL (32-36); MEAN CORPUSCULAR VOLUME 94 FL (80-99); MEAN PLATELET VOLUME 9.2 FL (7.4-10.4); MONOCYTES % (AUTO) 10 % (0-12); NEUTROPHILS # (AUTO) 6.8 X 10^3 (1.8-7.8); NEUTROPHILS % (AUTO) 68 % (42-75); PLATELET COUNT 291 10^3/uL (130-400); RED BLOOD COUNT 3.62 10^6/uL (4.35-5.85); RED CELL DISTRIBUTION WIDTH 15.7 % (10.0-14.5)
[2017-04-20 12:18] LABS: BASOPHILS % (AUTO) 0 % (0-10); EOSINOPHILS # (AUTO) 0.9 10^3/uL (0.0-0.3); EOSINOPHILS % (AUTO) 11 % (0-10); HEMATOCRIT 38 % (40-54); HEMOGLOBIN 11.7 G/DL (13.3-17.7); LYMPHOCYTES # (AUTO) 1.2 X 10^3 (1.0-4.0); LYMPHOCYTES % (AUTO) 14 % (12-44); MEAN CORPUSCULAR HEMOGLOBIN 30 PG (25-34); MEAN CORPUSCULAR HGB CONC 31 G/DL (32-36); MEAN CORPUSCULAR VOLUME 95 FL (80-99); MEAN PLATELET VOLUME 10.1 FL (7.4-10.4); MONOCYTES # (AUTO) 0.7 X 10^3 (0.0-1.0); MONOCYTES % (AUTO) 9 % (0-12); NEUTROPHILS # (AUTO) 5.7 X 10^3 (1.8-7.8); NEUTROPHILS % (AUTO) 67 % (42-75); PLATELET COUNT 281 10^3/uL (130-400); RED BLOOD COUNT 3.97 10^6/uL (4.35-5.85); RED CELL DISTRIBUTION WIDTH 16.8 % (10.0-14.5); WHITE BLOOD COUNT 8.5 10^3/uL (4.3-11.0)
[2017-05-04 15:13] LABS: BASOPHILS % (AUTO) 0 % (0-10); EOSINOPHILS # (AUTO) 0.8 10^3/uL (0.0-0.3); EOSINOPHILS % (AUTO) 11 % (0-10); HEMATOCRIT 35 % (40-54); HEMOGLOBIN 10.7 G/DL (13.3-17.7); LYMPHOCYTES # (AUTO) 1.3 X 10^3 (1.0-4.0); LYMPHOCYTES % (AUTO) 17 % (12-44); MEAN CORPUSCULAR HEMOGLOBIN 29 PG (25-34); MEAN CORPUSCULAR HGB CONC 31 G/DL (32-36); MEAN CORPUSCULAR VOLUME 94 FL (80-99); MEAN PLATELET VOLUME 9.7 FL (7.4-10.4); MONOCYTES # (AUTO) 0.6 X 10^3 (0.0-1.0); MONOCYTES % (AUTO) 8 % (0-12); NEUTROPHILS # (AUTO) 4.9 X 10^3 (1.8-7.8); NEUTROPHILS % (AUTO) 65 % (42-75); PLATELET COUNT 255 10^3/uL (130-400); RED BLOOD COUNT 3.66 10^6/uL (4.35-5.85); RED CELL DISTRIBUTION WIDTH 16.4 % (10.0-14.5); WHITE BLOOD COUNT 7.6 10^3/uL (4.3-11.0)
[2017-05-18 15:33] LABS: BASOPHILS % (AUTO) 0 % (0-10); EOSINOPHILS # (AUTO) 0.9 10^3/uL (0.0-0.3); EOSINOPHILS % (AUTO) 13 % (0-10); HEMATOCRIT 37 % (40-54); HEMOGLOBIN 11.5 G/DL (13.3-17.7); LYMPHOCYTES # (AUTO) 1.2 X 10^3 (1.0-4.0); LYMPHOCYTES % (AUTO) 18 % (12-44); MEAN CORPUSCULAR HEMOGLOBIN 29 PG (25-34); MEAN CORPUSCULAR HGB CONC 31 G/DL (32-36); MEAN CORPUSCULAR VOLUME 94 FL (80-99); MEAN PLATELET VOLUME 9.2 FL (7.4-10.4); MONOCYTES # (AUTO) 0.5 X 10^3 (0.0-1.0); MONOCYTES % (AUTO) 8 % (0-12); NEUTROPHILS % (AUTO) 60 % (42-75); PLATELET COUNT 255 10^3/uL (130-400); RED BLOOD COUNT 3.92 10^6/uL (4.35-5.85); RED CELL DISTRIBUTION WIDTH 16.6 % (10.0-14.5); WHITE BLOOD COUNT 6.6 10^3/uL (4.3-11.0)
[2017-06-01 15:22] LABS: BASOPHILS % (AUTO) 0 % (0-10); EOSINOPHILS # (AUTO) 0.7 10^3/uL (0.0-0.3); EOSINOPHILS % (AUTO) 9 % (0-10); HEMATOCRIT 40 % (40-54); HEMOGLOBIN 12.4 G/DL (13.3-17.7); LYMPHOCYTES % (AUTO) 13 % (12-44); MEAN CORPUSCULAR HEMOGLOBIN 29 PG (25-34); MEAN CORPUSCULAR HGB CONC 31 G/DL (32-36); MEAN CORPUSCULAR VOLUME 95 FL (80-99); MEAN PLATELET VOLUME 9.6 FL (7.4-10.4); MONOCYTES # (AUTO) 0.8 X 10^3 (0.0-1.0); MONOCYTES % (AUTO) 11 % (0-12); NEUTROPHILS # (AUTO) 5.2 X 10^3 (1.8-7.8); NEUTROPHILS % (AUTO) 67 % (42-75); PLATELET COUNT 299 10^3/uL (130-400); RED BLOOD COUNT 4.22 10^6/uL (4.35-5.85); WHITE BLOOD COUNT 7.8 10^3/uL (4.3-11.0)
[2017-06-01 15:39] LABS: ALANINE AMINOTRANSFERASE < 6 U/L (0-55); ALBUMIN 3.8 GM/DL (3.2-4.5); ALKALINE PHOSPHATASE 56 U/L (40-136); BILIRUBIN,TOTAL 0.3 MG/DL (0.1-1.0); BUN/CREATININE RATIO 18; CALCIUM 9.3 MG/DL (8.5-10.1); CARBON DIOXIDE 31 MMOL/L (21-32); CHLORIDE 104 MMOL/L (98-107); CREATININE SERUM 2.27 MG/DL (0.60-1.30); GFR ESTIMATED 27; GLUCOSE 180 MG/DL (70-105); POTASSIUM 4.4 MMOL/L (3.6-5.0); SODIUM 143 MMOL/L (135-145)
[~2017-06-17 08:57] MED LIST changes: +DARBEPOETIN 10 MCG/0.4 ML ARANESP IJ SCH
[2017-06-17 09:27] LABS: BASOPHILS % (AUTO) 0 % (0-10); EOSINOPHILS # (AUTO) 0.8 10^3/uL (0.0-0.3); EOSINOPHILS % (AUTO) 11 % (0-10); HEMATOCRIT 36 % (40-54); HEMOGLOBIN 11.1 G/DL (13.3-17.7); LYMPHOCYTES # (AUTO) 1.2 X 10^3 (1.0-4.0); LYMPHOCYTES % (AUTO) 17 % (12-44); MEAN CORPUSCULAR HEMOGLOBIN 30 PG (25-34); MEAN CORPUSCULAR HGB CONC 31 G/DL (32-36); MEAN CORPUSCULAR VOLUME 97 FL (80-99); MONOCYTES # (AUTO) 0.5 X 10^3 (0.0-1.0); MONOCYTES % (AUTO) 8 % (0-12); NEUTROPHILS # (AUTO) 4.6 X 10^3 (1.8-7.8); NEUTROPHILS % (AUTO) 65 % (42-75); PLATELET COUNT 273 10^3/uL (130-400); RED BLOOD COUNT 3.68 10^6/uL (4.35-5.85); RED CELL DISTRIBUTION WIDTH 15.5 % (10.0-14.5); WHITE BLOOD COUNT 7.1 10^3/uL (4.3-11.0)
== END 2017-06-21 | disposition home or self-care (01) ==
LOC: ONC 08:57
PROVIDERS: ATTEND Internal Medicine Hematology & Oncology
DX: N18.4 Chronic kidney disease, stage 4 (severe) (principal); D63.1 Anemia in chronic kidney disease; D50.9 Iron deficiency anemia, unspecified; Z79.899 Other long term (current) drug therapy; E78.5 Hyperlipidemia, unspecified; I27.20 Pulmonary hypertension, unspecified; I25.10 Atherosclerotic heart disease of native coronary artery without angina pectoris
CPT/HCPCS: 36415; 80053; 82728; 85025; 96372; 99213

== ENCOUNTER 2017-10-05 15:03 | Outpatient (RCR) | payer MEDICARE ==
[2017-07-08 14:25] LABS: BASOPHILS % (AUTO) 0 % (0-10); EOSINOPHILS # (AUTO) 0.5 10^3/uL (0.0-0.3); EOSINOPHILS % (AUTO) 7 % (0-10); HEMATOCRIT 35 % (40-54); HEMOGLOBIN 11.5 G/DL (13.3-17.7); LYMPHOCYTES # (AUTO) 0.8 X 10^3 (1.0-4.0); LYMPHOCYTES % (AUTO) 12 % (12-44); MEAN CORPUSCULAR HEMOGLOBIN 31 PG (25-34); MEAN CORPUSCULAR HGB CONC 33 G/DL (32-36); MEAN CORPUSCULAR VOLUME 95 FL (80-99); MEAN PLATELET VOLUME 9.5 FL (7.4-10.4); MONOCYTES # (AUTO) 0.9 X 10^3 (0.0-1.0); MONOCYTES % (AUTO) 13 % (0-12); NEUTROPHILS # (AUTO) 4.9 X 10^3 (1.8-7.8); NEUTROPHILS % (AUTO) 68 % (42-75); PLATELET COUNT 259 10^3/uL (130-400); RED BLOOD COUNT 3.71 10^6/uL (4.35-5.85); RED CELL DISTRIBUTION WIDTH 15.1 % (10.0-14.5); WHITE BLOOD COUNT 7.1 10^3/uL (4.3-11.0)
[2017-08-03 15:41] LABS: BASOPHILS % (AUTO) 0 % (0-10); EOSINOPHILS # (AUTO) 0.9 10^3/uL (0.0-0.3); EOSINOPHILS % (AUTO) 11 % (0-10); HEMATOCRIT 33 % (40-54); HEMOGLOBIN 10.4 G/DL (13.3-17.7); LYMPHOCYTES # (AUTO) 1.2 X 10^3 (1.0-4.0); LYMPHOCYTES % (AUTO) 15 % (12-44); MEAN CORPUSCULAR HEMOGLOBIN 30 PG (25-34); MEAN CORPUSCULAR HGB CONC 31 G/DL (32-36); MEAN CORPUSCULAR VOLUME 97 FL (80-99); MEAN PLATELET VOLUME 8.9 FL (7.4-10.4); MONOCYTES # (AUTO) 0.6 X 10^3 (0.0-1.0); MONOCYTES % (AUTO) 8 % (0-12); NEUTROPHILS % (AUTO) 65 % (42-75); PLATELET COUNT 287 10^3/uL (130-400); RED BLOOD COUNT 3.44 10^6/uL (4.35-5.85); WHITE BLOOD COUNT 7.7 10^3/uL (4.3-11.0)
[2017-08-03 16:05] LABS: ALANINE AMINOTRANSFERASE < 6 U/L (0-55); ALBUMIN 3.5 GM/DL (3.2-4.5); ALKALINE PHOSPHATASE 55 U/L (40-136); BILIRUBIN,TOTAL 0.2 MG/DL (0.1-1.0); BUN/CREATININE RATIO 21; CALCIUM 8.6 MG/DL (8.5-10.1); CARBON DIOXIDE 27 MMOL/L (21-32); CHLORIDE 106 MMOL/L (98-107); CREATININE SERUM 2.34 MG/DL (0.60-1.30); GFR ESTIMATED 26; GLUCOSE 201 MG/DL (70-105); POTASSIUM 4.2 MMOL/L (3.6-5.0); SODIUM 143 MMOL/L (135-145); TOTAL PROTEIN 7.3 GM/DL (6.4-8.2)
[2017-08-25 15:50] LABS: BASOPHILS % (AUTO) 0 % (0-10); EOSINOPHILS # (AUTO) 0.8 10^3/uL (0.0-0.3); EOSINOPHILS % (AUTO) 9 % (0-10); HEMATOCRIT 35 % (40-54); LYMPHOCYTES # (AUTO) 1.3 X 10^3 (1.0-4.0); LYMPHOCYTES % (AUTO) 15 % (12-44); MEAN CORPUSCULAR HEMOGLOBIN 31 PG (25-34); MEAN CORPUSCULAR HGB CONC 32 G/DL (32-36); MEAN CORPUSCULAR VOLUME 97 FL (80-99); MEAN PLATELET VOLUME 9.6 FL (7.4-10.4); MONOCYTES # (AUTO) 0.6 X 10^3 (0.0-1.0); MONOCYTES % (AUTO) 8 % (0-12); NEUTROPHILS # (AUTO) 5.5 X 10^3 (1.8-7.8); NEUTROPHILS % (AUTO) 68 % (42-75); PLATELET COUNT 265 10^3/uL (130-400); RED BLOOD COUNT 3.55 10^6/uL (4.35-5.85); RED CELL DISTRIBUTION WIDTH 14.9 % (10.0-14.5); WHITE BLOOD COUNT 8.2 10^3/uL (4.3-11.0)
[2017-09-14 15:36] LABS: BASOPHILS % (AUTO) 0 % (0-10); EOSINOPHILS # (AUTO) 0.7 10^3/uL (0.0-0.3); EOSINOPHILS % (AUTO) 8 % (0-10); HEMATOCRIT 34 % (40-54); HEMOGLOBIN 10.9 G/DL (13.3-17.7); LYMPHOCYTES # (AUTO) 1.1 X 10^3 (1.0-4.0); LYMPHOCYTES % (AUTO) 13 % (12-44); MEAN CORPUSCULAR HEMOGLOBIN 32 PG (25-34); MEAN CORPUSCULAR HGB CONC 32 G/DL (32-36); MEAN CORPUSCULAR VOLUME 99 FL (80-99); MEAN PLATELET VOLUME 9.3 FL (7.4-10.4); MONOCYTES # (AUTO) 0.8 X 10^3 (0.0-1.0); MONOCYTES % (AUTO) 9 % (0-12); NEUTROPHILS # (AUTO) 5.9 X 10^3 (1.8-7.8); NEUTROPHILS % (AUTO) 70 % (42-75); PLATELET COUNT 233 10^3/uL (130-400); RED BLOOD COUNT 3.43 10^6/uL (4.35-5.85); RED CELL DISTRIBUTION WIDTH 15.2 % (10.0-14.5); WHITE BLOOD COUNT 8.4 10^3/uL (4.3-11.0)
[~2017-10-05 15:03] MED LIST changes: +FERRIC CARBOXYMALTOSE (CANCER) 750 MG in NS (IVPB) CANCER CENTER 250 ML IV SCH; -IPRA3AMP INH; +IPRA3AMP31 INH
[2017-10-05 15:19] LABS: BASOPHILS % (AUTO) 0 % (0-10); EOSINOPHILS # (AUTO) 0.5 10^3/uL (0.0-0.3); EOSINOPHILS % (AUTO) 6 % (0-10); HEMATOCRIT 36 % (40-54); HEMOGLOBIN 11.5 G/DL (13.3-17.7); LYMPHOCYTES # (AUTO) 1.1 X 10^3 (1.0-4.0); LYMPHOCYTES % (AUTO) 14 % (12-44); MEAN CORPUSCULAR HEMOGLOBIN 32 PG (25-34); MEAN CORPUSCULAR HGB CONC 32 G/DL (32-36); MEAN CORPUSCULAR VOLUME 99 FL (80-99); MEAN PLATELET VOLUME 9.4 FL (7.4-10.4); MONOCYTES # (AUTO) 0.8 X 10^3 (0.0-1.0); MONOCYTES % (AUTO) 10 % (0-12); NEUTROPHILS # (AUTO) 5.6 X 10^3 (1.8-7.8); NEUTROPHILS % (AUTO) 70 % (42-75); PLATELET COUNT 242 10^3/uL (130-400); RED BLOOD COUNT 3.58 10^6/uL (4.35-5.85); RED CELL DISTRIBUTION WIDTH 15.2 % (10.0-14.5); WHITE BLOOD COUNT 7.9 10^3/uL (4.3-11.0)
[2017-10-05 15:38] LABS: ALANINE AMINOTRANSFERASE < 6 U/L (0-55); ALBUMIN 3.6 GM/DL (3.2-4.5); ALKALINE PHOSPHATASE 48 U/L (40-136); BILIRUBIN,TOTAL 0.3 MG/DL (0.1-1.0); BUN/CREATININE RATIO 22; CALCIUM 8.7 MG/DL (8.5-10.1); CARBON DIOXIDE 27 MMOL/L (21-32); CHLORIDE 106 MMOL/L (98-107); CREATININE SERUM 2.22 MG/DL (0.60-1.30); GFR ESTIMATED 28; GLUCOSE 193 MG/DL (70-105); POTASSIUM 4.3 MMOL/L (3.6-5.0); SODIUM 142 MMOL/L (135-145)
== END 2017-10-06 | disposition home or self-care (01) ==
LOC: ONC 15:03
PROVIDERS: ATTEND Internal Medicine Hematology & Oncology
DX: N18.4 Chronic kidney disease, stage 4 (severe) (principal); D63.1 Anemia in chronic kidney disease; I12.9 Hypertensive chronic kidney disease with stage 1 through stage 4 chronic kidney disease, or unspecified chronic kidney disease; I25.10 Atherosclerotic heart disease of native coronary artery without angina pectoris; E78.5 Hyperlipidemia, unspecified; I27.20 Pulmonary hypertension, unspecified; Z79.899 Other long term (current) drug therapy
CPT/HCPCS: 36415; 80053; 82728; 85025; 96365; 96372; 99213

== ENCOUNTER → 2017-11-17 | Outpatient (CLI) | payer MEDICARE ==
[~2017-11-17] MED LIST changes: -DARBEPOETIN 10 MCG/0.4 ML ARANESP IJ SCH; -FERRIC CARBOXYMALTOSE (CANCER) 750 MG in NS (IVPB) CANCER CENTER 250 ML IV SCH; +IPRA3AMP INH; -IPRA3AMP31 INH
[2017-11-17 16:13] LABS: CALCIUM 8.5 MG/DL (8.5-10.1); CREATININE SERUM 2.75 MG/DL (0.60-1.30); POTASSIUM 4.7 MMOL/L (3.6-5.0)
== END ==
LOC: EDSTATUS 08-17 15:04 → LAB 10-05 15:06
PROVIDERS: ATTEND Family Medicine
DX: N28.9 Disorder of kidney and ureter, unspecified (principal)
CPT/HCPCS: 36415; 80048

== ENCOUNTER → 2017-12-07 | Outpatient (CLI) | payer MEDICARE ==
[2017-12-07 15:54] LABS: CALCIUM 8.9 MG/DL (8.5-10.1); CREATININE SERUM 2.99 MG/DL (0.60-1.30); POTASSIUM 4.6 MMOL/L (3.6-5.0)
== END ==
LOC: LAB 15:27
PROVIDERS: ATTEND Family Medicine
DX: N28.9 Disorder of kidney and ureter, unspecified (principal)
CPT/HCPCS: 36415; 80048

== ENCOUNTER 2017-12-28 14:56 | Outpatient (RCR) | payer MEDICARE ==
[2017-10-26 15:29] LABS: BASOPHILS % (AUTO) 0 % (0-10); EOSINOPHILS # (AUTO) 0.5 10^3/uL (0.0-0.3); EOSINOPHILS % (AUTO) 7 % (0-10); HEMATOCRIT 36 % (40-54); HEMOGLOBIN 11.5 G/DL (13.3-17.7); LYMPHOCYTES # (AUTO) 1.4 X 10^3 (1.0-4.0); LYMPHOCYTES % (AUTO) 19 % (12-44); MEAN CORPUSCULAR HEMOGLOBIN 31 PG (25-34); MEAN CORPUSCULAR HGB CONC 32 G/DL (32-36); MEAN CORPUSCULAR VOLUME 99 FL (80-99); MEAN PLATELET VOLUME 9.3 FL (7.4-10.4); MONOCYTES # (AUTO) 0.8 X 10^3 (0.0-1.0); MONOCYTES % (AUTO) 11 % (0-12); NEUTROPHILS # (AUTO) 4.4 X 10^3 (1.8-7.8); NEUTROPHILS % (AUTO) 63 % (42-75); PLATELET COUNT 236 10^3/uL (130-400); RED BLOOD COUNT 3.66 10^6/uL (4.35-5.85); RED CELL DISTRIBUTION WIDTH 14.8 % (10.0-14.5)
[2017-11-17 15:57] LABS: BASOPHILS % (AUTO) 0 % (0-10); EOSINOPHILS # (AUTO) 0.6 10^3/uL (0.0-0.3); EOSINOPHILS % (AUTO) 8 % (0-10); HEMATOCRIT 34 % (40-54); LYMPHOCYTES # (AUTO) 1.4 X 10^3 (1.0-4.0); LYMPHOCYTES % (AUTO) 21 % (12-44); MEAN CORPUSCULAR HEMOGLOBIN 32 PG (25-34); MEAN CORPUSCULAR HGB CONC 32 G/DL (32-36); MEAN CORPUSCULAR VOLUME 100 FL (80-99); MEAN PLATELET VOLUME 9.5 FL (7.4-10.4); MONOCYTES # (AUTO) 0.7 X 10^3 (0.0-1.0); MONOCYTES % (AUTO) 10 % (0-12); NEUTROPHILS # (AUTO) 4.1 X 10^3 (1.8-7.8); NEUTROPHILS % (AUTO) 61 % (42-75); PLATELET COUNT 222 10^3/uL (130-400); RED BLOOD COUNT 3.43 10^6/uL (4.35-5.85); RED CELL DISTRIBUTION WIDTH 14.5 % (10.0-14.5); WHITE BLOOD COUNT 6.8 10^3/uL (4.3-11.0)
[2017-12-07 15:39] LABS: BASOPHILS % (AUTO) 0 % (0-10); EOSINOPHILS # (AUTO) 0.4 10^3/uL (0.0-0.3); EOSINOPHILS % (AUTO) 5 % (0-10); HEMATOCRIT 34 % (40-54); HEMOGLOBIN 11.2 G/DL (13.3-17.7); LYMPHOCYTES # (AUTO) 1.5 X 10^3 (1.0-4.0); LYMPHOCYTES % (AUTO) 16 % (12-44); MEAN CORPUSCULAR HEMOGLOBIN 32 PG (25-34); MEAN CORPUSCULAR HGB CONC 33 G/DL (32-36); MEAN CORPUSCULAR VOLUME 98 FL (80-99); MEAN PLATELET VOLUME 9.3 FL (7.4-10.4); MONOCYTES # (AUTO) 0.9 X 10^3 (0.0-1.0); MONOCYTES % (AUTO) 10 % (0-12); NEUTROPHILS # (AUTO) 6.3 X 10^3 (1.8-7.8); NEUTROPHILS % (AUTO) 69 % (42-75); PLATELET COUNT 243 10^3/uL (130-400); RED BLOOD COUNT 3.48 10^6/uL (4.35-5.85); RED CELL DISTRIBUTION WIDTH 14.1 % (10.0-14.5); WHITE BLOOD COUNT 9.1 10^3/uL (4.3-11.0)
[~2017-12-28 14:56] MED LIST changes: +DARBEPOETIN 10 MCG/0.4 ML ARANESP IJ SCH; -IPRA3AMP INH; +IPRA3AMP31 INH
[2017-12-28 15:12] LABS: BASOPHILS % (AUTO) 0 % (0-10); EOSINOPHILS # (AUTO) 0.3 10^3/uL (0.0-0.3); EOSINOPHILS % (AUTO) 3 % (0-10); HEMATOCRIT 25 % (40-54); LYMPHOCYTES # (AUTO) 1.3 X 10^3 (1.0-4.0); LYMPHOCYTES % (AUTO) 12 % (12-44); MEAN CORPUSCULAR HEMOGLOBIN 31 PG (25-34); MEAN CORPUSCULAR HGB CONC 32 G/DL (32-36); MEAN CORPUSCULAR VOLUME 98 FL (80-99); MEAN PLATELET VOLUME 9.4 FL (7.4-10.4); MONOCYTES # (AUTO) 0.8 X 10^3 (0.0-1.0); MONOCYTES % (AUTO) 7 % (0-12); NEUTROPHILS # (AUTO) 8.9 X 10^3 (1.8-7.8); NEUTROPHILS % (AUTO) 78 % (42-75); PLATELET COUNT 657 10^3/uL (130-400); RED BLOOD COUNT 2.55 10^6/uL (4.35-5.85); RED CELL DISTRIBUTION WIDTH 13.9 % (10.0-14.5); WHITE BLOOD COUNT 11.3 10^3/uL (4.3-11.0)
[2017-12-28 15:28] LABS: ALANINE AMINOTRANSFERASE < 6 U/L (0-55); ALKALINE PHOSPHATASE 74 U/L (40-136); BILIRUBIN,TOTAL 0.3 MG/DL (0.1-1.0); BUN/CREATININE RATIO 20; CALCIUM 8.4 MG/DL (8.5-10.1); CARBON DIOXIDE 25 MMOL/L (21-32); CHLORIDE 102 MMOL/L (98-107); CREATININE SERUM 5.31 MG/DL (0.60-1.30); GFR ESTIMATED 10; GLUCOSE 260 MG/DL (70-105); POTASSIUM 4.9 MMOL/L (3.6-5.0); SODIUM 139 MMOL/L (135-145); TOTAL PROTEIN 6.7 GM/DL (6.4-8.2)
[2017-12-28 16:22] LABS: RED BLOOD COUNT 2.6 10^6/uL (4.35-5.85); RETICULOCYTE % 1.14 % (0.50-2.40)
== END 2018-01-24 | disposition home or self-care (01) ==
LOC: ONC 14:56
PROVIDERS: ATTEND Internal Medicine Hematology & Oncology
DX: N18.4 Chronic kidney disease, stage 4 (severe) (principal); D63.1 Anemia in chronic kidney disease; I12.9 Hypertensive chronic kidney disease with stage 1 through stage 4 chronic kidney disease, or unspecified chronic kidney disease; I25.10 Atherosclerotic heart disease of native coronary artery without angina pectoris; E78.5 Hyperlipidemia, unspecified; I27.20 Pulmonary hypertension, unspecified; Z79.899 Other long term (current) drug therapy
CPT/HCPCS: 36415; 80053; 82728; 83540; 83550; 85025; 85045; 99213

== ENCOUNTER → 2018-01-20 | Outpatient (CLI) | payer MEDICARE ==
[~2018-01-20] MED LIST changes: +APIX2.5T PO; +CLOT15CR4 TP; -DARBEPOETIN 10 MCG/0.4 ML ARANESP IJ SCH; +HYDR-3812 PO
--- NOTE | 2018-01-20 12:51 | Diagnostic Imaging Report ---
INDICATION: Right hand swelling. Venous Doppler right upper extremity. Duplex ultrasound of the venous system of the right upper extremity was done with grayscale, spectral waveform and color Doppler flow analysis. There is a 6 cm segmental thrombosis of the basilic vein across the antecubital fossa. The axillary and subclavian veins are clear. Cephalic vein is small, but clear. Brachial veins are clear. 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 Dictated by: Dictated on workstation # [id number]
== END ==
LOC: RAD 11:32
PROVIDERS: ATTEND Family Medicine
DX: I82.611 Acute embolism and thrombosis of superficial veins of right upper extremity (principal)

== ENCOUNTER 2018-02-01 17:29 | Inpatient (IN) | payer MEDICARE ==
[~2018-02-01] VITALS: Ht 177.8 cm; Wt 68.2 kg
[~2018-02-01 17:29] MED LIST changes: -APIX2.5T PO; -CLOT15CR4 TP; -HYDR-3812 PO
[2018-02-01 17:30] VITALS: BP 128/98
[2018-02-01] MEDS ORDERED: NS IV 1000 ML 1,000 ML IV SCH (17:52)
[2018-02-01] MEDS ORDERED: CEFEPIME INJECTION 1,000 MG in NS (IVPB) 50 ML IV ONE (18:00)
[2018-02-01 18:02] LABS: BASOPHILS % (AUTO) 0 % (0-10); EOSINOPHILS % (AUTO) 0 % (0-10); HEMATOCRIT 30 % (40-54); LYMPHOCYTES # (AUTO) 0.9 X 10^3 (1.0-4.0); LYMPHOCYTES % (AUTO) 9 % (12-44); MEAN CORPUSCULAR HEMOGLOBIN 29 PG (25-34); MEAN CORPUSCULAR HGB CONC 30 G/DL (32-36); MEAN CORPUSCULAR VOLUME 98 FL (80-99); MEAN PLATELET VOLUME 9.9 FL (7.4-10.4); MONOCYTES # (AUTO) 0.7 X 10^3 (0.0-1.0); MONOCYTES % (AUTO) 6 % (0-12); NEUTROPHILS # (AUTO) 9.2 X 10^3 (1.8-7.8); NEUTROPHILS % (AUTO) 85 % (42-75); PLATELET COUNT 535 10^3/uL (130-400); RED BLOOD COUNT 3.08 10^6/uL (4.35-5.85); WHITE BLOOD COUNT 10.8 10^3/uL (4.3-11.0)
--- NOTE | 2018-02-01 18:02 | ED Abdominal Pain ---
General Stated Complaint: CP/RECTAL BLEEDING Source of Information: Patient, Family Exam Limitations: Other (Parkinson's dementia) History of Present Illness Date Seen by Provider: Feb 01, 2018 Time Seen by Provider: 17:49 Initial Comments The patient presents to the ER by EMS with chief complaint that he was at [facility] complaining of chest pain and bloody stools today. He is on L acquits and has a history of heart disease. The patient states his pain is not in his chest but rather lower and in his epigastric region. No nausea, shortness of breath. Patient has limited review of systems or history given secondary to his dementia but denies any pain elsewhere. Family reports patient does get swelling in his feet from time to time. He has not had bloody stools worked up yet. Staff at the fdc report to EMS that they thought he might have a urinary tract infection because he has been eating less and interacting less as he is usually very talkative. Allergies and Home Medications Allergies Coded Allergies: sulfamethoxazole (Verified Allergy, Mild, KIDNEY DAMAGE, 08/29/16) trimethoprim (Verified Allergy, Mild, KIDNEY DAMAGE, 08/29/16) lactose (Verified Allergy, Unknown, 08/29/16) Uncoded Allergies: IV DYE (Allergy, Mild, KIDNEY DAMAGE, 01/08/12) NSAIDS (Allergy, Mild, KIDNEY DAMAGE, 01/08/12) Home Medications Acetaminophen 500 Mg Tablet, 1,000 MG PO TID PRN for MILD PAIN Prescribed by: MIKEL ROJO on 09/11/16 1002 Alprazolam 0.5 Mg Tablet, 0.5 MG PO TID PRN for ANXIETY Prescribed by: MIKEL ROJO on 09/11/16 1002 Aspirin 81 Mg Tablet.dr, 81 MG PO DAILY Prescribed by: MIKEL ROJO on 09/11/16 1002 Bethanechol Chloride 25 Mg Tablet, 25 MG PO ACHS, (Reported) Carbidopa/Levodopa 1 Each Tablet, 2 TAB PO TID, (Reported) Furosemide 40 Mg Tablet, 40 MG PO Q48H, (Reported) needs 08/30/16 Isosorbide Mononitrate 60 Mg Tab, 60 MG PO DAILY, (Reported) Lovastatin 20 Mg Tablet, 20 MG PO HS, (Reported) Menthol/Lanolin/Calamine/Znox 71 Gm Oint, 0 GM TOP BID Prescribed by: MIKEL ROJO on 09/11/16 1002 Patient Home Medication List Home Medication List Reviewed: Yes Review of Systems Constitutional: see HPI (limited review of systems secondary to patient's encephalopathy) EENTM: No Ear Pain Respiratory: Denies Cough, Denies Shortness of Air Cardiovascular: Denies Chest Pain, Denies Palpitations Gastrointestinal: Abdominal Pain, Blood Streaked Stools; Denies Constipated, Denies Diarrhea, Denies Nausea Genitourinary: Denies Burning, Denies Discharge Musculoskeletal: No back pain, No joint pain Past Miajvok-Qxahyi-Phyvmh Hx Patient Social History Alcohol Use: Denies Use Recreational Drug Use: No Smoking Status: Never a Smoker Recent Hopitalizations: No Immunizations Up To Date Tetanus Booster (TDap): More than 5yrs Date of Pneumonia Vaccine: Jan 20, 2007 Seasonal Allergies Seasonal Allergies: No Past Medical History Surgeries: Yes (POLYPECTOMY x2, TURP, CEA) Respiratory: No Cardiac: Yes Coronary Artery Disease, Hypertension Neurological: Yes Parkinson's Disease Reproductive Disorders: No Sexually Transmitted Disease: No HIV/AIDS: No Genitourinary: Yes Prostate Problems, Renal Failure Gastrointestinal: Yes (LEFT INGUINAL HERNIA) Musculoskeletal: Yes (USES WALKER) Arthritis Endocrine: Yes ("PREDIABETIC") HEENT: No Loss of Vision: Bilateral Hearing Impairment: Denies Cancer: No Psychosocial: No Integumentary: No Blood Disorders: Yes Adverse Reaction/Blood Tranf: No Family Medical History Cardiovascular disease 19 MOTHER Cataracts 19 FATHER Completed stroke 19 FATHER Diabetes mellitus 19 MOTHER G8 BROTHER G8 SISTER FH: cancer G8 BROTHER (bladder) G8 SISTER (breast) No Family History of: AIDS Abdominal aortic aneurysm Alcoholism Alzheimer's disease Arthritis Asthma Cancer of mouth Colon cancer Dementia Drug abuse Glaucoma Hypertension Kidney disease Myocardial infarction Parkinson's disease Psychosocial problem Respiratory disorder Seizure disorder Severe allergy Thyroid disease Physical Exam Vital Signs Vital Signs - First Documented Capillary Refill : Height/Weight/BMI Height: 5'10.00" Weight: 157lbs. 0.8oz. 71.090460mp; 22.5 BMI Method:Stated General Appearance: moderate distress, thin HEENT: PERRL/EOMI, normal ENT inspection, TMs normal, pharynx normal (oral mucosa is mildly dry) Neck: non-tender, normal inspection Respiratory: chest non-tender, lungs clear, normal breath sounds, no respiratory distress, no accessory muscle use Cardiovascular: normal peripheral pulses, regular rate, rhythm, no edema Peripheral Pulses: 1+ Dorsalis Pedis (R), 1+ Left Dors-Pedis (L); 2+ Radial Pulses (R), 2+ Radial Pulses (L) Gastrointestinal: normal bowel sounds, guarding, tenderness (epigastric left upper quadrant) Extremities: normal inspection, no pedal edema, normal capillary refill Neurologic/Psychiatric: other (oriented to person and place but not time or situation.) Skin: normal color, warm/dry Focused Exam Lactate Level 02/01/18 17:35: Lactic Acid Level 2.04*H 02/01/18 20:29: Lactic Acid Level 2.08*H Lactic Acid Level Laboratory Tests Test 02/01/18 17:35 02/01/18 20:29 Lactic Acid Level 2.04 MMOL/L (0.50-2.00) *H 2.08 MMOL/L (0.50-2.00) *H Progress/Results/Core Measures Results/Orders Lab Results Laboratory Tests Test 02/01/18 17:25 02/01/18 17:35 02/01/18 18:35 02/01/18 20:29 Range/Units Lipase 51 8-78 U/L White Blood Count 10.8 4.3-11.0 10^3/uL Red Blood Count 3.08 L 4.35-5.85 10^6/uL Hemoglobin 9.0 L 13.3-17.7 G/DL Hematocrit 30 L 40-54 % Mean Corpuscular Volume 98 80-99 FL Mean Corpuscular Hemoglobin 29 25-34 PG Mean Corpuscular Hemoglobin Concent 30 L 32-36 G/DL Red Cell Distribution Width 15.0 H 10.0-14.5 % Platelet Count 535 H 130-400 10^3/uL Mean Platelet Volume 9.9 7.4-10.4 FL Neutrophils (%) (Auto) 85 H 42-75 % Lymphocytes (%) (Auto) 9 L 12-44 % Monocytes (%) (Auto) 6 0-12 % Eosinophils (%) (Auto) 0 0-10 % Basophils (%) (Auto) 0 0-10 % Neutrophils # (Auto) 9.2 H 1.8-7.8 X 10^3 Lymphocytes # (Auto) 0.9 L 1.0-4.0 X 10^3 Monocytes # (Auto) 0.7 0.0-1.0 X 10^3 Eosinophils # (Auto) 0.0 0.0-0.3 10^3/uL Basophils # (Auto) 0.0 0.0-0.1 10^3/uL Prothrombin Time 19.5 H 12.2-14.7 SEC INR Comment 1.6 H 0.8-1.4 Activated Partial Thromboplast Time 47 H 24-35 SEC Sodium Level 149 H 135-145 MMOL/L Potassium Level 5.1 H 3.6-5.0 MMOL/L Chloride Level 117 H 98-107 MMOL/L Carbon Dioxide Level 19 L 21-32 MMOL/L Anion Gap 13 5-14 MMOL/L Blood Urea Nitrogen 54 H 7-18 MG/DL Creatinine 5.40 H 0.60-1.30 MG/DL Estimat Glomerular Filtration Rate 10 BUN/Creatinine Ratio 10 Glucose Level 135 H 70-105 MG/DL Lactic Acid Level 2.04 *H 2.08 *H 0.50-2.00 MMOL/L Calcium Level 8.6 8.5-10.1 MG/DL Corrected Calcium 9.1 8.5-10.1 MG/DL Total Bilirubin 0.4 0.1-1.0 MG/DL Aspartate Amino Transf (AST/SGOT) 8 5-34 U/L Alanine Aminotransferase (ALT/SGPT) < 6 0-55 U/L Alkaline Phosphatase 91 40-136 U/L Total Protein 7.2 6.4-8.2 GM/DL Albumin 3.4 3.2-4.5 GM/DL Urine Color YELLOW Urine Clarity VERY CLOUDY H Urine pH 6.5 5-9 Urine Specific Gibbon 1.010 L 1.016-1.022 Urine Protein 3+ H NEGATIVE Urine Glucose (UA) NEGATIVE NEGATIVE Urine Ketones NEGATIVE NEGATIVE Urine Nitrite NEGATIVE NEGATIVE Urine Bilirubin NEGATIVE NEGATIVE Urine Urobilinogen NORMAL NORMAL MG/DL Urine Leukocyte Esterase 3+ H NEGATIVE Urine RBC (Auto) 3+ H NEGATIVE Urine RBC 5-10 H /HPF Urine WBC 50-100 H /HPF Urine Squamous Epithelial Cells NONE /HPF Urine Crystals NONE /LPF Urine Bacteria NEGATIVE /HPF Urine Casts NONE /LPF Urine Mucus NEGATIVE /LPF Urine Culture Indicated NO My Orders Orders - MO QUINTERO Cbc With Automated Diff (02/01/18 17:52) Comprehensive Metabolic Panel (02/01/18 17:52) Blood Culture (02/01/18 17:52) Sputum Culture (02/01/18:52) Urinalysis (02/01/18:52) Urine Culture (02/01/18:52) Protime With Inr (02/01/18:52) Partial Thromboplastin Time (02/01/18:52) Chest 1 View, Ap/Pa Only (02/01/18:52) Saline Lock/Iv-Start (02/01/18 17:52) Saline Lock/Iv-Start (02/01/18 17:52) Ekg Tracing (02/01/18:) Vital Signs Adult Sepsis Patie Q15M (02/01/18:52) O2 (02/01/18:52) Remove Rings In Anticipation O (02/01/18:52) Lactic Acid Analyzer (02/01/18:52) Ns Iv 1000 Ml (Sodium Chloride 0.9%) (02/01/18 17:52) Cefepime Injection (Maxipime Injection) (02/01/18 18:00) Occult Blood Stool (02/01/18 17:56) Ct Abdomen/Pelvis Wo (02/01/18 18:33) Lipase (02/01/18 19:11) Medications Given in ED Current Medications Medications Dose Ordered Sig/Janusz Route Start Time Stop Time Status Last Admin Dose Admin Cefepime HCl 1000 mg/Sodium Chloride 50 ml @ 100 mls/hr ONCE ONCE IV 02/01/18 18:00 02/01/18 18:29 DC 02/01/18 18:40 100 MLS/HR Vital Signs/I&O 02/01/18 02/01/18 17:30 17:30 Temp 99.5 99.5 Pulse 104 104 Resp 18 18 B/P (MAP) 128/98 (108) 128/98 (108) Pulse Ox 100 100 O2 Delivery Room Air Room Air Progress Progress Note #1: Time: 19:07 Progress Note According to our labs patient's been in stage V chronic kidney disease the past month at least. This could explain why his lactate is elevated. He does have an large scrotal mass consistent with possible inguinal hernia. We will go ahead and get a CT to see if there is any evidence of incarceration or strangulation. Go ahead and treat him with a liter fluids which is 20 mg/kg as well as we have started him on antibiotics cefepime which would cover intra-abdominal and urinary infections. The anemia is improved from last month. FOBT Pos Progress Note #2: Time: 21:09 Progress Note Patient sitting up talking making more sense but still pulling at IV lines and Boyle catheter so we put him in soft restraints. He certainly looking more alert and attentive any has been. Family says that he was at [facility] just a few days ago and nephrology there has declined to want to start him on dialysis so they don't think sending him back there is a good idea. They are okay with pursuing treatment for his bowel incarceration here if possible. We also discussed the option of comfort cares only and they're not ready to go down that route just yet. Lactate is elevated but this is likely due to his stage V kidney disease and does not represent sepsis necessarily. He certainly does have evidence for infection with his UTI and probable pneumonia however there is no point in trending the lactate as the kidneys are not going to filter it out right now. Diagnostic Imaging Diagonstic Imaging: CT (c/o contrast) Plain Films/CT/US/NM/MRI: abdomen, pelvis Comments VIA [facility]. [place], [place] NAME: MARIO KIRBY [facility] REC#: [id number] PT STATUS: REG ER : 1930 PHYSICIAN: MO QUINTERO MD ADMIT DATE: 02/01/18/ER Draft Date of Exam:02/01/18 CT ABDOMEN/PELVIS WO PROCEDURE: CT abdomen and pelvis without contrast. TECHNIQUE: Multiple contiguous axial images were obtained through the abdomen and pelvis without the use of intravenous contrast. INDICATION: Left upper quadrant pain and abdominal pain There are no prior CT examinations available for comparison. Images through the low pelvis do show that there is a gas-filled segment of bowel extending into the left inguinal canal and scrotum. This segment of the bowel is not included in its entirety but it may be well within the scrotum. I do suspect that this portion of the bowel is incarcerated and there may be partial obstruction of the small bowel. If further evaluation is desired, then a contrast small bowel exam would be recommended. The kidneys are difficult to assess as there appear to be multiple cysts arising from both kidneys, particularly on the right. 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 The right ureter does seem to be dilated but there is no sign of obstructive calculus. There is some distortion of the perinephric fat on the right and the possibility that there is an element of pyelonephritis should be considered. If possible, followup CT exam with intravenous contrast would be recommended to better evaluate the kidneys, particularly the right kidney. The urinary bladder itself is filled with gas. There also appears to be a Boyle catheter in place. The prostate gland does not appear to be enlarged. There is a fecal impaction present. The appendix was not well visualized. The liver is unremarkable for an acute abnormality. There is a 2.1 CM cyst in the left lobe of the liver. The spleen, pancreas, adrenals, gallbladder, aorta and inferior vena cava show no sign of an acute abnormality. The stomach is not well-distended and consequently difficult to assess. There is mild bibasilar atelectasis/infiltrate. 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 There also appear to be mild compression deformities of T12, L1 and L2. These injuries are most likely subacute or chronic in nature. If further study is desired, then MRI would be recommended. IMPRESSION: 1. A segment of small bowel has extended into the left inguinal canal and most likely into the scrotum. This portion of the bowel is incarcerated and there may be partial obstruction of the bowel. Recommendations as above. 2. The kidneys are difficult to evaluate as there appear to be multiple cysts associated with both kidneys. 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 Recommendations as above. 3. There is bibasilar pneumonia/atelectasis. 4. These results will be discussed with Dr. Mo Quintero. Dictated on workstation # [id number] Dict: 02/01/18 1934 Trans: 02/01/182000 DUC [id number] Interpreted by: JETT STRICKLAND MD Electronically signed by: Diagonstic Imaging: Xray Plain Films/CT/US/NM/MRI: chest (1v) Comments NAME: MARIO [facility]BY [facility] REC#: [id number] PHYSICIAN: MO QUINTERO MD CC: ADRIANNE RALPH MD; MO QUINTERO Page 1 of 1 RADIOLOGY REPORT VIA [facility]. [place], [place] CC: ADRIANNE RALPH MD; MO QUINTERO Page 1 of 1 RADIOLOGY REPORT NAME: MARIO KIRBY [facility] REC#: [id number] PT STATUS: REG ER : 1930 PHYSICIAN: MO QUINTERO MD ADMIT DATE: 02/01/18/ER Signed Date of Exam: 02/01/18 CHEST 1 VIEW, AP/PA ONLY INDICATION: Chest pain. FINDINGS: There is cardiomegaly. There is mild venous congestion. There is left base infiltrate and small left pleural effusion. There is no pneumothorax. Mediastinum is unremarkable. IMPRESSION: 1. Left base infiltrate and small left pleural effusion. 2. Cardiomegaly and mild central pulmonary venous congestion. Dictated by: Dictated on workstation # [id number] Dict: 02/01/181810 Trans: 02/01/181852 Interpreted by: ADRIANNE RALPH MD Electronically signed by: ADRIANNE RALPH MD 02/01/181852 Departure Communication (Admissions) Time/Spoke to Admitting Phy: 21:11 Discussed case lab imaging findings with Dr. Nicole and he agrees with plan and antibiotics and wants to go ahead and get some more IV fluids tonight gently and have pulmonology critical care consult on the case. He would like patient in ICU. He agrees with Dr. Hood's plan. We discussed whether or not to involve transport for nephrology and the family's wishes and he agrees at this time it is not necessarily indicated since they've shown no interest in starting him on dialysis before when his GFR was 15. Time/Spoke to Consulting Phy: 20:45 Discussed case lab imaging findings with Dr. Hood and he wants the Eliquis stopped and go ahead and do adequate fluid resuscitation and admit to medicine and antibiotics and he will see the patient in the morning and discuss with family about whether this patient is a surgical candidate or not. [id number]: Dr Bautista, Pulmonology; Left , Staff to notify in AM. Impression Primary Impression: Large bowel obstruction Additional Impressions: Incarcerated hernia of abdominal cavity UTI (urinary tract infection) Qualified Codes: N30.01 - Acute cystitis with hematuria Pneumonia Qualified Codes: J18.1 - Lobar pneumonia, unspecified organism CKD (chronic kidney disease), stage V History of DVT (deep vein thrombosis) Disposition: ADMITTED INPATIENT Condition: Stable Admissions Decision to Admit Reason: Admit from ER (General) Decision to Admit/Date: Feb 01, 2018 Time/Decision to Admit Time: 21:31 Departure-Patient Inst. Referrals: INGRID NICOLE DO (PCP) Primary Care Physician Copy Copies To 1: CHARLEEN BAUTISTA DO; INGRID NICOLE DO; ACACIA HOOD MD, TITUS J Feb 01, 2018 18:02
[2018-02-01 18:08] LABS: INR 1.6 (0.8-1.4); PROTHROMBIN TIME PATIENT 19.5 SEC (12.2-14.7)
[2018-02-01 18:13] LABS: ALANINE AMINOTRANSFERASE < 6 U/L (0-55); ALBUMIN 3.4 GM/DL (3.2-4.5); ALKALINE PHOSPHATASE 91 U/L (40-136); BILIRUBIN,TOTAL 0.4 MG/DL (0.1-1.0); BUN/CREATININE RATIO 10; CALCIUM 8.6 MG/DL (8.5-10.1); CARBON DIOXIDE 19 MMOL/L (21-32); CHLORIDE 117 MMOL/L (98-107); GFR ESTIMATED 10; GLUCOSE 135 MG/DL (70-105); POTASSIUM 5.1 MMOL/L (3.6-5.0); SODIUM 149 MMOL/L (135-145); TOTAL PROTEIN 7.2 GM/DL (6.4-8.2)
--- NOTE | 2018-02-01 18:41 | Diagnostic Imaging Report ---
INDICATION: Chest pain. FINDINGS: There is cardiomegaly. There is mild venous congestion. There is left base infiltrate and small left pleural effusion. There is no pneumothorax. Mediastinum is unremarkable. IMPRESSION: 1. Left base infiltrate and small left pleural effusion. 2. Cardiomegaly and mild central pulmonary venous congestion. Dictated by: Dictated on workstation # [id number]
[2018-02-01 18:48] LABS: BILIRUBIN,URINE NEGATIVE (NEGATIVE); CLARITY,URINE VERY CLOUDY; COLOR,URINE YELLOW; GLUCOSE, URINE (UA) NEGATIVE (NEGATIVE); KETONES,URINE NEGATIVE (NEGATIVE); LEUKOCYTE ESTERASE ,URINE 3+ (NEGATIVE); NITRITE,URINE NEGATIVE (NEGATIVE); PH,URINE 6.5 (5-9); PROTEIN,URINE 3+ (NEGATIVE); UROBILINOGEN,URINE NORMAL (NORMAL)
[2018-02-01 18:54] LABS: BACTERIA,URINE NEGATIVE /HPF; WBC,URINE 50-100 /HPF
--- OUTSIDE RECORDS SUMMARY | 2018-02-01 19:58 | XMS REPORT | Continuity of Care Document ---
Author Author Via [facility] Organization Via [facility] Address Unknown Phone Unavailable Allergies Active Description Code Type Severity Reaction Onset Reported/Identified Relationship to Patient Clinical Status Yes NKANo Known Allergies NKA Miscellaneous Allergy Unknown N/A 09/17/2006 Yes IV DYE IV DYE Mild KIDNEY DAMAGE 01/08/2012 Yes NSAIDS NSAIDS Mild KIDNEY DAMAGE 01/08/2012 Yes sulfamethoxazole [id number] Drug Allergy Mild KIDNEY DAMAGE 08/29/2016 Yes trimethoprim [id number] Drug Allergy Mild KIDNEY DAMAGE 08/29/2016 Yes lactose [id number] Drug Allergy Unknown N/A 08/29/2016 Yes milk [id number] Drug Allergy Unknown N/A 08/29/2016 Medications There is no data. Problems Date Dx Coded Attending Type Code Diagnosis Diagnosed By 10/20/2011 Ot 585.9 CHRONIC KIDNEY DISEASE, UNSPECIFIED 10/20/2011 Ot V58.69 OTH MED,LT, CURRENT USE 12/11/2011 Ot 585.9 CHRONIC KIDNEY DISEASE, UNSPECIFIED 12/11/2011 Ot V58.69 OTH MED,LT, CURRENT USE 01/08/2012 Ot 285.9 ANEMIA NOS 01/08/2012 Ot 332.0 PARALYSIS AGITANS 01/08/2012 Ot 584.9 ACUTE RENAL FAILURE, UNSPECIFIED 01/08/2012 Ot 599.0 URIN TRACT INFECTION NOS 01/08/2012 Ot 599.70 HEMATURIA, UNSPECIFIED 01/08/2012 Ot 600.00 HYPERTROPHY (BENIGN) OF PROSTATE W/O URI 01/08/2012 Ot 729.81 SWELLING OF LIMB 01/08/2012 Ot 788.20 RETENTION OF URINE NOS 03/10/2012 Ot 585.9 CHRONIC KIDNEY DISEASE, UNSPECIFIED 03/10/2012 Ot V58.69 OTH MED,LT, CURRENT USE 05/03/2012 Ot 272.4 HYPERLIPIDEMIA NEC/NOS 05/03/2012 Ot 285.9 ANEMIA NOS 05/03/2012 Ot 413.9 ANGINA PECTORIS NEC/NOS 05/03/2012 Ot 414.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 NOS TYPE VESSEL, NATIV 05/03/2012 Ot 427.81 SINOATRIAL NODE DYSFUNCT 05/03/2012 Ot 433.10 CAROTID ARTERY OCCLUSION W O CEREBRAL IN 05/03/2012 Ot 585.9 CHRONIC KIDNEY DISEASE, UNSPECIFIED 05/03/2012 Ot 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.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, NOT OTHERWISE SPECIF 05/03/2012 Ot 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 05/03/2012 Ot 788.20 RETENTION OF URINE NOS 05/03/2012 Ot 997.1 SURG COMPL- HEART 05/30/2012 Ot 280.9 IRON DEFIC ANEMIA NOS 05/30/2012 Ot 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 05/30/2012 Ot 585.4 CHRONIC KIDNEY DISEASE, STAGE IV (SEVERE 05/30/2012 Ot V58.69 OTH MED,LT, CURRENT USE 06/22/2012 Ot 593.9 RENAL URETERAL DIS NOS 06/22/2012 Ot 599.0 URIN TRACT INFECTION NOS 08/29/2012 Ot 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0 09/04/2014 Ot 285.9 ANEMIA NOS 09/05/2014 Ot 285.9 ANEMIA NOS 09/09/2014 TA GARCIA, MARIO Gonsalez Ot 272.4 09/09/2014 TA GARCIA, MARIO Gonsalez Ot 332.0 09/09/2014 TA GARCIA, MARIO Gonsalez Ot 403.90 09/09/2014 TA GARCIA, MARIO Gonsalez Ot 414.01 09/09/2014 TA GARCIA, MARIO Gonsalez Ot 416.8 09/09/2014 TA GARCIA, MARIO Gonsalez Ot 425.4 09/09/2014 TA GARCIA, MARIO Gonsalez Ot 427.81 09/09/2014 TA GARICA, MARIO Gonsalez Ot 433.10 09/09/2014 TA GARCIA, MARIO Gonsalez Ot 433.30 09/09/2014 TA GARCIA, MARIO Gonsalez Ot 585.4 09/09/2014 TA GARCIA, MARIO Gonsalez Ot 591 09/09/2014 TA GARCIA, MARIO Gonsalez Ot 593.2 09/09/2014 TA GARCIA, MARIO Gonsalez Ot 600.01 09/09/2014 TA GARCIA, MARIO Gonsalez Ot 715.90 09/09/2014 TA GARCIA, MARIO Gonsalez Ot V12.72 09/09/2014 TA GARCIA, MARIO Gonsalez Ot V16.0 09/09/2014 TA GARCIA, MARIO Gonsalez Ot 272.4 HYPERLIPIDEMIA NEC/NOS 09/09/2014 TA GARCIA, MARIO Gonsalez Ot 332.0 PARALYSIS AGITANS 09/09/2014 TA GARCIA, MARIO Gonsalez Ot 403.90 HYPTNSV CHR KID DIS, UNSPEC, W CHR KD ST 09/09/2014 TA GARCIA, MARIO Gonsalez Ot 414.01 CORONARY ATHEROSCLEROSIS OF [place] & HA[place] CORON 09/09/2014 TA GARCIA, MARIO Gonsalez Ot 414.8 CHR ISCHEMIC HRT DIS NEC 09/09/2014 TA GARCIA, MARIO Gonsalez Ot 416.8 CHR PULMON HEART DIS NEC 09/09/2014 TA GARCIA, MARIO Gonsalez Ot 425.4 09/09/2014 TA GARCIA, MARIO Gonsalez Ot 427.81 SINOATRIAL NODE DYSFUNCT 09/09/2014 TA GARCIA, AMRIO Gonsalez Ot 433.10 CAROTID ARTERY OCCLUSION W O CEREBRAL IN 09/09/2014 TA GARCIA, MARIO Gonsalez Ot 433.30 MULT BILTRAL ARTERY OCCLUSION WO CEREBRA 09/09/2014 TA GARCIA, MARIO Gonsalez Ot 459.2 COMPRESSION OF VEIN 09/09/2014 TA GARCIA, MARIO Gonsalez Ot 585.4 CHRONIC KIDNEY DISEASE, STAGE IV (SEVERE 09/09/2014 TA GARCIA, MARIO Gonsalez Ot 591 HYDRONEPHROSIS 09/09/2014 TA GARCIA, MARIO Gonsalez Ot 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, ACQUIRED 09/09/2014 TA GARCIA, MARIO Gonsalez Ot 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 09/09/2014 TA GARCIA, MARIO Gonsalez Ot 715.90 OSTEOARTHROS NOS-UNSPEC 09/09/2014 MARIO CHAPPELL MD Ot 788.20 RETENTION OF URINE NOS 09/09/2014 TA GARCIA, MARIO Gonsalez Ot V12.72 PERSONAL HISTORY OF COLONIC POLYPS 09/09/2014 TA GARCIA, MARIO Gonsalez Ot V16.0 FAMILY HX-GI MALIGNANCY 09/18/2014 Ot 272.4 09/18/2014 Ot 401.9 09/18/2014 Ot 414.01 09/18/2014 Ot V58.69 09/18/2014 Ot 412 09/18/2014 Ot 414.01 09/18/2014 Ot 416.8 09/18/2014 Ot V58.69 09/18/2014 Ot 396.3 09/18/2014 Ot 397.0 09/18/2014 Ot 414.00 09/18/2014 Ot 416.8 09/18/2014 Ot 272.4 09/18/2014 Ot 414.01 09/18/2014 Ot V58.69 09/18/2014 Ot 401.9 09/18/2014 Ot 414.01 09/18/2014 Ot 593.9 09/18/2014 Ot 332.0 09/18/2014 Ot V81.5 09/18/2014 Ot 414.00 09/18/2014 Ot 416.8 09/18/2014 Ot 782.3 09/18/2014 Ot V58.69 09/18/2014 Ot V58.83 09/18/2014 Ot 593.9 09/18/2014 Ot 782.3 09/18/2014 Ot 585.9 09/18/2014 Ot V58.69 09/18/2014 Ot 585.9 09/18/2014 Ot 585.9 09/18/2014 Ot V58.69 09/18/2014 Ot 593.9 09/18/2014 Ot V58.69 09/18/2014 Ot 401.0 09/18/2014 Ot 586 09/18/2014 Ot 285.21 09/18/2014 Ot 403.90 09/18/2014 Ot 585.4 09/18/2014 Ot 591 09/18/2014 Ot 791.0 09/18/2014 Ot 285.21 09/18/2014 Ot 401.9 09/18/2014 Ot 585.4 09/18/2014 Ot 791.0 09/18/2014 Ot 585.9 09/18/2014 Ot V58.69 09/18/2014 Ot 600.01 09/18/2014 Ot 788.20 09/18/2014 Ot 791.9 09/18/2014 Ot V58.63 09/18/2014 Ot V58.66 09/18/2014 Ot V72.63 09/18/2014 Ot V72.81 09/18/2014 Ot V72.83 09/18/2014 Ot V74.8 09/18/2014 Ot 585.9 09/18/2014 Ot 414.00 09/18/2014 Ot 585.9 09/18/2014 Ot V58.69 09/18/2014 Ot 285.21 09/18/2014 Ot 403.90 09/18/2014 Ot 585.4 09/18/2014 Ot 599.0 09/18/2014 Ot 791.0 09/18/2014 Ot 593.9 09/18/2014 Ot 599.0 09/18/2014 Ot 272.4 09/18/2014 Ot 401.9 09/18/2014 Ot 414.01 09/18/2014 Ot 280.9 09/18/2014 Ot 285.21 09/18/2014 Ot 585.4 09/18/2014 Ot 414.00 09/18/2014 Ot 425.4 09/18/2014 Ot 280.9 09/18/2014 Ot 285.21 09/18/2014 Ot 585.4 09/18/2014 Ot 285.21 09/18/2014 Ot 403.90 09/18/2014 Ot 585.4 09/18/2014 Ot 588.0 09/18/2014 Ot 599.0 09/18/2014 Ot 791.0 09/18/2014 ORACIO RUIZ MD Ot 285.21 09/18/2014 ORACIO RUIZ MD Ot 403.90 09/18/2014 ORACIO RUIZ MD Ot 585.3 09/18/2014 [facility] , ORACIO A Ot 588.0 09/18/2014 [facility] , ORACIO A Ot 599.0 09/18/2014 [facility] , ORACIO A Ot 791.0 09/18/2014 [facility] , ORACIO A Ot 285.21 09/18/2014 JOSEPH , ORACIO A Ot 403.90 09/18/2014 JOSEPH , ORACIO A Ot 585.4 09/18/2014 [facility] , ORACIO A Ot 588.0 09/18/2014 [facility] , ORACIO A Ot 599.0 09/18/2014 [facility] , ORACIO A Ot 791.0 09/18/2014 [facility] , ORACIO A Ot 268.9 09/18/2014 [facility] , ORACIO A Ot 276.3 09/18/2014 [facility] , ORACIO A Ot 285.21 09/18/2014 [facility] , ORACIO A Ot 403.90 09/18/2014 [facility] , ORACIO A Ot 585.3 09/18/2014 [facility] , ORACIO A Ot 588.0 09/18/2014 [facility] , ORACIO A Ot 599.0 09/18/2014 [facility] , ORACIO A Ot 791.0 09/18/2014 INGRID NICOLE DO A Ot 593.9 09/18/2014 COREY MATHEWS INGRID A Ot 599.0 09/18/2014 AMAIRANI GARCIA, MARCEL S Ot 268.9 09/18/2014 AMAIRANI GARCIA, PRINCE S Ot 276.3 09/18/2014 AMAIRANI GARCIA, KELECHIMED S Ot 285.21 09/18/2014 AMAIRANI GARCIA, MARCEL S Ot 403.90 09/18/2014 AMAIRANI GARCIA, MARCEL S Ot 585.3 09/18/2014 AMAIRANI GARCIA, MED S Ot 588.0 09/18/2014 AMAIRANI GARCIA, MED S Ot 599.0 09/18/2014 AMAIRANI GARCIA, MED S Ot 791.0 09/18/2014 [facility] , ORACIO A Ot 268.9 09/18/2014 [facility] , ORACIO A Ot 276.3 09/18/2014 [facility] , ORACIO A Ot 285.21 09/18/2014 [facility] , ORACIO A Ot 403.90 09/18/2014 [facility] , ORACIO A Ot 585.4 09/18/2014 [facility] , ORACIO A Ot 588.0 09/18/2014 [facility] , ORACIO A Ot 599.0 09/18/2014 [facility] , ORACIO A Ot 791.0 09/18/2014 [facility] , ORACIO A Ot 268.9 09/18/2014 [facility] , ORACIO A Ot 276.3 09/18/2014 [facility] , ORACIO A Ot 285.21 09/18/2014 [facility] , ORACIO A Ot 403.90 09/18/2014 [facility] , ORACIO A Ot 585.3 09/18/2014 [facility] , ORACIO A Ot 588.0 09/18/2014 [facility] , ORACIO A Ot 599.0 09/18/2014 [facility] , ORACIO A Ot 791.0 09/18/2014 AMAIRANI GARCIA, MED S Ot 268.9 09/18/2014 AMAIRANI GARCIA, MED S Ot 276.3 09/18/2014 AMAIRANI GARCIA, MED S Ot 285.21 09/18/2014 AMAIRANI GARCIA, MED S Ot 403.90 09/18/2014 AMAIRANI GARCIA, MED S Ot 585.4 09/18/2014 AMAIRANI GARCIA, MED S Ot 588.0 09/18/2014 AMAIRANI GARCIA, MED S Ot 599.0 09/18/2014 AMAIRANI GARCIA, MED S Ot 791.0 09/18/2014 AMAIRANI GARCIA, MED S Ot 268.9 09/18/2014 AMAIRANI GARCIA, MED S Ot 276.3 09/18/2014 AMAIRANI GARCIA, MED S Ot 285.21 09/18/2014 AMAIRANI GARCIA, AHMED S Ot 403.90 09/18/2014 AMAIRANI GARCIA, MARCEL S Ot 585.4 09/18/2014 AMAIRANI GARCIA, MARCEL S Ot 588.0 09/18/2014 AMAIRANI GARCIA, MARCEL S Ot 599.0 09/18/2014 AMAIRANI GARCIA, MARCEL S Ot 791.0 09/18/2014 Ot 433.10 09/18/2014 Ot V72.63 09/18/2014 Ot V72.81 09/18/2014 Ot V72.83 09/18/2014 Ot V74.8 09/19/2014 Ot 272.4 09/19/2014 Ot 401.9 09/19/2014 Ot 414.01 09/19/2014 Ot V58.69 09/19/2014 Ot 412 09/19/2014 Ot 414.01 09/19/2014 Ot 416.8 09/19/2014 Ot V58.69 09/19/2014 Ot 396.3 09/19/2014 Ot 397.0 09/19/2014 Ot 414.00 09/19/2014 Ot 416.8 09/19/2014 Ot 272.4 09/19/2014 Ot 414.01 09/19/2014 Ot V58.69 09/19/2014 Ot 401.9 09/19/2014 Ot 414.01 09/19/2014 Ot 593.9 09/19/2014 Ot 332.0 09/19/2014 Ot V81.5 09/19/2014 Ot 414.00 09/19/2014 Ot 416.8 09/19/2014 Ot 782.3 09/19/2014 Ot V58.69 09/19/2014 Ot V58.83 09/19/2014 Ot 593.9 09/19/2014 Ot 782.3 09/19/2014 Ot 585.9 09/19/2014 Ot V58.69 09/19/2014 Ot 585.9 09/19/2014 Ot 585.9 09/19/2014 Ot V58.69 09/19/2014 Ot 593.9 09/19/2014 Ot V58.69 09/19/2014 Ot 401.0 09/19/2014 Ot 586 09/19/2014 Ot 285.21 09/19/2014 Ot 403.90 09/19/2014 Ot 585.4 09/19/2014 Ot 591 09/19/2014 Ot 791.0 09/19/2014 Ot 285.21 09/19/2014 Ot 401.9 09/19/2014 Ot 585.4 09/19/2014 Ot 791.0 09/19/2014 Ot 585.9 09/19/2014 Ot V58.69 09/19/2014 Ot 600.01 09/19/2014 Ot 788.20 09/19/2014 Ot 791.9 09/19/2014 Ot V58.63 09/19/2014 Ot V58.66 09/19/2014 Ot V72.63 09/19/2014 Ot V72.81 09/19/2014 Ot V72.83 09/19/2014 Ot V74.8 09/19/2014 Ot 585.9 09/19/2014 Ot 414.00 09/19/2014 Ot 585.9 09/19/2014 Ot V58.69 09/19/2014 Ot 285.21 09/19/2014 Ot 403.90 09/19/2014 Ot 585.4 09/19/2014 Ot 599.0 09/19/2014 Ot 791.0 09/19/2014 Ot 593.9 09/19/2014 Ot 599.0 09/19/2014 Ot 272.4 09/19/2014 Ot 401.9 09/19/2014 Ot 414.01 09/19/2014 Ot 280.9 09/19/2014 Ot 285.21 09/19/2014 Ot 585.4 09/19/2014 Ot 414.00 09/19/2014 Ot 425.4 09/19/2014 Ot 280.9 09/19/2014 Ot 285.21 09/19/2014 Ot 585.4 09/19/2014 Ot 285.21 09/19/2014 Ot 403.90 09/19/2014 Ot 585.4 09/19/2014 Ot 588.0 09/19/2014 Ot 599.0 09/19/2014 Ot 791.0 09/19/2014 ORACIO RUIZ MD Ot 285.21 09/19/2014 ORACIO RUIZ MD Ot 403.90 09/19/2014 ORACIO RUIZ MD Ot 585.3 09/19/2014 ORACIO RUIZ MD Ot 588.0 09/19/2014 [facility] , ORACIO A Ot 599.0 09/19/2014 [facility] , ORACIO A Ot 791.0 09/19/2014 [facility] , ORACIO A Ot 285.21 09/19/2014 [facility] , ORACIO A Ot 403.90 09/19/2014 [facility] , ORACIO A Ot 585.4 09/19/2014 [facility] , ORACIO A Ot 588.0 09/19/2014 [facility] , ORACIO A Ot 599.0 09/19/2014 [facility] , ORACIO A Ot 791.0 09/19/2014 [facility] , ORACIO A Ot 268.9 09/19/2014 [facility] , ORACIO A Ot 276.3 09/19/2014 [facility] , ORACIO A Ot 285.21 09/19/2014 [facility] , ORACIO A Ot 403.90 09/19/2014 [facility] , ORACIO A Ot 585.3 09/19/2014 [facility] , ORACIO A Ot 588.0 09/19/2014 [facility] , ORACIO A Ot 599.0 09/19/2014 [facility] , ORACIO Clement Ot 791.0 09/19/2014 INGRID NICOLE DO Ot 593.9 09/19/2014 INGRID NICOLE DO Ot 599.0 09/19/2014 AMAIRANI GARCIA, PRINCE S Ot 268.9 09/19/2014 AMAIRANI GARCIA, PRINCE S Ot 276.3 09/19/2014 AMAIRANI GARCIA, PRINCE S Ot 285.21 09/19/2014 AMAIRANI GARCIA, PRINCE S Ot 403.90 09/19/2014 AMAIRANI GARCIA, MARCEL S Ot 585.3 09/19/2014 AMAIRANI GARCIA, MARCEL S Ot 588.0 09/19/2014 AMAIRANI GARCIA, MED S Ot 599.0 09/19/2014 AMAIRANI GARCIA, MED S Ot 791.0 09/19/2014 [facility] , ORACIO Clement Ot 268.9 09/19/2014 [facility] , ORACIO A Ot 276.3 09/19/2014 [facility] , ORACIO A Ot 285.21 09/19/2014 [facility] , ORACIO A Ot 403.90 09/19/2014 [facility] , ORACIO A Ot 585.4 09/19/2014 [facility] , ORACIO A Ot 588.0 09/19/2014 [facility] , ORACIO A Ot 599.0 09/19/2014 [facility] , ORACIO A Ot 791.0 09/19/2014 [facility] , ORACIO A Ot 268.9 09/19/2014 [facility] , ORACIO A Ot 276.3 09/19/2014 [facility] , ORACIO A Ot 285.21 09/19/2014 [facility] , ORACIO A Ot 403.90 09/19/2014 [facility] , ORACIO A Ot 585.3 09/19/2014 [facility] , ORACIO A Ot 588.0 09/19/2014 [facility] , ORACIO A Ot 599.0 09/19/2014 [facility] , ORACIO A Ot 791.0 09/19/2014 AMAIRANI GARCIA, MED S Ot 268.9 09/19/2014 AMAIRANI GARCIA, PRINCE S Ot 276.3 09/19/2014 AMAIRANI GARCIA, MED S Ot 285.21 09/19/2014 AMAIRANI GARCIA, MED S Ot 403.90 09/19/2014 AMAIRANI GARCIA, MED S Ot 585.4 09/19/2014 AMAIRANI GARCIA, MED S Ot 588.0 09/19/2014 AMAIRANI GARCIA, MED S Ot 599.0 09/19/2014 AMAIRANI GARCIA, MED S Ot 791.0 09/19/2014 AMAIRANI GARCIA, PRINCE S Ot 268.9 09/19/2014 AMAIRANI GARCIA, PRINCE S Ot 276.3 09/19/2014 AMAIRANI GARCIA, PRINCE S Ot 285.21 09/19/2014 AMAIRANI GARCIA, MED S Ot 403.90 09/19/2014 AMAIRANI GARCIA, MARCEL S Ot 585.4 09/19/2014 AMAIRANI GARCIA, KELECHIPRINCE S Ot 588.0 09/19/2014 AMAIRANI GARCIA, MARCEL S Ot 599.0 09/19/2014 AMAIRANI GARCIA, KELECHIPRINCE S Ot 791.0 09/19/2014 Ot 433.10 09/19/2014 Ot V72.63 09/19/2014 Ot V72.81 09/19/2014 Ot V72.83 09/19/2014 Ot V74.8 09/19/2014 GELLENDER DO, INGRID A Ot 285.9 09/19/2014 GELLENDER DO, INGRID A Ot 401.9 09/19/2014 GELLENDER DO, INGRID A Ot 593.9 09/19/2014 GELLENDER DO, INGRID Clement Ot 782.3 09/20/2014 GELLENDER DO, INGRID Clement Ot 285.9 09/20/2014 GELLENDER DO, INGRID Clement Ot 401.9 09/20/2014 GELLENDER DO, INGRID A Ot 593.9 09/20/2014 GELLENDER DO, INGRID A Ot 782.3 10/09/2014 FLYNN GARCIA, CATRACHITO Clement Ot 591 10/18/2014 GELLENDER DO, INGRID Clement Ot 285.9 10/18/2014 GELLENDER DO, INGRID A Ot 401.9 10/18/2014 GELLENDER DO, INGRID A Ot 593.9 10/18/2014 GELLENDER DO, NIGRID A Ot 782.3 10/24/2014 FLYNN GARCIA, CATRACHITO Clement Ot 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 11/10/2014 FLYNN GARCIA, CATRACHITO Clement Ot 591 11/18/2014 FLYNN GARCIA, CATRACHITO A Ot 596.0 11/18/2014 FLYNN GARCIA, CATRACHITO Clement Ot 791.9 11/18/2014 FLYNN GARCIA, CATRACHITO Clement Ot V72.63 11/18/2014 FLYNN GARCIA, CATRACHITO Clement Ot V74.8 11/19/2014 FLYNN GARCIA, CATRACHITO Clement Ot 591 11/20/2014 AMAIRANI GARCIA, MARCEL S Ot 268.9 VITAMIN D DEFICIENCY NOS 11/20/2014 AMAIRANI GARCIA, MARCEL S Ot 276.3 ALKALOSIS 11/20/2014 AMAIRANI GARCIA, MARCEL S Ot 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 11/20/2014 AMAIRANI GARCIA, AHMED S Ot 403.90 HYPTNSV CHR KID DIS, UNSPEC, W CHR KD ST 11/20/2014 AMAIRANI GARCIA, MARCEL S Ot 585.4 CHRONIC KIDNEY DISEASE, STAGE IV (SEVERE 11/20/2014 AMAIRANI GARCIA, MARCEL S Ot 588.0 RENAL OSTEODYSTROPHY 11/20/2014 AMAIRANI GARCIA, MARCEL S Ot 599.0 URIN TRACT INFECTION NOS 11/20/2014 AMAIRANI GARCIA, KELECHIMED S Ot 791.0 PROTEINURIA 11/30/2014 AMAIRANI GARCIA, MARCEL S Ot 268.9 11/30/2014 AMAIRANI GARCIA, MARCEL S Ot 276.3 11/30/2014 AMAIRANI GARCIA, KELECHIMED S Ot 285.21 11/30/2014 AMAIRANI GARCIA, KELECHIMED S Ot 403.90 11/30/2014 AMAIRANI GARCIA, KELECHIMED S Ot 585.4 11/30/2014 AMAIRANI GARCIA, KELECHIMED S Ot 588.0 11/30/2014 AMAIRANI GARCIA, MARCEL S Ot 599.0 11/30/2014 AMAIRANI GARCIA, KELECHIMED S Ot 791.0 12/01/2014 AMAIRANI GARCIA, MARCEL S Ot 268.9 12/01/2014 AMAIRANI GARCIA, MARCEL S Ot 276.3 12/01/2014 AMAIRANI GARCIA, MARCEL S Ot 285.21 12/01/2014 AMAIRANI GARCIA, MARCEL S Ot 403.90 12/01/2014 AMAIRANI GARCIA, MARCEL S Ot 585.4 12/01/2014 AMAIRANI GARCIA, MARCEL S Ot 588.0 12/01/2014 AMAIRANI GARCIA, MARCEL S Ot 599.0 12/01/2014 AMAIRANI GARCIA, MARCEL S Ot 791.0 12/01/2014 AMAIRANI GARCIA, MARCEL S Ot 268.9 12/01/2014 AMAIRANI GARCIA, AHMED S Ot 276.3 12/01/2014 AMAIRANI GARCIA, MED S Ot 285.21 12/01/2014 AMAIRANI GARCIA, MED S Ot 403.90 12/01/2014 AMAIRANI GARCIA, MED S Ot 585.4 12/01/2014 AMAIRANI GARCIA, MED S Ot 588.0 12/01/2014 AMAIRANI GARCIA, MED S Ot 599.0 12/01/2014 AMAIRANI GARCIA, MED S Ot 791.0 12/13/2014 AMAIRANI GARCIA, MED S Ot 280.9 12/13/2014 AMAIRANI GARCIA, MED S Ot 285.21 12/13/2014 AMAIRANI GARCIA, MED S Ot 585.4 12/13/2014 AMAIRANI GARCIA, MED S Ot V58.69 12/15/2014 AMAIRANI GARCIA, MED S Ot 280.9 12/15/2014 AMAIRANI GARCIA, MED S Ot 285.21 12/15/2014 AMAIRANI GARCIA, [facility] S Ot 585.4 12/15/2014 AMAIRANI GARCIA, MED S Ot V58.69 12/15/2014 AMAIRANI GARCIA, MED S Ot 280.9 12/15/2014 AMAIRANI GARCIA, MED S Ot 285.21 12/15/2014 AMAIRANI GARCIA, [facility] S Ot 585.4 12/15/2014 AMAIRANI GARCIA, MED S Ot V58.69 12/18/2014 AMAIRANI GARCIA, MED S Ot 280.9 12/18/2014 AMAIRANI GARCIA, MED S Ot 285.21 12/18/2014 AMAIRANI GARCIA, PRINCE S Ot 585.4 12/18/2014 AMAIRANI GARCIA, PRINCE S Ot V58.69 12/21/2014 AMAIRANI GARCIA, MED S Ot 268.9 12/21/2014 AMAIRANI GARCIA, MED S Ot 276.3 12/21/2014 AMAIRANI GARCIA, MED S Ot 285.21 12/21/2014 AMAIRANI GARCIA, MED S Ot 403.90 12/21/2014 AMAIRANI GARCIA, MED S Ot 585.4 12/21/2014 AMAIRANI GARCIA, MED S Ot 588.0 12/21/2014 AMAIRANI GARCIA, MED S Ot 599.0 12/21/2014 AMAIRANI GARCIA, MED S Ot 791.0 12/29/2014 AMAIRANI GARCIA, MED S Ot 280.9 12/29/2014 AMAIRANI GARCIA, MED S Ot 285.21 12/29/2014 AMAIRANI GARCIA, MED S Ot 585.4 12/29/2014 AMAIRANI GARCIA, MED S Ot V58.69 01/09/2015 SINDY GARCIA FACC, ALI FACP CCDS Ot 272.4 01/09/2015 SINDY GARCIA FACC, ALI FACP CCDS Ot 414.9 01/09/2015 SINDY GARCIA FACC, ALI FACP CCDS Ot 416.8 01/09/2015 SINDY GARCIA FACC, ALI FACP CCDS Ot 427.81 01/09/2015 SINDY GARCIA FACC, ALI FACP CCDS Ot 433.10 01/09/2015 SINDY GARCIA FACC, ALI FACP CCDS Ot 585.9 01/12/2015 AMAIRANI GARCIA, MED S Ot 280.9 01/12/2015 AMAIRANI GARCIA, MED S Ot 285.21 01/12/2015 AMAIRANI GARCIA, MED S Ot 585.4 01/12/2015 AMAIRANI GARCIA, MED S Ot V58.69 01/15/2015 AMAIRANI GARCIA, MED S Ot 268.9 01/15/2015 AMAIRANI GARCIA, MED S Ot 276.3 01/15/2015 AMAIRANI GARCIA, MED S Ot 285.21 01/15/2015 AMAIRANI GARCIA, MED S Ot 403.90 01/15/2015 AMAIRANI GARCIA, MED S Ot 585.4 01/15/2015 AMAIRANI GARCIA, MED S Ot 588.0 01/15/2015 AMAIRANI GARCIA, MED S Ot 599.0 01/15/2015 AMAIRANI GARCIA, AHMED S Ot 791.0 01/26/2015 AMAIRANI GARCIA, KELECHIMED S Ot 280.9 01/26/2015 AMAIRANI GARCIA, AHMED S Ot 285.21 01/26/2015 AMAIRANI GARCIA, AHMED S Ot 585.4 01/26/2015 AMAIRANI GARCIA, MED S Ot V58.69 01/26/2015 AMAIRANI GARCIA, AHMED S Ot 280.9 01/26/2015 AMAIRANI GARCIA, AHMED S Ot 285.21 01/26/2015 AMAIRANI GARCIA, MED S Ot 585.4 01/26/2015 AMAIRANI GARCIA, MED S Ot V58.69 02/09/2015 AMAIRANI GARCIA, AHMED S Ot 280.9 02/09/2015 AMAIRANI GARCIA, MED S Ot 285.21 02/09/2015 AMAIRANI GARCIA, MED S Ot 585.4 02/09/2015 AMAIRANI GARCIA, MED S Ot V58.69 02/23/2015 AMAIRANI GARCIA, AHMED S Ot 280.9 02/23/2015 AMAIRANI GARCIA, AHMED S Ot 285.21 02/23/2015 AMAIRANI GARCIA, MED S Ot 585.4 02/23/2015 AMAIRANI GARCIA, MED S Ot V58.69 02/28/2015 AMAIRANI GARCIA, MED S Ot 268.9 VITAMIN D DEFICIENCY NOS 02/28/2015 AMAIRANI GARCIA, AHMED S Ot 276.3 ALKALOSIS 02/28/2015 AMAIRANI GARCIA, AHMED S Ot 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 02/28/2015 AMAIRANI GARCIA, AHMED S Ot 403.90 HYPTNSV CHR KID DIS, UNSPEC, W CHR KD ST 02/28/2015 AMAIRANI GARCIA, PRINCE S Ot 585.4 CHRONIC KIDNEY DISEASE, STAGE IV (SEVERE 02/28/2015 AMAIRANI GARCIA, MARCEL S Ot 588.0 RENAL OSTEODYSTROPHY 02/28/2015 AMAIRANI GARCIA, AHMED S Ot 599.0 URIN TRACT INFECTION NOS 02/28/2015 AMAIRANI GARCIA, MARCEL S Ot 791.0 PROTEINURIA 03/08/2015 AMAIRANI GARCIA, AHPRINCE S Ot 280.9 IRON DEFIC ANEMIA NOS 03/08/2015 AMAIRANI GARCIA, AHMED S Ot 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 03/08/2015 AMAIRANI GARCIA, MARCEL S Ot 585.4 CHRONIC KIDNEY DISEASE, STAGE IV (SEVERE 03/08/2015 AMAIRANI GARCIA, AHMED S Ot D50.9 IRON DEFICIENCY ANEMIA, UNSPECIFIED 03/08/2015 AMAIRANI GARCIA, AHMED S Ot D63.1 ANEMIA IN CHRONIC KIDNEY DISEASE 03/08/2015 AMAIRANI GARCIA, MARCEL S Ot N18.4 CHRONIC KIDNEY DISEASE, STAGE 4 (SEVERE) 03/08/2015 AMAIRANI GARCIA, KELECHIMED S Ot V58.69 [facility],CURRENT USE 03/09/2015 AMAIRANI GARCIA, AHPRINCE S Ot 280.9 03/09/2015 AMAIRANI GARCIA, AHMED S Ot 285.21 03/09/2015 AMAIRANI GARCIA, AHMED S Ot 585.4 03/09/2015 AMAIRANI GARCIA, AHMED S Ot V58.69 03/09/2015 AMAIRANI GARCIA, AHMED S Ot 280.9 03/09/2015 AMAIRANI GARCIA, AHMED S Ot 285.21 03/09/2015 AMAIRANI GARCIA, AHMED S Ot 585.4 03/09/2015 AMAIRANI GARCIA, AHMED S Ot V58.69 03/09/2015 AMAIRANI GARCIA, AHMED S Ot 280.9 03/09/2015 AMAIRANI GARCIA, AHPRINCE S Ot 285.21 03/09/2015 AMAIRANI GARCIA, MARCEL S Ot 585.4 03/09/2015 AMAIRANI GARCIA, AHMED S Ot V58.69 03/09/2015 AMAIRANI GARCIA, AHMED S Ot 280.9 03/09/2015 AMAIRANI GARCIA, AHMED S Ot 285.21 03/09/2015 AMAIRANI GARCIA, MARCEL S Ot 585.4 03/09/2015 AMAIRANI GARCIA, AHMED S Ot V58.69 03/12/2015 AMAIRANI GARCIA, AHMED S Ot 280.9 03/12/2015 AMAIRANI GARCIA, AHMED S Ot 285.21 03/12/2015 AMAIRANI GARCIA, AHMED S Ot 585.4 03/12/2015 AMAIRANI GARCIA, AHMED S Ot V58.69 03/21/2015 AMAIRANI GARCIA, AHMED S Ot 280.9 IRON DEFIC ANEMIA NOS 03/21/2015 AMAIRANI GARCIA, AHMED S Ot 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 03/21/2015 AMAIRANI GARCIA, MARCEL S Ot 585.4 CHRONIC KIDNEY DISEASE, STAGE IV (SEVERE 03/21/2015 AMAIRANI GARCIA, AHMED S Ot V58.69 [facility],,CURRENT USE 03/23/2015 AMAIRANI GARCIA, AHPRINCE S Ot 280.9 03/23/2015 AMAIRANI GARCIA, AHMED S Ot 285.21 03/23/2015 AMAIRANI GARCIA, AHMED S Ot 585.4 03/23/2015 AMAIRANI GARCIA, KELECHIMED S Ot V58.69 03/23/2015 AMAIRANI GARCIA, AHMED S Ot 280.9 03/23/2015 AMAIRANI GARCIA, AHMED S Ot 285.21 03/23/2015 AMAIRANI GARCIA, MARCEL S Ot 585.4 03/23/2015 AMAIRANI GARCIA, MARCEL S Ot V58.69 04/19/2015 AMAIRANI GARCIA, MARCEL S Ot D63.1 04/19/2015 AMAIRANI GARCIA, AHMED S Ot E55.9 04/19/2015 AMAIRANI GARCIA, MARCEL S Ot I12.9 04/19/2015 AMAIRANI GARCIA, AHPRINCE S Ot N18.3 04/19/2015 AMAIRANI GARCIA, AHMED S Ot N18.4 04/19/2015 AMAIRANI GARCIA, AHPRINCE S Ot N25.0 04/19/2015 AMAIRANI GARCIA, AHMED S Ot N39.0 04/19/2015 AMAIRANI GARCIA, KELECHIMED S Ot R80.9 06/06/2015 AMAIRANI GARCIA, MARCEL S Ot D50.9 06/06/2015 AMAIRANI GARCIA, AHMED S Ot D63.1 06/06/2015 AMAIRANI GARCIA, MED S Ot N18.4 06/06/2015 AMAIRANI GARCIA, MED S Ot Z79.899 06/21/2015 AMAIRANI GARCIA, MED S Ot D50.9 IRON DEFICIENCY ANEMIA, UNSPECIFIED 06/21/2015 AMAIRANI GARCIA, PRINCE S Ot D63.1 ANEMIA IN CHRONIC KIDNEY DISEASE 06/21/2015 AMAIRANI GARCIA, MARECL S Ot N18.4 CHRONIC KIDNEY DISEASE, STAGE 4 (SEVERE) 06/21/2015 AMAIRANI GARCIA, MED S Ot Z79.899 OTHER ALF (CURRENT) DRUG THERAPY 09/26/2015 AMAIRANI GARCIA, MARCEL S Ot D50.9 09/26/2015 AMAIRANI GARCIA, MED S Ot D63.1 09/26/2015 AMAIRNAI GARCIA, MED S Ot E55.9 09/26/2015 AMAIRANI GARCIA, MED S Ot E78.5 09/26/2015 AMAIRANI GARCIA, MED S Ot E87.3 09/26/2015 AMAIRANI GARCIA, MED S Ot I12.9 09/26/2015 AMAIRANI GARCIA, MED S Ot I25.10 09/26/2015 AMAIRANI GARCIA, MED S Ot I50.9 09/26/2015 AMAIRANI GARCIA, MED S Ot N18.4 09/26/2015 AMAIRANI GARCIA, MARCEL S Ot N25.0 09/26/2015 AMAIRANI GARCIA, PRINCE S Ot R80.9 10/16/2015 AMAIRANI GARCIA, PRINCE S Ot D50.9 IRON DEFICIENCY ANEMIA, UNSPECIFIED 10/16/2015 AMAIRANI GARCIA, PRINCE S Ot D63.1 ANEMIA IN CHRONIC KIDNEY DISEASE 10/16/2015 AMAIRANI GARCIA, AHMED S Ot E55.9 VITAMIN D DEFICIENCY, UNSPECIFIED 10/16/2015 AMAIRANI GARCIA, MARCEL Gonsalez Ot E78.5 HYPERLIPIDEMIA, UNSPECIFIED 10/16/2015 AMAIRANI GARCIA, MARCEL Gonsalez Ot E87.3 ALKALOSIS 10/16/2015 AMAIRANI GARCIA, MARCEL Gonsalez Ot I12.9 HYPERTENSIVE CHRONIC KIDNEY DISEASE W ST 10/16/2015 AMAIRANI GARCIA, MARCEL Gonsalez Ot I25.10 ATHSCL HEART DISEASE OF [place] CORONARY 10/16/2015 AMAIRANI GARCIA, MARCEL Gonsalez Ot I50.9 HEART FAILURE, UNSPECIFIED 10/16/2015 AMAIRANI GARCIA, MARCEL Gonsalez Ot N18.4 CHRONIC KIDNEY DISEASE, STAGE 4 (SEVERE) 10/16/2015 AMAIRANI GARCIA, MARCEL Gonsalez Ot N25.0 RENAL OSTEODYSTROPHY 10/16/2015 AMAIRANI GARCIA, MARCEL Gonsalez Ot R80.9 PROTEINURIA, UNSPECIFIED 06/22/2016 Ot 401.0 MALIGNANT HYPERTENSION 06/22/2016 Ot 586 RENAL FAILURE NOS 07/23/2016 Ot 401.0 MALIGNANT HYPERTENSION 07/23/2016 Ot 586 RENAL FAILURE NOS 08/20/2016 Ot 401.0 MALIGNANT HYPERTENSION 08/20/2016 Ot 586 RENAL FAILURE NOS 08/20/2016 Ot 414.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 NOS TYPE VESSEL, NATIV 08/20/2016 Ot 416.8 CHR PULMON HEART DIS NEC 08/20/2016 Ot 782.3 EDEMA 08/20/2016 Ot V58.69 OTH MED,LT, CURRENT USE 08/20/2016 Ot V58.83 ENCOUNTER FOR THERAPEUTIC DRUG MONITORIN 08/20/2016 Ot 593.9 RENAL URETERAL DIS NOS 08/20/2016 Ot 782.3 EDEMA 08/20/2016 Ot 585.9 CHRONIC KIDNEY DISEASE, UNSPECIFIED 08/20/2016 Ot V58.69 OTH MED,LT, CURRENT USE 08/20/2016 Ot 585.9 CHRONIC KIDNEY DISEASE, UNSPECIFIED 08/20/2016 Ot 585.9 CHRONIC KIDNEY DISEASE, UNSPECIFIED 08/20/2016 Ot V58.69 OTH MED,LT, CURRENT USE 08/20/2016 Ot 593.9 RENAL URETERAL DIS NOS 08/20/2016 Ot V58.69 OTH MED,LT, CURRENT USE 08/20/2016 Ot 401.0 MALIGNANT HYPERTENSION 08/20/2016 Ot 586 RENAL FAILURE NOS 08/20/2016 Ot 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 08/20/2016 Ot 403.90 HYPTNSV CHR KID DIS, UNSPEC, W CHR KD ST 08/20/2016 Ot 585.4 CHRONIC KIDNEY DISEASE, STAGE IV (SEVERE 08/20/2016 Ot 591 HYDRONEPHROSIS 08/20/2016 Ot 791.0 PROTEINURIA 08/20/2016 Ot 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 08/20/2016 Ot 401.9 HYPERTENSION NOS 08/20/2016 Ot 585.4 CHRONIC KIDNEY DISEASE, STAGE IV (SEVERE 08/20/2016 Ot 791.0 PROTEINURIA 08/20/2016 Ot 585.9 CHRONIC KIDNEY DISEASE, UNSPECIFIED 08/20/2016 Ot V58.69 OTH MED,LT, CURRENT USE 08/20/2016 Ot 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 08/20/2016 Ot 788.20 RETENTION OF URINE NOS 08/20/2016 Ot 791.9 ABN URINE FINDINGS NEC 08/20/2016 Ot V58.63 LONG-TERM( CURRENT)USE OF ANTIPLATELET/AN 08/20/2016 Ot V58.66 LONG-TERM ( CURRENT) USE OF ASPIRIN 08/20/2016 Ot V72.63 PRE- PROCEDURAL LABORATORY EXAMINATION 08/20/2016 Ot V72.81 EXAM-PRE- OPERATIVE CARDIOVASCULAR 08/20/2016 Ot V72.83 EXAM PRE- OPERATIVE NEC 08/20/2016 Ot V74.8 SCREEN- BACTERIAL DIS NEC 08/20/2016 Ot 585.9 CHRONIC KIDNEY DISEASE, UNSPECIFIED 08/20/2016 Ot 414.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 NOS TYPE VESSEL, NATIV 08/20/2016 Ot 585.9 CHRONIC KIDNEY DISEASE, UNSPECIFIED 08/20/2016 Ot V58.69 OTH MED,LT, CURRENT USE 08/20/2016 Ot 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 08/20/2016 Ot 403.90 HYPTNSV CHR KID DIS, UNSPEC, W CHR KD ST 08/20/2016 Ot 585.4 CHRONIC KIDNEY DISEASE, STAGE IV (SEVERE 08/20/2016 Ot 599.0 URIN TRACT INFECTION NOS 08/20/2016 Ot 791.0 PROTEINURIA 08/20/2016 Ot 593.9 RENAL URETERAL DIS NOS 08/20/2016 Ot 599.0 URIN TRACT INFECTION NOS 08/20/2016 Ot 272.4 HYPERLIPIDEMIA NEC/NOS 08/20/2016 Ot 401.9 HYPERTENSION NOS 08/20/2016 Ot 414.01 CORONARY ATHEROSCLEROSIS OF [place] CORON 08/20/2016 Ot 280.9 IRON DEFIC ANEMIA NOS 08/20/2016 Ot 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 08/20/2016 Ot 585.4 CHRONIC KIDNEY DISEASE, STAGE IV (SEVERE 08/20/2016 Ot 414.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 NOS TYPE VESSEL, NATIV 08/20/2016 Ot 425.4 PRIM CARDIOMYOPATHY NEC 08/20/2016 Ot 280.9 IRON DEFIC ANEMIA NOS 08/20/2016 Ot 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 08/20/2016 Ot 585.4 CHRONIC KIDNEY DISEASE, STAGE IV (SEVERE 08/20/2016 Ot 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 08/20/2016 Ot 403.90 HYPTNSV CHR KID DIS, UNSPEC, W CHR KD ST 08/20/2016 Ot 585.4 CHRONIC KIDNEY DISEASE, STAGE IV (SEVERE 08/20/2016 Ot 588.0 RENAL OSTEODYSTROPHY 08/20/2016 Ot 599.0 URIN TRACT INFECTION NOS 08/20/2016 Ot 791.0 PROTEINURIA 08/20/2016 VEENA RUIZ MDETTE A Ot 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 08/20/2016 VEENA RUIZ MDETTE A Ot 403.90 HYPTNSV CHR KID DIS, UNSPEC, W CHR KD ST 08/20/2016 JOSEPH GARCIA ORACIO A Ot 585.3 CHRONIC KIDNEY DISEASE, STAGE III (MODER 08/20/2016 VEENA RUIZ MDETTE A Ot 588.0 RENAL OSTEODYSTROPHY 08/20/2016 JOSEPH GARCIA ORACIO A Ot 599.0 URIN TRACT INFECTION NOS 08/20/2016 JOSEPH GARCIA ORACIO A Ot 791.0 PROTEINURIA 08/20/2016 JOSEPH GARCIA ORACIO A Ot 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 08/20/2016 JOSEPH GARCIA ORACIO A Ot 403.90 HYPTNSV CHR KID DIS, UNSPEC, W CHR KD ST 08/20/2016 TASNEEM RUIZ MDOINETTE A Ot 585.4 CHRONIC KIDNEY DISEASE, STAGE IV (SEVERE 08/20/2016 JOSEPHORACIO LORENZ MD Ot 588.0 RENAL OSTEODYSTROPHY 08/20/2016 JOSEPHORACIO LORENZ MD Ot 599.0 URIN TRACT INFECTION NOS 08/20/2016 ORACIO RUIZ MD Ot 791.0 PROTEINURIA 08/20/2016 JOSEPHORACIO LORENZ MD Ot 268.9 VITAMIN D DEFICIENCY NOS 08/20/2016 JOSEPHORACIO LORENZ MD Ot 276.3 ALKALOSIS 08/20/2016 ORACIO RUIZ MD Ot 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 08/20/2016 JOSEPHORACIO LORENZ MD Ot 403.90 HYPTNSV CHR KID DIS, UNSPEC, W CHR KD ST 08/20/2016 ORACIO RUIZ MD Ot 585.3 CHRONIC KIDNEY DISEASE, STAGE III (MODER 08/20/2016 ORACIO RUIZ MD Ot 588.0 RENAL OSTEODYSTROPHY 08/20/2016 ORACIO RUIZ MD Ot 599.0 URIN TRACT INFECTION NOS 08/20/2016 ORACIO RUIZ MD Ot 791.0 PROTEINURIA 08/20/2016 GELLENDER DO, INGRID A Ot 593.9 RENAL URETERAL DIS NOS 08/20/2016 GELLENDER DO, INGRID A Ot 599.0 URIN TRACT INFECTION NOS 08/20/2016 MARCEL BALES MD Ot 268.9 VITAMIN D DEFICIENCY NOS 08/20/2016 MARCEL BALES MD S Ot 276.3 ALKALOSIS 08/20/2016 MARCEL BALES MD S Ot 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 08/20/2016 MARCEL BALES MD S Ot 403.90 HYPTNSV CHR KID DIS, UNSPEC, W CHR KD ST 08/20/2016 MARCEL BALES MD S Ot 585.3 CHRONIC KIDNEY DISEASE, STAGE III (MODER 08/20/2016 MARCEL BALES MD S Ot 588.0 RENAL OSTEODYSTROPHY 08/20/2016 MARCEL BALES MD S Ot 599.0 URIN TRACT INFECTION NOS 08/20/2016 MARCEL BALES MD S Ot 791.0 PROTEINURIA 08/20/2016 JOSEPH MD, ORACIO A Ot 268.9 VITAMIN D DEFICIENCY NOS 08/20/2016 JOSEPH MD, ORACIO A Ot 276.3 ALKALOSIS 08/20/2016 JOSEPH MD, ORACIO A Ot 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 08/20/2016 JOSEPH MD, ORACIO A Ot 403.90 HYPTNSV CHR KID DIS, UNSPEC, W CHR KD ST 08/20/2016 JOSEPH MD, ORACIO A Ot 585.4 CHRONIC KIDNEY DISEASE, STAGE IV (SEVERE 08/20/2016 JOSEPH MD, ORACIO A Ot 588.0 RENAL OSTEODYSTROPHY 08/20/2016 JOSEPH MD, ORACIO A Ot 599.0 URIN TRACT INFECTION NOS 08/20/2016 JOSEPH MD, ORACIO A Ot 791.0 PROTEINURIA 08/20/2016 JOSEPH MD, ORACIO A Ot 268.9 VITAMIN D DEFICIENCY NOS 08/20/2016 JOSEPH MD, ORACIO A Ot 276.3 ALKALOSIS 08/20/2016 JOSEPH MD, ORACIO A Ot 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 08/20/2016 JOSEPH MD, ORACIO A Ot 403.90 HYPTNSV CHR KID DIS, UNSPEC, W CHR KD ST 08/20/2016 JOSEPHVEENA LORENZ MDETTE A Ot 585.3 CHRONIC KIDNEY DISEASE, STAGE III (MODER 08/20/2016 JOSEPH MD, ORACIO A Ot 588.0 RENAL OSTEODYSTROPHY 08/20/2016 JOSEPH MD, ORACIO A Ot 599.0 URIN TRACT INFECTION NOS 08/20/2016 JOSEPH GARCIA ORACIO A Ot 791.0 PROTEINURIA 08/20/2016 AMAIRANI GARCIA, AHMED S Ot 268.9 VITAMIN D DEFICIENCY NOS 08/20/2016 AMAIRANI GARCIA, AHMED S Ot 276.3 ALKALOSIS 08/20/2016 AMAIRANI GARCIA, AHMED S Ot 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 08/20/2016 AMAIRANI GARCIA, AHMED S Ot 403.90 HYPTNSV CHR KID DIS, UNSPEC, W CHR KD ST 08/20/2016 AMAIRANI GARCIA, AHMED S Ot 585.4 CHRONIC KIDNEY DISEASE, STAGE IV (SEVERE 08/20/2016 AMAIRANI GARCIA, AHMED S Ot 588.0 RENAL OSTEODYSTROPHY 08/20/2016 AMAIRANI GARCIA, MARCEL Gonsalez Ot 599.0 URIN TRACT INFECTION NOS 08/20/2016 AMAIRANI GARCIA, MARCEL Gonsalez Ot 791.0 PROTEINURIA 08/20/2016 Ot 433.10 CAROTID ARTERY OCCLUSION W O CEREBRAL IN 08/20/2016 Ot V72.63 PRE- PROCEDURAL LABORATORY EXAMINATION 08/20/2016 Ot V72.81 EXAM-PRE- OPERATIVE CARDIOVASCULAR 08/20/2016 Ot V72.83 EXAM PRE- OPERATIVE NEC 08/20/2016 Ot V74.8 SCREEN- BACTERIAL DIS NEC 08/20/2016 FLYNN GARCIA, CATRACHITO Clement Ot 591 HYDRONEPHROSIS 08/20/2016 GELLENDER DO, INGRID Clement Ot 285.9 ANEMIA NOS 08/20/2016 GELLENDER DO, INGRID A Ot 401.9 HYPERTENSION NOS 08/20/2016 GELLENDER DO, INGRID Clement Ot 593.9 RENAL URETERAL DIS NOS 08/20/2016 COREY DO, INGRID Clement Ot 782.3 EDEMA 08/20/2016 CATRACHITO PRUETT MD Ot 591 HYDRONEPHROSIS 08/20/2016 CATRACHITO PRUETT MD Ot 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 08/20/2016 CATRACHITO PRUETT MD Ot 791.9 ABN URINE FINDINGS NEC 08/20/2016 CATRACHITO PRUETT MD Ot V72.63 PRE-PROCEDURAL LABORATORY EXAMINATION 08/20/2016 CATRACHITO PRUETT MD Ot V74.8 SCREEN-BACTERIAL DIS NEC 08/20/2016 SINDY GARCIA FACAutumn, ALI FACP CCDS Ot 272.4 HYPERLIPIDEMIA NEC/NOS 08/20/2016 SINDY GARCIA FACC, ALI FACP CCDS Ot 414.9 CHR ISCHEMIC HRT DIS NOS 08/20/2016 SINDY GARCIA FACC, ALI FACP CCDS Ot 416.8 CHR PULMON HEART DIS NEC 08/20/2016 SINDY GARCIA FACC, ALI FACP CCDS Ot 427.81 SINOATRIAL NODE DYSFUNCT 08/20/2016 SINDY GARCIA FACC, ALI FACP CCDS Ot 433.10 CAROTID ARTERY OCCLUSION W O CEREBRAL IN 08/20/2016 SINDY GARCIA FACC, ALI FACP CCDS Ot 585.9 CHRONIC KIDNEY DISEASE, UNSPECIFIED 08/20/2016 AMAIRANI GARCIA, MARCEL S Ot 268.9 VITAMIN D DEFICIENCY NOS 08/20/2016 AMAIRANI GARCIA, MARCEL S Ot 276.3 ALKALOSIS 08/20/2016 AMAIRANI GARCIA, MARCEL S Ot 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 08/20/2016 AMAIRANI GARCIA, MARCEL S Ot 403.90 HYPTNSV CHR KID DIS, UNSPEC, W CHR KD ST 08/20/2016 AMAIRANI GARCIA, MARCEL S Ot 585.4 CHRONIC KIDNEY DISEASE, STAGE IV (SEVERE 08/20/2016 AMAIRANI GARCIA, MARCEL S Ot 588.0 RENAL OSTEODYSTROPHY 08/20/2016 AMAIRANI GARCIA, MARCEL S Ot 599.0 URIN TRACT INFECTION NOS 08/20/2016 AMAIRANI GARCIA, MARCEL S Ot 791.0 PROTEINURIA 08/20/2016 AMAIRANI GARCIA, MARCEL S Ot 268.9 08/20/2016 AMAIRANI GARCIA, MARCEL S Ot 276.3 08/20/2016 AMAIRANI GARCIA, KELECHIMED S Ot 285.21 08/20/2016 AMAIRANI GARCIA, KELECHIMED S Ot 403.90 08/20/2016 AMAIRANI GARCIA, KELECHIMED S Ot 585.4 08/20/2016 AMAIRANI GARCIA, KELECHIMED S Ot 588.0 08/20/2016 AMAIRANI GARCIA, KELECHIMED S Ot 599.0 08/20/2016 AMAIRANI GARCIA, KELECHIMED S Ot 791.0 08/20/2016 AMAIRANI GARCIA, KELECHIMED S Ot D63.1 ANEMIA IN CHRONIC KIDNEY DISEASE 08/20/2016 AMAIRANI GARCIA, MARCEL S Ot E55.9 VITAMIN D DEFICIENCY, UNSPECIFIED 08/20/2016 AMAIRANI GARCIA, MARCEL S Ot I12.9 HYPERTENSIVE CHRONIC KIDNEY DISEASE W ST 08/20/2016 AMAIRANI GARCIA, MARCEL S Ot N18.3 CHRONIC KIDNEY DISEASE, STAGE 3 (MODERAT 08/20/2016 MARCEL BALES MD S Ot N18.4 CHRONIC KIDNEY DISEASE, STAGE 4 (SEVERE) 08/20/2016 MARCEL BALES MD S Ot N25.0 RENAL OSTEODYSTROPHY 08/20/2016 MARCEL BALES MD Ot N39.0 URINARY TRACT INFECTION, SITE NOT SPECIF 08/20/2016 MARCEL BALES MD Ot R80.9 PROTEINURIA, UNSPECIFIED 08/20/2016 MARCEL BALES MD Ot D50.9 IRON DEFICIENCY ANEMIA, UNSPECIFIED 08/20/2016 MARCEL BALES MD Ot D63.1 ANEMIA IN CHRONIC KIDNEY DISEASE 08/20/2016 MARCEL BALES MD S Ot N18.4 CHRONIC KIDNEY DISEASE, STAGE 4 (SEVERE) 08/20/2016 MARCEL BALES MD Ot 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 08/20/2016 MARCEL BALES MD Ot D50.9 IRON DEFICIENCY ANEMIA, UNSPECIFIED 08/20/2016 MARCEL BALES MD Ot D63.1 ANEMIA IN CHRONIC KIDNEY DISEASE 08/20/2016 MARCEL BALES MD Ot E55.9 VITAMIN D DEFICIENCY, UNSPECIFIED 08/20/2016 MARCEL BALES MD S Ot E78.5 HYPERLIPIDEMIA, UNSPECIFIED 08/20/2016 AMAIRANI GARCIA, MARCEL S Ot E87.3 ALKALOSIS 08/20/2016 MARCEL BALES MD S Ot I12.9 HYPERTENSIVE CHRONIC KIDNEY DISEASE W ST 08/20/2016 MARCEL BALES MD S Ot I25.10 ATHSCL HEART DISEASE OF [place] CORONARY 08/20/2016 AMAIRANI GARCIA, MARCEL S Ot I50.9 HEART FAILURE, UNSPECIFIED 08/20/2016 AMAIRANI GARCIA, MARCEL Gonsalez Ot N18.4 CHRONIC KIDNEY DISEASE, STAGE 4 (SEVERE) 08/20/2016 MARCEL BALES MD Ot N25.0 RENAL OSTEODYSTROPHY 08/20/2016 MARCEL BALES MD S Ot R80.9 PROTEINURIA, UNSPECIFIED 08/20/2016 GELLENDER DOINGRID Ot D64.9 ANEMIA, UNSPECIFIED 08/20/2016 GELLENDER DO, INGRID Clement Ot D64.9 ANEMIA, UNSPECIFIED 08/25/2016 INGRID NICOLE DO Ot D64.9 ANEMIA, UNSPECIFIED 08/29/2016 Ot 585.9 CHRONIC KIDNEY DISEASE, UNSPECIFIED 08/29/2016 Ot V58.69 OTH MED,LT, CURRENT USE 08/29/2016 Ot 593.9 RENAL URETERAL DIS NOS 08/29/2016 Ot 599.0 URIN TRACT INFECTION NOS 08/29/2016 Ot 280.9 IRON DEFIC ANEMIA NOS 08/29/2016 Ot 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 08/29/2016 Ot 585.4 CHRONIC KIDNEY DISEASE, STAGE IV (SEVERE 08/29/2016 Ot 280.9 IRON DEFIC ANEMIA NOS 08/29/2016 Ot 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 08/29/2016 Ot 585.4 CHRONIC KIDNEY DISEASE, STAGE IV (SEVERE 08/29/2016 AMAIRANI GARCIA, AHMED S Ot 268.9 08/29/2016 AMAIRANI GARCIA, AHMED S Ot 276.3 08/29/2016 AMAIRANI GARCIA, AHMED S Ot 285.21 08/29/2016 AMAIRANI GARCIA, AHMED S Ot 403.90 08/29/2016 AMAIRANI GARCIA, AHMED S Ot 585.4 08/29/2016 AMAIRANI GARCIA, AHMED S Ot 588.0 08/29/2016 AMAIRANI GARCIA, AHMED S Ot 599.0 08/29/2016 AMAIRANI GARCIA, AHMED S Ot 791.0 08/29/2016 AMAIRANI GARCIA, AHMED S Ot D50.9 IRON DEFICIENCY ANEMIA, UNSPECIFIED 08/29/2016 AMAIRANI GARCIA, AHMED S Ot D63.1 ANEMIA IN CHRONIC KIDNEY DISEASE 08/29/2016 AMAIRANI GARCIA, AHMED S Ot N18.4 CHRONIC KIDNEY DISEASE, STAGE 4 (SEVERE) 08/29/2016 AMAIRANI GARCIA, AHMED S Ot Z79.899 OTHER ALF (CURRENT) DRUG THERAPY 08/29/2016 Ot 585.9 CHRONIC KIDNEY DISEASE, UNSPECIFIED 08/29/2016 Ot V58.69 OTH MED,LT, CURRENT USE 08/29/2016 Ot 593.9 RENAL URETERAL DIS NOS 08/29/2016 Ot 599.0 URIN TRACT INFECTION NOS 08/29/2016 Ot 280.9 IRON DEFIC ANEMIA NOS 08/29/2016 Ot 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 08/29/2016 Ot 585.4 CHRONIC KIDNEY DISEASE, STAGE IV (SEVERE 08/29/2016 Ot 280.9 IRON DEFIC ANEMIA NOS 08/29/2016 Ot 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 08/29/2016 Ot 585.4 CHRONIC KIDNEY DISEASE, STAGE IV (SEVERE 08/29/2016 AMAIRANI GARCIA, KELECHIMED S Ot 268.9 08/29/2016 AMAIRANI GARCIA, AHMED S Ot 276.3 08/29/2016 AMAIRANI GARCIA, AHMED S Ot 285.21 08/29/2016 AMAIRANI GARCIA, MED S Ot 403.90 08/29/2016 AMAIRANI GARCIA, MED S Ot 585.4 08/29/2016 AMAIRANI GARCIA, MED S Ot 588.0 08/29/2016 AMAIRANI GARCIA, MED S Ot 599.0 08/29/2016 AMAIRANI GARCIA, MED S Ot 791.0 08/29/2016 AMAIRANI GARCIA, MED S Ot D50.9 IRON DEFICIENCY ANEMIA, UNSPECIFIED 08/29/2016 AMAIRANI GARCIA, MED S Ot D63.1 ANEMIA IN CHRONIC KIDNEY DISEASE 08/29/2016 AMAIRANI GARCIA, MED S Ot N18.4 CHRONIC KIDNEY DISEASE, STAGE 4 (SEVERE) 08/29/2016 AMAIRANI GARCIA, MED S Ot 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 09/01/2016 INGRID NICOLE DO Ot A41.9 SEPSIS, UNSPECIFIED ORGANISM 09/01/2016 INGRID NICOLE DO Ot B95.2 ENTEROCOCCUS THE CAUSE OF DISEASES CL 09/01/2016 INGRID NICOLE DO Ot D64.9 ANEMIA, UNSPECIFIED 09/01/2016 INGRID NICOLE DO Ot G20 PARKINSON'S DISEASE 09/01/2016 INGRID NICOLE DO Ot I12.9 HYPERTENSIVE CHRONIC KIDNEY DISEASE W ST 09/01/2016 INGRID NICOLE DO Ot M19.91 PRIMARY OSTEOARTHRITIS, UNSPECIFIED SITE 09/01/2016 INGRID NICOLE DO Ot M54.2 CERVICALGIA 09/01/2016 GELLENDER DO, INGRID Clement Ot N18.4 CHRONIC KIDNEY DISEASE, STAGE 4 (SEVERE) 09/01/2016 GELLENDER DO, INGRID Clement Ot N30.00 ACUTE CYSTITIS WITHOUT HEMATURIA 09/01/2016 GELLENDER DO, INGRID Clement Ot R45.1 RESTLESSNESS AND AGITATION 09/01/2016 GELLENDER DO, INGRID Clement Ot R63.0 ANOREXIA 09/01/2016 GELLENDER DO, INGRID Clement Ot Z91.81 HISTORY OF FALLING 09/05/2016 GELLENDER DO, INGRID Clement Ot A41.81 SEPSIS DUE TO ENTEROCOCCUS 09/05/2016 GELLENDER DO, INGRID Clement Ot A41.9 SEPSIS, UNSPECIFIED ORGANISM 09/05/2016 GELLENDER DO, INGRID Clement Ot B35.1 TINEA UNGUIUM 09/05/2016 GELLENDER DO, INGRID Clement Ot B95.2 ENTEROCOCCUS THE CAUSE OF DISEASES CL 09/05/2016 GELLENDER DO, INGRID Clement Ot D64.9 ANEMIA, UNSPECIFIED 09/05/2016 GELLENDER DO, INGRID Clement Ot G20 PARKINSON'S DISEASE 09/05/2016 GELLENDER DO, INGRID Clement Ot G62.9 POLYNEUROPATHY, UNSPECIFIED 09/05/2016 GELLENDER DO, INGRID Clement Ot I12.9 HYPERTENSIVE CHRONIC KIDNEY DISEASE W ST 09/05/2016 GELLENDER DO, INGRID Clement Ot 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, U 09/05/2016 GELLENDER DO, INGRID Clement Ot M17.0 BILATERAL PRIMARY OSTEOARTHRITIS OF KNEE 09/05/2016 GELLENDER DO, INGRID Clement Ot M19.91 PRIMARY OSTEOARTHRITIS, UNSPECIFIED SITE 09/05/2016 GELLENDER DO, INGRID Clement Ot M20.41 OTHER HAMMER TOE(S) (ACQUIRED), RIGHT FO 09/05/2016 GELLENDER DO, INGRID Clement Ot M20.42 OTHER HAMMER TOE(S) (ACQUIRED), LEFT MAURICIO 09/05/2016 GELLENDER DO, INGRID Clement Ot M54.2 CERVICALGIA 09/05/2016 GELLENDER DO, INGRID Clement Ot N18.4 CHRONIC KIDNEY DISEASE, STAGE 4 (SEVERE) 09/05/2016 GELLENDER DO, INGRID Clement Ot N30.00 ACUTE CYSTITIS WITHOUT HEMATURIA 09/05/2016 GELLENDER DO, INGRID Clement Ot R45.1 RESTLESSNESS AND AGITATION 09/05/2016 GELLENDER DO, INGRID A Ot R63.0 ANOREXIA 09/05/2016 GELINGRID MAYEN DO Ot Z91.81 HISTORY OF FALLING 09/11/2016 MIKEL ROJO MD Ot D64.9 ANEMIA, UNSPECIFIED 09/11/2016 MIKEL ROJO MD E Ot G20 PARKINSON'S DISEASE 09/11/2016 MIKEL ROJO MD E Ot I12.9 HYPERTENSIVE CHRONIC KIDNEY DISEASE W ST 09/11/2016 MIKEL ROJO MD E Ot I25.10 ATHSCL HEART DISEASE OF [place] CORONARY 09/11/2016 MIKEL ROJO MD E Ot M17.0 BILATERAL PRIMARY OSTEOARTHRITIS OF KNEE 09/11/2016 MIKEL ROJO MD E Ot M19.041 PRIMARY OSTEOARTHRITIS, RIGHT HAND 09/11/2016 MIKEL ROJO MD Ot M19.042 PRIMARY OSTEOARTHRITIS, LEFT HAND 09/11/2016 JEREMY ROJO MDIC E Ot N18.4 CHRONIC KIDNEY DISEASE, STAGE 4 (SEVERE) 09/11/2016 MIKEL ROJO MD E Ot R26.2 DIFFICULTY IN WALKING, NOT ELSEWHERE CLA 09/11/2016 JEREMY ROJO MDIC E Ot R41.3 OTHER AMNESIA 09/11/2016 MIKEL ROJO MD E Ot R45.1 RESTLESSNESS AND AGITATION 09/11/2016 MIKEL ROJO MD E Ot R53.1 WEAKNESS 09/11/2016 MIKEL ROJO MD E Ot R60.0 LOCALIZED EDEMA 09/11/2016 MIKEL ROJO MD E Ot Z86.19 PERSONAL HISTORY OF OTHER INFECTIOUS AND 09/11/2016 MIKEL ROJO MD E Ot Z87.440 PERSONAL HISTORY OF URINARY (TRACT) INFE 09/15/2016 GELLENDER DO, INGRID A Ot D64.9 ANEMIA, UNSPECIFIED 09/18/2016 GELLENDER DO, INGRID A Ot D64.9 ANEMIA, UNSPECIFIED 10/31/2016 LYDIA GARCIA, YAMILEX Ko Ot D50.9 IRON DEFICIENCY ANEMIA, UNSPECIFIED 10/31/2016 LYDIA GARCIA, YAMILEX Ko Ot Z01.818 ENCOUNTER FOR OTHER PREPROCEDURAL EXAMIN 10/31/2016 LYDIA GARCIA, YAMILEX Ko Ot Z86.010 PERSONAL HISTORY OF COLONIC POLYPS 12/12/2016 DALTON IGNACIO Ot D64.9 ANEMIA, UNSPECIFIED 12/12/2016 MATEUS, BOBAN N Ot E78.5 HYPERLIPIDEMIA, UNSPECIFIED 12/12/2016 MATEUS, BOBAN N Ot I12.9 HYPERTENSIVE CHRONIC KIDNEY DISEASE W ST 12/12/2016 MATEUS, BOBAN N Ot I25.10 ATHSCL HEART DISEASE OF [place] CORONARY 12/12/2016 MATEUS, BOBAN N Ot I27.2 OTHER SECONDARY PULMONARY HYPERTENSION 12/12/2016 MATEUS, BOBAN N Ot N18.4 CHRONIC KIDNEY DISEASE, STAGE 4 (SEVERE) 12/12/2016 MATEUS, BOBAN N Ot 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 12/24/2016 MATEUS, BOBAN N Ot D64.9 ANEMIA, UNSPECIFIED 12/24/2016 MATEUS, BOBAN N Ot E78.5 HYPERLIPIDEMIA, UNSPECIFIED 12/24/2016 MATEUS, BOBAN N Ot I12.9 HYPERTENSIVE CHRONIC KIDNEY DISEASE W ST 12/24/2016 AMTEUS, BOBAN N Ot I25.10 ATHSCL HEART DISEASE OF [place] CORONARY 12/24/2016 MATEUS, BOBAN N Ot I27.2 OTHER SECONDARY PULMONARY HYPERTENSION 12/24/2016 MATEUS, BOBAN N Ot N18.4 CHRONIC KIDNEY DISEASE, STAGE 4 (SEVERE) 12/24/2016 MATEUS, BOBAN N Ot 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 12/25/2016 MATEUS, BOBAN N Ot D64.9 ANEMIA, UNSPECIFIED 12/25/2016 MATEUS, BOBAN N Ot E78.5 HYPERLIPIDEMIA, UNSPECIFIED 12/25/2016 MATEUS, BOBAN N Ot I12.9 HYPERTENSIVE CHRONIC KIDNEY DISEASE W ST 12/25/2016 MATEUS, BOBAN N Ot I25.10 ATHSCL HEART DISEASE OF [place] CORONARY 12/25/2016 MATEUS, BOBAN N Ot I27.2 OTHER SECONDARY PULMONARY HYPERTENSION 12/25/2016 MATEUS, BOBAN N Ot N18.4 CHRONIC KIDNEY DISEASE, STAGE 4 (SEVERE) 12/25/2016 MATEUS, BOBAN N Ot 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 01/01/2017 MATEUS, BOBAN N Ot D64.9 ANEMIA, UNSPECIFIED 01/01/2017 MATEUS, BOBAN N Ot E78.5 HYPERLIPIDEMIA, UNSPECIFIED 01/01/2017 MATEUS, BOBAN N Ot I12.9 HYPERTENSIVE CHRONIC KIDNEY DISEASE W ST 01/01/2017 MATEUS, DALTON N Ot I25.10 ATHSCL HEART DISEASE OF [place] CORONARY 01/01/2017 MATEUS, DALTON N Ot I27.2 OTHER SECONDARY PULMONARY HYPERTENSION 01/01/2017 MATEUS, DALTON N Ot N18.4 CHRONIC KIDNEY DISEASE, STAGE 4 (SEVERE) 01/01/2017 MATEUS, DALTON N Ot Z79.899 OTHER ALF (CURRENT) DRUG THERAPY 01/14/2017 GELLENDER DO, INGRID A Ot N28.9 DISORDER OF KIDNEY AND URETER, UNSPECIFI 01/14/2017 GELLENDER DO, INGRID A Ot N28.9 DISORDER OF KIDNEY AND URETER, UNSPECIFI 01/14/2017 GELLENDER DO, INGRID A Ot N28.9 DISORDER OF KIDNEY AND URETER, UNSPECIFI 01/14/2017 GELLENDER DO, INGRID A Ot N28.9 DISORDER OF KIDNEY AND URETER, UNSPECIFI 02/03/2017 GELLENDER DO, INGRID A Ot N28.9 DISORDER OF KIDNEY AND URETER, UNSPECIFI 02/17/2017 MATEUSDALTON N Ot D63.1 ANEMIA IN CHRONIC KIDNEY DISEASE 02/17/2017 MATEUSDALTON N Ot E78.5 HYPERLIPIDEMIA, UNSPECIFIED 02/17/2017 MATEUSDALTON N Ot I12.9 HYPERTENSIVE CHRONIC KIDNEY DISEASE W ST 02/17/2017 MATEUSDALTON N Ot I25.10 ATHSCL HEART DISEASE OF [place] CORONARY 02/17/2017 MATEUS, DALTON N Ot I27.2 OTHER SECONDARY PULMONARY HYPERTENSION 02/17/2017 MATUESDALTON N Ot N18.4 CHRONIC KIDNEY DISEASE, STAGE 4 (SEVERE) 02/17/2017 MATEUSDALTON N Ot 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 03/19/2017 MATEUS DALTON N Ot D63.1 ANEMIA IN CHRONIC KIDNEY DISEASE 03/19/2017 MATEUSDALTON N Ot E78.5 HYPERLIPIDEMIA, UNSPECIFIED 03/19/2017 MATEUSDALTON N Ot I12.9 HYPERTENSIVE CHRONIC KIDNEY DISEASE W ST 03/19/2017 MATEUSDALTON N Ot I25.10 ATHSCL HEART DISEASE OF [place] CORONARY 03/19/2017 MATEUSDALTON N Ot I27.2 OTHER SECONDARY PULMONARY HYPERTENSION 03/19/2017 MATEUSDALTON HASKINS N Ot N18.4 CHRONIC KIDNEY DISEASE, STAGE 4 (SEVERE) 03/19/2017 MATEUSDALTON N Ot 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 04/03/2017 GELLENDER DO, INGRID A Ot I10 ESSENTIAL (PRIMARY) HYPERTENSION 04/03/2017 GELLENDER DO, INGRID A Ot N28.9 DISORDER OF KIDNEY AND URETER, UNSPECIFI 04/03/2017 GELLENDER DO, INGRID A Ot R73.9 HYPERGLYCEMIA, UNSPECIFIED 05/15/2017 MATEUSDALTON N Ot D50.9 IRON DEFICIENCY ANEMIA, UNSPECIFIED 05/15/2017 MATEUS BOBLAWANDA N Ot D63.1 ANEMIA IN CHRONIC KIDNEY DISEASE 05/15/2017 MATEUSDALTON N Ot E78.5 HYPERLIPIDEMIA, UNSPECIFIED 05/15/2017 MATEUSDALTON N Ot I25.10 ATHSCL HEART DISEASE OF [place] CORONARY 05/15/2017 MATEUS, BOBLAWANDA N Ot I27.20 PULMONARY HYPERTENSION, UNSPECIFIED 05/15/2017 MATEUSDALTON HASKINS N Ot N18.4 CHRONIC KIDNEY DISEASE, STAGE 4 (SEVERE) 05/15/2017 MATEUSDALTON N Ot Z79.899 OTHER ALF (CURRENT) DRUG THERAPY 05/19/2017 GELLENDER DO, INGRID A Ot N28.9 DISORDER OF KIDNEY AND URETER, UNSPECIFI 06/16/2017 GELLENDER DO, INGRID A Ot N28.9 DISORDER OF KIDNEY AND URETER, UNSPECIFI 06/21/2017 DALTON IGNACIO N Ot D50.9 IRON DEFICIENCY ANEMIA, UNSPECIFIED 06/21/2017 MATEUSDALTON HASKINS N Ot D63.1 ANEMIA IN CHRONIC KIDNEY DISEASE 06/21/2017 MATEUSDALTON N Ot E78.5 HYPERLIPIDEMIA, UNSPECIFIED 06/21/2017 MATEUS BOBAN N Ot I25.10 ATHSCL HEART DISEASE OF [place] CORONARY 06/21/2017 MATEUSDALTON N Ot I27.20 PULMONARY HYPERTENSION, UNSPECIFIED 06/21/2017 MATEUSDALTON N Ot N18.4 CHRONIC KIDNEY DISEASE, STAGE 4 (SEVERE) 06/21/2017 MATEUSDALTON N Ot Z79.899 OTHER ALF (CURRENT) DRUG THERAPY 08/14/2017 MATEUSDALTON HASKINS N Ot D63.1 ANEMIA IN CHRONIC KIDNEY DISEASE 08/14/2017 MATEUSJULIANNA HASKINSAN N Ot E78.5 HYPERLIPIDEMIA, UNSPECIFIED 08/14/2017 MATEUS, BOBAN N Ot I12.9 HYPERTENSIVE CHRONIC KIDNEY DISEASE W ST 08/14/2017 MATEUS, BOBAN N Ot I25.10 ATHSCL HEART DISEASE OF [place] CORONARY 08/14/2017 MATEUS, BOBAN N Ot I27.20 PULMONARY HYPERTENSION, UNSPECIFIED 08/14/2017 MATEUS, BOBAN N Ot N18.4 CHRONIC KIDNEY DISEASE, STAGE 4 (SEVERE) 08/14/2017 MATEUS, BOBAN N Ot 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 08/16/2017 GELLENDER DO, INGRID A Ot N28.9 DISORDER OF KIDNEY AND URETER, UNSPECIFI 08/17/2017 GELLENDER DO, INGRID A Ot N28.9 DISORDER OF KIDNEY AND URETER, UNSPECIFI 10/05/2017 GELLENDER DO, INGRID A Ot N28.9 DISORDER OF KIDNEY AND URETER, UNSPECIFI 10/06/2017 MATEUS BOBAN N Ot D63.1 ANEMIA IN CHRONIC KIDNEY DISEASE 10/06/2017 MATEUS, BOBAN N Ot E78.5 HYPERLIPIDEMIA, UNSPECIFIED 10/06/2017 MATEUS, BOBAN N Ot I12.9 HYPERTENSIVE CHRONIC KIDNEY DISEASE W ST 10/06/2017 MATEUS, BOBAN N Ot I25.10 ATHSCL HEART DISEASE OF [place] CORONARY 10/06/2017 MATEUS, BOBAN N Ot I27.20 PULMONARY HYPERTENSION, UNSPECIFIED 10/06/2017 MATEUS, BOBAN N Ot N18.4 CHRONIC KIDNEY DISEASE, STAGE 4 (SEVERE) 10/06/2017 MATEUS BOBAN N Ot 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 10/07/2017 MATEUS, BOBAN N Ot D63.1 ANEMIA IN CHRONIC KIDNEY DISEASE 10/07/2017 MATEUS, BOBAN N Ot E78.5 HYPERLIPIDEMIA, UNSPECIFIED 10/07/2017 MATEUS, BOBAN N Ot I12.9 HYPERTENSIVE CHRONIC KIDNEY DISEASE W ST 10/07/2017 MATEUS, BOBAN N Ot I25.10 ATHSCL HEART DISEASE OF [place] CORONARY 10/07/2017 MATEUS, BOBAN N Ot I27.20 PULMONARY HYPERTENSION, UNSPECIFIED 10/07/2017 MATEUS, BOBAN N Ot N18.4 CHRONIC KIDNEY DISEASE, STAGE 4 (SEVERE) 10/07/2017 MATEUSDALTON N Ot Z79.899 OTHER ALF (CURRENT) DRUG THERAPY 10/26/2017 MATEUS, BOBLAWANDA N Ot D63.1 ANEMIA IN CHRONIC KIDNEY DISEASE 10/26/2017 MATEUS, BOBAN N Ot E78.5 HYPERLIPIDEMIA, UNSPECIFIED 10/26/2017 MATEUS, BOBAN N Ot I12.9 HYPERTENSIVE CHRONIC KIDNEY DISEASE W ST 10/26/2017 MATEUS, BOBAN N Ot I25.10 ATHSCL HEART DISEASE OF [place] CORONARY 10/26/2017 MATEUS, BOBAN N Ot I27.20 PULMONARY HYPERTENSION, UNSPECIFIED 10/26/2017 MATEUS, BOBAN N Ot N18.4 CHRONIC KIDNEY DISEASE, STAGE 4 (SEVERE) 10/26/2017 MATEUS, BOBAN N Ot 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 10/27/2017 MATEUS BOBLAWANDA N Ot D63.1 ANEMIA IN CHRONIC KIDNEY DISEASE 10/27/2017 MATEUS, BOBAN N Ot E78.5 HYPERLIPIDEMIA, UNSPECIFIED 10/27/2017 MATEUS, BOBAN N Ot I12.9 HYPERTENSIVE CHRONIC KIDNEY DISEASE W ST 10/27/2017 MATEUS, BOBAN N Ot I25.10 ATHSCL HEART DISEASE OF [place] CORONARY 10/27/2017 MATEUS, BOBAN N Ot I27.20 PULMONARY HYPERTENSION, UNSPECIFIED 10/27/2017 MATEUS, BOBAN N Ot N18.4 CHRONIC KIDNEY DISEASE, STAGE 4 (SEVERE) 10/27/2017 MATEUS, BOBAN N Ot Z79.899 OTHER ALF (CURRENT) DRUG THERAPY 11/18/2017 INGRID NICOLE DO Ot N28.9 DISORDER OF KIDNEY AND URETER, UNSPECIFI 12/07/2017 Ot 593.9 RENAL URETERAL DIS NOS 12/07/2017 Ot 599.0 URIN TRACT INFECTION NOS 12/07/2017 Ot 272.4 HYPERLIPIDEMIA NEC/NOS 12/07/2017 Ot 401.9 HYPERTENSION NOS 12/07/2017 Ot 414.01 CORONARY ATHEROSCLEROSIS OF [place] CORON 12/07/2017 Ot 280.9 IRON DEFIC ANEMIA NOS 12/07/2017 Ot 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 12/07/2017 Ot 585.4 CHRONIC KIDNEY DISEASE, STAGE IV (SEVERE 12/07/2017 Ot 414.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 NOS TYPE VESSEL, NATIV 12/07/2017 Ot 425.4 PRIM CARDIOMYOPATHY NEC 12/07/2017 Ot 280.9 IRON DEFIC ANEMIA NOS 12/07/2017 Ot 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 12/07/2017 Ot 585.4 CHRONIC KIDNEY DISEASE, STAGE IV (SEVERE 12/07/2017 Ot 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 12/07/2017 Ot 403.90 HYPTNSV CHR KID DIS, UNSPEC, W CHR KD ST 12/07/2017 Ot 585.4 CHRONIC KIDNEY DISEASE, STAGE IV (SEVERE 12/07/2017 Ot 588.0 RENAL OSTEODYSTROPHY 12/07/2017 Ot 599.0 URIN TRACT INFECTION NOS 12/07/2017 Ot 791.0 PROTEINURIA 12/07/2017 VEENA RUIZ MDETTE A Ot 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 12/07/2017 VEENA RUIZ MDETTE A Ot 403.90 HYPTNSV CHR KID DIS, UNSPEC, W CHR KD ST 12/07/2017 VEENA RUIZ MDETTE A Ot 585.3 CHRONIC KIDNEY DISEASE, STAGE III (MODER 12/07/2017 JOSEPH MD, ORACIO A Ot 588.0 RENAL OSTEODYSTROPHY 12/07/2017 VEENA RUIZ MDETTE A Ot 599.0 URIN TRACT INFECTION NOS 12/07/2017 VEENA RUIZ MDETTE A Ot 791.0 PROTEINURIA 12/07/2017 VEENA RUIZ MDETTE A Ot 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 12/07/2017 VEENA RUIZ MDETTE Urbano Ot 403.90 HYPTNSV CHR KID DIS, UNSPEC, W CHR KD ST 12/07/2017 TASNEEM RUIZ MDOINETTE A Ot 585.4 CHRONIC KIDNEY DISEASE, STAGE IV (SEVERE 12/07/2017 JOSEPH MD, ORACIO A Ot 588.0 RENAL OSTEODYSTROPHY 12/07/2017 JOSEPH GARCIA ORACIO A Ot 599.0 URIN TRACT INFECTION NOS 12/07/2017 JOSEPH GARCIA ORACIO A Ot 791.0 PROTEINURIA 12/07/2017 TASNEEM RUIZ MDOINETTE A Ot 268.9 VITAMIN D DEFICIENCY NOS 12/07/2017 TASNEEM RUIZ MDOINETTE A Ot 276.3 ALKALOSIS 12/07/2017 JOSEPH GARCIA ORACOI A Ot 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 12/07/2017 ORACIO RUIZ MD Ot 403.90 HYPTNSV CHR KID DIS, UNSPEC, W CHR KD ST 12/07/2017 ORACIO RUIZ MD Ot 585.3 CHRONIC KIDNEY DISEASE, STAGE III (MODER 12/07/2017 ORACIO RUIZ MD Ot 588.0 RENAL OSTEODYSTROPHY 12/07/2017 ORACIO RUIZ MD Ot 599.0 URIN TRACT INFECTION NOS 12/07/2017 ORACIO RUIZ MD Ot 791.0 PROTEINURIA 12/07/2017 GELLENDER DO, INGRID A Ot 593.9 RENAL URETERAL DIS NOS 12/07/2017 GELLENDER DO, INGRID A Ot 599.0 URIN TRACT INFECTION NOS 12/07/2017 AMAIRANI GARCIA, MARCEL S Ot 268.9 VITAMIN D DEFICIENCY NOS 12/07/2017 AMAIRANI GARCIA, KELECHIMED S Ot 276.3 ALKALOSIS 12/07/2017 AMAIRANI GARCIA, AHMED S Ot 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 12/07/2017 AMAIRANI GARCIA, AHMED S Ot 403.90 HYPTNSV CHR KID DIS, UNSPEC, W CHR KD ST 12/07/2017 AMAIRANI GARCIA, KELECHIMED S Ot 585.3 CHRONIC KIDNEY DISEASE, STAGE III (MODER 12/07/2017 AMAIRANI GARCIA, AHMED S Ot 588.0 RENAL OSTEODYSTROPHY 12/07/2017 AMAIRANI GARCIA, KELECHIMED S Ot 599.0 URIN TRACT INFECTION NOS 12/07/2017 AMAIRANI GARCIA, AHMED S Ot 791.0 PROTEINURIA 12/07/2017 ORACIO RUIZ MD Ot 268.9 VITAMIN D DEFICIENCY NOS 12/07/2017 ORACIO RUIZ MD Ot 276.3 ALKALOSIS 12/07/2017 ORACIO RUIZ MD A Ot 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 12/07/2017 ORACIO RUIZ MD A Ot 403.90 HYPTNSV CHR KID DIS, UNSPEC, W CHR KD ST 12/07/2017 ORACIO RUIZ MD Ot 585.4 CHRONIC KIDNEY DISEASE, STAGE IV (SEVERE 12/07/2017 TASNEEM RUIZ MDOINETTE A Ot 588.0 RENAL OSTEODYSTROPHY 12/07/2017 JOSEPH MD, ORACIO A Ot 599.0 URIN TRACT INFECTION NOS 12/07/2017 JOSEPH MD, ORACIO A Ot 791.0 PROTEINURIA 12/07/2017 JOSEPH , ORACIO A Ot 268.9 VITAMIN D DEFICIENCY NOS 12/07/2017 JOSEPH MD, ORACIO A Ot 276.3 ALKALOSIS 12/07/2017 JOSEPH MD, ORACIO A Ot 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 12/07/2017 JOSEPH , ORACIO A Ot 403.90 HYPTNSV CHR KID DIS, UNSPEC, W CHR KD ST 12/07/2017 JOSEPHORACIO LORENZ MD Ot 585.3 CHRONIC KIDNEY DISEASE, STAGE III (MODER 12/07/2017 JOSEPH MD, ORACIO A Ot 588.0 RENAL OSTEODYSTROPHY 12/07/2017 JOSEPH MD, ORACIO A Ot 599.0 URIN TRACT INFECTION NOS 12/07/2017 VEENA RUIZ MDETTE Urbano Ot 791.0 PROTEINURIA 12/07/2017 AMAIRANI GARCIA, MARCEL S Ot 268.9 VITAMIN D DEFICIENCY NOS 12/07/2017 AMAIRANI GARCIA, KELECHIMED S Ot 276.3 ALKALOSIS 12/07/2017 AMAIRANI GARCIA, AHMED S Ot 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 12/07/2017 AMAIRANI GARCIA, AHMED S Ot 403.90 HYPTNSV CHR KID DIS, UNSPEC, W CHR KD ST 12/07/2017 AMAIRANI GARCIA, AHMED S Ot 585.4 CHRONIC KIDNEY DISEASE, STAGE IV (SEVERE 12/07/2017 AMAIRANI GARCIA, AHMED S Ot 588.0 RENAL OSTEODYSTROPHY 12/07/2017 AMAIRANI GARCIA, AHMED S Ot 599.0 URIN TRACT INFECTION NOS 12/07/2017 AMAIRANI GARCIA, AHMED S Ot 791.0 PROTEINURIA 12/07/2017 Ot 433.10 CAROTID ARTERY OCCLUSION W O CEREBRAL IN 12/07/2017 Ot V72.63 PRE- PROCEDURAL LABORATORY EXAMINATION 12/07/2017 Ot V72.81 EXAM-PRE- OPERATIVE CARDIOVASCULAR 12/07/2017 Ot V72.83 EXAM PRE- OPERATIVE NEC 12/07/2017 Ot V74.8 SCREEN- BACTERIAL DIS NEC 12/07/2017 FLYNN GARCIA, CATRACHITO Clement Ot 591 HYDRONEPHROSIS 12/07/2017 GELLENDER DO, INGRID Clement Ot 285.9 ANEMIA NOS 12/07/2017 GELLENDER DO, INGRID Clement Ot 401.9 HYPERTENSION NOS 12/07/2017 GELLENDER DO, INGRID Clement Ot 593.9 RENAL URETERAL DIS NOS 12/07/2017 GELLENDER DO, INGRID Clement Ot 782.3 EDEMA 12/07/2017 CATRACHITO PRUETT MD Ot 591 HYDRONEPHROSIS 12/07/2017 FLYNN GARCIA, CATRACHITO Clement Ot 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 12/07/2017 FLYNN GARCIA, CATRACHITO Clement Ot 791.9 ABN URINE FINDINGS NEC 12/07/2017 CATRACHITO PRUETT MD Ot V72.63 PRE-PROCEDURAL LABORATORY EXAMINATION 12/07/2017 CATRACHITO PRUETT MD Ot V74.8 SCREEN-BACTERIAL DIS NEC 12/07/2017 SINDY GARCIA FACC, ALI FACP CCDS Ot 272.4 HYPERLIPIDEMIA NEC/NOS 12/07/2017 SINDY GARCIA FACC, ALI FACP CCDS Ot 414.9 CHR ISCHEMIC HRT DIS NOS 12/07/2017 SINDY GARCIA FACC, ALI FACP CCDS Ot 416.8 CHR PULMON HEART DIS NEC 12/07/2017 SINDY GARCIA FACC, ALI FACP CCDS Ot 427.81 SINOATRIAL NODE DYSFUNCT 12/07/2017 SINDY GARCIA FACC, ALI FACP CCDS Ot 433.10 CAROTID ARTERY OCCLUSION W O CEREBRAL IN 12/07/2017 SINDY GARCIA FACC, ALI FACP CCDS Ot 585.9 CHRONIC KIDNEY DISEASE, UNSPECIFIED 12/07/2017 AMAIRANI GARCIA, MARCEL S Ot 268.9 VITAMIN D DEFICIENCY NOS 12/07/2017 AMAIRANI GARCIA, MARCEL S Ot 276.3 ALKALOSIS 12/07/2017 AMAIRANI GARCIA, MARCEL S Ot 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 12/07/2017 AMAIRANI GARCIA, MARCEL S Ot 403.90 HYPTNSV CHR KID DIS, UNSPEC, W CHR KD ST 12/07/2017 AMAIRANI GARCIA, MARCEL S Ot 585.4 CHRONIC KIDNEY DISEASE, STAGE IV (SEVERE 12/07/2017 AMAIRANI GARCIA, KELECHIMED S Ot 588.0 RENAL OSTEODYSTROPHY 12/07/2017 AMAIRANI GARCIA, AHMED S Ot 599.0 URIN TRACT INFECTION NOS 12/07/2017 AMAIRANI GARCIA, AHMED S Ot 791.0 PROTEINURIA 12/07/2017 AMAIRANI GARCIA, AHMED S Ot 268.9 12/07/2017 AMAIRANI GARCIA, AHMED S Ot 276.3 12/07/2017 AMAIRANI GARCIA, AHMED S Ot 285.21 12/07/2017 AMAIRANI GARCIA, AHMED S Ot 403.90 12/07/2017 AMAIRANI GARCIA, AHMED S Ot 585.4 12/07/2017 AMAIRANI GARCIA, AHMED S Ot 588.0 12/07/2017 AMAIRANI GARCIA, AHMED S Ot 599.0 12/07/2017 AMAIRANI GARCIA, AHMED S Ot 791.0 12/07/2017 AMAIRANI GARCIA, AHMED S Ot D63.1 ANEMIA IN CHRONIC KIDNEY DISEASE 12/07/2017 AMAIRANI GARCIA, AHMED S Ot E55.9 VITAMIN D DEFICIENCY, UNSPECIFIED 12/07/2017 AMAIRANI GARCIA, AHMED S Ot I12.9 HYPERTENSIVE CHRONIC KIDNEY DISEASE W ST 12/07/2017 AMAIRANI GARCIA, AHMED S Ot N18.3 CHRONIC KIDNEY DISEASE, STAGE 3 (MODERAT 12/07/2017 AMAIRANI GARCIA, AHMED S Ot N18.4 CHRONIC KIDNEY DISEASE, STAGE 4 (SEVERE) 12/07/2017 AMAIRANI GARCIA, AHMED S Ot N25.0 RENAL OSTEODYSTROPHY 12/07/2017 AMAIRANI GARCIA, AHMED S Ot N39.0 URINARY TRACT INFECTION, SITE NOT SPECIF 12/07/2017 AMAIARNI GARCIA, AHMED S Ot R80.9 PROTEINURIA, UNSPECIFIED 12/07/2017 AMAIRANI GARCIA, AHMED S Ot D50.9 IRON DEFICIENCY ANEMIA, UNSPECIFIED 12/07/2017 AMAIRANI GARCAI, AHMED S Ot D63.1 ANEMIA IN CHRONIC KIDNEY DISEASE 12/07/2017 AMAIRANI GARCIA, MARCEL S Ot N18.4 CHRONIC KIDNEY DISEASE, STAGE 4 (SEVERE) 12/07/2017 AMAIRANI GARCIA, KELECHIMED S Ot 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 12/07/2017 AMAIRANI GARCIA, KELECHIMED S Ot D50.9 IRON DEFICIENCY ANEMIA, UNSPECIFIED 12/07/2017 AMAIRANI GARCIA, MARCEL S Ot D63.1 ANEMIA IN CHRONIC KIDNEY DISEASE 12/07/2017 AMAIRANI GARCIA, KELECHIMED S Ot E55.9 VITAMIN D DEFICIENCY, UNSPECIFIED 12/07/2017 AMAIRANI GARCIA, KELECHIMED S Ot E78.5 HYPERLIPIDEMIA, UNSPECIFIED 12/07/2017 AMAIRANI GARCIA, KELECHIMED S Ot E87.3 ALKALOSIS 12/07/2017 AMAIRANI GARCIA, MARCEL S Ot I12.9 HYPERTENSIVE CHRONIC KIDNEY DISEASE W ST 12/07/2017 AMAIRANI GARCIA, AHMED S Ot I25.10 ATHSCL HEART DISEASE OF [place] CORONARY 12/07/2017 AMAIRANI GARCIA, KELECHIMED S Ot I50.9 HEART FAILURE, UNSPECIFIED 12/07/2017 AMAIRANI GARCIA, MARCEL S Ot N18.4 CHRONIC KIDNEY DISEASE, STAGE 4 (SEVERE) 12/07/2017 AMAIRANI GARCIA, KELECHIMED S Ot N25.0 RENAL OSTEODYSTROPHY 12/07/2017 AMAIRANI GARCIA, KELECHIMED S Ot R80.9 PROTEINURIA, UNSPECIFIED 12/07/2017 GELLENDER DO, INGRID Clement Ot D64.9 ANEMIA, UNSPECIFIED 12/07/2017 GELLENDER DO, INGRID Clement Ot D64.9 ANEMIA, UNSPECIFIED 12/07/2017 LYDIA GARCIA, YAMILEX Ko Ot D50.9 IRON DEFICIENCY ANEMIA, UNSPECIFIED 12/07/2017 LYDIA GARCIA, YAMILEX Ko Ot Z01.818 ENCOUNTER FOR OTHER PREPROCEDURAL EXAMIN 12/07/2017 LYDIA GARCIA, YAMILEX Ko Ot Z86.010 PERSONAL HISTORY OF COLONIC POLYPS 12/07/2017 GELLENDER DO, INGRID Clement Ot N28.9 DISORDER OF KIDNEY AND URETER, UNSPECIFI 12/07/2017 GELLENDER DOINGRID Ot I10 ESSENTIAL (PRIMARY) HYPERTENSION 12/07/2017 GELLENDER DO, INGRID Clement Ot N28.9 DISORDER OF KIDNEY AND URETER, UNSPECIFI 12/07/2017 GELLENDER DO, INGRID Clement Ot R73.9 HYPERGLYCEMIA, UNSPECIFIED 12/07/2017 GELLENDER DO, INGRID Clement Ot N28.9 DISORDER OF KIDNEY AND URETER, UNSPECIFI 12/07/2017 DALTON IGNACIO Ot D63.1 ANEMIA IN CHRONIC KIDNEY DISEASE 12/07/2017 DALTON IGNACIO Ot E78.5 HYPERLIPIDEMIA, UNSPECIFIED 12/07/2017 DALTON IGNACIO Ot I12.9 HYPERTENSIVE CHRONIC KIDNEY DISEASE W ST 12/07/2017 DALTON IGNACIO Ot I25.10 ATHSCL HEART DISEASE OF [place] CORONARY 12/07/2017 DALTON IGNACIO Ot I27.20 PULMONARY HYPERTENSION, UNSPECIFIED 12/07/2017 DALTON IGNACIO Ot N18.4 CHRONIC KIDNEY DISEASE, STAGE 4 (SEVERE) 12/07/2017 DALTON IGNACIO Ot Z79.899 OTHER ALF (CURRENT) DRUG THERAPY 12/08/2017 GELLENDER DO, INGRID Clement Ot N28.9 DISORDER OF KIDNEY AND URETER, UNSPECIFI 12/10/2017 GELLENDER DO, INGRID Clement Ot N28.9 DISORDER OF KIDNEY AND URETER, UNSPECIFI 12/11/2017 DALTON IGNACIO Ot D63.1 ANEMIA IN CHRONIC KIDNEY DISEASE 12/11/2017 DALTON IGNACIO Ot E78.5 HYPERLIPIDEMIA, UNSPECIFIED 12/11/2017 DALTON IGNACIO N Ot I12.9 HYPERTENSIVE CHRONIC KIDNEY DISEASE W ST 12/11/2017 DALTON IGNACIO Ot I25.10 ATHSCL HEART DISEASE OF [place] CORONARY 12/11/2017 DALTON IGNACIO Ot I27.20 PULMONARY HYPERTENSION, UNSPECIFIED 12/11/2017 DALTON IGNACIO Ot N18.4 CHRONIC KIDNEY DISEASE, STAGE 4 (SEVERE) 12/11/2017 DALTON IGNACIO Ot 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 01/01/2018 GELLENDER INGRID MATEHWS Ot N28.9 DISORDER OF KIDNEY AND URETER, UNSPECIFI Procedures Code Description Performed By Performed On 60.29 OTH TRANSURETHRAL PROSTATECTOMY 04/30/2012 00.40 PROCEDURE ON SINGLE VESSEL 09/06/2014 38.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 09/06/2014 Results Test Result Range RED CELLS LEUKO REDUCED AS1 - 08/20/16 08:38 RED CELLS LEUKO REDUCED AS1 TRANSFUSED 08/20/16 0947 [facility] Blood type T Indirect antibody screen panel - 08/20/16 08:38 ABO+Rh group ABN NRG Transfusion band number [id number] NR Blood group antibody screen NEGATIVE NR Automated blood complete blood count (hemogram) panel - 08/22/16 08:44 Blood leukocytes automated count (number/volume) 6.1 10*3/uL 4.3-11.0 Blood erythrocytes automated count (number/volume) 2.65 10*6/uL 4.35-5.85 Venous blood hemoglobin measurement (mass/volume) 7.5 g/dL 13.3-17.7 Blood hematocrit (volume fraction) 25 % 40-54 Automated erythrocyte mean corpuscular volume 93 [foz_us] 80-99 Automated erythrocyte mean corpuscular hemoglobin (mass per erythrocyte) 28 pg 25-34 Automated erythrocyte mean corpuscular hemoglobin concentration measurement ( mass/volume) 31 g/dL 32-36 Automated erythrocyte distribution width ratio 15.6 % 10.0-14.5 Automated blood platelet count (count/volume) 325 10*3/uL 130-400 Automated blood platelet mean volume measurement 8.3 [foz_us] 7.4-10.4 Complete blood count (CBC) with automated white blood cell (WBC) differential - 08/29/16 12:59 Blood leukocytes automated count (number/volume) 11.7 10*3/uL 4.3-11.0 Blood erythrocytes automated count (number/volume) 3.01 10*6/uL 4.35-5.85 Venous blood hemoglobin measurement (mass/volume) 8.4 g/dL 13.3-17.7 Blood hematocrit (volume fraction) 27 % 40-54 Automated erythrocyte mean corpuscular volume 91 [foz_us] 80-99 Automated erythrocyte mean corpuscular hemoglobin (mass per erythrocyte) 28 pg 25-34 Automated erythrocyte mean corpuscular hemoglobin concentration measurement ( mass/volume) 31 g/dL 32-36 Automated erythrocyte distribution width ratio 15.3 % 10.0-14.5 Automated blood platelet count (count/volume) 350 10*3/uL 130-400 Automated blood platelet mean volume measurement 9.6 [foz_us] 7.4-10.4 Automated blood neutrophils/100 leukocytes 83 % 42-75 Automated blood lymphocytes/100 leukocytes 5 % 12-44 Blood monocytes/100 leukocytes 12 % 0-12 Automated blood eosinophils/100 leukocytes 0 % 0-10 Automated blood basophils/100 leukocytes 0 % 0-10 Blood neutrophils automated count (number/volume) 9.7 10*3 1.8-7.8 Blood lymphocytes automated count (number/volume) 0.6 10*3 1.0-4.0 Blood monocytes automated count (number/volume) 1.4 10*3 0.0-1.0 Automated eosinophil count 0.0 10*3/uL 0.0-0.3 Automated blood basophil count (count/volume) 0.0 10*3/uL 0.0-0.1 Blood lactic acid measurement (moles/volume) - 08/29/16 12:59 Blood lactic acid measurement (moles/volume) 2.34 mmol/L 0.50-2.00 Comprehensive metabolic panel - 08/29/16 12:59 Serum or plasma sodium measurement (moles/volume) 140 mmol/L 135-145 Serum or plasma potassium measurement (moles/volume) 4.6 mmol/L 3.6-5.0 Serum or plasma chloride measurement (moles/volume) 104 mmol/L 98-107 Carbon dioxide 25 mmol/L 21-32 Serum or plasma anion gap determination (moles/volume) 11 mmol/L 5-14 Serum or plasma urea nitrogen measurement (mass/volume) 45 mg/dL 7-18 Serum or plasma creatinine measurement (mass/volume) 2.39 mg/dL 0.60-1.30 Serum or plasma urea nitrogen/creatinine mass ratio 19 NRG Serum or plasma creatinine measurement with calculation of estimated glomerular filtration rate 26 NRG Serum or plasma glucose measurement (mass/volume) 144 mg/dL 70-105 Serum or plasma calcium measurement (mass/volume) 9.3 mg/dL 8.5-10.1 Serum or plasma total bilirubin measurement (mass/volume) 0.4 mg/dL 0.1-1.0 Serum or plasma alkaline phosphatase measurement (enzymatic activity/volume) 55 U/L 40-136 Serum or plasma aspartate aminotransferase measurement (enzymatic activity/ volume) 18 U/L 5-34 Serum or plasma alanine aminotransferase measurement (enzymatic activity/volume ) < U/L 0-55 Serum or plasma protein measurement (mass/volume) 7.6 g/dL 6.4-8.2 Serum or plasma albumin measurement (mass/volume) 3.6 g/dL 3.2-4.5 Magnesium - 08/29/16 12:59 Magnesium 2.0 mg/dL 1.8-2.4 Serum or plasma C reactive protein measurement (mass/volume) - 08/29/16 12:59 Serum or plasma C reactive protein measurement (mass/volume) 19.83 mg/dL 0.00-0.50 Serum or plasma troponin i.cardiac measurement (mass/volume) - 08/29/16 12:59 Serum or plasma troponin i.cardiac measurement (mass/volume) < ng/ mL <0.30 Serum or plasma C reactive protein measurement (mass/volume) - 08/29/16 12:59 Serum or plasma C reactive protein measurement (mass/volume) 19.83 mg/dL 0.00-0.50 Serum or plasma lithium measurement (moles/volume) - 08/29/16 12:59 BNP level 199.1 pg/mL <100.0 Blood manual differential performed detection - 08/29/16 12:59 Blood monocytes/100 leukocytes 8 % NRG Manual blood segmented neutrophils/100 leukocytes 85 % NRG Manual blood lymphocytes/100 leukocytes 7 % NRG Blood ovalocytes detection by light microscopy SLIGHT NRG Blood hypochromia detection by light microscopy MODERATE NRG Blood hypersegmented neutrophils detection by light microscopy SLIGHT NRG RED CELLS LEUKO REDUCED AS1 - 08/29/16 12:59 RED CELLS LEUKO REDUCED AS1 TRANSFUSED 08/30/16 2138 NR [id number] - 08/29/16 12:59 [id number] SPECIMEN AVAILABLE NR Blood type T Indirect antibody screen panel - 08/29/16 12:59 ABO+Rh group ABN NRG Transfusion band number [id number] NR Blood group antibody screen NEGATIVE NRG Bacterial blood culture - 08/29/16 13:05 Bacterial blood culture NG NRG Bacterial blood culture - 08/29/16 13:38 Bacterial blood culture NG NRG Complete urinalysis with reflex to culture - 08/29/16 14:20 Urine color determination YELLOW NRG Urine clarity determination CLEAR NRG Urine pH measurement by test strip 5 5-9 Specific gravity of urine by test strip 1.010 1.016- 1.022 Urine protein assay by test strip, semi-quantitative 2+ NEGATIVE Urine glucose detection by automated test strip NEGATIVE NEGATIVE Erythrocytes detection in urine sediment by light microscopy 2+ NEGATIVE Urine ketones detection by automated test strip NEGATIVE NEGATIVE Urine nitrite detection by test strip NEGATIVE NEGATIVE Urine total bilirubin detection by test strip NEGATIVE NEGATIVE Urine urobilinogen measurement by automated test strip (mass/volume) NORMAL NORMAL Urine leukocyte esterase detection by dipstick 3+ NEGATIVE Automated urine sediment erythrocyte count by microscopy (number/high power field) [HPF] NRG Automated urine sediment leukocyte count by microscopy (number/high power field ) [HPF] NRG Bacteria detection in urine sediment by light microscopy TRACE NRG Squamous epithelial cells detection in urine sediment by light microscopy RARE NRG Crystals detection in urine sediment by light microscopy NONE NRG Casts detection in urine sediment by light microscopy NONE NRG Mucus detection in urine sediment by light microscopy NEGATIVE NRG Complete urinalysis with reflex to culture YES NRG Bacterial urine culture - 08/29/16 14:20 Bacterial urine culture [id number] NRG COLONY COUNT >100,000/ML NRG FTX;REPORTABLE SENSITIVITY REPORTED AT 0825, 3-06-07 NRG URINE CULTURE RESULTS PLUS NRG Bacterial susceptibility panel - 08/29/16 14:20 Gentamicin susceptibility test by minimum inhibitory concentration S NRG Vancomycin susceptibility test by minimum inhibitory concentration 1 NRG Levofloxacin susceptibility test by minimum inhibitory concentration 1 NRG Tetracycline susceptibility test by minimum inhibitory concentration <= NRG Ampicillin susceptibility test by minimum inhibitory concentration < = NRG Nitrofurantoin susceptibility test by minimum inhibitory concentration <= NRG Linezolid susceptibility test by minimum inhibitory concentration 2 NRG Serum or plasma lactate measurement (moles/volume) - 08/29/16 14:54 Serum or plasma lactate measurement (moles/volume) 0.77 mmol/L 0.50-2.00 Complete blood count (CBC) with automated white blood cell (WBC) differential - 08/30/16 09:35 Blood leukocytes automated count (number/volume) 11.0 10*3/uL 4.3-11.0 Blood erythrocytes automated count (number/volume) 2.85 10*6/uL 4.35-5.85 Venous blood hemoglobin measurement (mass/volume) 8.0 g/dL 13.3-17.7 Blood hematocrit (volume fraction) 25 % 40-54 Automated erythrocyte mean corpuscular volume 89 [foz_us] 80-99 Automated erythrocyte mean corpuscular hemoglobin (mass per erythrocyte) 28 pg 25-34 Automated erythrocyte mean corpuscular hemoglobin concentration measurement ( mass/volume) 32 g/dL 32-36 Automated erythrocyte distribution width ratio 15.1 % 10.0-14.5 Automated blood platelet count (count/volume) 308 10*3/uL 130-400 Automated blood platelet mean volume measurement 9.5 [foz_us] 7.4-10.4 Automated blood neutrophils/100 leukocytes 82 % 42-75 Automated blood lymphocytes/100 leukocytes 6 % 12-44 Blood monocytes/100 leukocytes 12 % 0-12 Automated blood eosinophils/100 leukocytes 0 % 0-10 Automated blood basophils/100 leukocytes 0 % 0-10 Blood neutrophils automated count (number/volume) 9.0 10*3 1.8-7.8 Blood lymphocytes automated count (number/volume) 0.6 10*3 1.0-4.0 Blood monocytes automated count (number/volume) 1.3 10*3 0.0-1.0 Automated eosinophil count 0.0 10*3/uL 0.0-0.3 Automated blood basophil count (count/volume) 0.0 10*3/uL 0.0-0.1 Comprehensive metabolic panel - 08/30/16 09:35 Serum or plasma sodium measurement (moles/volume) 140 mmol/L 135-145 Serum or plasma potassium measurement (moles/volume) 4.5 mmol/L 3.6-5.0 Serum or plasma chloride measurement (moles/volume) 105 mmol/L 98-107 Carbon dioxide 24 mmol/L 21-32 Serum or plasma anion gap determination (moles/volume) 11 mmol/L 5-14 Serum or plasma urea nitrogen measurement (mass/volume) 41 mg/dL 7-18 Serum or plasma creatinine measurement (mass/volume) 2.14 mg/dL 0.60-1.30 Serum or plasma urea nitrogen/creatinine mass ratio 19 NRG Serum or plasma creatinine measurement with calculation of estimated glomerular filtration rate 29 NRG Serum or plasma glucose measurement (mass/volume) 146 mg/dL 70-105 Serum or plasma calcium measurement (mass/volume) 8.9 mg/dL 8.5-10.1 Serum or plasma total bilirubin measurement (mass/volume) 0.4 mg/dL 0.1-1.0 Serum or plasma alkaline phosphatase measurement (enzymatic activity/volume) 52 U/L 40-136 Serum or plasma aspartate aminotransferase measurement (enzymatic activity/ volume) 20 U/L 5-34 Serum or plasma alanine aminotransferase measurement (enzymatic activity/volume ) 6 U/L 0-55 Serum or plasma protein measurement (mass/volume) 6.4 g/dL 6.4-8.2 Serum or plasma albumin measurement (mass/volume) 3.0 g/dL 3.2-4.5 Serum or plasma lithium measurement (moles/volume) - 08/30/16 09:35 BNP level 892.0 pg/mL <100.0 Whole blood hemoglobin and hematocrit panel - 08/30/16 15:50 Venous blood hemoglobin measurement (mass/volume) 6.7 g/dL 13.3-17.7 Blood hematocrit (volume fraction) 22 % 40-54 Complete blood count (CBC) with automated white blood cell (WBC) differential - 08/31/16 05:30 Blood leukocytes automated count (number/volume) 7.2 10*3/uL 4.3-11.0 Blood erythrocytes automated count (number/volume) 3.10 10*6/uL 4.35-5.85 Venous blood hemoglobin measurement (mass/volume) 8.5 g/dL 13.3-17.7 Blood hematocrit (volume fraction) 27 % 40-54 Automated erythrocyte mean corpuscular volume 88 [foz_us] 80-99 Automated erythrocyte mean corpuscular hemoglobin (mass per erythrocyte) 27 pg 25-34 Automated erythrocyte mean corpuscular hemoglobin concentration measurement ( mass/volume) 31 g/dL 32-36 Automated erythrocyte distribution width ratio 15.4 % 10.0-14.5 Automated blood platelet count (count/volume) 273 10*3/uL 130-400 Automated blood platelet mean volume measurement 9.2 [foz_us] 7.4-10.4 Automated blood neutrophils/100 leukocytes 72 % 42-75 Automated blood lymphocytes/100 leukocytes 13 % 12-44 Blood monocytes/100 leukocytes 14 % 0-12 Automated blood eosinophils/100 leukocytes 0 % 0-10 Automated blood basophils/100 leukocytes 0 % 0-10 Blood neutrophils automated count (number/volume) 5.2 10*3 1.8-7.8 Blood lymphocytes automated count (number/volume) 1.0 10*3 1.0-4.0 Blood monocytes automated count (number/volume) 1.0 10*3 0.0-1.0 Automated eosinophil count 0.0 10*3/uL 0.0-0.3 Automated blood basophil count (count/volume) 0.0 10*3/uL 0.0-0.1 Comprehensive metabolic panel - 08/31/16 05:30 Serum or plasma sodium measurement (moles/volume) 141 mmol/L 135-145 Serum or plasma potassium measurement (moles/volume) 4.1 mmol/L 3.6-5.0 Serum or plasma chloride measurement (moles/volume) 107 mmol/L 98-107 Carbon dioxide 24 mmol/L 21-32 Serum or plasma anion gap determination (moles/volume) 10 mmol/L 5-14 Serum or plasma urea nitrogen measurement (mass/volume) 42 mg/dL 7-18 Serum or plasma creatinine measurement (mass/volume) 2.11 mg/dL 0.60-1.30 Serum or plasma urea nitrogen/creatinine mass ratio 20 NRG Serum or plasma creatinine measurement with calculation of estimated glomerular filtration rate 30 NRG Serum or plasma glucose measurement (mass/volume) 107 mg/dL 70-105 Serum or plasma calcium measurement (mass/volume) 8.2 mg/dL 8.5-10.1 Serum or plasma total bilirubin measurement (mass/volume) 0.6 mg/dL 0.1-1.0 Serum or plasma alkaline phosphatase measurement (enzymatic activity/volume) 45 U/L 40-136 Serum or plasma aspartate aminotransferase measurement (enzymatic activity/ volume) 20 U/L 5-34 Serum or plasma alanine aminotransferase measurement (enzymatic activity/volume ) < U/L 0-55 Serum or plasma protein measurement (mass/volume) 5.7 g/dL 6.4-8.2 Serum or plasma albumin measurement (mass/volume) 2.6 g/dL 3.2-4.5 Complete urinalysis with reflex to culture - 09/01/16 13:00 Urine color determination YELLOW NRG Urine clarity determination CLEAR NRG Urine pH measurement by test strip 6.5 5-9 Specific gravity of urine by test strip 1.010 1.016- 1.022 Urine protein assay by test strip, semi-quantitative 2+ NEGATIVE Urine glucose detection by automated test strip NEGATIVE NEGATIVE Erythrocytes detection in urine sediment by light microscopy 2+ NEGATIVE Urine ketones detection by automated test strip NEGATIVE NEGATIVE Urine nitrite detection by test strip NEGATIVE NEGATIVE Urine total bilirubin detection by test strip NEGATIVE NEGATIVE Urine urobilinogen measurement by automated test strip (mass/volume) NORMAL NORMAL Urine leukocyte esterase detection by dipstick 3+ NEGATIVE Automated urine sediment erythrocyte count by microscopy (number/high power field) [HPF] NRG Automated urine sediment leukocyte count by microscopy (number/high power field ) > [HPF] NRG Bacteria detection in urine sediment by light microscopy TRACE NRG Squamous epithelial cells detection in urine sediment by light microscopy RARE NRG Crystals detection in urine sediment by light microscopy NONE NRG Casts detection in urine sediment by light microscopy NONE NRG Mucus detection in urine sediment by light microscopy NEGATIVE NRG Complete urinalysis with reflex to culture YES NRG Bacterial urine culture - 09/01/16 13:00 Bacterial urine culture [id number] NRG COLONY COUNT <10,000 NRG FTX;REPORTABLE SENSITIVITY REPORTED 09/03/16 7:05 NRG Bacterial susceptibility panel - 09/01/16 13:00 Gentamicin susceptibility test by minimum inhibitory concentration S NRG Vancomycin susceptibility test by minimum inhibitory concentration 1 NRG Levofloxacin susceptibility test by minimum inhibitory concentration 0.5 NRG Tetracycline susceptibility test by minimum inhibitory concentration <= NRG Ampicillin susceptibility test by minimum inhibitory concentration < = NRG Nitrofurantoin susceptibility test by minimum inhibitory concentration <= NRG Linezolid susceptibility test by minimum inhibitory concentration 2 NRG Complete blood count (CBC) with automated white blood cell (WBC) differential - 09/01/16 16:30 Blood leukocytes automated count (number/volume) 6.8 10*3/uL 4.3-11.0 Blood erythrocytes automated count (number/volume) 3.47 10*6/uL 4.35-5.85 Venous blood hemoglobin measurement (mass/volume) 9.7 g/dL 13.3-17.7 Blood hematocrit (volume fraction) 30 % 40-54 Automated erythrocyte mean corpuscular volume 88 [foz_us] 80-99 Automated erythrocyte mean corpuscular hemoglobin (mass per erythrocyte) 28 pg 25-34 Automated erythrocyte mean corpuscular hemoglobin concentration measurement ( mass/volume) 32 g/dL 32-36 Automated erythrocyte distribution width ratio 15.6 % 10.0-14.5 Automated blood platelet count (count/volume) 324 10*3/uL 130-400 Automated blood platelet mean volume measurement 9.3 [foz_us] 7.4-10.4 Automated blood neutrophils/100 leukocytes 75 % 42-75 Automated blood lymphocytes/100 leukocytes 10 % 12-44 Blood monocytes/100 leukocytes 11 % 0-12 Automated blood eosinophils/100 leukocytes 4 % 0-10 Automated blood basophils/100 leukocytes 0 % 0-10 Blood neutrophils automated count (number/volume) 5.1 10*3 1.8-7.8 Blood lymphocytes automated count (number/volume) 0.7 10*3 1.0-4.0 Blood monocytes automated count (number/volume) 0.8 10*3 0.0-1.0 Automated eosinophil count 0.2 10*3/uL 0.0-0.3 Automated blood basophil count (count/volume) 0.0 10*3/uL 0.0-0.1 Whole blood basic metabolic panel - 09/01/16 16:30 Serum or plasma sodium measurement (moles/volume) 142 mmol/L 135-145 Serum or plasma potassium measurement (moles/volume) 4.3 mmol/L 3.6-5.0 Serum or plasma chloride measurement (moles/volume) 108 mmol/L 98-107 Carbon dioxide 24 mmol/L 21-32 Serum or plasma anion gap determination (moles/volume) 10 mmol/L 5-14 Serum or plasma urea nitrogen measurement (mass/volume) 44 mg/dL 7-18 Serum or plasma creatinine measurement (mass/volume) 2.01 mg/dL 0.60-1.30 Serum or plasma urea nitrogen/creatinine mass ratio 22 NRG Serum or plasma creatinine measurement with calculation of estimated glomerular filtration rate 32 NRG Serum or plasma glucose measurement (mass/volume) 131 mg/dL 70-105 Serum or plasma calcium measurement (mass/volume) 8.3 mg/dL 8.5-10.1 Complete blood count (CBC) with automated white blood cell (WBC) differential - 09/02/16 06:07 Blood leukocytes automated count (number/volume) 6.1 10*3/uL 4.3-11.0 Blood erythrocytes automated count (number/volume) 3.68 10*6/uL 4.35-5.85 Venous blood hemoglobin measurement (mass/volume) 10.2 g/dL 13.3-17.7 Blood hematocrit (volume fraction) 32 % 40-54 Automated erythrocyte mean corpuscular volume 88 [foz_us] 80-99 Automated erythrocyte mean corpuscular hemoglobin (mass per erythrocyte) 28 pg 25-34 Automated erythrocyte mean corpuscular hemoglobin concentration measurement ( mass/volume) 32 g/dL 32-36 Automated erythrocyte distribution width ratio 15.5 % 10.0-14.5 Automated blood platelet count (count/volume) 371 10*3/uL 130-400 Automated blood platelet mean volume measurement 9.5 [foz_us] 7.4-10.4 Automated blood neutrophils/100 leukocytes 73 % 42-75 Automated blood lymphocytes/100 leukocytes 11 % 12-44 Blood monocytes/100 leukocytes 10 % 0-12 Automated blood eosinophils/100 leukocytes 6 % 0-10 Automated blood basophils/100 leukocytes 0 % 0-10 Blood neutrophils automated count (number/volume) 4.5 10*3 1.8-7.8 Blood lymphocytes automated count (number/volume) 0.6 10*3 1.0-4.0 Blood monocytes automated count (number/volume) 0.6 10*3 0.0-1.0 Automated eosinophil count 0.4 10*3/uL 0.0-0.3 Automated blood basophil count (count/volume) 0.0 10*3/uL 0.0-0.1 Comprehensive metabolic panel - 09/02/16 06:07 Serum or plasma sodium measurement (moles/volume) 143 mmol/L 135-145 Serum or plasma potassium measurement (moles/volume) 3.8 mmol/L 3.6-5.0 Serum or plasma chloride measurement (moles/volume) 107 mmol/L 98-107 Carbon dioxide 24 mmol/L 21-32 Serum or plasma anion gap determination (moles/volume) 12 mmol/L 5-14 Serum or plasma urea nitrogen measurement (mass/volume) 41 mg/dL 7-18 Serum or plasma creatinine measurement (mass/volume) 2.03 mg/dL 0.60-1.30 Serum or plasma urea nitrogen/creatinine mass ratio 20 NRG Serum or plasma creatinine measurement with calculation of estimated glomerular filtration rate 31 NRG Serum or plasma glucose measurement (mass/volume) 117 mg/dL 70-105 Serum or plasma calcium measurement (mass/volume) 8.5 mg/dL 8.5-10.1 Serum or plasma total bilirubin measurement (mass/volume) 0.4 mg/dL 0.1-1.0 Serum or plasma alkaline phosphatase measurement (enzymatic activity/volume) 53 U/L 40-136 Serum or plasma aspartate aminotransferase measurement (enzymatic activity/ volume) 27 U/L 5-34 Serum or plasma alanine aminotransferase measurement (enzymatic activity/volume ) 6 U/L 0-55 Serum or plasma protein measurement (mass/volume) 5.9 g/dL 6.4-8.2 Serum or plasma albumin measurement (mass/volume) 2.8 g/dL 3.2-4.5 Complete blood count (CBC) with automated white blood cell (WBC) differential - 09/03/16 05:23 Blood leukocytes automated count (number/volume) 6.0 10*3/uL 4.3-11.0 Blood erythrocytes automated count (number/volume) 3.22 10*6/uL 4.35-5.85 Venous blood hemoglobin measurement (mass/volume) 9.0 g/dL 13.3-17.7 Blood hematocrit (volume fraction) 29 % 40-54 Automated erythrocyte mean corpuscular volume 89 [foz_us] 80-99 Automated erythrocyte mean corpuscular hemoglobin (mass per erythrocyte) 28 pg 25-34 Automated erythrocyte mean corpuscular hemoglobin concentration measurement ( mass/volume) 32 g/dL 32-36 Automated erythrocyte distribution width ratio 15.8 % 10.0-14.5 Automated blood platelet count (count/volume) 364 10*3/uL 130-400 Automated blood platelet mean volume measurement 9.4 [foz_us] 7.4-10.4 Automated blood neutrophils/100 leukocytes 65 % 42-75 Automated blood lymphocytes/100 leukocytes 15 % 12-44 Blood monocytes/100 leukocytes 12 % 0-12 Automated blood eosinophils/100 leukocytes 9 % 0-10 Automated blood basophils/100 leukocytes 0 % 0-10 Blood neutrophils automated count (number/volume) 3.9 10*3 1.8-7.8 Blood lymphocytes automated count (number/volume) 0.9 10*3 1.0-4.0 Blood monocytes automated count (number/volume) 0.7 10*3 0.0-1.0 Automated eosinophil count 0.5 10*3/uL 0.0-0.3 Automated blood basophil count (count/volume) 0.0 10*3/uL 0.0-0.1 Comprehensive metabolic panel - 09/03/16 05:23 Serum or plasma sodium measurement (moles/volume) 142 mmol/L 135-145 Serum or plasma potassium measurement (moles/volume) 4.2 mmol/L 3.6-5.0 Serum or plasma chloride measurement (moles/volume) 109 mmol/L 98-107 Carbon dioxide 25 mmol/L 21-32 Serum or plasma anion gap determination (moles/volume) 8 mmol/L 5-14 Serum or plasma urea nitrogen measurement (mass/volume) 45 mg/dL 7-18 Serum or plasma creatinine measurement (mass/volume) 1.93 mg/dL 0.60-1.30 Serum or plasma urea nitrogen/creatinine mass ratio 23 NRG Serum or plasma creatinine measurement with calculation of estimated glomerular filtration rate 33 NRG Serum or plasma glucose measurement (mass/volume) 118 mg/dL 70-105 Serum or plasma calcium measurement (mass/volume) 8.1 mg/dL 8.5-10.1 Serum or plasma total bilirubin measurement (mass/volume) 0.3 mg/dL 0.1-1.0 Serum or plasma alkaline phosphatase measurement (enzymatic activity/volume) 48 U/L 40-136 Serum or plasma aspartate aminotransferase measurement (enzymatic activity/ volume) 27 U/L 5-34 Serum or plasma alanine aminotransferase measurement (enzymatic activity/volume ) 6 U/L 0-55 Serum or plasma protein measurement (mass/volume) 5.6 g/dL 6.4-8.2 Serum or plasma albumin measurement (mass/volume) 2.5 g/dL 3.2-4.5 Automated blood complete blood count (hemogram) panel - 09/04/16 05:30 Blood leukocytes automated count (number/volume) 7.7 10*3/uL 4.3-11.0 Blood erythrocytes automated count (number/volume) 3.41 10*6/uL 4.35-5.85 Venous blood hemoglobin measurement (mass/volume) 9.4 g/dL 13.3-17.7 Blood hematocrit (volume fraction) 30 % 40-54 Automated erythrocyte mean corpuscular volume 88 [foz_us] 80-99 Automated erythrocyte mean corpuscular hemoglobin (mass per erythrocyte) 28 pg 25-34 Automated erythrocyte mean corpuscular hemoglobin concentration measurement ( mass/volume) 31 g/dL 32-36 Automated erythrocyte distribution width ratio 15.7 % 10.0-14.5 Automated blood platelet count (count/volume) 439 10*3/uL 130-400 Automated blood platelet mean volume measurement 9.7 [foz_us] 7.4-10.4 Whole blood basic metabolic panel - 09/04/16 05:30 Serum or plasma sodium measurement (moles/volume) 143 mmol/L 135-145 Serum or plasma potassium measurement (moles/volume) 4.6 mmol/L 3.6-5.0 Serum or plasma chloride measurement (moles/volume) 108 mmol/L 98-107 Carbon dioxide 24 mmol/L 21-32 Serum or plasma anion gap determination (moles/volume) 11 mmol/L 5-14 Serum or plasma urea nitrogen measurement (mass/volume) 52 mg/dL 7-18 Serum or plasma creatinine measurement (mass/volume) 2.02 mg/dL 0.60-1.30 Serum or plasma urea nitrogen/creatinine mass ratio 26 NRG Serum or plasma creatinine measurement with calculation of estimated glomerular filtration rate 31 NRG Serum or plasma glucose measurement (mass/volume) 152 mg/dL 70-105 Serum or plasma calcium measurement (mass/volume) 8.4 mg/dL 8.5-10.1 Automated blood complete blood count (hemogram) panel - 09/06/16 05:05 Blood leukocytes automated count (number/volume) 10.5 10*3/uL 4.3-11.0 Blood erythrocytes automated count (number/volume) 3.70 10*6/uL 4.35-5.85 Venous blood hemoglobin measurement (mass/volume) 10.0 g/dL 13.3-17.7 Blood hematocrit (volume fraction) 33 % 40-54 Automated erythrocyte mean corpuscular volume 88 [foz_us] 80-99 Automated erythrocyte mean corpuscular hemoglobin (mass per erythrocyte) 27 pg 25-34 Automated erythrocyte mean corpuscular hemoglobin concentration measurement ( mass/volume) 31 g/dL 32-36 Automated erythrocyte distribution width ratio 15.9 % 10.0-14.5 Automated blood platelet count (count/volume) 516 10*3/uL 130-400 Automated blood platelet mean volume measurement 9.1 [foz_us] 7.4-10.4 Whole blood basic metabolic panel - 09/06/16 06:05 Serum or plasma sodium measurement (moles/volume) 140 mmol/L 135-145 Serum or plasma potassium measurement (moles/volume) 4.0 mmol/L 3.6-5.0 Serum or plasma chloride measurement (moles/volume) 105 mmol/L 98-107 Carbon dioxide 24 mmol/L 21-32 Serum or plasma anion gap determination (moles/volume) 11 mmol/L 5-14 Serum or plasma urea nitrogen measurement (mass/volume) 49 mg/dL 7-18 Serum or plasma creatinine measurement (mass/volume) 1.99 mg/dL 0.60-1.30 Serum or plasma urea nitrogen/creatinine mass ratio 25 NRG Serum or plasma creatinine measurement with calculation of estimated glomerular filtration rate 32 NRG Serum or plasma glucose measurement (mass/volume) 117 mg/dL 70-105 Serum or plasma calcium measurement (mass/volume) 8.4 mg/dL 8.5-10.1 Whole blood basic metabolic panel - 09/08/16 05:25 Serum or plasma sodium measurement (moles/volume) 141 mmol/L 135-145 Serum or plasma potassium measurement (moles/volume) 4.1 mmol/L 3.6-5.0 Serum or plasma chloride measurement (moles/volume) 105 mmol/L 98-107 Carbon dioxide 26 mmol/L 21-32 Serum or plasma anion gap determination (moles/volume) 10 mmol/L 5-14 Serum or plasma urea nitrogen measurement (mass/volume) 50 mg/dL 7-18 Serum or plasma creatinine measurement (mass/volume) 2.14 mg/dL 0.60-1.30 Serum or plasma urea nitrogen/creatinine mass ratio 23 NRG Serum or plasma creatinine measurement with calculation of estimated glomerular filtration rate 29 NRG Serum or plasma glucose measurement (mass/volume) 121 mg/dL 70-105 Serum or plasma calcium measurement (mass/volume) 8.0 mg/dL 8.5-10.1 Complete blood count (CBC) with automated white blood cell (WBC) differential - 09/09/16 05:25 Blood leukocytes automated count (number/volume) 8.0 10*3/uL 4.3-11.0 Blood erythrocytes automated count (number/volume) 3.32 10*6/uL 4.35-5.85 Venous blood hemoglobin measurement (mass/volume) 9.2 g/dL 13.3-17.7 Blood hematocrit (volume fraction) 30 % 40-54 Automated erythrocyte mean corpuscular volume 89 [foz_us] 80-99 Automated erythrocyte mean corpuscular hemoglobin (mass per erythrocyte) 28 pg 25-34 Automated erythrocyte mean corpuscular hemoglobin concentration measurement ( mass/volume) 31 g/dL 32-36 Automated erythrocyte distribution width ratio 16.2 % 10.0-14.5 Automated blood platelet count (count/volume) 544 10*3/uL 130-400 Automated blood platelet mean volume measurement 9.2 [foz_us] 7.4-10.4 Automated blood neutrophils/100 leukocytes 70 % 42-75 Automated blood lymphocytes/100 leukocytes 14 % 12-44 Blood monocytes/100 leukocytes 11 % 0-12 Automated blood eosinophils/100 leukocytes 5 % 0-10 Automated blood basophils/100 leukocytes 0 % 0-10 Blood neutrophils automated count (number/volume) 5.6 10*3 1.8-7.8 Blood lymphocytes automated count (number/volume) 1.2 10*3 1.0-4.0 Blood monocytes automated count (number/volume) 0.8 10*3 0.0-1.0 Automated eosinophil count 0.4 10*3/uL 0.0-0.3 Automated blood basophil count (count/volume) 0.0 10*3/uL 0.0-0.1 Whole blood basic metabolic panel - 09/09/16 05:25 Serum or plasma sodium measurement (moles/volume) 141 mmol/L 135-145 Serum or plasma potassium measurement (moles/volume) 4.3 mmol/L 3.6-5.0 Serum or plasma chloride measurement (moles/volume) 106 mmol/L 98-107 Carbon dioxide 25 mmol/L 21-32 Serum or plasma anion gap determination (moles/volume) 10 mmol/L 5-14 Serum or plasma urea nitrogen measurement (mass/volume) 47 mg/dL 7-18 Serum or plasma creatinine measurement (mass/volume) 2.04 mg/dL 0.60-1.30 Serum or plasma urea nitrogen/creatinine mass ratio 23 NRG Serum or plasma creatinine measurement with calculation of estimated glomerular filtration rate 31 NRG Serum or plasma glucose measurement (mass/volume) 113 mg/dL 70-105 Serum or plasma calcium measurement (mass/volume) 8.2 mg/dL 8.5-10.1 Cyanocobalamin measurement - 09/09/16 05:28 Vitamin B12 449 pg/mL 200-1000 Complete urinalysis with reflex to culture - 09/09/16 09:15 Urine color determination YELLOW NRG Urine clarity determination CLEAR NRG Urine pH measurement by test strip 6 5-9 Specific gravity of urine by test strip 1.010 1.016- 1.022 Urine protein assay by test strip, semi-quantitative 1+ NEGATIVE Urine glucose detection by automated test strip NEGATIVE NEGATIVE Erythrocytes detection in urine sediment by light microscopy NEGATIVE NEGATIVE Urine ketones detection by automated test strip NEGATIVE NEGATIVE Urine nitrite detection by test strip NEGATIVE NEGATIVE Urine total bilirubin detection by test strip NEGATIVE NEGATIVE Urine urobilinogen measurement by automated test strip (mass/volume) NORMAL NORMAL Urine leukocyte esterase detection by dipstick 1+ NEGATIVE Automated urine sediment erythrocyte count by microscopy (number/high power field) RARE NRG Automated urine sediment leukocyte count by microscopy (number/high power field ) [HPF] NRG Bacteria detection in urine sediment by light microscopy NEGATIVE NRG Squamous epithelial cells detection in urine sediment by light microscopy NONE NRG Crystals detection in urine sediment by light microscopy NONE NRG Casts detection in urine sediment by light microscopy NONE NRG Mucus detection in urine sediment by light microscopy NEGATIVE NRG Complete urinalysis with reflex to culture NO NRG Whole blood basic metabolic panel - 01/13/17 10:33 Serum or plasma sodium measurement (moles/volume) 143 mmol/L 135-145 Serum or plasma potassium measurement (moles/volume) 4.4 mmol/L 3.6-5.0 Serum or plasma chloride measurement (moles/volume) 106 mmol/L 98-107 Carbon dioxide 26 mmol/L 21-32 Serum or plasma anion gap determination (moles/volume) 11 mmol/L 5-14 Serum or plasma urea nitrogen measurement (mass/volume) 51 mg/dL 7-18 Serum or plasma creatinine measurement (mass/volume) 2.21 mg/dL 0.60-1.30 Serum or plasma urea nitrogen/creatinine mass ratio 23 NRG Serum or plasma creatinine measurement with calculation of estimated glomerular filtration rate 28 NRG Serum or plasma glucose measurement (mass/volume) 104 mg/dL 70-105 Serum or plasma calcium measurement (mass/volume) 8.7 mg/dL 8.5-10.1 Comprehensive metabolic panel - 03/10/17 09:19 Serum or plasma sodium measurement (moles/volume) 143 mmol/L 135-145 Serum or plasma potassium measurement (moles/volume) 4.7 mmol/L 3.6-5.0 Serum or plasma chloride measurement (moles/volume) 108 mmol/L 98-107 Carbon dioxide 28 mmol/L 21-32 Serum or plasma anion gap determination (moles/volume) 7 mmol/L 5-14 Serum or plasma urea nitrogen measurement (mass/volume) 41 mg/dL 7-18 Serum or plasma creatinine measurement (mass/volume) 2.31 mg/dL 0.60-1.30 Serum or plasma urea nitrogen/creatinine mass ratio 18 NRG Serum or plasma creatinine measurement with calculation of estimated glomerular filtration rate 27 NRG Serum or plasma glucose measurement (mass/volume) 114 mg/dL 70-105 Serum or plasma calcium measurement (mass/volume) 8.8 mg/dL 8.5-10.1 Serum or plasma total bilirubin measurement (mass/volume) 0.4 mg/dL 0.1-1.0 Serum or plasma alkaline phosphatase measurement (enzymatic activity/volume) 56 U/L 40-136 Serum or plasma aspartate aminotransferase measurement (enzymatic activity/ volume) 15 U/L 5-34 Serum or plasma alanine aminotransferase measurement (enzymatic activity/volume ) < U/L 0-55 Serum or plasma protein measurement (mass/volume) 6.4 g/dL 6.4-8.2 Serum or plasma albumin measurement (mass/volume) 3.4 g/dL 3.2-4.5 Lipid 1996 panel - 03/10/17 09:19 Serum or plasma triglyceride measurement (mass/volume) 63 mg/dL <150 Serum or plasma cholesterol measurement (mass/volume) 116 mg/dL < 200 Serum or plasma cholesterol in HDL measurement (mass/volume) 32 mg/ dL 40-60 Cholesterol in LDL [mass/volume] in serum or plasma by direct assay 69 mg/dL 1-129 Serum or plasma cholesterol in VLDL measurement (mass/volume) 13 mg/ dL 5-40 Whole blood basic metabolic panel - 05/18/17 15:25 Serum or plasma sodium measurement (moles/volume) 142 mmol/L 135-145 Serum or plasma potassium measurement (moles/volume) 4.5 mmol/L 3.6-5.0 Serum or plasma chloride measurement (moles/volume) 104 mmol/L 98-107 Carbon dioxide 29 mmol/L 21-32 Serum or plasma anion gap determination (moles/volume) 9 mmol/L 5-14 Serum or plasma urea nitrogen measurement (mass/volume) 62 mg/dL 7-18 Serum or plasma creatinine measurement (mass/volume) 2.47 mg/dL 0.60-1.30 Serum or plasma urea nitrogen/creatinine mass ratio 25 NRG Serum or plasma creatinine measurement with calculation of estimated glomerular filtration rate 25 NRG Serum or plasma glucose measurement (mass/volume) 129 mg/dL 70-105 Serum or plasma calcium measurement (mass/volume) 9.0 mg/dL 8.5-10.1 Complete blood count (CBC) with automated white blood cell (WBC) differential - 06/17/17 09:20 Blood leukocytes automated count (number/volume) 7.1 10*3/uL 4.3-11.0 Blood erythrocytes automated count (number/volume) 3.68 10*6/uL 4.35-5.85 Venous blood hemoglobin measurement (mass/volume) 11.1 g/dL 13.3-17.7 Blood hematocrit (volume fraction) 36 % 40-54 Automated erythrocyte mean corpuscular volume 97 [foz_us] 80-99 Automated erythrocyte mean corpuscular hemoglobin (mass per erythrocyte) 30 pg 25-34 Automated erythrocyte mean corpuscular hemoglobin concentration measurement ( mass/volume) 31 g/dL 32-36 Automated erythrocyte distribution width ratio 15.5 % 10.0-14.5 Automated blood platelet count (count/volume) 273 10*3/uL 130-400 Automated blood platelet mean volume measurement 9.0 [foz_us] 7.4-10.4 Automated blood neutrophils/100 leukocytes 65 % 42-75 Automated blood lymphocytes/100 leukocytes 17 % 12-44 Blood monocytes/100 leukocytes 8 % 0-12 Automated blood eosinophils/100 leukocytes 11 % 0-10 Automated blood basophils/100 leukocytes 0 % 0-10 Blood neutrophils automated count (number/volume) 4.6 10*3 1.8-7.8 Blood lymphocytes automated count (number/volume) 1.2 10*3 1.0-4.0 Blood monocytes automated count (number/volume) 0.5 10*3 0.0-1.0 Automated eosinophil count 0.8 10*3/uL 0.0-0.3 Automated blood basophil count (count/volume) 0.0 10*3/uL 0.0-0.1 Whole blood basic metabolic panel - 11/17/17 15:35 Serum or plasma sodium measurement (moles/volume) 141 mmol/L 135-145 Serum or plasma potassium measurement (moles/volume) 4.7 mmol/L 3.6-5.0 Serum or plasma chloride measurement (moles/volume) 107 mmol/L 98-107 Carbon dioxide 27 mmol/L -32 Serum or plasma anion gap determination (moles/volume) 7 mmol/L 5-14 Serum or plasma urea nitrogen measurement (mass/volume) 49 mg/dL 7-18 Serum or plasma creatinine measurement (mass/volume) 2.75 mg/dL 0.60-1.30 Serum or plasma urea nitrogen/creatinine mass ratio 18 NRG Serum or plasma creatinine measurement with calculation of estimated glomerular filtration rate 22 NRG Serum or plasma glucose measurement (mass/volume) 135 mg/dL 70-105 Serum or plasma calcium measurement (mass/volume) 8.5 mg/dL 8.5-10.1 Whole blood basic metabolic panel - 12/07/17 15:30 Serum or plasma sodium measurement (moles/volume) 142 mmol/L 135-145 Serum or plasma potassium measurement (moles/volume) 4.6 mmol/L 3.6-5.0 Serum or plasma chloride measurement (moles/volume) 106 mmol/L 98-107 Carbon dioxide 26 mmol/L -32 Serum or plasma anion gap determination (moles/volume) 10 mmol/L 5-14 Serum or plasma urea nitrogen measurement (mass/volume) 58 mg/dL 7-18 Serum or plasma creatinine measurement (mass/volume) 2.99 mg/dL 0.60-1.30 Serum or plasma urea nitrogen/creatinine mass ratio 19 NRG Serum or plasma creatinine measurement with calculation of estimated glomerular filtration rate 20 NRG Serum or plasma glucose measurement (mass/volume) 158 mg/dL 70-105 Serum or plasma calcium measurement (mass/volume) 8.9 mg/dL 8.5-10.1 Encounters ACCT No. Visit Date/Time Discharge Status Pt. Type Provider Facility Loc./Unit Complaint [id number] 12/28/2017 14:56:00 12/28/2017 23:59:59 CLS Outpatient DALTON IGNACIO Via [facility] [id number] 12/07/2017 15:27:00 12/07/2017 23:59:59 CLS Outpatient INGRID NICOLE DO [facility] LAB [id number] 11/17/2017 15:21:00 11/17/2017 23:59:59 CLS Outpatient INGRID NICOLE DO Via [facility] LAB [id number] 10/05/2017 15:03:00 10/06/2017 00:01:00 DIS Outpatient DALTON IGNACIO Via [facility] ONC [id number] 06/01/2017 14:50:00 08/16/2017 00:01:00 DIS Outpatient INGRID NICOLE DO Via [facility] LAB [id number] 06/17/2017 08:57:00 06/21/2017 00:01:00 DIS Outpatient DALTON IGNACIO Via [facility] ONC [id number] 04/20/2017 11:21:00 04/20/2017 11:21:00 CAN Preadmit DALTON IGNACIO Via [facility] ONC [id number] 03/10/2017 09:07:00 03/19/2017 11:31:00 DIS Outpatient DALTON IGNACIO Via [facility] ONC [id number] 03/10/2017 09:11:00 03/10/2017 23:59:59 CLS Outpatient INGRID NICOLE DO Via [facility] LAB [id number] 01/13/2017 10:21:00 01/13/2017 23:59:59 CLS Outpatient INGRID NICOLE DO Via [facility] LAB [id number] 12/16/2016 11:25:00 12/24/2016 00:01:00 DIS Outpatient DALTON IGNACIO Via [facility] ONC [id number] 10/31/2016 05:35:00 10/31/2016 23:59:59 CLS Outpatient YAMILEX FREEMAN MD Via [facility] PREOP IRON DEF. ANEMIA/ HX POLYPS [id number] 10/27/2016 11:45:00 10/27/2016 23:59:59 CLS Preadmit YAMILEX FREEMAN MD Via [facility] ENDO IRON DEFICIENCY AMEMIA/ HX POLYPS [id number] 09/05/2016 09:56:00 09/11/2016 11:30:00 DIS Inpatient MIKEL ROJO MD Via [facility] IRF PARKINSON'S DISEASE, SEPSIS, UTI [id number] 08/29/2016 15:20:00 09/05/2016 09:55:00 DIS Inpatient INGRID NICOLE DO Via [facility] 4TH UTI,SEVERE SEPSIS [id number] 08/22/2016 08:34:00 08/22/2016 23:59:59 CLS Outpatient INGRID NICOLE DO Via [facility] LAB ANEMIA [id number] 08/20/2016 08:11:00 08/20/2016 23:59:59 CLS Outpatient INGRID NICOLE DO Via [facility] ANEMIA [id number] 09/25/2015 08:53:00 09/25/2015 23:59:59 CLS Outpatient MARCEL BALES MD Via [facility] LAB IRON DEFICIENCY ANEMIA, HYPERTENSIVE CKD, RENAL, [id number] 06/22/2015 00:16:00 06/22/2015 23:59:59 CLS Preadmit MARCEL BALES MD Via [facility] ANEMIA [id number] 03/23/2015 12:53:00 06/21/2015 00:01:00 DIS Outpatient MARCEL BALES MD Via [facility] ANEMIA [id number] 03/27/2015 09:03:00 03/27/2015 23:59:59 CLS Outpatient MARCEL BALES MD Via [facility] LAB CHRONIC KIDNEY DISEASE,VIT D DEF,PROTEINURIA [id number] 03/09/2015 12:49:00 03/21/2015 00:01:00 DIS Outpatient MARCEL BALES MD Via [facility] ANEMIA [id number] 02/23/2015 13:00:00 03/08/2015 00:01:00 DIS Outpatient MARCEL BALES MD Via [facility] ANEMIA [id number] 03/01/2015 00:09:00 03/01/2015 23:59:59 CLS Preadmit MARCEL BALES MD Via [facility] LAB CKD, VIT D DEFICIENCY , ALKALOSIS,ANEMIA [id number] 11/30/2014 08:41:00 02/28/2015 00:01:00 DIS Outpatient MARCEL BALES MD Via [facility] LAB CKD, VIT D DEFICIENCY , ALKALOSIS,ANEMIA [id number] 12/14/2014 09:17:00 12/14/2014 23:59:59 CLS Outpatient SINDY GARCIA FACC, JITENDRA GAINES CCDS Via [facility] CARD CAD CAROTID ARTERY STENOSIS [id number] 11/30/2014 08:36:00 11/30/2014 23:59:59 CLS Outpatient MARCEL BALES MD Via [facility] LAB CKD IV,UT D DEFICIENCY,ALKALOSIS,RENAL OSTEODYSTRO [id number] 08/24/2014 16:00:00 11/20/2014 00:01:00 DIS Outpatient MARCEL BALES MD Via [facility] LABNPT CKD, VIT D DEFICIENCY, ALKALOSIS,ANEMIA [id number] 10/24/2014 07:05:00 10/24/2014 11:35:00 DIS [facility] [id number] 10/16/2014 12:34:00 10/16/2014 23:59:59 CLS Outpatient CATRACHITO PRUETT MD Via [facility] PREOP BLADDER NECK CONTRACTURE [id number] 10/06/2014 08:55:00 10/06/2014 23:59:59 CLS Outpatient CATRACHITO PRUETT MD Via [facility] RAD BILATERAL HYDROHEPHROSIS [id number] 09/19/2014 15:41:00 09/19/2014 23:59:59 CLS Outpatient CATRACHITO PRUETT MD Via [facility] RAD BILAT HYDRONEPHROSIS [id number] 09/18/2014 17:27:00 09/18/2014 23:59:59 CLS Outpatient INGRID NICOLE DO [facility] LAB ANEMIA;401;RENAL INSUFFIENCY [id number] 09/06/2014 08:55:00 09/09/2014 13:48:00 DIS Inpatient TA GARCIA, MARIO S Via [facility] ICU CAROTID STENOSIS [id number] 07/06/2014 08:58:00 07/06/2014 23:59:59 CLS Outpatient MARCEL BALES MD Via [facility] LAB CKD,VIT D,UTI,ANEMIA [id number] 12/13/2013 08:18:00 12/13/2013 23:59:59 CLS Outpatient ORACIO RUIZ MD Via [facility] LAB VIT D DIFICIENCY, ALKALOSIS,CKD III,RENAL OSTEODYST [id number] 10/03/2013 08:38:00 10/03/2013 23:59:59 CLS Outpatient ORACIO RUIZ MD Via [facility] LAB CHRONIC KIDNEY DISEASE [id number] 09/12/2013 08:40:00 09/12/2013 23:59:59 CLS Outpatient MARCEL BALES MD Via [facility] LAB UNSP VIT D DEF, ANEMIA ,PROTENUIRA [id number] 08/02/2013 11:15:00 08/02/2013 23:59:59 CLS Outpatient INGRID NICOLE DO Via [facility] LAB MED CHECK [id number] 07/19/2013 09:12:00 07/19/2013 23:59:59 CLS Outpatient ORACIO RUIZ MD Via [facility] LAB VIT D DEF,CKD,UTI, ANEMIA, HTN, [id number] 03/28/2013 09:39:00 03/28/2013 23:59:59 CLS Outpatient ORACIO RUIZ MD Via [facility] LAB RENAL ASTRDOSTROPHY [id number] 10/21/2012 10:30:00 10/21/2012 23:59:59 CLS Outpatient ORACIO RUIZ MD Via [facility] LAB CKD III, [id number] 09/18/2014 17:28:00 Document Registration [id number] 09/18/2014 17:27:00 Document Registration [id number] 09/18/2014 17:27:00 Document Registration [id number] 09/18/2014 17:27:00 Document Registration [id number] 09/18/2014 17:27:00 Document Registration [id number] 09/18/2014 17:27:00 Document Registration [id number] 09/18/2014 17:27:00 Document Registration [id number] 09/04/2014 10:25:00 Document Registration [id number] 09/04/2014 09:00:00 Document Registration [id number] 09/30/2012 11:14:00 Document Registration [id number] 09/22/2012 00:00:00 Document Registration [id number] 09/09/2012 07:33:00 Document Registration [id number] 08/30/2012 00:00:00 Document Registration [id number] 08/09/2012 13:04:00 Document Registration [id number] 06/23/2012 00:00:00 Document Registration [id number] 05/31/2012 11:10:00 Document Registration [id number] 05/17/2012 13:04:00 Document Registration [id number] 05/05/2012 08:40:00 Document Registration [id number] 04/30/2012 09:52:00 Document Registration [id number] 04/26/2012 12:33:00 Document Registration [id number] 04/19/2012 13:52:00 Document Registration [id number] 03/24/2012 14:25:00 Document Registration [id number] 03/11/2012 00:00:00 Document Registration [id number] 02/17/2012 08:17:00 Document Registration [id number] 12/22/2011 09:04:00 Document Registration [id number] 12/11/2011 09:42:00 Document Registration [id number] 12/11/2011 09:34:00 Document Registration [id number] 12/08/2011 08:33:00 Document Registration [id number] 12/05/2011 10:47:00 Document Registration [id number] 11/19/2011 09:45:00 Document Registration [id number] 11/13/2011 14:12:00 Document Registration [id number] 11/06/2011 12:46:00 Document Registration [id number] 10/24/2011 09:08:00 Document Registration [id number] 10/20/2011 09:05:00 Document Registration [id number] 10/17/2011 08:30:00 Document Registration [id number] 10/15/2010 09:32:00 Document Registration [id number] 08/29/2010 08:56:00 Document Registration [id number] 04/11/2010 08:46:00 Document Registration [id number] 10/08/2009 08:48:00 Document Registration [id number] 10/04/2009 07:59:00 Document Registration
--- NOTE | 2018-02-01 20:02 | Diagnostic Imaging Report ---
PROCEDURE: CT abdomen and pelvis without contrast. TECHNIQUE: Multiple contiguous axial images were obtained through the abdomen and pelvis without the use of intravenous contrast. INDICATION: Left upper quadrant pain and abdominal pain There are no prior CT examinations available for comparison. Images through the low pelvis do show that there is a gas-filled segment of bowel extending into the left inguinal canal and scrotum. This segment of the bowel is not included in its entirety but it may be well within the scrotum. I do suspect that this portion of the bowel is incarcerated and there may be partial obstruction of the small bowel. If further evaluation is desired, then a contrast small bowel exam would be recommended. The kidneys are difficult to assess as there appear to be multiple cysts arising from both kidneys, particularly on the right. 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 The right ureter does seem to be dilated but there is no sign of obstructive calculus. There is some distortion of the perinephric fat on the right and the possibility that there is an element of pyelonephritis should be considered. If possible, followup CT exam with intravenous contrast would be recommended to better evaluate the kidneys, particularly the right kidney. The urinary bladder itself is filled with gas. There also appears to be a Boyle catheter in place. The prostate gland does not appear to be enlarged. There is a fecal impaction present. The appendix was not well visualized. The liver is unremarkable for an acute abnormality. There is a 2.1 CM cyst in the left lobe of the liver. The spleen, pancreas, adrenals, gallbladder, aorta and inferior vena cava show no sign of an acute abnormality. The stomach is not well-distended and consequently difficult to assess. There is mild bibasilar atelectasis/infiltrate. 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 There also appear to be mild compression deformities of T12, L1 and L2. These injuries are most likely subacute or chronic in nature. If further study is desired, then MRI would be recommended. IMPRESSION: 1. A segment of small bowel has extended into the left inguinal canal and most likely into the scrotum. This portion of the bowel is incarcerated and there may be partial obstruction of the bowel as well. Recommendations as above. 2. The kidneys are difficult to evaluate as there appear to be multiple cysts associated with both kidneys. 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 Recommendations as above. 3. There is bibasilar pneumonia/atelectasis. 4. 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 5. These results were discussed with Dr. Mo Quintero. Dictated by: Dictated on workstation # [id number]
--- OUTSIDE RECORDS SUMMARY | 2018-02-01 21:43 | XMS REPORT | Continuity of Care Document ---
Author Author [facility] Organization [facility] Address Unknown Phone Unavailable Allergies Active Description Code Type Severity Reaction Onset Reported/Identified Relationship to Patient Clinical Status Yes NKANo Known Allergies NKA Miscellaneous Allergy Unknown N/A 09/17/2006 Yes IV DYE IV DYE Mild KIDNEY DAMAGE 01/08/2012 Yes NSAIDS NSAIDS Mild KIDNEY DAMAGE 01/08/2012 Yes sulfamethoxazole [id number] Drug Allergy Mild KIDNEY DAMAGE 08/29/2016 Yes trimethoprim [id number] Drug Allergy Mild KIDNEY DAMAGE 08/29/2016 Yes lactose [id number] Drug Allergy Unknown N/A 08/29/2016 Yes milk [id number] Drug Allergy Unknown N/A 08/29/2016 Medications There [...] GARCIA, AHPRINCE S Ot 588.0 07/31/2014 AMAIRANI GARCIA, AHPRINCE S Ot 599.0 07/31/2014 AMAIRANI GARCIA, [...] GARCIA, MARIO Gonsalez Ot 427.81 09/09/2014 TA GARCIA, MARIO Gonsalez Ot 433.10 09/09/2014 TA GARCIA, [...] MARIO Gonsalez Ot 414.01 CORONARY ATHEROSCLEROSIS OF [place] CORON 09/09/2014 TA GARCIA, MARIO Gonsalez Ot 414.8 CHR ISCHEMIC HRT DIS NEC 09/09/2014 TA GARCIA, MARIO Gonsalez Ot 416.8 CHR PULMON HEART DIS NEC 09/09/2014 TA GARCIA, MARIO Gonsalez Ot 425.4 09/09/2014 TA GARCIA, MARIO Gonsalez Ot 427.81 SINOATRIAL NODE DYSFUNCT 09/09/2014 TA GARCIA, MARIO Gonsalez Ot 433.10 CAROTID ARTERY OCCLUSION W [...] 09/18/2014 ORACIO RUIZ MD Ot 585.3 09/18/2014 [facility] , ORACIO A Ot 588.0 09/18/2014 [facility] , ORACIO A Ot 599.0 09/18/2014 [facility] , ORACIO A Ot 791.0 09/18/2014 JOSEPH , ORACIO A Ot 285.21 09/18/2014 JOSEPH , ORACIO A Ot 403.90 09/18/2014 JOSEPH , ORACIO A Ot 585.4 09/18/2014 [facility] , ORACIO A Ot 588.0 09/18/2014 [facility] , ORACIO A Ot 599.0 09/18/2014 [facility] , ORACIO A Ot 791.0 09/18/2014 [facility] , ORACIO A Ot 268.9 09/18/2014 [facility] , ORACIO A Ot 276.3 09/18/2014 [facility] , ORACIO A Ot 285.21 09/18/2014 [facility] , ORACIO A Ot 403.90 09/18/2014 [facility] , ORACIO A Ot 585.3 09/18/2014 [facility] , ORACIO A Ot 588.0 09/18/2014 [facility] , ORACIO A Ot 599.0 09/18/2014 [facility] , ORACIO A Ot 791.0 09/18/2014 [...] AMAIRANI GARCIA, MED S Ot 791.0 09/18/2014 [facility] , ORACIO A Ot 268.9 09/18/2014 [facility] , ORACIO A Ot 276.3 09/18/2014 [facility] , ORACIO A Ot 285.21 09/18/2014 [facility] , ORACIO A Ot 403.90 09/18/2014 [facility] , ORACIO A Ot 585.4 09/18/2014 [facility] , ORACIO A Ot 588.0 09/18/2014 [facility] , ORACIO A Ot 599.0 09/18/2014 [facility] , ORACIO A Ot 791.0 09/18/2014 [facility] , ORACIO A Ot 268.9 09/18/2014 [facility] , ORACIO A Ot 276.3 09/18/2014 [facility] , ORACIO A Ot 285.21 09/18/2014 [facility] , ORACIO A Ot 403.90 09/18/2014 [facility] , ORACIO A Ot 585.3 09/18/2014 [facility] , ORACIO A Ot 588.0 09/18/2014 [facility] , ORACIO A Ot 599.0 09/18/2014 [facility] , ORACIO A Ot 791.0 09/18/2014 [...] 09/19/2014 ORACIO RUIZ MD Ot 588.0 09/19/2014 [facility] , ORACIO A Ot 599.0 09/19/2014 [facility] , ORACIO A Ot 791.0 09/19/2014 [facility] , ORACIO A Ot 285.21 09/19/2014 [facility] , ORACIO A Ot 403.90 09/19/2014 [facility] , ORACIO A Ot 585.4 09/19/2014 [facility] , ORACIO A Ot 588.0 09/19/2014 [facility] , ORACIO A Ot 599.0 09/19/2014 [facility] , ORACIO A Ot 791.0 09/19/2014 [facility] , ORACIO A Ot 268.9 09/19/2014 [facility] , ORACIO A Ot 276.3 09/19/2014 [facility] , ORACIO A Ot 285.21 09/19/2014 [facility] , ORACIO A Ot 403.90 09/19/2014 [facility] , ORACIO A Ot 585.3 09/19/2014 [facility] , ORACIO A Ot 588.0 09/19/2014 [facility] , ORACIO A Ot 599.0 09/19/2014 [facility] , ORACIO Clement Ot 791.0 09/19/2014 [...] AMAIRANI GARCIA, MED S Ot 791.0 09/19/2014 [facility] , ORACIO Clement Ot 268.9 09/19/2014 [facility] , ORACIO A Ot 276.3 09/19/2014 [facility] , ORACIO A Ot 285.21 09/19/2014 [facility] , ORACIO A Ot 403.90 09/19/2014 [facility] , ORACIO A Ot 585.4 09/19/2014 [facility] , ORACIO A Ot 588.0 09/19/2014 [facility] , ORACIO A Ot 599.0 09/19/2014 [facility] , ORACIO A Ot 791.0 09/19/2014 [facility] , ORACIO A Ot 268.9 09/19/2014 [facility] , ORACIO A Ot 276.3 09/19/2014 [facility] , ORACIO A Ot 285.21 09/19/2014 [facility] , ORACIO A Ot 403.90 09/19/2014 [facility] , ORACIO A Ot 585.3 09/19/2014 [facility] , ORACIO A Ot 588.0 09/19/2014 [facility] , ORACIO A Ot 599.0 09/19/2014 [facility] , ORACIO A Ot 791.0 09/19/2014 [...] INGRID A Ot 593.9 10/18/2014 GELLENDER DO, INGRID A Ot 782.3 10/24/2014 FLYNN GARCIA, CATRACHITO Clement Ot 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 11/10/2014 FLYNN GARCIA, CATRACHITO Clement Ot 591 11/18/2014 FLYNN GARCIA, CATRACHITO A Ot 596.0 11/18/2014 FLYNN GARCIA, CATRACHITO Clement Ot 791.9 11/18/2014 FLYNN GARCIA, CATRACHITO Clement Ot V72.63 11/18/2014 FLYNN GARCIA, CATRACHITO Clement Ot V74.8 11/19/2014 FLYNN GARCIA, CATRACHITO Clement Ot 591 11/20/2014 AMAIRANI GARCIA, MARCLE S Ot 268.9 VITAMIN D DEFICIENCY NOS [...] GARCIA, MED S Ot 285.21 12/13/2014 AMAIRANI AGRCIA, MED S Ot 585.4 12/13/2014 AMAIRANI GARCIA, MED S Ot V58.69 12/15/2014 AMAIRANI GARCIA, MED S Ot 280.9 12/15/2014 AMAIRANI GARCIA, MED S Ot 285.21 12/15/2014 AMAIRANI GARCIA, [facility] S Ot 585.4 12/15/2014 AMAIRANI GARCIA, MED S Ot V58.69 12/15/2014 AMAIRANI GARCIA, MED S Ot 280.9 12/15/2014 AMAIRANI GARCIA, MED S Ot 285.21 12/15/2014 AMAIRANI GARCIA, [facility] S Ot 585.4 12/15/2014 AMAIRANI GARCIA, MED [...] 03/08/2015 AMAIRANI GARCIA, KELECHIMED S Ot V58.69 [facility],CURRENT USE 03/09/2015 AMAIRANI GARCIA, AHPRINCE S Ot [...] 03/21/2015 AMAIRANI GARCIA, AHMED S Ot V58.69 [facility]CURRENT USE 03/23/2015 AMAIRANI GARCIA, AHPRINCE S Ot [...] IN CHRONIC KIDNEY DISEASE 06/21/2015 AMAIRANI GARCIA, MARCEL S Ot N18.4 CHRONIC KIDNEY DISEASE, STAGE 4 (SEVERE) 06/21/2015 AMAIRANI GARCIA, MED S Ot Z79.899 OTHER CORRECTION (CURRENT) DRUG THERAPY 09/26/2015 AMAIRANI GARCIA, MARCEL S Ot D50.9 09/26/2015 AMAIRANI GARCIA, MED S Ot D63.1 09/26/2015 AMAIRANI GARCIA, MED S Ot E55.9 09/26/2015 AMAIRANI [...] Gonsalez Ot I25.10 ATHSCL HEART DISEASE OF [place] CORONARY 10/16/2015 AMAIRANI GARCIA, MARCEL Gonsalez Ot [...] NOS 08/20/2016 Ot 414.01 CORONARY ATHEROSCLEROSIS OF [place] CORON 08/20/2016 Ot 280.9 IRON DEFIC ANEMIA [...] LORENZ MD Ot 588.0 RENAL OSTEODYSTROPHY 08/20/2016 JOSEPHROACIO LORENZ MD Ot 599.0 URIN TRACT INFECTION [...] 08/20/2016 MARCEL BALES MD Ot Z79.899 OTHER CANDLE CUTTER (CURRENT) DRUG THERAPY 08/20/2016 MARCEL BALES MD [...] S Ot I25.10 ATHSCL HEART DISEASE OF [place] CORONARY 08/20/2016 AMAIRANI GARCIA, MARCEL S Ot [...] AMAIRANI GARCIA, AHMED S Ot Z79.899 OTHER CORRECTION (CURRENT) DRUG THERAPY 08/29/2016 Ot 585.9 CHRONIC [...] AMAIRANI GARCIA, MED S Ot Z79.899 OTHER CANDLE CUTTER (CURRENT) DRUG THERAPY 09/01/2016 INGRID NICOLE DO [...] ACUTE CYSTITIS WITHOUT HEMATURIA 09/05/2016 GELLENDER DO, NIGRID Clement Ot R45.1 RESTLESSNESS AND AGITATION 09/05/2016 [...] E Ot I25.10 ATHSCL HEART DISEASE OF [place] CORONARY 09/11/2016 MIKEL ROJO MD E Ot [...] N Ot I25.10 ATHSCL HEART DISEASE OF [place] CORONARY 12/12/2016 MATEUS, BOBAN N Ot I27.2 OTHER SECONDARY PULMONARY HYPERTENSION 12/12/2016 MATEUS, BOBAN N Ot N18.4 CHRONIC KIDNEY DISEASE, STAGE 4 (SEVERE) 12/12/2016 MATEUS, BOBAN N Ot Z79.899 OTHER CANDLE CUTTER (CURRENT) DRUG THERAPY 12/24/2016 MATEUS, BOBAN N Ot D64.9 ANEMIA, UNSPECIFIED 12/24/2016 MATEUS, BOBAN N Ot E78.5 HYPERLIPIDEMIA, UNSPECIFIED 12/24/2016 MATEUS, BOBAN N Ot I12.9 HYPERTENSIVE CHRONIC KIDNEY DISEASE W ST 12/24/2016 MATEUS, BOBAN N Ot I25.10 ATHSCL HEART DISEASE OF [place] CORONARY 12/24/2016 MATEUS, BOBAN N Ot I27.2 OTHER SECONDARY PULMONARY HYPERTENSION 12/24/2016 MATEUS, BOBAN N Ot N18.4 CHRONIC KIDNEY DISEASE, STAGE 4 (SEVERE) 12/24/2016 MATEUS, BOBAN N Ot Z79.899 OTHER CANDLE CUTTER (CURRENT) DRUG THERAPY 12/25/2016 MATEUS, BOBAN N Ot D64.9 ANEMIA, UNSPECIFIED 12/25/2016 MATEUS, BOBAN N Ot E78.5 HYPERLIPIDEMIA, UNSPECIFIED 12/25/2016 MATEUS, BOBAN N Ot I12.9 HYPERTENSIVE CHRONIC KIDNEY DISEASE W ST 12/25/2016 MATEUS, BOBAN N Ot I25.10 ATHSCL HEART DISEASE OF [place] CORONARY 12/25/2016 MATEUS, BOBAN N Ot I27.2 OTHER SECONDARY PULMONARY HYPERTENSION 12/25/2016 MATEUS, BOBAN N Ot N18.4 CHRONIC KIDNEY DISEASE, STAGE 4 (SEVERE) 12/25/2016 MATEUS, BOBAN N Ot Z79.899 OTHER CANDLE CUTTER (CURRENT) DRUG THERAPY 01/01/2017 MATEUS, BOBAN N Ot D64.9 ANEMIA, UNSPECIFIED 01/01/2017 MATEUS, BOBAN N Ot E78.5 HYPERLIPIDEMIA, UNSPECIFIED 01/01/2017 MATEUS, BOBAN N Ot I12.9 HYPERTENSIVE CHRONIC KIDNEY DISEASE W ST 01/01/2017 MATEUS, DALTON N Ot I25.10 ATHSCL HEART DISEASE OF [place] CORONARY 01/01/2017 MATEUS, DALTON N Ot I27.2 OTHER SECONDARY PULMONARY HYPERTENSION 01/01/2017 MATEUS, DALTON N Ot N18.4 CHRONIC KIDNEY DISEASE, STAGE 4 (SEVERE) 01/01/2017 MATEUS, DALTON N Ot Z79.899 OTHER CORRECTION (CURRENT) DRUG THERAPY 01/14/2017 GELLENDER DO, INGRID [...] N Ot I25.10 ATHSCL HEART DISEASE OF [place] CORONARY 02/17/2017 MATEUS, DALTON N Ot I27.2 OTHER SECONDARY PULMONARY HYPERTENSION 02/17/2017 MATEUSDALTON N Ot N18.4 CHRONIC KIDNEY DISEASE, STAGE 4 (SEVERE) 02/17/2017 MATEUSDALTON N Ot Z79.899 OTHER CANDLE CUTTER (CURRENT) DRUG THERAPY 03/19/2017 MATEUS DALTON N Ot D63.1 ANEMIA IN CHRONIC KIDNEY DISEASE 03/19/2017 MATEUSDALTON N Ot E78.5 HYPERLIPIDEMIA, UNSPECIFIED 03/19/2017 MATEUSDALTON N Ot I12.9 HYPERTENSIVE CHRONIC KIDNEY DISEASE W ST 03/19/2017 MATEUSDALTON N Ot I25.10 ATHSCL HEART DISEASE OF [place] CORONARY 03/19/2017 MATEUSDALTON N Ot I27.2 OTHER SECONDARY PULMONARY HYPERTENSION 03/19/2017 MATEUSDALTON HASKINS N Ot N18.4 CHRONIC KIDNEY DISEASE, STAGE 4 (SEVERE) 03/19/2017 MATEUSDALTON N Ot Z79.899 OTHER CANDLE CUTTER (CURRENT) DRUG THERAPY 04/03/2017 GELLENDER DO, INGRID [...] N Ot I25.10 ATHSCL HEART DISEASE OF [place] CORONARY 05/15/2017 MATEUS, BOBLAWANDA N Ot I27.20 PULMONARY HYPERTENSION, UNSPECIFIED 05/15/2017 MATEUSDALTON HASKINS N Ot N18.4 CHRONIC KIDNEY DISEASE, STAGE 4 (SEVERE) 05/15/2017 MATEUSDALTON N Ot Z79.899 OTHER CORRECTION (CURRENT) DRUG THERAPY 05/19/2017 GELLENDER DO, INGRID [...] N Ot I25.10 ATHSCL HEART DISEASE OF [place] CORONARY 06/21/2017 MATEUSDALTON N Ot I27.20 PULMONARY HYPERTENSION, UNSPECIFIED 06/21/2017 MATEUSDALTON N Ot N18.4 CHRONIC KIDNEY DISEASE, STAGE 4 (SEVERE) 06/21/2017 MATEUSDALTON N Ot Z79.899 OTHER CORRECTION (CURRENT) DRUG THERAPY 08/14/2017 MATEUSDALTON HASKINS N Ot D63.1 ANEMIA IN CHRONIC KIDNEY DISEASE 08/14/2017 MATEUSJULIANNA HASKINSAN N Ot E78.5 HYPERLIPIDEMIA, UNSPECIFIED 08/14/2017 MATEUS, BOBAN N Ot I12.9 HYPERTENSIVE CHRONIC KIDNEY DISEASE W ST 08/14/2017 MATEUS, BOBAN N Ot I25.10 ATHSCL HEART DISEASE OF [place] CORONARY 08/14/2017 MATEUS, BOBAN N Ot I27.20 PULMONARY HYPERTENSION, UNSPECIFIED 08/14/2017 MATEUS, BOBAN N Ot N18.4 CHRONIC KIDNEY DISEASE, STAGE 4 (SEVERE) 08/14/2017 MATEUS, BOBAN N Ot Z79.899 OTHER CANDLE CUTTER (CURRENT) DRUG THERAPY 08/16/2017 GELLENDER DO, INGRID [...] N Ot I25.10 ATHSCL HEART DISEASE OF [place] CORONARY 10/06/2017 MATEUS, BOBAN N Ot I27.20 PULMONARY HYPERTENSION, UNSPECIFIED 10/06/2017 MATEUS, BOBAN N Ot N18.4 CHRONIC KIDNEY DISEASE, STAGE 4 (SEVERE) 10/06/2017 MATEUS BOBAN N Ot Z79.899 OTHER CANDLE CUTTER (CURRENT) DRUG THERAPY 10/07/2017 MATEUS, BOBAN N Ot D63.1 ANEMIA IN CHRONIC KIDNEY DISEASE 10/07/2017 MATEUS, BOBAN N Ot E78.5 HYPERLIPIDEMIA, UNSPECIFIED 10/07/2017 MATEUS, BOBAN N Ot I12.9 HYPERTENSIVE CHRONIC KIDNEY DISEASE W ST 10/07/2017 MATEUS, BOBAN N Ot I25.10 ATHSCL HEART DISEASE OF [place] CORONARY 10/07/2017 MATEUS, BOBAN N Ot I27.20 PULMONARY HYPERTENSION, UNSPECIFIED 10/07/2017 MATEUS, BOBAN N Ot N18.4 CHRONIC KIDNEY DISEASE, STAGE 4 (SEVERE) 10/07/2017 MATEUSDALTON N Ot Z79.899 OTHER CORRECTION (CURRENT) DRUG THERAPY 10/26/2017 MATEUS, BOBLAWANDA N Ot D63.1 ANEMIA IN CHRONIC KIDNEY DISEASE 10/26/2017 MATEUS, BOBAN N Ot E78.5 HYPERLIPIDEMIA, UNSPECIFIED 10/26/2017 MATEUS, BOBAN N Ot I12.9 HYPERTENSIVE CHRONIC KIDNEY DISEASE W ST 10/26/2017 MATEUS, BOBAN N Ot I25.10 ATHSCL HEART DISEASE OF [place] CORONARY 10/26/2017 MATEUS, BOBAN N Ot I27.20 PULMONARY HYPERTENSION, UNSPECIFIED 10/26/2017 MATEUS, BOBAN N Ot N18.4 CHRONIC KIDNEY DISEASE, STAGE 4 (SEVERE) 10/26/2017 MATEUS, BOBAN N Ot Z79.899 OTHER CANDLE CUTTER (CURRENT) DRUG THERAPY 10/27/2017 MATEUS BOBLAWANDA N Ot D63.1 ANEMIA IN CHRONIC KIDNEY DISEASE 10/27/2017 MATEUS, BOBAN N Ot E78.5 HYPERLIPIDEMIA, UNSPECIFIED 10/27/2017 MATEUS, BOBAN N Ot I12.9 HYPERTENSIVE CHRONIC KIDNEY DISEASE W ST 10/27/2017 MATEUS, BOBAN N Ot I25.10 ATHSCL HEART DISEASE OF [place] CORONARY 10/27/2017 MATEUS, BOBAN N Ot I27.20 PULMONARY HYPERTENSION, UNSPECIFIED 10/27/2017 MATEUS, BOBAN N Ot N18.4 CHRONIC KIDNEY DISEASE, STAGE 4 (SEVERE) 10/27/2017 MATEUS, BOBAN N Ot Z79.899 OTHER CORRECTION (CURRENT) DRUG THERAPY 11/18/2017 INGRID NICOLE DO Ot N28.9 DISORDER OF KIDNEY AND URETER, UNSPECIFI 12/07/2017 Ot 593.9 RENAL URETERAL DIS NOS 12/07/2017 Ot 599.0 URIN TRACT INFECTION NOS 12/07/2017 Ot 272.4 HYPERLIPIDEMIA NEC/NOS 12/07/2017 Ot 401.9 HYPERTENSION NOS 12/07/2017 Ot 414.01 CORONARY ATHEROSCLEROSIS OF [place] CORON 12/07/2017 Ot 280.9 IRON DEFIC ANEMIA [...] A Ot 276.3 ALKALOSIS 12/07/2017 JOSEPH GARCIA ORACIO A Ot 285.21 ANEMIA [...] URINARY TRACT INFECTION, SITE NOT SPECIF 12/07/2017 AMAIRANI GARCIA, AHMED S Ot R80.9 PROTEINURIA, UNSPECIFIED 12/07/2017 AMAIRANI GARCIA, AHMED S Ot D50.9 IRON DEFICIENCY ANEMIA, UNSPECIFIED 12/07/2017 AMAIRANI GARCIA, AHMED S Ot D63.1 ANEMIA IN CHRONIC KIDNEY DISEASE 12/07/2017 AMAIRANI GARCIA, MARCEL S Ot N18.4 CHRONIC KIDNEY DISEASE, STAGE 4 (SEVERE) 12/07/2017 AMAIRANI GARCIA, KELECHIMED S Ot Z79.899 OTHER CANDLE CUTTER (CURRENT) DRUG THERAPY 12/07/2017 AMAIRANI GARCIA, KELECHIMED [...] S Ot I25.10 ATHSCL HEART DISEASE OF [place] CORONARY 12/07/2017 AMAIRANI GARCIA, KELECHIMED S Ot [...] IGNACIO Ot I25.10 ATHSCL HEART DISEASE OF [place] CORONARY 12/07/2017 DALTON IGNACIO Ot I27.20 PULMONARY HYPERTENSION, UNSPECIFIED 12/07/2017 DALTON IGNACIO Ot N18.4 CHRONIC KIDNEY DISEASE, STAGE 4 (SEVERE) 12/07/2017 DALTON IGNACIO Ot Z79.899 OTHER CORRECTION (CURRENT) DRUG THERAPY 12/08/2017 GELLENDER DO, INGRID [...] IGNACIO Ot I25.10 ATHSCL HEART DISEASE OF [place] CORONARY 12/11/2017 DALTON IGNACIO Ot I27.20 PULMONARY HYPERTENSION, UNSPECIFIED 12/11/2017 DALTON IGNACIO Ot N18.4 CHRONIC KIDNEY DISEASE, STAGE 4 (SEVERE) 12/11/2017 DALTON IGNACIO Ot Z79.899 OTHER CANDLE CUTTER (CURRENT) DRUG THERAPY 01/01/2018 GELLENDER INGRID MATHEWS Ot N28.9 DISORDER OF KIDNEY AND URETER, UNSPECIFI Procedures Code Description Performed By Performed On 60.29 OTH TRANSURETHRAL PROSTATECTOMY 04/30/2012 00.40 PROCEDURE ON SINGLE VESSEL 09/06/2014 38.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 09/06/2014 Results Test Result Range RED CELLS LEUKO REDUCED AS1 - 08/20/16 08:38 RED CELLS LEUKO REDUCED AS1 TRANSFUSED 08/20/16 0947 [facility] Blood type T Indirect antibody screen panel - 08/20/16 08:38 ABO+Rh group ABN NRG Transfusion band number [id number] NR Blood group antibody screen NEGATIVE NR [...] LEUKO REDUCED AS1 TRANSFUSED 08/30/16 2138 NR [id number] - 08/29/16 12:59 [id number] SPECIMEN AVAILABLE NR Blood type T Indirect antibody screen panel - 08/29/16 12:59 ABO+Rh group ABN NRG Transfusion band number [id number] NR Blood group antibody screen NEGATIVE NRG [...] culture - 08/29/16 14:20 Bacterial urine culture [id number] NRG COLONY COUNT >100,000/ML NRG FTX;REPORTABLE SENSITIVITY [...] culture - 09/01/16 13:00 Bacterial urine culture [id number] NRG COLONY COUNT <10,000 NRG FTX;REPORTABLE SENSITIVITY [...] Status Pt. Type Provider Facility Loc./Unit Complaint [id number] 12/28/2017 14:56:00 12/28/2017 23:59:59 CLS Outpatient DALTON IGNACIO [facility] [id number] 12/07/2017 15:27:00 12/07/2017 23:59:59 CLS Outpatient INGRID NICOLE DO [facility] [id number] 11/17/2017 15:21:00 11/17/2017 23:59:59 CLS Outpatient INGRID NICOLE DO [facility] [id number] 10/05/2017 15:03:00 10/06/2017 00:01:00 DIS Outpatient DALTON IGNACIO [facility] ONC [id number] 06/01/2017 14:50:00 08/16/2017 00:01:00 DIS Outpatient INGRID NICOLE DO [facility] [id number] 06/17/2017 08:57:00 06/21/2017 00:01:00 DIS Outpatient DALTON IGNACIO [facility] ONC [id number] 04/20/2017 11:21:00 04/20/2017 11:21:00 CAN Preadmit DALTON IGNACIO [facility] ONC [id number] 03/10/2017 09:07:00 03/19/2017 11:31:00 DIS Outpatient DALTON IGNACIO [facility] ONC [id number] 03/10/2017 09:11:00 03/10/2017 23:59:59 CLS Outpatient INGRID NICOLE DO [facility] [id number] 01/13/2017 10:21:00 01/13/2017 23:59:59 CLS Outpatient INGRID NICOLE DO [facility] [id number] 12/16/2016 11:25:00 12/24/2016 00:01:00 DIS Outpatient DALTON IGNACIO [facility] ONC [id number] 10/31/2016 05:35:00 10/31/2016 23:59:59 CLS Outpatient YAMILEX FREEMAN MD [facility] PREOP IRON DEF. ANEMIA/ HX POLYPS [id number] 10/27/2016 11:45:00 10/27/2016 23:59:59 CLS Preadmit YAMILEX FREEMAN MD [facility] ENDO IRON DEFICIENCY AMEMIA/ HX POLYPS [id number] 09/05/2016 09:56:00 09/11/2016 11:30:00 DIS Inpatient MIKEL ROJO MD [facility] IRF PARKINSON'S DISEASE, SEPSIS, UTI [id number] 08/29/2016 15:20:00 09/05/2016 09:55:00 DIS Inpatient INGRID NICOLE DO [facility] 4TH UTI,SEVERE SEPSIS [id number] 08/22/2016 08:34:00 08/22/2016 23:59:59 CLS Outpatient INGRID NICOLE DO [facility] ANEMIA [id number] 08/20/2016 08:11:00 08/20/2016 23:59:59 CLS Outpatient INGRID NICOLE DO [facility] ANEMIA [id number] 09/25/2015 08:53:00 09/25/2015 23:59:59 CLS Outpatient MARCEL BALES MD [facility] LAB IRON DEFICIENCY ANEMIA, HYPERTENSIVE CKD, RENAL, [id number] 06/22/2015 00:16:00 06/22/2015 23:59:59 CLS Preadmit MARCEL BALES MD [facility] ANEMIA [id number] 03/23/2015 12:53:00 06/21/2015 00:01:00 DIS Outpatient MARCEL BALES MD [facility] ANEMIA [id number] 03/27/2015 09:03:00 03/27/2015 23:59:59 CLS Outpatient MARCEL BALES MD [facility] LAB CHRONIC KIDNEY DISEASE,VIT D DEF,PROTEINURIA [id number] 03/09/2015 12:49:00 03/21/2015 00:01:00 DIS Outpatient MARCEL BALES MD [facility] ANEMIA [id number] 02/23/2015 13:00:00 03/08/2015 00:01:00 DIS Outpatient MARCEL BALES MD [facility] ANEMIA [id number] 03/01/2015 00:09:00 03/01/2015 23:59:59 CLS Preadmit MARCEL BALES MD [facility] LAB CKD, VIT D DEFICIENCY , ALKALOSIS,ANEMIA [id number] 11/30/2014 08:41:00 02/28/2015 00:01:00 DIS Outpatient MARCEL BALES MD [facility] LAB CKD, VIT D DEFICIENCY , ALKALOSIS,ANEMIA [id number] 12/14/2014 09:17:00 12/14/2014 23:59:59 CLS Outpatient SINDY GARCIA FACC, JITENDRA GAINES CCDS [facility] CARD CAD CAROTID ARTERY STENOSIS [id number] 11/30/2014 08:36:00 11/30/2014 23:59:59 CLS Outpatient MARCEL BALES MD [facility] LAB CKD IV,UT D DEFICIENCY,ALKALOSIS,RENAL OSTEODYSTRO [id number] 08/24/2014 16:00:00 11/20/2014 00:01:00 DIS Outpatient MARCEL BALES MD [facility] LABNPT CKD, VIT D DEFICIENCY, ALKALOSIS,ANEMIA [id number] 10/24/2014 07:05:00 10/24/2014 11:35:00 DIS [facility] [id number] 10/16/2014 12:34:00 10/16/2014 23:59:59 CLS Outpatient CATRACHITO PRUETT MD [facility] PREOP BLADDER NECK CONTRACTURE [id number] 10/06/2014 08:55:00 10/06/2014 23:59:59 CLS Outpatient CATRACHITO PRUETT MD [facility] RAD BILATERAL HYDROHEPHROSIS [id number] 09/19/2014 15:41:00 09/19/2014 23:59:59 CLS Outpatient CATRACHITO PRUETT MD [facility] RAD BILAT HYDRONEPHROSIS [id number] 09/18/2014 17:27:00 09/18/2014 23:59:59 CLS Outpatient INGRID NICOLE DO [facility] LAB ANEMIA;401;RENAL INSUFFIENCY [id number] 09/06/2014 08:55:00 09/09/2014 13:48:00 DIS Inpatient TA GARCIA, MARIO S [facility] ICU CAROTID STENOSIS [id number] 07/06/2014 08:58:00 07/06/2014 23:59:59 CLS Outpatient MARCEL BALES MD [facility] LAB CKD,VIT D,UTI,ANEMIA [id number] 12/13/2013 08:18:00 12/13/2013 23:59:59 CLS Outpatient ORACIO RUIZ MD [facility] LAB VIT D DIFICIENCY, ALKALOSIS,CKD III,RENAL OSTEODYST [id number] 10/03/2013 08:38:00 10/03/2013 23:59:59 CLS Outpatient ORACIO RUIZ MD [facility] LAB CHRONIC KIDNEY DISEASE [id number] 09/12/2013 08:40:00 09/12/2013 23:59:59 CLS Outpatient MARCEL BALES MD [facility] LAB UNSP VIT D DEF, ANEMIA ,PROTENUIRA [id number] 08/02/2013 11:15:00 08/02/2013 23:59:59 CLS Outpatient INGRID NICOLE DO [facility] LAB MED CHECK [id number] 07/19/2013 09:12:00 07/19/2013 23:59:59 CLS Outpatient ORACIO RUIZ MD [facility] LAB VIT D DEF,CKD,UTI, ANEMIA, HTN, [id number] 03/28/2013 09:39:00 03/28/2013 23:59:59 CLS Outpatient ORACIO RUIZ MD [facility] LAB RENAL ASTRDOSTROPHY [id number] 10/21/2012 10:30:00 10/21/2012 23:59:59 CLS Outpatient ORACIO RUIZ MD [facility] LAB CKD III, [id number] 09/18/2014 17:28:00 Document Registration [id number] 09/18/2014 17:27:00 Document Registration [id number] 09/18/2014 17:27:00 Document Registration [id number] 09/18/2014 17:27:00 Document Registration [id number] 09/18/2014 17:27:00 Document Registration [id number] 09/18/2014 17:27:00 Document Registration [id number] 09/18/2014 17:27:00 Document Registration [id number] 09/04/2014 10:25:00 Document Registration [id number] 09/04/2014 09:00:00 Document Registration [id number] 09/30/2012 11:14:00 Document Registration [id number] 09/22/2012 00:00:00 Document Registration [id number] 09/09/2012 07:33:00 Document Registration [id number] 08/30/2012 00:00:00 Document Registration [id number] 08/09/2012 13:04:00 Document Registration [id number] 06/23/2012 00:00:00 Document Registration [id number] 05/31/2012 11:10:00 Document Registration [id number] 05/17/2012 13:04:00 Document Registration [id number] 05/05/2012 08:40:00 Document Registration [id number] 04/30/2012 09:52:00 Document Registration [id number] 04/26/2012 12:33:00 Document Registration [id number] 04/19/2012 13:52:00 Document Registration [id number] 03/24/2012 14:25:00 Document Registration [id number] 03/11/2012 00:00:00 Document Registration [id number] 02/17/2012 08:17:00 Document Registration [id number] 12/22/2011 09:04:00 Document Registration [id number] 12/11/2011 09:42:00 Document Registration [id number] 12/11/2011 09:34:00 Document Registration [id number] 12/08/2011 08:33:00 Document Registration [id number] 12/05/2011 10:47:00 Document Registration [id number] 11/19/2011 09:45:00 Document Registration [id number] 11/13/2011 14:12:00 Document Registration [id number] 11/06/2011 12:46:00 Document Registration [id number] 10/24/2011 09:08:00 Document Registration [id number] 10/20/2011 09:05:00 Document Registration [id number] 10/17/2011 08:30:00 Document Registration [id number] 10/15/2010 09:32:00 Document Registration [id number] 08/29/2010 08:56:00 Document Registration [id number] 04/11/2010 08:46:00 Document Registration [id number] 10/08/2009 08:48:00 Document Registration [id number] 10/04/2009 07:59:00 Document Registration
[2018-02-01] MEDS ORDERED: LORazepam INJ 2 MG/ML (ATIVAN) VIAL IVP ONE (22:30)
[2018-02-01 23:02] VITALS: BP 114/73
[2018-02-01 23:15] VITALS: BP 139/93
[2018-02-01] MEDS ORDERED: 1/2 NS IV SOLUTION 1,000 ML IV SCH (23:15)
[2018-02-01] MEDS ORDERED: ONDANSETRON 4 MG/2 ML (SDV) Z0FRAN IV PRN (23:15)
[2018-02-01] MEDS ORDERED: AZITHROMYCIN 250 MG/NS 250 ML IVPB IV SCH ×2 (23:15)
[2018-02-01] MEDS ORDERED: LORazepam INJ 2 MG/ML (ATIVAN) VIAL IV PRN (23:15)
[2018-02-01 23:43] VITALS: BP 146/78
[2018-02-02] VITALS (12 sets, daily range): BP systolic 100–141; BP diastolic 54–103
[2018-02-02] MEDS ORDERED: RT-ALBUTEROL SULF 2.5 MG/3 ML PRE-MIX VIAL INH PRN
--- NOTE | 2018-02-02 00:36 | CONSULTATION REPORT ---
DATE OF SERVICE: ATTENDING PRIMARY CARE PHYSICIAN: Dr. Jam Munoz. HISTORY OF PRESENT ILLNESS: The patient is an 87-year-old male who was brought to the Emergency Department by EMS from [facility] with a chief complaint of chest discomfort, blood in the stools as well as abdominal distention and pain. He does not report any nausea, no vomiting as well as no shortness of breath nor any cough or sputum production. He can only give limited history due to his history of dementia. Staff had reported that his behavior had changed more recently and had been eating less and also appeared to be more fatigued. Upon examination, he does have some mild abdominal distention and discomfort; however, no peritoneal signs. He also does have a left inguinal hernia, which appears to be incarcerated; however, no signs of strangulation. He also does have a urinary tract infection, which appears to be significant and associated possibility of a right-sided pyelonephritis. There are bilateral infiltrates of the lungs which may also indicate pneumonia. He is also a full code. It is unsure if he has had a previous colonoscopy or upper endoscopy in the past as well. PAST MEDICAL HISTORY: Dementia, chronic kidney disease, peripheral vascular disease, hypertension, coronary artery disease, Parkinson's disease, vision loss. PAST SURGICAL HISTORY: Transurethral resection of the prostate, carotid endarterectomy, previous left inguinal hernia repair, diabetes. ALLERGIES: BACTRIM IV DYE, NONSTEROIDAL ANTI-INFLAMMATORIES due to chronic kidney disease, LACTOSE. MEDICATIONS: Alprazolam 0.5 mg t.i.d. p.r.n., aspirin 81 mg daily, Eliquis b.i.d., bethanechol 25 mg daily, carbidopa/levodopa 2 tabs t.i.d., furosemide 40 mg every other day, isosorbide mononitrate 60 mg daily, lovastatin 20 mg daily. SOCIAL HISTORY: Negative smoke, negative alcohol. FAMILY HISTORY: Father, diabetes and stroke. Sister, breast cancer. Brother with bladder cancer. VITAL SIGNS: Temperature 99.5, blood pressure 128/98, pulse 104, respirations 18, pulse ox 100% on room air. REVIEW OF SYSTEMS: This is an elderly male who is awake; however, can only give a limited history secondary to his dementia. He does report some chest discomfort; however, no cough or sputum production. Diffuse abdominal pain; however, he also does have epigastric pain and may have a history of gastroesophageal reflux disease. No hematemesis, no coffee ground emesis. History of constipation as well as what staff reports is some episodes of rectal bleeding upon defecation. No copious amounts. No fever, chills; however, he has had some recent behavioral changes and lack of appetite. No recent significant weight loss. PHYSICAL EXAMINATION: CHEST: Few scattered rales and rhonchi bilaterally. HEART: Regular, no murmurs. EXTREMITIES: A +1/3 bilateral lower extremity edema. Negative Homans sign. HEENT: No scleral icterus. No cervical lymphadenopathy. ABDOMEN: Soft, slightly distended. There is a palpable left inguinal hernia with no redness or erythema and mildly tender to palpation. There is also epigastric discomfort upon deep palpation. SKIN: Warm, dry. LABORATORY DATA: WBC 10.8, hemoglobin 9.0, hematocrit 30, platelets 535, potassium 5.1, BUN 54, creatinine 5.40. Liver function enzymes normal. Lipase 51. PTT is 47 with an INR of 1.6. Urine does show positive 3+ leukocyte esterase and white blood cells. A 3+ protein. ASSESSMENT AND PLAN: An 87-year-old male with multiple medical problems. He has a history of Parkinson's disease, dementia as well as other medical comorbidities and general debility. It appears that he does have bilateral basilar pneumonia as well as significant urinary tract infection and possible right-sided pyelonephritis. He also has had epigastric pain, which may indicate a gastroesophageal reflux disease or peptic ulcer disease as well as witness small amounts of red blood per rectum. He also has an incarcerated left inguinal hernia. At this time, we will recommend medical management with antibiotics as well as fluid resuscitation and observe his response to the antibiotics with regards to his pneumonia and pyelonephritis and urinary tract infection. Once this is cleared, and he is stable, we will then proceed with a laparoscopic left inguinal hernia repair with mesh as well as a possible EGD and colonoscopy during the same anesthesia. Job ID: [id number] DocumentID: [id number] Dictated Date: 02/01/2018 21:27:04 Drafting Clerk Date: 02/02/2018 00:35:59 Dictated By: ACACIA FOSTER MD
--- NOTE | 2018-02-02 05:31 | Pulmonary Consultation ---
History of Present Illness History of Present Illness Date of Consultation 02/02/18 05:29 Time Seen by Provider: 05:30 Date of Admission History of Present Illness 87yo poor historian with hx of chronic renal failure, CAD, dementia, decreased appetite, from [facility] presented to ED secondary to CP, decreased MS, and bloody stools. PT was evaluated recently at [facility] and was declared to not be a candidate for HD. Allergies and Home Medications Allergies Coded Allergies: sulfamethoxazole (Verified Allergy, Mild, KIDNEY DAMAGE, 08/29/16) trimethoprim (Verified Allergy, Mild, KIDNEY DAMAGE, 08/29/16) lactose (Verified Allergy, Unknown, 08/29/16) Uncoded Allergies: IV DYE (Allergy, Mild, KIDNEY DAMAGE, 01/08/12) NSAIDS (Allergy, Mild, KIDNEY DAMAGE, 01/08/12) Home Medications Acetaminophen 500 Mg Tablet, 1,000 MG PO TID PRN for MILD PAIN Prescribed by: MIKEL ROJO on 09/11/16 1002 Alprazolam 0.5 Mg Tablet, 0.5 MG PO TID PRN for ANXIETY Prescribed by: MIKEL ROJO on 09/11/16 1002 Aspirin 81 Mg Tablet.dr, 81 MG PO DAILY Prescribed by: MIKEL ROJO on 09/11/16 1002 Bethanechol Chloride 25 Mg Tablet, 25 MG PO ACHS, (Reported) Carbidopa/Levodopa 1 Each Tablet, 2 TAB PO TID, (Reported) Furosemide 40 Mg Tablet, 40 MG PO Q48H, (Reported) needs 08/30/16 Isosorbide Mononitrate 60 Mg Tab, 60 MG PO DAILY, (Reported) Lovastatin 20 Mg Tablet, 20 MG PO HS, (Reported) Menthol/Lanolin/Calamine/Znox 71 Gm Oint, 0 GM TOP BID Prescribed by: MIKEL ROJO on 09/11/16 1002 Past Eavbfwb-Ljrbfq-Zundtg Hx Patient Social History Alcohol Use: Denies Use Recreational Drug Use: No Smoking Status: Never a Smoker Type Used: Cigarettes 2nd Hand Smoke Exposure: No Recent Foreign Travel: No Contact w/Someone Who Travel: No Recent Infectious Disease Expo: No Recent Hopitalizations: No Physical Abuse: No Sexual Abuse: No Immunizations Up To Date Tetanus Booster (TDap): Unknown Date of Pneumonia Vaccine: Jan 20, 2007 Seasonal Allergies Seasonal Allergies: No Past Medical History Surgeries: Yes (POLYPECTOMY x2, TURP, CEA) Respiratory: No Cardiac: Yes Coronary Artery Disease, Hypertension Neurological: Yes Parkinson's Disease Reproductive Disorders: No Sexually Transmitted Disease: No HIV/AIDS: No Genitourinary: Yes Prostate Problems, Renal Failure Gastrointestinal: Yes (LEFT INGUINAL HERNIA) Musculoskeletal: Yes Arthritis Endocrine: Yes ("PREDIABETIC") HEENT: No Loss of Vision: Bilateral Hearing Impairment: Denies Cancer: No Psychosocial: No Nursing Suicide Risk Score: 0 Integumentary: No Blood Disorders: Yes Adverse Reaction/Blood Tranf: No Family Medical History Cardiovascular disease 19 MOTHER Cataracts 19 FATHER Completed stroke 19 FATHER Diabetes mellitus 19 MOTHER G8 BROTHER G8 SISTER FH: cancer G8 BROTHER (bladder) G8 SISTER (breast) No Family History of: AIDS Abdominal aortic aneurysm Alcoholism Alzheimer's disease Arthritis Asthma Cancer of mouth Colon cancer Dementia Drug abuse Glaucoma Hypertension Kidney disease Myocardial infarction Parkinson's disease Psychosocial problem Respiratory disorder Seizure disorder Severe allergy Thyroid disease Review of Systems Time Seen by Provider: 08:37 Sepsis Event Evaluation Height, Weight, BMI Height: 5'10.00" Weight: 150lbs. 6.0oz. 68.808947hh; 21.6 BMI Method:Estimated Exam Exam Vital Signs Date Time Temp Pulse Resp B/P (MAP) Pulse Ox O2 Delivery O2 Flow Rate FiO2 02/02/18 04:00 73 19 136/61 (86) 100 Room Air 02/02/18 03:00 71 21 100/54 (69) 100 Room Air 02/02/18 02:00 91 30 139/103 (115) 100 Room Air 02/02/18 01:00 100 02/02/18 01:00 97 29 141/84 (103) 100 Room Air 02/02/18 00:00 96 11 129/91 (104) 95 Room Air 02/01/18 23:43 104 96 21 02/01/18 23:15 101 16 139/93 (108) 100 Room Air 02/01/18 23:05 101 02/01/18 23:02 100.5 101 15 114/73 (87) 100 Room Air 02/01/18 22:45 99 Room Air 02/01/18 22:09 104 14 146/78 96 Room Air 02/01/18 17:30 99.5 104 18 128/98 (108) 100 Room Air 02/01/18 17:30 99.5 104 18 128/98 (108) 100 Room Air I & O 02/02/18 07:00 Intake Total 250 ml Output Total 650 ml Balance -400 ml Height & Weight Height: 5'10.00" Weight: 150lbs. 6.0oz. 68.856844cg; 21.6 BMI Method:Estimated General Appearance: Mild Distress (unresponsive however occasionally agitated ) HEENT: PERRL/EOMI, Other (MMD) Neck: Full Range of Motion, Non Tender, Supple Respiratory: No Accessory Muscle Use, No Respiratory Distress, Decreased Breath Sounds Cardiovascular: Regular Rate, Rhythm, No Edema, No Gallop Capillary Refill: Less Than 3 Seconds Peripheral Pulses: 1+ Dorsalis Pedis (R), 1+ Left Dors-Pedis (L); 2+ Radial Pulses (R), 2+ Radial Pulses (L) Gastrointestinal: normal bowel sounds, guarding, tenderness (epigastric left upper quadrant) Extremity: Normal Capillary Refill, Normal Inspection Neurologic/Psychiatric: Other (Unresponsive ) Skin: Normal Color, Warm/Dry Lymphatic: No Adenopathy Results Lab Laboratory Tests 02/01/18 17:35 Assessment/Plan Assessment/Plan Acute on chronic renal failure with hyperkalemia, and metabolic lactic acidosis -IVF -Not a candidate for HD Small Bowel Obstruction- with inguinal hernia incarceration per CT scan -Family does not want surgery. - he is not a surgical candidate any ways. Hypernatremia Malnutrition/debility -Has had decreased appetite over 2-3 days Acute dehydration -IVF Hx of Parkinsons Family has been refusing radiology and labs. I had a long conversation with daughter at bedside regarding patients current condition. They would like pt to be discharged with hospice care today if possible. They elected for [facility] and I have called and talked with them to help arrange for discharge. I have also talked with our director of home care hospice, and Dr. Munoz. COFFEE GRINDER is also updated on plan of care which is to [facility]. Total time spent with patient, family, and medical team developing plan of care was 120min. Advance Care discuss with: family member (s) End of Life Care: Comfort Measures, Pallative Care, Hospice (Hospital), Hospice Care (Home) Advance Care Discussion: initiate discussion, clarifying prognosis, identified end-of-life goals, developed treatment plan Time spent on discussion(mins): 120 CHARLEEN HERNANDEZ DO Feb 02, 2018 05:31
--- NOTE | 2018-02-02 07:48 | History & Physicial ---
History of Present Illness History of Present Illness Reason for visit/HPI Patient resident of custodial. According to the nurse at the custodial patient has been having chest pain and diaphoresis. Patient sent out to the emergency room. Patient has renal failure, pneumonia, UTI, and maybe pyelonephritis. Patient fragile. Patient on CAT scan shows inguinal incarceration. Patient this morning unable to communicate. Patient did not talk much last night. Spoke to daughter this morning. She did not accept chest x-ray this morning or blood to be taken. Family wants comfort care.. I agree with comfort care. Dementia Date of Admission Feb 01, 2018 at 21:32 Time Seen by Provider: 07:20 I consulted on this patient on 02/02/18 07:41 Attending Physician Jam Nicole DO Admitting Physician Jam Nicole DO Consult Allergies and Home Medications Allergies Coded Allergies: sulfamethoxazole (Verified Allergy, Mild, KIDNEY DAMAGE, 08/29/16) trimethoprim (Verified Allergy, Mild, KIDNEY DAMAGE, 08/29/16) lactose (Verified Allergy, Unknown, 08/29/16) Uncoded Allergies: IV DYE (Allergy, Mild, KIDNEY DAMAGE, 01/08/12) NSAIDS (Allergy, Mild, KIDNEY DAMAGE, 01/08/12) Home Medications Acetaminophen 500 Mg Tablet, 1,000 MG PO TID PRN for MILD PAIN Prescribed by: MIKEL ROJO on 09/11/16 1002 Alprazolam 0.5 Mg Tablet, 0.5 MG PO TID PRN for ANXIETY Prescribed by: MIKEL ROJO on 09/11/16 1002 Aspirin 81 Mg Tablet.dr, 81 MG PO DAILY Prescribed by: MIKEL ROJO on 09/11/16 1002 Bethanechol Chloride 25 Mg Tablet, 25 MG PO ACHS, (Reported) Carbidopa/Levodopa 1 Each Tablet, 2 TAB PO TID, (Reported) Furosemide 40 Mg Tablet, 40 MG PO Q48H, (Reported) needs 08/30/16 Isosorbide Mononitrate 60 Mg Tab, 60 MG PO DAILY, (Reported) Lovastatin 20 Mg Tablet, 20 MG PO HS, (Reported) Menthol/Lanolin/Calamine/Znox 71 Gm Oint, 0 GM TOP BID Prescribed by: MIKEL ROJO on 09/11/16 1002 Patient Home Medication List Home Medication List Reviewed: No Past Zxsysoa-Axqrea-Dncbll Hx Patient Social History Marrital Status: Employed/Student: retired Alcohol Use: Denies Use Recreational Drug Use: No Smoking Status: Never a Smoker Type Used: Cigarettes 2nd Hand Smoke Exposure: No Physical Abuse Screen: No Sexual Abuse: No Recent Foreign Travel: No Contact w/other who traveled: No Recent Hopitalizations: No Recent Infectious Disease Expo: No Immunizations Up To Date Tetanus Booster (TDap): Unknown Date of Pneumonia Vaccine: Jan 20, 2007 Seasonal Allergies Seasonal Allergies: No Surgeries Yes (POLYPECTOMY x2, TURP, CEA) Respiratory No Cardiovascular Yes Coronary Artery Disease, Hypertension Neurological Yes Parkinson's Disease Reproductive System Hx Reproductive Disorders: No Sexually Transmitted Disease: No HIV/AIDS: No Genitourinary Yes Prostate Problems, Renal Failure Gastrointestinal Yes (LEFT INGUINAL HERNIA) Musculoskeletal Yes Arthritis Endocrine History of Endocrine Disorders: Yes ("PREDIABETIC") HEENT History of HEENT Disorders: No Loss of Vision: Bilateral Hearing Impairment: Denies Cancer No Psychosocial History of Psychiatric Problem: No Integumentary History of Skin or Integumenta: No Blood Transfusions History of Blood Disorders: Yes Adverse Reaction to a Blood Tr: No Family Medical History Family Hx: Cardiovascular disease 19 MOTHER Cataracts 19 FATHER Completed stroke 19 FATHER Diabetes mellitus 19 MOTHER G8 BROTHER G8 SISTER FH: cancer G8 BROTHER (bladder) G8 SISTER (breast) No Family History of: AIDS Abdominal aortic aneurysm Alcoholism Alzheimer's disease Arthritis Asthma Cancer of mouth Colon cancer Dementia Drug abuse Glaucoma Hypertension Kidney disease Myocardial infarction Parkinson's disease Psychosocial problem Respiratory disorder Seizure disorder Severe allergy Thyroid disease Constitutional: malaise, weakness, other (Patient nonresponsive) EENTM: no symptoms reported Respiratory: no symptoms reported Cardiovascular: chest pain Gastrointestinal: abdominal pain (RLQ) Genitourinary: other (Renal failure) Physical Exam Vital Signs Vital Signs - First Documented 02/01/18 23:43 FiO2 21 Capillary Refill : Less Than 3 Seconds Height, Weight, BMI Height: 5'10.00" Weight: 150lbs. 6.0oz. 68.054255gu; 21.6 BMI Method:Estimated General Appearance: No Apparent Distress, Thin Eyes: Bilateral Eye Normal Inspection HEENT: Normal ENT Inspection Respiratory: Lungs Clear, No Accessory Muscle Use, No Respiratory Distress Cardiovascular: Regular Rate, Rhythm Gastrointestinal: Non Tender, Soft Assessment/Plan Assessment and Plan Car serrated hernia. Renal failure. Pneumonia. Coronary artery disease. Hypertension. Dementia. Patient to be comfort care Admission Diagnosis Admission Status: Observation Clinical Quality Measures DVT/VTE Risk/Contraindication: Risk Factor Score Per Nursin RFS Level Per Nursing on Admit: 4+=Very High JAM NICOLE DO Feb 02, 2018 07:47
[2018-02-02] MEDS ORDERED: HYDR-3812 PO (08:27)
[2018-02-02] MEDS ORDERED: APIX2.5T PO (08:27)
[2018-02-02] MEDS ORDERED: CLOT15CR4 TP (08:27)
[2018-02-02] MEDS ORDERED: CEFEPIME INJECTION 500 MG in NS (IVPB) 50 ML IV SCH (22:00)
--- NOTE | 2018-02-04 07:12 | Discharge Summary ---
Diagnosis/Chief Complaint Date of Admission Feb 01, 2018 at 21:32 Date of Discharge Feb 02, 2018 at 13:50 Discharge Time: 07:05 Discharge Diagnosis Chest pain. Renal failure. Elevated lactic acid. Anemia. UTI due to staph aureus. Partial obstruction of small bowel. Pneumonia. Cardiomegaly. CT KUB. Peripheral vascular disease. Dementia. CAD. Parkinson disease Reason Hospital Visit Patient resident of custodial. According to the nurse at the custodial patient has been having chest pain and diaphoresis. Patient sent out to the emergency room. Patient has renal failure, pneumonia, UTI, and maybe pyelonephritis. Patient fragile. Patient on CAT scan shows inguinal incarceration. Patient this morning unable to communicate. Patient did not talk much last night. Spoke to daughter this morning. She did not accept chest x-ray this morning or blood to be taken. Family wants comfort care.. I agree with comfort care. Dementia Discharge Summary Consultations Consult surgery. Consult pulmonology Discharge Physical Examination Allergies: Coded Allergies: sulfamethoxazole (Verified Allergy, Mild, KIDNEY DAMAGE, 08/29/16) trimethoprim (Verified Allergy, Mild, KIDNEY DAMAGE, 08/29/16) lactose (Verified Allergy, Unknown, 08/29/16) Uncoded Allergies: IV DYE (Allergy, Mild, KIDNEY DAMAGE, 01/08/12) NSAIDS (Allergy, Mild, KIDNEY DAMAGE, 01/08/12) Vitals & I&Os Vital Signs Date Time Temp Pulse Resp B/P (MAP) Pulse Ox O2 Delivery O2 Flow Rate FiO2 02/02/18 13:50 54 14 141/68 100 Room Air 02/02/18 12:12 96.1 02/01/18 23:43 21 Hospital Course Family chose to have hospice. Patient sent back to custodial in [place] Labs (last 24 hrs) Laboratory Tests 02/01/18 17:25: Lipase 51 02/01/18 17:35: White Blood Count 10.8, Red Blood Count 3.08L, Hemoglobin 9.0L, Hematocrit 30L, Mean Corpuscular Volume 98, Mean Corpuscular Hemoglobin 29, Mean Corpuscular Hemoglobin Concent 30L, Red Cell Distribution Width 15.0H, Platelet Count 535H, Mean Platelet Volume 9.9, Neutrophils (%) (Auto) 85H, Lymphocytes (%) (Auto) 9L , Monocytes (%) (Auto) 6, Eosinophils (%) (Auto) 0, Basophils (%) (Auto) 0, Neutrophils # (Auto) 9.2H, Lymphocytes # (Auto) 0.9L, Monocytes # (Auto) 0.7, Eosinophils # (Auto) 0.0, Basophils # (Auto) 0.0, Prothrombin Time 19.5H, INR Comment 1.6H, Activated Partial Thromboplast Time 47H, Sodium Level 149H, Potassium Level 5.1H, Chloride Level 117H, Carbon Dioxide Level 19L, Anion Gap 13, Blood Urea Nitrogen 54H, Creatinine 5.40H, Estimat Glomerular Filtration Rate 10, BUN/Creatinine Ratio 10, Glucose Level 135H, Lactic Acid Level 2.04*H, Calcium Level 8.6, Corrected Calcium 9.1, Total Bilirubin 0.4, Aspartate Amino Transf (AST/SGOT) 8, Alanine Aminotransferase (ALT/SGPT) < 6, Alkaline Phosphatase 91, Total Protein 7.2, Albumin 3.4 02/01/18 18:35: Urine Color YELLOW, Urine Clarity VERY CLOUDYH, Urine pH 6.5, Urine Specific [place] 1.010L, Urine Protein 3+H, Urine Glucose (UA) NEGATIVE, Urine Ketones NEGATIVE, Urine Nitrite NEGATIVE, Urine Bilirubin NEGATIVE, Urine Urobilinogen NORMAL, Urine Leukocyte Esterase 3+H, Urine RBC (Auto) 3+H, Urine RBC 5-10H, Urine WBC 50-100H, Urine Squamous Epithelial Cells NONE, Urine Crystals NONE, Urine Bacteria NEGATIVE, Urine Casts NONE, Urine Mucus NEGATIVE, Urine Culture Indicated NO 02/01/18 20:29: Lactic Acid Level 2.08*H Microbiology 02/01/18 Blood Culture - Preliminary, Resulted No growth 02/01/18 MRSA Screen - Final, Complete 02/01/18 Urine Culture - Preliminary, Resulted Staphylococcus aureus Laboratory Tests 02/01/18 17:35 Pending Labs Microbiology Date/Time Source Procedure Growth Status 02/01/18 18:10 Peripheral Rt Hand Blood Culture - Preliminary No growth Resulted 02/01/18 17:35 Peripheral Lt Ac Blood Culture - Preliminary Resulted 02/01/18 23:05 Nasal MRSA Screen - Final Complete 02/01/18 18:35 Urine .er/Not Indicated Urine Culture - Preliminary Staphylococcus aureus Resulted Laboratory Tests 02/01/18 17:25: Lipase 51 02/01/18 17:35: White Blood Count 10.8, Red Blood Count 3.08, Hemoglobin 9.0, Hematocrit 30, Mean Corpuscular Volume 98, Mean Corpuscular Hemoglobin 29, Mean Corpuscular Hemoglobin Concent 30, Red Cell Distribution Width 15.0, Platelet Count 535, Mean Platelet Volume 9.9, Neutrophils (%) (Auto) 85, Lymphocytes (%) (Auto) 9, Monocytes (%) (Auto) 6, Eosinophils (%) (Auto) 0, Basophils (%) (Auto) 0, Neutrophils # (Auto) 9.2, Lymphocytes # (Auto) 0.9, Monocytes # (Auto) 0.7, Eosinophils # (Auto) 0.0, Basophils # (Auto) 0.0, Prothrombin Time 19.5, INR Comment 1.6, Activated Partial Thromboplast Time 47, Sodium Level 149, Potassium Level 5.1, Chloride Level 117, Carbon Dioxide Level 19, Anion Gap 13, Blood Urea Nitrogen 54, Creatinine 5.40, Estimat Glomerular Filtration Rate 10, BUN/Creatinine Ratio 10, Glucose Level 135, Lactic Acid Level 2.04, Calcium Level 8.6, Corrected Calcium 9.1, Total Bilirubin 0.4, Aspartate Amino Transf ( AST/SGOT) 8, Alanine Aminotransferase (ALT/SGPT) < 6, Alkaline Phosphatase 91, Total Protein 7.2, Albumin 3.4 02/01/18 18:35: Urine Color YELLOW, Urine Clarity VERY CLOUDY, Urine pH 6.5, Urine Specific [place] 1.010, Urine Protein 3+, Urine Glucose (UA) NEGATIVE, Urine Ketones NEGATIVE, Urine Nitrite NEGATIVE, Urine Bilirubin NEGATIVE, Urine Urobilinogen NORMAL, Urine Leukocyte Esterase 3+, Urine RBC (Auto) 3+, Urine RBC 5-10, Urine WBC 50-100, Urine Squamous Epithelial Cells NONE, Urine Crystals NONE, Urine Bacteria NEGATIVE, Urine Casts NONE, Urine Mucus NEGATIVE, Urine Culture Indicated NO 02/01/18 20:29: Lactic Acid Level 2.08 Discharge Home Medications: Active Scripts Active Reported Lotrisone Cream (Clotrimazole/Betamethasone Dip) 15 Gm Cream..g. TP Q8H PRN Hydrocodone-Acetamin 5-325 mg (Hydrocodone/Acetaminophen) 1 Each Tablet 1 Tab PO Q4H PRN Eliquis (Apixaban) 2.5 Mg Tablet 2.5 Mg PO BID Isosorbide Mononitrate ER (Isosorbide Mononitrate) 60 Mg Tab 60 Mg PO DAILY Lovastatin 20 Mg Tablet 20 Mg PO HS Carbidopa-Levodopa 25-100 Tab (Carbidopa/Levodopa) 1 Each Tablet 2 Tab PO TID Bethanechol Chloride 25 Mg Tablet 25 Mg PO ACHS Instructions to patient/family Please see electronic discharge instructions given to patient. Clinical Quality Measures DVT/VTE Risk/Contraindication: Risk Factor Score Per Nursin RFS Level Per Nursing on Admit: 4+=Very High INGRID NICOLE DO Feb 04, 2018 07:12
== END 2018-02-02 13:50 | disposition hospice, inpatient (51) | DRG 393 ==
LOC: EDUNIT# 17:29 → ER 17:30 → ICU 21:32
PROVIDERS: ADMIT Family Medicine; ATTEND Family Medicine
DX: K40.30 Unilateral inguinal hernia, with obstruction, without gangrene, not specified as recurrent (principal); J18.9 Pneumonia, unspecified organism; N39.0 Urinary tract infection, site not specified; I12.0 Hypertensive chronic kidney disease with stage 5 chronic kidney disease or end stage renal disease; N18.5 Chronic kidney disease, stage 5; E87.1 Hypo-osmolality and hyponatremia; N17.9 Acute kidney failure, unspecified; Z66 Do not resuscitate; Z51.5 Encounter for palliative care; E46 Unspecified protein-calorie malnutrition; E87.2 Acidosis; E86.0 Dehydration; I25.10 Atherosclerotic heart disease of native coronary artery without angina pectoris; G20 Parkinson's disease; F03.90 Unspecified dementia, unspecified severity, without behavioral disturbance, psychotic disturbance, mood disturbance, and anxiety; I73.9 Peripheral vascular disease, unspecified; R73.03 Prediabetes; R53.81 Other malaise; Z86.718 Personal history of other venous thrombosis and embolism; Z79.01 Long term (current) use of anticoagulants; Z79.82 Long term (current) use of aspirin
CPT/HCPCS: 36415; 71045; 74176; 80053; 81000; 83605; 83690; 85025; 85610; 85730; 87040; 87077; 87081; 87088; 93005